=== PATIENT | female | born 1950 | race Caucasian/White ===

== ENCOUNTER 2020-04-14 21:02 | Inpatient (IN) | payer MEDICARE, OTHER ==
[~2020-04-14 21:02] MED LIST: Adenosine 6 MG/2 ML VIAL ONE; Amiodarone 150 MG/3 ML VIAL ONE
[2020-04-14] MEDS ORDERED: Sodium Chloride 0.9% 1,000 ML IV SCH (23:30)
[2020-04-15] MEDS ORDERED: cloNIDine 0.1 MG TAB PO PRN (00:24)
[2020-04-15] MEDS ORDERED: Guaifenesin DM 100-10/5 ML UDCUP PO PRN (00:24)
[2020-04-15] MEDS ORDERED: Acetaminophen 325 MG TAB PO PRN (00:24)
[2020-04-15] MEDS ORDERED: HYDROcodone/Acetaminophen 5/325 mg Tablet PO PRN (00:24)
[2020-04-15] MEDS ORDERED: Promethazine HCl 12.5 MG in Sodium Chloride 0.9% 50 ML IVPB PRN (00:24)
[2020-04-15] MEDS ORDERED: Sodium Chloride 0.9% 1,000 ML IV SCH ×3 (00:30→15:05)
[2020-04-15] MEDS ORDERED: Lorazepam 2 MG/ML VIAL SLOW IVP PRN (02:24)
[2020-04-15] MEDS ORDERED: Haloperidol Lactate 5 MG/ML VIAL SLOW IVP PRN (02:24)
[2020-04-15 02:58] LABS: Lactic Acid 3.4 mmol/L (0.5-2.2)
--- NOTE | 2020-04-15 03:13 | PDOC.HHP ---
Hospitalist HPI - History of Present Illness Altered mental status History of Present Illness: Patient is a 69 year old male with PMH back pain, HLD, HTN, hypothyroidism, GERD who presents as transfer from [place] for altered mental status. She was reported on scene as paranoid and confused, hypotensive and afebrile. workup there revealed UDS positive for PCP, opiates, amphetamines. Report indicates K2 administrationShe recieved ativan, 4 doses narcan, and finally required ketamine. Labs from outside hospital reviewed, elevated LFTs and acidosis and Cr 4, BUN 84. CK not ordered there. She recieved 3L IVF and is on 150cc NS an hour from ED. She reportedly complained of abdominal pain there which is not present any longer. CT abdomen showed focal ileus at hepatic flexure. On my interview, she is groggy but awake and conversive, likely under residual ketamine effects, slightly tachycardic and paranoid but in no acute distress. Hospitalist ROS - Review of Systems ROS unobtainable: due to mental status - Medication Medications: reviewed Hospitalist History - Past Medical History Other Medical History: back pain, HLD, HTN, hypothyroidism, GERD - Past Surgical History Past Surgical History: reports: Hysterectomy - Family History Other Family History: unknown - Social History Other Social History: drug use per HPI, otherwise unknown - Exam General - other findings: altered mental status Eye: PERRL, anicteric sclera ENT: normocephalic atraumatic, no oropharyngeal lesions, moist mucosa Neck: supple, symmetric, no JVD, no thyromegaly, no lymphadenopathy, no carotid bruit Heart: RRR, no murmur, no gallops, no rubs, normal peripheral pulses Respiratory: CTAB, no wheezes, no rales, no ronchi, normal chest expansion, no tachypnea, normal percussion Gastrointestinal: soft, non-tender, non-distended, normal bowel sounds, no palpable masses, no hepatomegaly, no splenomegaly, no bruit Extremities: no cyanosis, no clubbing, no edema Skin: normal turgor, no lesions, no rashes Neurological: cranial nerve grossly intact, normal sensation to touch, no weakness, no focal deficits, no new deficit Musculoskeletal: normal tone, normal strength, no muscle wasting Psychiatric: not oriented, somnolent Hospitalist Results - Labs Result Diagrams: 04/15/20 02:35 06/05/20 02:35 - EKG Interpretation EKG: sinus tachycardia [address] changes Hospitalist H&P A/P - Plan Plan: Patient is a 69 year old male with PMH back pain, HLD, HTN, hypothyroidism, GERD who presents as transfer from [place] for altered mental status. # altered mental status secondary to polysubstance abuse - PCP in UDS also reports of K2 - admit to floor - monitor closely, transfer if closer care needed - treat as below # acute renal failure - suspect secondary to ATN from dehydration and drug toxicitity or rhabdomyolysis - IVF at 150/hr - follow up CK - repeat labs now - monitor for sepsis signs, no obvious infections - trend nephrology, I/Os, avoid nephrotoxins # sinus tachycardia - perhaps due to # transaminitis - trend, check for CK elevation, hold statin, IVF, likely due to toxicity of drug abuse # chronic pain - hold pain meds for now # HLD - hold statin w lft elevation # HTN - PRNs in place # hypothyroidism - resume home meds, check TSH/T4 # GERD - antacid ordered
[2020-04-15 03:15] LABS: Albumin 2.7 g/dL (3.4-4.8)
[2020-04-15 03:16] LABS: Chloride 103 mmol/L (98-107); Sodium 135 mmol/L (136-145)
[2020-04-15 03:17] LABS: Calcium 8.9 mg/dL (7.8-10.44); Glucose 67 mg/dL (80-115)
[2020-04-15 03:19] LABS: Anion Gap 22 mmol/L (10-20); Carbon Dioxide 14 mmol/L (23-31)
[2020-04-15 03:20] LABS: Alkaline Phosphatase 80 U/L (40-110)
[2020-04-15 03:21] LABS: Calc. Creatinine Clearance 18 mL/min (70-130); Estimated GFR-MDRD 12
[2020-04-15 03:22] LABS: BUN (Urea Nitrogen) 92 mg/dL (9.8-20.1)
[2020-04-15 03:23] LABS: ALT (SGPT) 114 U/L (8-55); AST (SGOT) 183 U/L (5-34); CK (CPK) 1452 U/L (29-168)
[2020-04-15 03:41] LABS: Band 27 % (5-11); Hemoglobin 15.7 g/dL (12.0-16.0); Large Platelets SLIGHT; Lymphocytes 13 % (21-51); MDiff Complete? YES; Mean Corpuscular HGB CONC 32.2 g/dL (32.0-36.0); Mean Corpuscular Hemoglobin 31.3 pg (27.0-31.0); Mean Corpuscular Volume 97.2 fL (78.0-98.0); Mean Platelet Volume 9.1 fL (7.4-10.4); Metamyelocyte 7 % (0-0); Monocytes 6 % (0-10); Myelocyte 5 % (0-0); Neutrophil 42 % (42-75); Platelet Clumps SLIGHT; Platelet Count 179 thou/uL (130-400); Platelet Morphology Comment PLT clumps seen-ADEQ; Red Blood Cell (RBC) Count 5.02 mill/uL (4.20-5.40); White Blood Cell (WBC) Count 3.5 thou/uL (4.8-10.8)
[2020-04-15 03:51] LABS: Globulin 3.2 g/dL (2.4-3.5); Protein, Total 5.9 g/dL (6.0-8.3)
[2020-04-15] MEDS ORDERED: Dextrose 5% in Water 1,000 ML IV PRN (04:04)
[2020-04-15] MEDS: Dextrose 50% Abboject 50 ML SYRINGE SLOW IVP PRN ×2 (04:44→06:52)
[2020-04-15] MEDS ORDERED: Dextrose 5 % And 0.9 % NaCl 1,000 ML IV SCH (05:15)
[2020-04-15 05:41] LABS: ALT (SGPT) 120 U/L (8-55); AST (SGOT) 189 U/L (5-34); Albumin 2.7 g/dL (3.4-4.8); Alkaline Phosphatase 86 U/L (40-110); Bilirubin, Direct 0.9 mg/dL (0.1-0.3); Bilirubin, Total 1.1 mg/dL (0.2-1.2); Glucose 56 mg/dL (80-115); Protein, Total 6.1 g/dL (6.0-8.3)
[2020-04-15 05:47] LABS: BUN (Urea Nitrogen) 91 mg/dL (9.8-20.1); Calc. Creatinine Clearance 17 mL/min (70-130); Calcium 7.9 mg/dL (7.8-10.44); Carbon Dioxide 12 mmol/L (23-31); Chloride 106 mmol/L (98-107); Estimated GFR-MDRD 11; Magnesium 2.3 mg/dL (1.6-2.6); Phosphorus 7.2 mg/dL (2.3-4.7); Potassium 4.1 mmol/L (3.5-5.1); Sodium 138 mmol/L (136-145)
[2020-04-15 05:51] LABS: Glucose 56 mg/dL (80-115)
[2020-04-15 06:22] LABS: Anion Gap 24 mmol/L (10-20)
[2020-04-15] MEDS ORDERED: Dextrose 50% Abboject 50 ML SYRINGE ONE ×3 (06:27→07:15)
[2020-04-15 06:43] LABS: Base Excess -15.4 mEq/L (-2.0 to +3.0); Calcium, Ionized (venous) 0.95 mmol/L (1.16-1.32); Chloride (ABG LAB) 104 mmol/L (98-106); Hemoglobin (Hb) 13.8 g/dL (11.7-16.1); Potassium - ABG Lab 4.06 mmol/L (3.70-5.30); Sodium 131.9 mmol/L (133-146)
[2020-04-15 06:44] LABS: Actual Bicarbonate (HCO3v) 10 mEq/L (22-28); pH (venous) 7.23 (7.32-7.43)
[2020-04-15 06:45] LABS: Lactic Acid 5.2 mmol/L (0.5-2.2)
[2020-04-15 06:46] LABS: Anion Gap 25 mmol/L (10-20); BUN (Urea Nitrogen) 87 mg/dL (9.8-20.1); Calc. Creatinine Clearance 17 mL/min (70-130); Calcium 8.8 mg/dL (7.8-10.44); Carbon Dioxide 11 mmol/L (23-31); Chloride 105 mmol/L (98-107); Estimated GFR-MDRD 11; Potassium 4.2 mmol/L (3.5-5.1); Sodium 137 mmol/L (136-145)
[2020-04-15] MEDS ORDERED: Sodium Bicarb 50 MEQ/50 ML Abboject 8.4% SYRINGE ONE (06:55)
[2020-04-15] MEDS ORDERED: Sodium Bicarbonate 150 MEQ in Dextrose 5% in Water 1,000 ML IV SCH ×3 (07:00→18:58)
[2020-04-15] MEDS ORDERED: Dextrose 50% Abboject 50 ML SYRINGE SLOW IVP SCH (07:00)
[2020-04-15 07:01] LABS: Glucose 53 mg/dL (80-115)
[2020-04-15] MEDS ORDERED: Amiodarone 450 MG in Dextrose 5% in Water 250 ML IVPB SCH (07:30)
[2020-04-15 08:13] LABS: Band 11 % (5-11); Dohle Bodies MODERATE; Lymphocytes 15 % (21-51); MDiff Complete? YES; Mean Corpuscular HGB CONC 31.6 g/dL (32.0-36.0); Mean Corpuscular Hemoglobin 31.5 pg (27.0-31.0); Mean Corpuscular Volume 99.8 fL (78.0-98.0); Mean Platelet Volume 8.9 fL (7.4-10.4); Metamyelocyte 6 % (0-0); Monocytes 18 % (0-10); Neutrophil 49 % (42-75); Nucleated RBC 2 % (0); Platelet Clumps SLIGHT; Platelet Count 161 thou/uL (130-400); Platelet Morphology Comment PLT clumps seen-ADEQ; RBC Distribution Width 13.2 % (11.5-14.5); RBC Morphology Normal; Red Blood Cell (RBC) Count 4.75 mill/uL (4.20-5.40); Toxic Granulation SLIGHT; White Blood Cell (WBC) Count 7.5 thou/uL (4.8-10.8)
--- NOTE | 2020-04-15 08:38 | RAD ---
Chest one view HISTORY: Preop. COMPARISON: 06/30/2019. FINDINGS: Cardiac silhouette is magnified by projection. Pulmonary vasculature upper limits of normal and accentuated by shallow inspiration. Mediastinum is midline. Ill-defined patchy areas of parenchymal opacity are most pronounced at each lung base. No evidence of pneumothorax. fire safety director leads overlie the chest. IMPRESSION : Patchy bibasilar infiltrates could be related to pulmonary vascular congestion or multifocal infiltra abbi. Clinical correlation regarding other signs and symptoms of multifocal pneumonitis is required.
[2020-04-15] MEDS ORDERED: Cefepime 1 GM in Sodium Chloride 0.9% 100 ML IVPB SCH (09:00)
[2020-04-15] MEDS: Sodium Chloride 0.9% 1,000 ML IV SCH ×2 (09:21→13:42)
[2020-04-15] MEDS: Heparin 5,000 UNITS/ML VIAL SC SCH ×3 (09:26→21:15)
[2020-04-15 09:54] LABS: Actual Bicarbonate (HCO3a) 13.2 mEq/L (22-28); Base Excess (BEa) -13.6 mEq/L (-2.0 to +3.0); CO2 Tension 33.9 mmHg (35.0-45.0); Calcium, Ionized (arterial) 1.06 mmol/L (1.12-1.30); Hemoglobin (Hb) 13.8 g/dL (12.0-16.0); Potassium - ABG Lab 3.58 mmol/L (3.70-5.30); pH, Arterial 7.21 (7.35-7.45)
[2020-04-15 09:55] LABS: ALV-art Gradient 155.825 (0-20); Puncture Site RB
--- NOTE | 2020-04-15 09:57 | CON ---
DATE OF CONSULTATION: HISTORY OF PRESENT ILLNESS: Ms. Cordon is a 69-year-old female who was transferred here from [facility] to [facility] after she was found to have multiple medical problems, presentation was hypotensive, abdominal pain, confusion. She had medicine filled in, apparently Tylenol No.3 for shoulder pain 8 days ago and she apparently pretty much ran out, had pain, became confused. apparently was in the ER in [place], said she was confused and complained of shoulder pain. She was transferred over here where she was found to be in SVT, was given adenosine and eventually amiodarone in the ICU, on a BiPAP. Seems to be more settled down. Had additional medications including ketamine, Haldol. PAST MEDICAL HISTORY: Pertinent for hypothyroidism, reflux, chronic pain, previous hysterectomy. SOCIAL HISTORY: Alcohol intake 5 drinks a day. ALLERGIES: NONE. CHRONIC MEDICATIONS: 1. Eliquis 5 mg. 2. Tylenol No. 3. 3. Synthroid 25. 4. Acyclovir oral 400 mg two a day. 5. Amlodipine 5. 6. ointment. 7. Lisinopril 10. 8. Zinc. We will try and get additional information as family arrives. REVIEW OF SYSTEMS: Otherwise unobtainable. PHYSICAL EXAMINATION: GENERAL: She has been more responsive. VITAL SIGNS: Pulse 106, blood pressure 110/56, sats 98% on BiPAP, respiratory rate 21. CHEST: There is no wheezing, crackles. CARDIAC: Normal S1, S2. No gallops. ABDOMEN: No mass. LABORATORY DATA: PH was 7.23, PO2 was 61, pCO2 is 25, bicarb was 11. Sodium was 131, glucose 226, BUN was 87, creatinine 4.0. CK is 1648. IMPRESSION: 1. Metabolic encephalopathy. 2. Acute renal failure. 3. Severe metabolic acidosis along with rhabdo. 4. Hypothyroidism. 5. Obesity. 6. Under urine drug screen was positive for apparently PCP, opiates, K2 prior to transfer here. She needs aggressive hydration. Otherwise, supportive care. If condition gets worse, she is going to get intubated. She probably is going to require dialysis. She had no significant urine output in the next several hours. 7. Baseline chest x-ray being ordered, serial lab. 8. Pulmonary Critical Care will follow. This is 45 minutes of critical time. Job ID: [id number]
[2020-04-15 11:07] LABS: Creatinine, Urine 148.09 mg/dL (47-110)
[2020-04-15 11:35] LABS: ALT (SGPT) 100 U/L (8-55); AST (SGOT) 163 U/L (5-34); Albumin 2.2 g/dL (3.4-4.8); Alkaline Phosphatase 75 U/L (40-110); Anion Gap 21 mmol/L (10-20); BUN (Urea Nitrogen) 90 mg/dL (9.8-20.1); Bilirubin, Total 0.8 mg/dL (0.2-1.2); CK (CPK) 1808 U/L (29-168); Calc. Creatinine Clearance 17 mL/min (70-130); Calcium 7.7 mg/dL (7.8-10.44); Carbon Dioxide 16 mmol/L (23-31); Chloride 104 mmol/L (98-107); Estimated GFR-MDRD 11; Globulin 2.7 g/dL (2.4-3.5); Glucose 116 mg/dL (80-115); Potassium 3.8 mmol/L (3.5-5.1); Protein, Total 4.9 g/dL (6.0-8.3); Sodium 137 mmol/L (136-145)
[2020-04-15] MEDS ORDERED: Diltiazem 125 MG in Sodium Chloride 0.9% 100 ML IVPB SCH (12:30)
--- NOTE | 2020-04-15 12:32 | PDOC.EVN ---
Event Note - Event Note Event Note: Took over care for the endoscopy nurse this morning. Patient remains in A. fib with a rapid ventricular rate in the 150s to 170s range. Blood pressure has remained stable. Patient has been confused and agitated. Patient was moved to the ICU. Discussed the case with Dr. Garcia. Given the mixture of street drugs in the patient's system it was felt better that we avoid adding additional medications for the A. fib as long as her heart rate was controlled. Remaining on the amiodarone drip without bolus. Discussed the case with Dr. Ledesma. Patient's pH is 7.22 and her bicarb is 10. Discussed the potential for intubation and dialysis. Will defer that to his call. I have subsequently been notified that we are out of amiodarone and it is on back order. We will discontinue the amiodarone drip as it is finishing this particular bag. We will start Cardizem drip at 10 mg/h. Time spent in critical care was 47 minutes.
--- NOTE | 2020-04-15 12:56 | CON ---
DATE OF CONSULTATION: 04/15/2020 SERVICE: Nephrology. REASON FOR CONSULTATION: Acute renal failure. REQUESTING PHYSICIAN: Dr. Patel Lincoln. CHIEF COMPLAINT/HISTORY OF PRESENT ILLNESS: The following history was obtained from review of medical record and talking with the patient's daughter at the bedside as the patient with BiPAP was unable to provide any significant history. The patient is a 69-year-old female with known history of hypertension, hypothyroidism, and hyperlipidemia, who was admitted on transfer from [facility] for further evaluation and treatment of mental status change and acute renal failure. The patient reportedly developed a left shoulder pain few days ago, for which she went to [facility], where she was given some opioid narcotics. The patient subsequently developed abdominal pain as well as back pain and some confusion. Of note, she takes Adderall intermittently for unclear indication as per daughter. The patient was noted to be altered and groggy on presentation to [facility] and further evaluation there revealed markedly elevated BUN and creatinine. She was treated with four doses of Narcan, IV fluid, and subsequently admitted over here. CT scan of the abdomen and pelvis without contrast performed at [facility] showed mildly distended hepatic flexure of the colon as well as mild gallbladder distention, and interstitial, third spacing of fluid along the right luis-chest, abdomen, and pelvis. There was no nephroureterolithiasis or hydronephrosis seen. On arrival here, the patient was also found to have metabolic acidosis and further evaluation with CPK showed elevated CPK at 1600. The patient was noted to be restless and in respiratory distress and was subsequently started on BiPAP with improvement in general condition. There was no history of nausea, vomiting, diarrhea, dysuria, hematuria, hematemesis, or leg swelling. There is also no history of fever or trauma. PAST MEDICAL HISTORY: 1. Hypothyroidism. 2. Gastroesophageal reflux disease. 3. Hypertension. 4. Hyperlipidemia. 5. Back pain. PAST SURGICAL HISTORY: Hysterectomy. FAMILY HISTORY: Unable to obtain due to the patient's condition. SOCIAL HISTORY: Reportedly drinks alcohol daily. ALLERGIES: NO KNOWN DRUG ALLERGIES REPORTED. MEDICATIONS: Prior to hospital medications. 1. Eliquis 5 mg p.o. b.i.d. 2. Synthroid 25 mcg daily. 3. Acyclovir 400 mg b.i.d. 4. Amlodipine 5 mg p.o. daily. 5. Lisinopril 10 mg daily. 6. Zinc. This however has not been verified. REVIEW OF SYSTEMS: Could not be performed due to the patient's condition. PHYSICAL EXAMINATION: VITAL SIGNS: Temperature 97.7, pulse 84, respiratory rate 19, SpO2 is 99% on 40% FiO2 via BiPAP. Blood pressure is 117/52. GENERAL: Comfortable female, in no obvious distress. Afebrile, anicteric, acyanotic. Oral mucosa is dry. BiPAP mask is in place. NECK: Supple with no JVD. CARDIOVASCULAR: Regular rhythm and rate with normal heart sounds 1 and 2. RESPIRATORY: Fair air entry bilateral. Transmitted breath sounds via the BiPAP is also noted. No respiratory distress appreciated. GI: Full/mildly distended with marked tenderness in lower abdomen bilaterally. Bowel sound is hypoactive. UROGENITAL: Pagan catheter is in place, draining some urine. EXTREMITIES: Grossly normal looking, atraumatic with no edema or erythema. SKIN: Rather dry with poor skin turgor. RESEARCH ASSOCIATE POLICY: Sleeping, but easily arousable. Attempting to verbalize, but voice is muffled due to BiPAP. DIAGNOSTIC DATA: CBC this morning showed WBC count of 7.5, hemoglobin of 15, MCV of 99.8, and platelets of 161. Arterial blood gas this morning showed pH of 7.21, pCO2 of 33.9, PO2 of 87.0, ionized calcium of 1.06. BMP this morning showed sodium 137, potassium 4.2, chloride 105, CO2 of 11, BUN 87, creatinine 4.09, glucose 53, calcium 8.8. Lactic acid is 5.2. CPK is 1648. Of note on presentation yesterday, creatinine was 4.0. CO2 was 15, BUN 84, AST 106, ALT of 79, alkaline phosphatase 74, albumin 2.9, total protein 6.0. Urinalysis performed yesterday showed brown cloudy urine with pH of 5.0; specific gravity of 1.028; urine protein more than or equal to 300 mg/dL; trace ketones; small bilirubin; negative glucose, blood, nitrite, and leukocyte esterase. Microscopy showed no rbc or wbc, with rare bacteria. Urine drug screen performed on presentation on April 14 was positive for opioids, phencyclidine, and amphetamine. ASSESSMENT: 1. Acute renal failure: Multifactorial. Most likely due to hemodynamic factors related to hypotension, rhabdomyolysis, and volume depletion. Acute tubular necrosis is a concern. 2. Metabolic acidosis: Occult gastrointestinal pathology is a concern, given abdominal tenderness. Acute kidney injury and hemodynamic instability are also contributory. 3. Rhabdomyolysis, most likely due to substance abuse and dehydration. 4. Tachyarrhythmia. Query atrial fibrillation with rapid ventricular response. The patient has prior history of atrial fibrillation, on chronic anticoagulation with Eliquis. Currently on amiodarone. 5. Acute respiratory failure, on BiPAP. 6. Circulatory shock: Etiology is unclear, but seems to be multifactorial from hypovolemia and occult infection. 7. Transaminitis: Due to circulatory shock. 8. Biliary pathology is a concern also. PLAN: 1. We will treat with sodium bicarbonate, given severe metabolic acidosis with respiratory compensation. 2. We will also get urine electrolytes. 3. [place] fluid therapy will be provided as the patient is volume contracted. 4. Agree with amiodarone for rate and rhythm control. 5. We will repeat CT scan of the abdomen, however, contrast will not be provided at this time. 6. We will also consult General Surgery for further evaluation of acute abdomen. 7. We will get repeat CMP and CPK. 8. Further treatment to follow on re-evaluation of other diagnostic test. 9. The patient is critically ill with guarded prognosis. Further treatment to follow. Job ID: [id number]
--- NOTE | 2020-04-15 13:04 | CT ---
CT ABDOMEN AND PELVIS WITHOUT CONTRAST: 04/15/20 HISTORY: Metabolic acidosis, abdominal pain and acute kidney injury. COMPARISON: CT exam of 04/14/20. FINDINGS: There is worsening atelectasis in the lung bases. Small nodular foci of consolidation to the right mi ddle lobe and right lower lobe. No significant pericardial effusion. The gallbladder is distended. There is high density material within the cecal apex. Air fluid levels of the ascending colon. Asymme tric right chest, abdomen and pelvis wall third spacing fluid. No free intraperitoneal gas. There is some low grade right pericolic gutter fluid which is new. IMPRESSION: 1. Progressive mild dilatation of the ascending colon with concern for some posterior hepatic fl exure pneumatosis. There is also new right paracolic gutter fluid as well as high density debris with in the cecal apex which may represent hemorrhage. With the history of lactic acidosis, findings can b e seen ischemic bowel. Surgical consultation is advised. 2. Patchy round foci within the right middle lobe and right lower lobe may reflect developing co nsolidation. Follow-up CT of the chest after resolution of acute findings is recommended. CODE: T POS: HOME
--- NOTE | 2020-04-15 13:38 | RAD ---
Radiograph abdomen one view: 04/15/2020 11:14 PM HISTORY: NG tube placement in 69-year-old female with abdominal pain FINDINGS: Esophageal tube descends the left paramedian chest, and vertically descending is the left side of the abdomen, with distal tip close to the left iliac crest. There is little or no gas in the stomach. It is presumed that the tube is in the corpus of the stomach. IMPRESSION: Esophagogastric tube placement along distal aspect of greater curvature of stomach.
[2020-04-15] MEDS ORDERED: Rocuronium Bromide 10 MG/ML (10ML VIAL) ONE (13:48)
[2020-04-15] MEDS ORDERED: Calcium Chloride 1 GM/10 ML Abboject SYRINGE ONE (13:48)
[2020-04-15] MEDS ORDERED: PHENYLEPHRINE-NS 100 MCG/ML 10 ML SYRINGE ONE (13:48)
--- NOTE | 2020-04-15 15:20 | ULT ---
Exam: Vein mapping for dialysis access HISTORY: End-stage renal disease. TECHNIQUE: Multiplanar grayscale and color Doppler images were obtained in a bilateral upper extremit y venous ultrasound. Spectral analysis of the Doppler waveforms of the vessels were performed. FINDINGS: The bilateral internal jugular veins, subclavian, and axillary veins are patent without kiel dence of thrombus. Right brachial artery 4.5 mm Right radial artery 1.9 mm Right ulnar artery 2.3 mm Left brachial artery 3.8 mm Left radial artery 2.2 mm Left ulnar artery 2.0 mm RIGHT CEPHALIC VEIN in millimeters 3.3 -- Shoulder 2.0 -- Upper arm 1.4 -- Mid upper arm 4.0-- Just proximal to the elbow 2.6 -- Just distal to the elbow 2.4 -- Forearm 3.1 -- Wrist RIGHT BASILIC VEIN in millimeters 1.8 -- Shoulder 1.3 -- Upper arm 1.3 -- Mid upper arm 2.2 -- Just proximal to the elbow 1.2 -- Just distal to the elbow 1.5 -- Forearm 1.0 -- Wrist LEFT CEPHALIC VEIN in millimeters 3.5 -- Shoulder 3.0 -- Upper arm 2.3 -- Mid upper arm 2.8 -- Just proximal to the elbow 1.9 -- Just distal to the elbow 2.1 -- Forearm 2.1 -- Wrist LEFT BASILIC VEIN in millimeters 5.7 -- Shoulder 5.1 -- Upper arm 5.0 -- Mid upper arm 3.7 -- Just proximal to the elbow 3.1 -- Just distal to the elbow 2.8 -- Forearm 1.6 -- Wrist IMPRESSION: Vein mapping for dialysis access as above
[2020-04-15] MEDS ORDERED: Digoxin 0.5 MG/2 ML AMP SLOW IVP SCH (16:00)
--- NOTE | 2020-04-15 16:30 | CON ---
DATE OF CONSULTATION: HISTORY OF PRESENT ILLNESS: Kacy Corodn is a 69-year-old white female who is transferred from [place] for acute mental status changes. She is unable to give any coherent history at the present time and currently is on BiPAP. She was apparently confused, hypotensive, and paranoid. She has been found to have multiple drugs in her urine drug screen. She apparently has history of atrial fibrillation and is on Eliquis, but at least from the medicine list that is provided, she is not on any suppressive or rate controlling medications. She denies any shortness of breath at this time or chest pain. PAST MEDICAL HISTORY: 1. Chronic back pain. 2. Hypertension. 3. Hyperlipidemia. 4. Hypothyroidism. 5. GERD. 6. Polypharmacy abuse. OPERATIONS: Hysterectomy. MEDICATIONS: 1. Eliquis 5 mg b.i.d. 2. Levothyroxine 25 mcg daily. 3. Acyclovir 400 mg b.i.d. 4. Amlodipine 5 mg daily. 5. Lisinopril 10 mg b.i.d. 6. Zinc 50 mg daily. ALLERGIES: NONE. SOCIAL HISTORY: Drug use. PHYSICAL EXAMINATION: VITAL SIGNS: Blood pressure 105/74, pulse of up to 130 to 140 and on the monitor at the present time appears to be in atrial fibrillation, although her EKG shows sinus rhythm. HEENT: PERRL. CHEST: Clear. CARDIAC: S1 and S2 are normal without any S3, S4, or murmurs. Carotid upstrokes normal without bruits. ABDOMEN: Normal bowel sounds without tenderness. EXTREMITIES: No clubbing, cyanosis, or edema. NEUROLOGIC: Grossly intact, although the patient is not very conversive. SKIN: Warm and dry. LABORATORY DATA: EKGs reveal sinus tachycardia with nonspecific ST-segment changes. Hemoglobin 15.0, hematocrit 47.4, white count 7500, and platelets 161,000. INR 1.1. A pH 7.21, pCO2 of 33.9, and pO2 of 87.0. Sodium 137, potassium 3.8, chloride 104, carbon dioxide 16, BUN 90, creatinine 4.0, AST 163, ALT 100, and CK 1808. TSH is normal. Urine drug screen is positive for opiates, phencyclidine, and amphetamines. IMPRESSION: 1. Mental status changes, probably due to polypharmacy, rule out sepsis. 2. Apparent history of atrial fibrillation in the past, on chronic anticoagulation with Eliquis. From her medicine list, she is not on any medications to control rate or suppress the atrial fibrillation. 3. Hypertension. 4. Hyperlipidemia. 5. Acute kidney injury versus chronic kidney disease. 6. Elevated liver function tests. PLAN: Currently, she is on Cardizem 5 mg/hour IV for rate control. However, she continues to have heart rates in the 130s to 140s with somewhat low blood pressure. Consideration will be given to intravenous amiodarone, but apparently there was a shortage of that at the present time. Therefore, for better rate control, we will give her digoxin 0.5 mg IV, and with her renal insufficiency, we will check a digoxin level in the morning. I will follow the patient with you. Echocardiogram will be performed. Job ID: [id number] [id number]
[2020-04-15 16:54] LABS: Lactic Acid 4.2 mmol/L (0.5-2.2)
[2020-04-15 17:52] LABS: Actual Bicarbonate (HCO3a) 16.5 mEq/L (22-28); Base Excess (BEa) -9.8 mEq/L (-2.0 to +3.0); CO2 Tension 37.7 mmHg (35.0-45.0); Carboxyhemoglobin (COHb) 3.7 gm% (0.0-3.0); Hemoglobin (Hb) 12.9 g/dL (12.0-16.0); O2 Tension (PaO2), arterial 71.8 mmHg (> 80.0); Potassium - ABG Lab 4.35 mmol/L (3.70-5.30); pH, Arterial 7.26 (7.35-7.45)
[2020-04-15 17:55] LABS: Puncture Site RB
[2020-04-15 17:56] LABS: ALV-art Gradient 166.275 (0-20)
[2020-04-15 18:23] LABS: Anion Gap 22 mmol/L (10-20); BUN (Urea Nitrogen) 95 mg/dL (9.8-20.1); Calc. Creatinine Clearance 18 mL/min (70-130); Calcium 7.4 mg/dL (7.8-10.44); Carbon Dioxide 14 mmol/L (23-31); Chloride 104 mmol/L (98-107); Estimated GFR-MDRD 12; Glucose 101 mg/dL (80-115); Potassium 4.6 mmol/L (3.5-5.1); Sodium 135 mmol/L (136-145)
[2020-04-15] MEDS ORDERED: Fentanyl 100 MCG/2 ML VIAL ONE (21:37)
[2020-04-15] MEDS ORDERED: Phenylephrine 10 MG/ML VIAL ONE (21:54)
--- NOTE | 2020-04-15 22:07 | CON ---
DATE OF CONSULTATION: 04/15/2020 HISTORY OF PRESENT ILLNESS: Kacy Cordon is a 69-year-old female, admitted to the Hospitalist Service on 04/15/2020 after being transferred to the emergency room on 04/14/2020 from [place]. The patient admitted with altered mental status and acute renal failure. She reported on the scene has been paranoid, confused, hypotensive, afebrile. Workup there revealed positive UDS for PCP, opiates and amphetamines. There is some report of K2 administration, but I have talked to the patient's daughter and she emphatically denies as did her mother uses K2 and does not use PCP. The patient has been prescribed recently injections for dietary reasons and also Adderall. She is noted to have elevated liver function tests, severe acidosis, acute renal failure. She received several liters of IV fluid and transferred to our emergency room. She was also complaining of abdominal pain. Report by hospitalist is not present and the patient denying on admission. CAT scan of the abdomen and pelvis revealed findings of an ileus. The patient noted to be slightly tachycardic. Since being in the hospital, the patient's BUN has not improved. It remains at 90 to 95, creatinine 4.0 to 3.78, GFR 11. Her lactate was 4.2. Her CO2 since being in the hospital has dropped from 16 to 14, potassium 4.6. Direct bilirubin is normal. AST and ALT are slightly elevated. Creatine kinase 1808. White count was 3.5 on admission, 27% bands, now 7.5, normal differential, hemoglobin 15, hematocrit 47. As noted above, CAT scan obtained at 0900 hours without IV contrast (IRF) reveals mild dilatation of the ascending colon with concern for posterior hepatic flexure pneumatosis, new right pericolic gutter fluid as well as high-density debris within the cecal apex, which may represent hemorrhage. Ischemic bowel is a concern. This report was not immediately available when I initially saw her at about noon today. Chest x-ray revealed bibasilar infiltrates. No acute findings. In the emergency room, the patient's blood pressure is 140/67, heart rate 91, respiratory rate 22. The patient's daughter and states that her mental status is acutely abnormal. She has never experienced such problems before. PAST MEDICAL HISTORY: Chronic back pain, chronic constipation, spastic colon syndrome, hypertension, hypothyroidism, and GERD. PAST SURGICAL HISTORY: Hysterectomy. PSYCHIATRIC HISTORY: None. SOCIAL HISTORY: The patient drinks wine every day to every other day. Tobacco use, none. Drug use, none. She lives with her . The patient's history is not obtainable from her, but obtainable from the records. Dr. Ledesma is seeing her and Nephrology, Dr. Ruano, has seen her. The patient remains on BiPAP. On x-ray, she does have findings of an ileus with markedly distended stomach and distended loops of small bowel and colon. REVIEW OF SYSTEMS: Not possible. FAMILY HISTORY: Not possible. PHYSICAL EXAMINATION: GENERAL: The patient moans and groans and does verbalize intelligible sounds at times, but is not able to carry on a meaningful conversation. VITAL SIGNS: Height 5 foot 8 inches, 180 pounds, and 27 BMI. HEAD, EARS, EYES, NOSE AND THROAT: Unremarkable. LUNGS: Clear to auscultation. CARDIAC: Regular rate and rhythm without murmur or gallop. ABDOMEN: Diffusely tender with voluntary guarding. The patient grimaces and moans where her abdomen is examined. EXTREMITIES: No ankle edema. LABORATORY DATA: As noted above. ASSESSMENT/PLAN: 1. Acute renal failure, severe progressive acidosis and with the radiological findings, would worry about ischemic bowel. Since seeing the patient earlier today and discussing with the daughter and then re-examining her early this evening and discussing her condition with the daughter again and the patient's per telephone spending over an hour and a half to 2 hours today with the patient and her family discussing matters, my recommendation would be laparotomy to rule out ischemic bowel. Family agrees. They understand the risks of infection, bleeding, reoperation, possible colostomy, central line, possible ileostomy. These things were discussed and explained to the daughter. They consented to blood transfusions if necessary and indicated procedures and we will plan the exploration tonight. Initially, when I saw her today, I talked to the family about central lines and discussed those and they agreed and an NG tube was placed and a right femoral Trialysis catheter was placed. 2. Acute renal failure. 3. Severe acidosis. 4. Mental status changes. 5. Suspect sepsis. Job ID: [id number]
[2020-04-15] MEDS ORDERED: Piperacillin/Tazobactam 3.375 GM VIAL ONE (22:38)
[2020-04-15 22:44] LABS: Lactic Acid 4.6 mmol/L (0.5-2.2)
[2020-04-15] MEDS ORDERED: Albumin 5% 500 ML ONE (22:46)
[2020-04-15 22:51] LABS: ALT (SGPT) 85 U/L (8-55); AST (SGOT) 123 U/L (5-34); Alkaline Phosphatase 75 U/L (40-110); Anion Gap 22 mmol/L (10-20); BUN (Urea Nitrogen) 102 mg/dL (9.8-20.1); Calc. Creatinine Clearance 17 mL/min (70-130); Calcium 7.3 mg/dL (7.8-10.44); Carbon Dioxide 20 mmol/L (23-31); Chloride 100 mmol/L (98-107); Estimated GFR-MDRD 11; Globulin 2.7 g/dL (2.4-3.5); Glucose 108 mg/dL (80-115); Potassium 4.7 mmol/L (3.5-5.1); Protein, Total 4.7 g/dL (6.0-8.3); Sodium 137 mmol/L (136-145)
[2020-04-15] MEDS ORDERED: Sodium Chloride 0.9% 30 ML ONE (23:31)
[2020-04-16] MEDS ORDERED: Propofol BOLUS 1,000 MG/100 ML VIAL IV PRN (00:12)
[2020-04-16] MEDS ORDERED: Fentanyl BOLUS 250 ML IVPB PRN (00:12)
[2020-04-16] MEDS ORDERED: Sodium Chloride 0.9% 1,000 ML IV SCH ×2 (00:15→00:30)
[2020-04-16] MEDS ORDERED: Ventilator Sedation Protocol 1 EACH FS SCH (00:15)
[2020-04-16] MEDS: Sodium Bicarbonate 150 MEQ in Dextrose 5% in Water 1,000 ML IV SCH ×4 (00:36→21:11)
[2020-04-16] MEDS ORDERED: Albumin 25% 100 ML ONE (00:40)
[2020-04-16] MEDS: Albumin 25% 25 GM/100 ML BOT IVPB SCH ×5 (00:44→23:04)
[2020-04-16] MEDS: Sodium Chloride 0.9% 1,000 ML IV SCH ×2 (01:01→14:18)
--- NOTE | 2020-04-16 01:52 | OP ---
DATE OF PROCEDURE: 04/15/2020 PREOPERATIVE DIAGNOSES: Ischemic bowel colon with gangrenous right colon and transverse colon and distal small bowel, acute renal failure, and acidosis. POSTOPERATIVE DIAGNOSES: Ischemic bowel colon with gangrenous right colon and transverse colon and distal small bowel, acute renal failure, and acidosis. PROCEDURES PERFORMED: Exploratory laparotomy, extended right hemicolectomy, resecting extended segment of small bowel about 18 inches of ileum and resection of the transverse colon junction proximal 2/3rd and distal 1/3rd. Note bowel not anastomosed, ABThera placed with planned staged laparotomy in 48 hours for inspection of small bowel, lysis of adhesions, and ultrasound-guided left IJ central line triple lumen. ANESTHESIA: General. ESTIMATED BLOOD LOSS: Negligible. DESCRIPTION OF PROCEDURE: The patient was taken to the operating room, where under general anesthesia, abdomen was prepared with ChloraPrep and draped in routine fashion. Incision was made, carried down to skin and subcutaneous tissue, midline fascia, and abdominal cavity sharply. There were adhesions from prior abdominoplasty and large metal clips preoperatively in the fascia removed. Adhesiolysis carried out. Gangrenous foul-smelling right colon noted, gangrenous distal small bowel noted. There were more proximal areas of segmental gangrenous small bowel in proximity. The gangrenous colon process extended to the junction of the distal 3rd and proximal 2/3rds transverse colon. Once the colon was mobilized and duodenum identified, ileocolic vessels, pedicle divided between clamps ligated with 2-0 silk ties LigaSure. The small bowel and right colon and proximal 2/3rds transverse colon resected and specimen submitted to Pathology. Abdominal cavity thoroughly irrigated. Anastomosis was not performed. Sponge and instrument counts were correct. ABThera applied. Planned staged laparotomy in 48 hours. A left IJ triple-lumen catheter placed under ultrasound guidance. ChloraPrep was used. Seldinger technique used to place a triple-lumen catheter, removing the J-wire, securing it with 3-0 silk suture. Sterile dressings applied. The patient tolerated the procedure well, transferred on the ventilator in critical condition to ICU. Job ID: [id number]
[2020-04-16] MEDS: fentaNYL Citrate/PF 2,000 MCG in Sodium Chloride 0.9% 60 ML IV SCH (01:56)
[2020-04-16 04:53] LABS: INR-International Normal Ratio 1.2; PTT 40.1 sec (22.9-36.1); Prothrombin Time 14.8 sec (12.0-14.7)
[2020-04-16 05:02] LABS: ALT (SGPT) 56 U/L (8-55); AST (SGOT) 89 U/L (5-34); Albumin 2.2 g/dL (3.4-4.8); Alkaline Phosphatase 54 U/L (40-110); Anion Gap 19 mmol/L (10-20); BUN (Urea Nitrogen) 98 mg/dL (9.8-20.1); Bilirubin, Total 1.4 mg/dL (0.2-1.2); Calc. Creatinine Clearance 20 mL/min (70-130); Carbon Dioxide 19 mmol/L (23-31); Chloride 105 mmol/L (98-107); Digoxin 0.72 ng/mL (0.8-2.0); Estimated GFR-MDRD 13; Globulin 2.1 g/dL (2.4-3.5); Glucose 107 mg/dL (80-115); Potassium 4.6 mmol/L (3.5-5.1); Protein, Total 4.3 g/dL (6.0-8.3); Sodium 138 mmol/L (136-145)
[2020-04-16 05:06] LABS: Lactic Acid 4.1 mmol/L (0.5-2.2)
[2020-04-16 05:20] LABS: Free T4 (Free Thyroxine) 0.53 ng/dL (0.70-1.48); Thyroid Stimulating Hormone 0.3831 uIU/mL (0.35-4.94)
[2020-04-16] MEDS: Piperacillin/Tazobactam 2.25 GM in Sodium Chloride 0.9% 100 ML IVPB SCH ×4 (05:27→23:04)
[2020-04-16 06:18] LABS: Band 36 % (5-11); Dohle Bodies SLIGHT; Hemoglobin 10.7 g/dL (12.0-16.0); Large Platelets SLIGHT; Lymphocytes 22 % (21-51); MDiff Complete? YES; Mean Corpuscular HGB CONC 33.6 g/dL (32.0-36.0); Mean Corpuscular Hemoglobin 32.5 pg (27.0-31.0); Mean Corpuscular Volume 96.9 fL (78.0-98.0); Metamyelocyte 12 % (0-0); Monocytes 7 % (0-10); Myelocyte 3 % (0-0); Neutrophil 20 % (42-75); Platelet Count 25 thou/uL (130-400); Platelet Morphology Comment Appears Decreased; RBC Distribution Width 13.2 % (11.5-14.5); Red Blood Cell (RBC) Count 3.29 mill/uL (4.20-5.40); Toxic Granulation SLIGHT; Vacuoles SLIGHT
[2020-04-16 07:32] LABS: Actual Bicarbonate (HCO3a) 17.9 mEq/L (22-28); Base Excess (BEa) -6.6 mEq/L (-2.0 to +3.0); CO2 Tension 32.8 mmHg (35.0-45.0); Calcium, Ionized (arterial) 0.95 mmol/L (1.12-1.30); Carboxyhemoglobin (COHb) 3.5 gm% (0.0-3.0); Hemoglobin (Hb) 11.6 g/dL (12.0-16.0); O2 Tension (PaO2), arterial 115.9 mmHg (> 80.0); Potassium - ABG Lab 4.24 mmol/L (3.70-5.30); pH, Arterial 7.36 (7.35-7.45)
[2020-04-16 07:33] LABS: Puncture Site ALINE
[2020-04-16] MEDS ORDERED: Cefepime 0.5 GM, Admixture Fee 1 EACH in Sodium Chloride 0.9% 100 ML IVPB SCH (09:00)
--- NOTE | 2020-04-16 09:59 | RAD ---
AP CHEST: Date: 04/16/2020 HISTORY: CCU follow-up. On ventilator. COMPARISON: 04/15/2020. FINDINGS: ET tube, NG tube, and central line unchanged. Vascular and interstitial prominence is stable in appea reji. No focal infiltrate or consolidation. The hazy infiltrates in the lung bases are again noted. IMPRESSION: No interval change. POS: AGW
--- NOTE | 2020-04-16 10:33 | PRG ---
DATE OF SERVICE: 04/16/2020 SUBJECTIVE: A 69-year-old female who was taken to surgery last night and has come back intubated. She was found to have ischemic bowel. OBJECTIVE: VITAL SIGNS: Pulse is 95, blood pressure 102/80, and sats 98%. CHEST: Decreased breath sounds. No wheezing. CARDIAC: Normal S1, S2. No gallops. ABDOMEN: No masses. LABORATORY DATA: PO2 of 115, pCO2 BUN and creatinine 90 and 3.52, lactic acid 4.1. Platelet count . ASSESSMENT: Sepsis syndrome. Ischemic bowel. Supraventricular tachycardia. Renal failure. History of thrombocytopenia. Pneumonia. PLAN: Low-dose steroids be initiated. We will start weaning in the next 24 to 48 hours. One-half hour of critical time. Job ID: [id number]
[2020-04-16] MEDS ORDERED: Norepinephrine 8 MG/0.9% NS 250 ML IVPB SCH (10:36)
[2020-04-16] MEDS: Heparin 5,000 UNITS/ML VIAL SC SCH ×2 (10:37→15:10)
[2020-04-16] MEDS: Pantoprazole 40 MG VIAL IVP SCH ×2 (10:38→20:07)
[2020-04-16] MEDS ORDERED: Calcium Gluconate 4.6 MEQ in Sodium Chloride 0.9% 100 ML IVPB SCH (10:47)
[2020-04-16] MEDS: Hydrocortisone Sod Succ/PF 100 mg/2 ml Vial IVP SCH ×3 (11:41→23:04)
[2020-04-16 11:47] LABS: Anion Gap 21 mmol/L (10-20); BUN (Urea Nitrogen) 103 mg/dL (9.8-20.1); Calc. Creatinine Clearance 20 mL/min (70-130); Calcium 7.1 mg/dL (7.8-10.44); Carbon Dioxide 18 mmol/L (23-31); Chloride 104 mmol/L (98-107); Estimated GFR-MDRD 13; Glucose 111 mg/dL (80-115); Potassium 4.9 mmol/L (3.5-5.1); Sodium 138 mmol/L (136-145)
--- NOTE | 2020-04-16 12:59 | PRG ---
DATE OF SERVICE: 04/16/2020 SERVICE: Nephrology. SUBJECTIVE: A 69-year-old female, seen in followup for acute renal failure and metabolic acidosis. The patient later had an exploratory laparotomy last night with resection of significant amount of intestine for ischemic bowel with necrosis. She was intubated post surgery and she is still intubated, sedated, and mechanically ventilated. OBJECTIVE: VITAL SIGNS: Temperature 98.5, pulse 83, respiratory rate 20, SpO2 98, blood pressure is 95/41. I and O in the last 24 hours showed total intake of 5607 with total output of 1780, of which urine was only 80 with drainage being 1700. GENERAL: Sedated female, in no obvious distress. HEENT: Normocephalic, atraumatic. Oral mucosa is moist. ET tube is in place. CARDIOVASCULAR: Regular rhythm and rate with normal heart sounds one and two. RESPIRATORY: Ventilator transmitted breath sounds heard in all lung zones with no obvious crackle or rhonchi. GI: Full. Surgical wound with wound VAC in place noted. Bowel sound is absent. UROGENITAL: Pagan catheter is in place draining little or no urine. EXTREMITIES: Grossly normal-looking atraumatic with no obvious edema or erythema. ACTIVITIES DIRECTOR SCOUTING: The patient is sedated. DIAGNOSTIC DATA: CBC showed WBC count of 7.0, hemoglobin of 10.7, MCV of 96.9, platelet of 25. Of note, yesterday, hemoglobin was 15.0, platelet 161 and WBC 7.5. Arterial blood gas around 12 midnight last night showed pH 7.36, pCO2 32.8, PO2 115.9 with ionized calcium of 0.95. Chemistry showed sodium 138, potassium 4.6, chloride 105, CO2 19, BUN 98, creatinine 3.52, calcium 7.0, total bilirubin 1.4, AST 89, ALT 56, alkaline phosphatase 54, total protein 4.3, albumin 2.8, globulin 2.1. ASSESSMENT: 1. Acute renal failure: Due to hemodynamic factors related to circulatory shock. Acute tubular necrosis is a concern. 2. Severe metabolic acidosis. 3. Shock due to hypovolemia and sepsis from ischemic mesentery. 4. Hypocalcemia. 5. Mental status change/acute encephalopathy. 6. Rhabdomyolysis. 7. Acute abdomen due to bowel ischemia, status post laparotomy and resection of ischemic bowel. PLAN: 1. Urine output has been abysmal; though in the last hour, it is starting to vegetable picker. We will continue on sodium bicarbonate infusion and monitor electrolytes and renal function. If renal function continues to worsen, we will refer to renal replacement therapy. However, blood pressure is soft at this point, hence I recommend pressure support to improve hemodynamics. 2. Other treatment as per General Surgery and pickler helper. We will also provide calcium supplementation with calcium gluconate. Further treatment to follow depending on hospital course and review of other labs. Job ID: [id number]
--- NOTE | 2020-04-16 14:03 | PRG ---
DATE OF SERVICE: HISTORY OF PRESENT ILLNESS: Kacy Cordon is a 69-year-old female, on the ventilator. She is one day status post laparotomy, extended right colectomy and small bowel resection for probably embolic ischemia, right colon. She has a history of A-flutter/fib on anticoagulation medications control her arrhythmia. She has been seen by Cardiology locally during this hospitalization. Her blood pressure has been in 90s and she is started on Levophed. I have talked to her nurse about weaning the Levophed as much as possible considering her ischemic bowel. She is on 225 mL an hour of IV fluid, 150 of bicarb, and 75 of saline. She is getting albumin q.6. This morning, her white count is 7; hemoglobin is 10.7, down from 15 due to hydration, this is dilutional and reflects adequate hydration resuscitation; platelet count is 25,000. She does have 36 bands on today's differential. Today, her carbon dioxide is markedly improved from a CO2 of 12 to 18, sodium 138, potassium 3.9, BUN 103, and creatinine 3.59. Her NG tube output is 1300 over the last 24 hours. Urine output is improved to 200 mL from anuria. PHYSICAL EXAMINATION: LUNGS: Clear to auscultation. CARDIAC: Regular rate and rhythm without murmur or gallop. ABDOMEN: Soft, quiet, postoperative tenderness, open abdomen. ABThera in place. EXTREMITIES: No significant edema. ASSESSMENT/PLAN: 1. Status post sepsis, peritonitis, ischemic right colon, probably embolic related to atrial fibrillation/flutter. Although she is on anticoagulation as an outpatient, compliance in taking this is uncertain. 2. Acute renal failure, converted from anuric to oliguric. Continue IV fluids. Continue resuscitation and hydration. 3. On Levophed, wean as able to minimize vasoconstrictive events. 4. Open abdomen. Plan re-exploration tomorrow pending clinical course to consider resection of any other ischemic segments of bowel and consider ileostomy, less likely anastomosis. 5. I have discussed with the patient's cousin, whose name is Adonay, who lives in [place] and is a general surgeon. I have communicated the patient's hospital course, operative findings, and concurrent condition. He will also speak to the family. I have discussed with the cousin the patient's lifestyle. The patient does smoke marijuana frequently. She is reported to have consumed K2 or bath salts. She does take prescription narcotics frequently and benzodiazepines frequently. Job ID: [id number]
--- NOTE | 2020-04-16 15:03 | PDOC.HOSPP ---
- Subjective Encounter Date: 04/16/20 Encounter Time: 13:00 Subjective: The patient is intubated, responds to painful stimuli. Slightly drowsy. She does report some abdominal pain . She was started on levofed this morning per nursing staff. She has had very poor urine output She is on IV fluid, sodium bicarb and levofed - Objective Vital Signs & Weight: Vital Signs (12 hours) Temp Pulse Resp Pulse Ox 04/16/20 14:24 87 04/16/20 12:00 20 04/16/20 11:00 98.6 F 04/16/20 10:41 85 04/16/20 10:00 20 04/16/20 08:00 20 97 04/16/20 07:33 82 04/16/20 07:00 98.5 F 04/16/20 06:00 20 Weight Admit Weight 182 lb Weight 182 lb 15.739 oz Most Recent Monitor Data Heart Rate from ECG 91 NIBP 167/68 NIBP BP-Mean 101 Respiration from ECG 24 SpO2 96 I&O: 04/15/20 04/16/20 04/17/20 06:59 06:59 06:59 Intake Total 5607 300 Output Total 1780 200 Balance 3827 100 Result Diagrams: 04/16/20 05:05 04/16/20 11:04 Additional Labs: Accuchecks 04/16/20 04/15/20 04/15/20 10:55 17:25 06:31 POC Glucose 112 H 115 H 59 L* Hospitalist ROS - Review of Systems Constitutional: denies: fever, chills - Medication Medications: Active Medications Generic Name Dose Route Start Last Admin Trade Name Freq PRN Reason Stop Dose Admin Albumin Human 25 gm 04/16/20 06:00 04/16/20 11:41 Albumin 25% IVPB 04/17/20 06:01 25 gm Q6HR ELY Administration Dextrose/Water 25 gm 04/15/20 04:04 04/15/20 06:52 Dextrose 50% SLOW IVP 25 gm PRN PRN Administration Hypoglycemia Heparin Sodium (Porcine) 5,000 units 04/15/20 09:00 04/16/20 10:37 Heparin SC Not Given TID ELY Hydrocortisone Sodium Succinate 50 mg 04/16/20 12:00 04/16/20 11:41 Solu-Cortef IVP 06/13/20 12:01 50 mg Q6HR ELY Administration Diltiazem HCl 125 mg/ Sodium 125 mls @ 10 mls/hr 04/15/20 12:30 04/15/20 13: 42 Chloride IVPB 125 mls INF ELY Administration Protocol 10 MG/HR Piperacillin Sod/Tazobactam 100 mls @ 200 mls/hr 04/16/20 06:00 04/16/20 11: 41 Sod 2.25 gm/ Sodium Chloride IVPB 100 mls Q6HR ELY Administration Fentanyl Citrate 2,000 mcg/ 100 mls @ 0 mls/hr 04/16/20 00:12 04/16/20 01:56 Sodium Chloride IV 05/16/20 00:12 100 mls INF ELY Administration Protocol Per Protocol Sodium Bicarbonate 150 meq/ 1,150 mls @ 150 mls/hr 04/16/20 00:30 04/16/20 14 :18 Dextrose/Water IV 1,150 mls INF ELY Administration Norepinephrine Bitartrate 250 mls @ 0 mls/hr 04/16/20 10:36 04/16/20 10:39 Levophed IVPB 250 mls INF ELY Administration Protocol Titrate Pantoprazole Sodium 40 mg 04/16/20 09:00 04/16/20 10:38 Protonix IVP 40 mg Q12HR ELY Administration Sodium Chloride 10 ml 04/15/20 09:00 04/16/20 10:38 Flush - Normal Saline IVF 10 ml Q12HR ELY Administration - Exam General Appearance: NAD, awake alert General - other findings: intubated, responds to pain Eye: PERRL, anicteric sclera ENT: normocephalic atraumatic, no oropharyngeal lesions Neck: supple, no JVD Heart: RRR, no murmur, no gallops, no rubs Respiratory: CTAB, no wheezes, no rales, no ronchi Gastrointestinal: soft, normal bowel sounds, voluntary guarding Gastrointestinal - other findings: abdomen distended, surgical incision in place. Tender to mild palpation Extremities: no cyanosis, no clubbing, no edema Skin: normal turgor, no lesions, no rashes Neurological: cranial nerve grossly intact, normal sensation to touch, no focal deficits, no new deficit Hosp A/P - Plan CT abdomen: progressive mild dilation of ascending colon with hepatic flexure pneumatosis. New right paracolic gutter fluid and high density debris in cecal apex representing hemorrhage. RML and LL pneumonia This is 69 year old female who presented with altered mental status, found to be in acute renal failure Acute encephalopathy possibly from polysubstance abuse vs ischemic bowel s/p ex lap - patient is s/p ex lap, right hemicolectomy, resection of small bowel and 18 inches of ileum and resection of transverse colon POD 1. She was found to have gangrenous right colon/transverse colon and distal small bowel - pt may need re-exploration tomorrow per Dr. Levy - she is currently intubated on sedation but responds to painful stimuli Acute Kidney Injury - likely from volume depletion from ischemic bowel - she is on IV fluid with sodium bicarb as well as levofed at 5 mcg. Attempt to titrate off if urine output improves to avoid further vasoconstriction - nephrology is following, no indication for dialysis currently Acute hypoxic respiratory failure possibly from pneumonia - noted on CT abdomen - will continue with zosyn. IV steroids added by pulmonary Polysubstance abuse - may need to consider rehab on discharge Transaminitis - LFTS downtrending, likely from shock liver Thrombocytopenia - platelet count of 25, possibly sepsis vs uremia. Will continue to trend Anemia - Hb 10, likely dilutional Hypocalcemia - starting calcium supplementation Disposition: possibly another surgery tomorrow
[2020-04-16 17:36] LABS: Anion Gap 20 mmol/L (10-20); BUN (Urea Nitrogen) 103 mg/dL (9.8-20.1); Calc. Creatinine Clearance 20 mL/min (70-130); Calcium 7.1 mg/dL (7.8-10.44); Carbon Dioxide 22 mmol/L (23-31); Chloride 101 mmol/L (98-107); Estimated GFR-MDRD 13; Glucose 131 mg/dL (80-115); Potassium 4.2 mmol/L (3.5-5.1); Sodium 139 mmol/L (136-145)
[2020-04-16] MEDS: HumaLOG 300 UNITS/3 ML VIAL SC PRN (21:22)
[2020-04-17] MEDS: fentaNYL Citrate/PF 2,000 MCG in Sodium Chloride 0.9% 60 ML IV SCH ×2 (00:12→18:19)
[2020-04-17] MEDS: Lorazepam 2 MG/ML VIAL SLOW IVP PRN (02:24)
[2020-04-17] MEDS: HumaLOG 300 UNITS/3 ML VIAL SC PRN (03:09)
[2020-04-17] MEDS: Sodium Bicarbonate 150 MEQ in Dextrose 5% in Water 1,000 ML IV SCH (03:31)
[2020-04-17] MEDS: Albumin 25% 25 GM/100 ML BOT IVPB SCH ×4 (05:06→23:55)
[2020-04-17] MEDS: Hydrocortisone Sod Succ/PF 100 mg/2 ml Vial IVP SCH ×4 (05:06→23:55)
[2020-04-17] MEDS: Piperacillin/Tazobactam 2.25 GM in Sodium Chloride 0.9% 100 ML IVPB SCH ×4 (05:07→23:56)
[2020-04-17 06:18] LABS: Platelet Count 12 thou/uL (130-400)
[2020-04-17 06:27] LABS: ALT (SGPT) 27 U/L (8-55); AST (SGOT) 33 U/L (5-34); Albumin 2.8 g/dL (3.4-4.8); Alkaline Phosphatase 52 U/L (40-110); Anion Gap 21 mmol/L (10-20); BUN (Urea Nitrogen) 107 mg/dL (9.8-20.1); Calc. Creatinine Clearance 21 mL/min (70-130); Calcium 7.2 mg/dL (7.8-10.44); Carbon Dioxide 26 mmol/L (23-31); Chloride 97 mmol/L (98-107); Estimated GFR-MDRD 12; Globulin 1.7 g/dL (2.4-3.5); Glucose 152 mg/dL (80-115); Magnesium 2.1 mg/dL (1.6-2.6); Phosphorus 4.4 mg/dL (2.3-4.7); Potassium 3.8 mmol/L (3.5-5.1); Protein, Total 4.5 g/dL (6.0-8.3); Sodium 140 mmol/L (136-145)
[2020-04-17 06:35] LABS: Hemoglobin 7.2 g/dL (12.0-16.0); Mean Corpuscular HGB CONC 34.2 g/dL (32.0-36.0); Mean Corpuscular Hemoglobin 32.4 pg (27.0-31.0); Mean Corpuscular Volume 94.8 fL (78.0-98.0); Mean Platelet Volume 11.7 fL (7.4-10.4); RBC Distribution Width 13.1 % (11.5-14.5); Red Blood Cell (RBC) Count 2.22 mill/uL (4.20-5.40); White Blood Cell (WBC) Count 15.1 thou/uL (4.8-10.8)
--- NOTE | 2020-04-17 06:55 | OP ---
DATE OF PROCEDURE: 04/15/2020 PREOPERATIVE DIAGNOSES: 1. Severe acidosis. 2. Renal failure. 3. Poor IV access. POSTOPERATIVE DIAGNOSES: 1. Severe acidosis. 2. Renal failure. 3. Poor IV access. PROCEDURE PERFORMED: Right femoral vein Trialysis catheter. ANESTHESIA: 1% Xylocaine. DESCRIPTION OF PROCEDURE: With the patient at bedside, after obtaining informed consent per telephone per discussion with the patient's daughter, Marian, right groin was prepared with ChloraPrep and draped in routine fashion. 1% Xylocaine was infiltrated in the skin and subcutaneous tissue. Seldinger technique used to place a Trialysis catheter, secured with 3-0 nylon suture. Each port aspirated of blood and flushed with heparinized saline solution. The patient tolerated the procedure well. NG tube was placed, evacuating gastric contents of 400 or 500 by the time I left. Job ID: [id number]
[2020-04-17 07:01] LABS: INR-International Normal Ratio 1.2; Prothrombin Time 14.8 sec (12.0-14.7)
[2020-04-17] MEDS ORDERED: Bupivacaine PF 0.5% 30 ML VIAL ONE (07:12)
[2020-04-17 07:25] LABS: Actual Bicarbonate (HCO3a) 24.7 mEq/L (22-28); Base Excess (BEa) 1.8 mEq/L (-2.0 to +3.0); CO2 Tension 30.8 mmHg (35.0-45.0); Carboxyhemoglobin (COHb) 4.2 gm% (0.0-3.0); Hemoglobin (Hb) 6.3 g/dL (12.0-16.0); Potassium - ABG Lab 3.64 mmol/L (3.70-5.30); pH, Arterial 7.52 (7.35-7.45)
[2020-04-17 07:43] LABS: Band 38 % (5-11); Lymphocytes 6 % (21-51); MDiff Complete? YES; Monocytes 6 % (0-10); Neutrophil 50 % (42-75); Platelet Morphology Comment Appears Decreased
[2020-04-17] MEDS ORDERED: Midazolam HCl 2 mg/2 ml Vial ONE (07:55)
[2020-04-17] MEDS ORDERED: Albumin 5% 0 ML ONE (07:55)
[2020-04-17] MEDS ORDERED: Norepinephrine 4 MG/4 ML VIAL ONE (07:55)
[2020-04-17] MEDS ORDERED: Fentanyl 100 MCG/2 ML VIAL ONE (07:55)
[2020-04-17 08:07] LABS: Puncture Site ALINE
--- NOTE | 2020-04-17 09:34 | PRG ---
DATE OF SERVICE: SUBJECTIVE: Ms. Cordon is doing well overnight. We have just completed her laparotomy, second-look evacuation of hematoma. No active bleeding. Bowel was viable, although the terminal 4 inches of small bowel was thickened. It did not need to be resected. There was some old hematoma evacuated. No active bleeding appreciated. All quadrants irrigated. The patient last night had her saline discontinued by Nephrology, Dr. Ruano. She continues with bicarb drip of 150 an hour. Levophed has been off since last night. OBJECTIVE: VITAL SIGNS: Her blood pressures have been stable over 100, 110 to 120, this morning 127/74; heart rate 103; respiratory rate 20. She is on the ventilator. Urine output has been 435 mL in last 24 hours. Gastric drainage 1000 mL. LUNGS: Clear to auscultation. No wheezing. CARDIAC: Regular rate and rhythm. ABDOMEN: ABThera in place. EXTREMITIES: Without obvious edema. IMAGING DATA: Chest x-ray this morning is relatively clear with some obliteration of the lung bases, left more than right but still this is not severe. She does not appear to be fluid overloaded. LABORATORY DATA: Revealed that her white count is 15, hemoglobin 7.2 (down from 10.7 yesterday), platelet count, however, has dropped to 12. Heparin has been held for the last 72 hours. Her sodium was 140, potassium 3.8, chloride 97, carbon dioxide 26, BUN 107, creatinine 3.65, GFR 12. Her liver function tests are normal. Bilirubin is not elevated. ASSESSMENT AND PLAN: 1. Thrombocytopenia. Continue to monitor one platelet count, given platelet pack again this morning. 2. Anemia, probably this is mostly delusional. There was some hematoma during her abdominal washout, this was evacuated. There was no active bleeding. Transfused 2 units of blood. 3. Ischemic bowel, status post extended right colectomy, ileectomy and remaining bowel is viable. She has an open abdomen with an ABThera. Plan is to return to the operating room in 48 to 72 hours to wash her out again and hopefully definitively close. 4. Acute renal failure. She has some urine output, although marginal. I have talked to Nephrology, who is planning dialysis today because of her uremia. We will try to mobilize some of her fluids. 5. Acidosis seems to have improved. Perhaps we can discontinue the bicarb drip. Continue with saline. 6. Malnutrition. Ask dietary for TPN recommendations. 7. Respiratory failure. Continue ventilatory management until definitive closure of abdomen. Job ID: [id number]
--- NOTE | 2020-04-17 09:35 | OP ---
DATE OF PROCEDURE: 04/17/2020 PREOPERATIVE DIAGNOSES: 1. Acute ischemic bowel status post right colectomy, extended with small-bowel resection and transverse colon resection with ABThera open abdomen, planned staged laparotomy today. 2. Thrombocytopenia. 3. Anemia. 4. Sepsis. 5. Respiratory failure. 6. Acute renal failure. POSTOPERATIVE DIAGNOSES: 1. Acute ischemic bowel status post right colectomy, extended with small-bowel resection and transverse colon resection with ABThera open abdomen, planned staged laparotomy today. 2. Thrombocytopenia. 3. Anemia. 4. Sepsis. 5. Respiratory failure. 6. Acute renal failure. PROCEDURES PERFORMED: 1. Second-look laparotomy. 2. Abdominal washout. 3. Evacuation of hematoma. 4. Replacement of ABThera with open abdomen, planned to return to the operating room in 48 to 72 hours. ANESTHESIA: General. DESCRIPTION OF PROCEDURE: The patient was taken to the operating room where under general anesthesia, abdomen was prepared with Betadine and draped in routine fashion. Old ABThera removed. Abdominal cavity was washed out with saline solution. There was hematoma evacuated. All quadrants inspected. No bleeding noted. Whatever bleeding had called the hematoma has ceased. Cautery used for minor oozing. Good hemostasis noted. Abdominal washout with 3 L performed in all quadrants in areas of dissection. Good hemostasis noted. Bowel integrity was good. There was about 4 inches of the terminal ileum that were slightly thickened, but viable and not resected. The remaining colon was viable. The sponge and needle counts were correct. ABThera replaced and the patient returned to the operating room in stable condition. Job ID: [id number]
[2020-04-17 10:22] LABS: HBSAB Concentration 3.03 mIU/mL; HBSAg Index 0.13 S/CO (0-0.99); Hep B Core Total Ab Non-Reactive (NonReactive); Hep B Core Total Index 0.05 S/CO (0-0.79); Hep B Surf AB Non-Reactive (NonReactive); Hep B Surf Ag Non-Reactive S/CO (NonReactive); Hep C IgG Ab Non-Reactive (NonReactive); Hep C Index 0.08 S/CO (0-0.79)
[2020-04-17] MEDS: Sodium Chloride 0.9% 1,000 ML IV SCH ×2 (10:24→18:28)
[2020-04-17] MEDS: Pantoprazole 40 MG VIAL IVP SCH ×2 (10:52→21:15)
[2020-04-17] MEDS ORDERED: Rocuronium Bromide 10 MG/ML (10ML VIAL) ONE (11:26)
[2020-04-17] MEDS ORDERED: Calcium Gluconate 9.2 MEQ in Sodium Chloride 0.9% 100 ML IVPB SCH (11:30)
--- NOTE | 2020-04-17 11:56 | PRG ---
DATE OF SERVICE: 04/17/2020 SERVICE: Nephrology. SUBJECTIVE: A 69-year-old female seen in followup for acute renal failure. The patient was admitted due to acute encephalopathy. Subsequently, had exploratory laparotomy with resection of some intestine. Had re-exploration and washout earlier today. Still sedated and mechanically ventilated. OBJECTIVE: VITAL SIGNS: Temperature 97.7, pulse 95, respiratory rate 13, SpO2 of 97, blood pressure 149/65. INR in the last 24 hours showed total intake of 5680 with total output of 2235 with urine accounting for 435. Weight has gone up from 180 on presentation to 198 currently. GENERAL: Female, in no obvious distress. Sedated. HEENT: Normocephalic, atraumatic. ET tube is in place. CARDIOVASCULAR: Regular rhythm and rate with normal heart sounds 1 and 2. RESPIRATORY: Ventilator transmitted breath sounds are heard in all lung zones. GI: Full. Surgical dressing with wound VAC noted. Bowel sound is hypoactive. UROGENITAL: Pagan catheter is in place, draining some urine. EXTREMITIES: Grossly normal looking atraumatic with no obvious edema. COBBLER APPRENTICE: Sedated. DIAGNOSTIC DATA: CBC today showed WBC count of 15.1, hemoglobin of 7.2, MCV of 94.8, platelets of 12. Coagulation panel showed PT 14.8, INR 1.2. Arterial blood gas showed pH of 7.52, pCO2 of 30.8, pO2 of 106, ionized calcium 0.9. Chemistry today showed sodium 140, potassium 3.8, chloride 97, CO2 of 26, BUN 107, creatinine 3.65, glucose 152, calcium 7.2, phosphorus 4.4, magnesium 2.1, total bilirubin 1.0, AST 33, ALT 27, alkaline phosphatase 52, total protein 4.5, albumin 2.8. ASSESSMENT: 1. Acute renal failure: Multifactorial. ATN from septic shock and rhabdomyolysis seems likely. BUN continued to trend up, but creatinine seems to the plateauing. 2. Hypocalcemia. 3. Acute blood loss anemia with hemoglobin dropping down from above 15 to 7.2 today. 4. Severe thrombocytopenia with platelet of 12. 5. Rhabdomyolysis. 6. Severe dehydration with volume depletion. 7. Metabolic acidosis: Improved. 8. Mild alkalosis. 9. Mesenteric ischemia with gangrene, status post resection of intestinal segment. PLAN: 1. We will discontinue sodium bicarbonate and replace it with normal saline given mild metabolic alkalosis. 2. We will also dialyze the patient today for 2 hours given worsening azotemia. Thrombocytopenia is concerning. This most likely is one we are concerned uremia might be contributing. 3. Blood product transfusion as per General Surgery. The patient is receiving 2 units of packed red blood cells and 1 apheresis unit of platelet. 4. We will replete plasma calcium with calcium gluconate. 5. We will monitor volume status for now. The patient looks clinically dry. We will monitor urine output. 6. Hypertension: Blood pressure has improved and the patient is currently off pressors. We will monitor blood pressure closely with a view to starting some antihypertensives if any indicated. 7. We will also follow CPK levels. 8. Further treatment to follow depending on hospital course. Job ID: [id number]
--- NOTE | 2020-04-17 12:48 | RAD ---
PORTABLE CHEST: HISTORY: CCU followup. On ventilator. COMPARISON: 04/16/20 FINDINGS: ET tube and NG tube unchanged. Central line unchanged and appears in appropriate position. Evidence of left effusion and left basilar infiltrate or atelectasis, which appears stable. The lungs otherwise appear clear. IMPRESSION: No evidence of acute interval change. POS: AGW
--- NOTE | 2020-04-17 13:06 | PRG ---
DATE OF SERVICE: 04/17/2020 SUBJECTIVE: A 69-year-old female, who is intubated on the vent. She went back to surgery for a washout of open wound with IVAC. OBJECTIVE: VITAL SIGNS: Pulse 89, blood pressure improved 151/70, respiratory rate is 18. CHEST: No wheezing. No crackles. ABDOMEN: Soft. NEUROLOGIC: Sedated. LABORATORY DATA: White count 15,000, H and H of 7 and 20, and platelet count is only 12,000, big left shift. PO2 of 106, pCO2 of . Creatinine 3.6, BUN 107. ASSESSMENT: 1. Abdominal sepsis. 2. Respiratory failure, x-ray stable. 3. Supraventricular tachycardia. 4. Renal failure. We will keep her on the vent until surgery has decided definitive treatment. She is on adequate antibiotics, Zosyn, stress dose steroids, DVT prophylaxis. She is being dialyzed today. Additionally, she is going to receive packed cells and plasma. We will follow. One-half hour of critical care time. Job ID: [id number]
[2020-04-17] MEDS ORDERED: Heparin 10,000 UNITS/ 10 ML VIAL ONE (13:49)
--- NOTE | 2020-04-17 16:49 | PDOC.HOSPP ---
- Subjective Encounter Date: 04/17/20 Encounter Time: 09:00 Subjective: The patient went to the OR today for second look laparotomy and abdominal wash out. She had evacuation of hematoma. Platelets were 12, patient had platelet transfusion today. Also received 2 units of blood this am. Patient still intubated Has minimal urine output - Objective Vital Signs & Weight: Vital Signs (12 hours) Temp Pulse Resp Pulse Ox 04/17/20 16:00 14 04/17/20 14:00 14 04/17/20 13:36 81 04/17/20 13:00 97.7 F 04/17/20 12:00 12 04/17/20 11:00 97.6 F 04/17/20 10:59 89 04/17/20 10:20 97.6 F 04/17/20 10:00 97.8 F 12 04/17/20 09:29 97.7 F 04/17/20 09:00 97.7 F 04/17/20 08:00 12 99 04/17/20 07:00 98.0 F 04/17/20 06:00 20 Weight Admit Weight 182 lb Weight 198 lb 6.656 oz Most Recent Monitor Data Heart Rate from ECG 82 NIBP 133/63 NIBP BP-Mean 86 Respiration from ECG 14 SpO2 98 I&O: 04/16/20 04/17/20 04/18/20 06:59 06:59 06:59 Intake Total 5607 5680 1589 Output Total 1780 2235 197 Balance 3827 3445 1392 Result Diagrams: 04/17/20 05:49 04/17/20 05:49 Additional Labs: Accuchecks 04/17/20 04/17/20 04/16/20 09:42 03:11 21:23 POC Glucose 167 H 176 H 150 H Hospitalist ROS - Review of Systems ROS unobtainable: due to endotracheal tube - Medication Medications: Active Medications Generic Name Dose Route Start Last Admin Trade Name Freq PRN Reason Stop Dose Admin Albumin Human 25 gm 04/17/20 12:00 04/17/20 13:06 Albumin 25% IVPB 04/18/20 12:01 25 gm Q6HR ELY Administration Dextrose/Water 25 gm 04/15/20 04:04 04/15/20 06:52 Dextrose 50% SLOW IVP 25 gm PRN PRN Administration Hypoglycemia Hydrocortisone Sodium Succinate 50 mg 04/16/20 12:00 04/17/20 13:06 Solu-Cortef IVP 04/23/20 12:01 50 mg Q6HR ELY Administration Diltiazem HCl 125 mg/ Sodium 125 mls @ 10 mls/hr 04/15/20 12:30 04/15/20 13: 42 Chloride IVPB 125 mls INF ELY Administration Protocol 10 MG/HR Piperacillin Sod/Tazobactam 100 mls @ 200 mls/hr 04/16/20 06:00 04/17/20 13: 06 Sod 2.25 gm/ Sodium Chloride IVPB 100 mls Q6HR ELY Administration Fentanyl Citrate 2,000 mcg/ 100 mls @ 0 mls/hr 04/16/20 00:12 04/17/20 00:12 Sodium Chloride IV 05/16/20 00:12 100 mls INF ELY Administration Protocol Per Protocol Sodium Chloride 1,000 mls @ 75 mls/hr 04/17/20 09:15 04/17/20 10:24 Normal Saline 0.9% IV 1,000 mls .[id number] ELY Administration Insulin Human Lispro 0 units 04/15/20 04:04 04/17/20 03:09 Humalog SC 2 unit .MILD SLIDING SCALE PRN Administration Mild Correctional Scale Lorazepam 2 mg 04/16/20 00:12 04/17/20 02:24 Ativan SLOW IVP 05/16/20 00:12 2 mg Q1H PRN Administration Breakthrough agitation Pantoprazole Sodium 40 mg 04/16/20 09:00 04/17/20 10:52 Protonix IVP 40 mg Q12HR ELY Administration Sodium Chloride 10 ml 04/15/20 09:00 04/17/20 10:17 Flush - Normal Saline IVF 10 ml Q12HR ELY Administration - Exam General - other findings: intubated Eye: PERRL, anicteric sclera ENT: normocephalic atraumatic, no oropharyngeal lesions Neck: no JVD Heart: RRR, no murmur, no gallops, no rubs Respiratory: CTAB, no wheezes, no rales, no ronchi Gastrointestinal: soft Gastrointestinal - other findings: abdomen distended, nontender to palpation Extremities: no cyanosis, no clubbing, no edema Skin: normal turgor, no lesions, no rashes Neurological: cranial nerve grossly intact, normal sensation to touch, no focal deficits, no new deficit Musculoskeletal: normal tone, normal strength, no muscle wasting Hosp A/P - Plan CT abdomen: progressive mild dilation of ascending colon with hepatic flexure pneumatosis. New right paracolic gutter fluid and high density debris in cecal apex representing hemorrhage. RML and LL pneumonia This is 69 year old female who presented with altered mental status, found to be in acute renal failure Acute encephalopathy possibly from polysubstance abuse vs ischemic bowel s/p ex lap - patient is s/p ex lap, right hemicolectomy, resection of small bowel and 18 inches of ileum and resection of transverse colon POD 2. She was found to have gangrenous right colon/transverse colon and distal small bowel. S/p second look laparotomy 04/17 with hematoma evacuation - currently on sedation Acute Kidney Injury - likely from volume depletion from ischemic bowel. - she is off pressors. She is being switched to normal saline by nephrology - patient to get dialysis today Acute blood loss anemia - Hb dropped from 10 to 7. Received 2 units of blood. S/p second look exploratory laparotomy with hematoma evacuation 04/17 Thrombocytopenia - platelet count of 12 today, s/p one unit platelet transfusion. Repeat CBC Acute hypoxic respiratory failure possibly from pneumonia - noted on CT abdomen - will continue with zosyn day 2. Continue IV steroids Transaminitis - resolved Hypocalcemia - calcium 7, s/p calcium supplementation today Disposition: possibly another surgery tomorrow
[2020-04-17] MEDS: Morphine 2 MG/ML SYRINGE SLOW IVP PRN (17:38)
[2020-04-17 17:40] LABS: Mean Corpuscular HGB CONC 34.5 g/dL (32.0-36.0); Mean Corpuscular Hemoglobin 32.6 pg (27.0-31.0); Mean Corpuscular Volume 94.4 fL (78.0-98.0); Mean Platelet Volume 11.2 fL (7.4-10.4); Platelet Count 33 thou/uL (130-400); RBC Distribution Width 13.3 % (11.5-14.5); Red Blood Cell (RBC) Count 2.77 mill/uL (4.20-5.40); White Blood Cell (WBC) Count 13.5 thou/uL (4.8-10.8)
[2020-04-17] MEDS: Labetalol HCl 100 MG/20 ML VIAL SLOW IVP PRN (17:41)
[2020-04-17 17:56] LABS: Anion Gap 15 mmol/L (10-20); BUN (Urea Nitrogen) 77 mg/dL (9.8-20.1); Calc. Creatinine Clearance 28 mL/min (70-130); Calcium 7.9 mg/dL (7.8-10.44); Carbon Dioxide 30 mmol/L (23-31); Chloride 99 mmol/L (98-107); Estimated GFR-MDRD 17; Glucose 128 mg/dL (80-115); Potassium 4.1 mmol/L (3.5-5.1); Sodium 140 mmol/L (136-145)
[2020-04-17 17:57] LABS: Band 55 % (5-11); Lymphocytes 3 % (21-51); MDiff Complete? YES; Monocytes 6 % (0-10); Neutrophil 36 % (42-75); Platelet Morphology Comment Appears Decreased; Polychromasia SLIGHT = 2-3 cells (100X) (0-2/hpf)
[2020-04-17] MEDS ORDERED: Sodium Chloride 0.9% 1,000 ML IV PRN (19:31)
[2020-04-18] MEDS: Morphine 2 MG/ML SYRINGE SLOW IVP PRN (00:17)
[2020-04-18] MEDS: Lorazepam 2 MG/ML VIAL SLOW IVP PRN ×2 (00:34→12:02)
[2020-04-18 00:43] LABS: Hemoglobin 8.4 g/dL (12.0-16.0); Platelet Count 30 thou/uL (130-400)
[2020-04-18] MEDS: Sodium Chloride 0.9% 1,000 ML IV SCH ×2 (03:56→16:58)
[2020-04-18 04:19] LABS: Hemoglobin 8.5 g/dL (12.0-16.0); Mean Corpuscular HGB CONC 34.9 g/dL (32.0-36.0); Mean Corpuscular Hemoglobin 33.1 pg (27.0-31.0); Mean Corpuscular Volume 94.8 fL (78.0-98.0); Mean Platelet Volume 11.6 fL (7.4-10.4); Platelet Count 27 thou/uL (130-400); RBC Distribution Width 13.5 % (11.5-14.5); Red Blood Cell (RBC) Count 2.56 mill/uL (4.20-5.40); White Blood Cell (WBC) Count 12.4 thou/uL (4.8-10.8)
[2020-04-18 04:20] LABS: ALT (SGPT) 23 U/L (8-55); AST (SGOT) 23 U/L (5-34); Albumin 3.5 g/dL (3.4-4.8); Alkaline Phosphatase 68 U/L (40-110); Anion Gap 18 mmol/L (10-20); BUN (Urea Nitrogen) 85 mg/dL (9.8-20.1); Bilirubin, Total 1.3 mg/dL (0.2-1.2); Calc. Creatinine Clearance 24 mL/min (70-130); Calcium 8.1 mg/dL (7.8-10.44); Carbon Dioxide 26 mmol/L (23-31); Chloride 99 mmol/L (98-107); Estimated GFR-MDRD 15; Globulin 1.9 g/dL (2.4-3.5); Glucose 136 mg/dL (80-115); Magnesium 2.1 mg/dL (1.6-2.6); Potassium 4.4 mmol/L (3.5-5.1); Protein, Total 5.4 g/dL (6.0-8.3); Sodium 139 mmol/L (136-145)
[2020-04-18 04:22] LABS: Band 29 % (5-11); Dohle Bodies SLIGHT; Lymphocytes 3 % (21-51); MDiff Complete? YES; Monocytes 5 % (0-10); Neutrophil 63 % (42-75); Platelet Morphology Comment Appears Decreased; Toxic Granulation SLIGHT
[2020-04-18 04:31] LABS: CK (CPK) 155 U/L (29-168); Phosphorus 5.7 mg/dL (2.3-4.7)
[2020-04-18] MEDS: Piperacillin/Tazobactam 2.25 GM in Sodium Chloride 0.9% 100 ML IVPB SCH ×4 (05:45→23:57)
[2020-04-18] MEDS: Albumin 25% 25 GM/100 ML BOT IVPB SCH ×2 (05:46→12:02)
[2020-04-18] MEDS: Hydrocortisone Sod Succ/PF 100 mg/2 ml Vial IVP SCH ×4 (05:46→23:57)
[2020-04-18 07:22] LABS: Actual Bicarbonate (HCO3a) 23.5 mEq/L (22-28); CO2 Tension 43.3 mmHg (35.0-45.0); Calcium, Ionized (arterial) 1.01 mmol/L (1.12-1.30); Carboxyhemoglobin (COHb) 3.2 gm% (0.0-3.0); Hemoglobin (Hb) 8.6 g/dL (12.0-16.0); Potassium - ABG Lab 4.38 mmol/L (3.70-5.30); pH, Arterial 7.35 (7.35-7.45)
[2020-04-18] MEDS: fentaNYL Citrate/PF 2,000 MCG in Sodium Chloride 0.9% 60 ML IV SCH (08:18)
[2020-04-18] MEDS: Pantoprazole 40 MG VIAL IVP SCH ×2 (08:20→23:57)
[2020-04-18 08:42] LABS: Puncture Site LINE
[2020-04-18 08:43] LABS: ALV-art Gradient 156.075 (0-20)
--- NOTE | 2020-04-18 10:10 | PRG ---
DATE OF SERVICE: 04/18/2020 SUBJECTIVE: Kacy Cordon remains intubated in the vent. Surgeries, plan to do another washout tomorrow, possible closure the wound, possible ileostomy, day #4. OBJECTIVE: VITAL SIGNS: Blood pressure is 158/83, saturations are 98%, respirations 18. She is afebrile. CHEST: Decreased breath sounds. Minimal rhonchi. CARDIAC: Normal S1 and S2. No gallops. ABDOMEN: Soft. LABORATORY DATA: Platelet count is 27,000, H and H are 8 and 24, white count 12,000. BUN and creatinine 85 and 3.6, glucose 138, bilirubin is 1.3. ASSESSMENT: sepsis; respiratory failure; hypertension; metabolic acidosis, resolved; ischemic bowel. PLAN: The patient is scheduled for another washout, possible ileostomy. We keep her intubated until she is stable severe thrombocytopenia, probably from sepsis and renal failure. Continue supportive care, stress dose of steroids. One-half hour of critical time. Job ID: [id number]
--- NOTE | 2020-04-18 11:05 | RAD ---
PORTABLE CHEST: HISTORY: Respiratory distress. COMPARISON: Prior day's study. FINDINGS: Endotracheal and NG tubes are in satisfactory position. A left-sided central line is unchanged in po sition. Parenchymal lung changes appear stable. IMPRESSION: Stable exam. POS: [facility]
--- NOTE | 2020-04-18 11:11 | PRG ---
DATE OF SERVICE: 04/18/2020 SERVICE: Nephrology. SUBJECTIVE: A 69-year-old female seen in followup for acute tubular necrosis/acute renal failure. The patient was admitted due to mental status and found to have acute renal failure, rhabdomyolysis, as well as mesenteric ischemia for which she is status post exploratory laparotomy and resection of bowel segment. Still intubated and mechanically ventilated. Had initiation of hemodialysis yesterday. OBJECTIVE: VITAL SIGNS: Temperature 99, pulse 80, respiratory rate 16, SpO2 of 95%, blood pressure 139/72. I and O in the last 24 hours showed total intake of 4563 with total output of 2325 with urine contributing only 105 mL. GENERAL: Comfortable female. Afebrile, acyanotic. HEENT: Normocephalic, atraumatic. ET tube is in place. CARDIOVASCULAR: Regular rhythm and rate with normal heart sounds 1 and 2. RESPIRATORY: Ventilator transmitted breath sounds heard in all lung zones. GASTROINTESTINAL: Full, soft with hypoactive bowel sounds. Midline surgical incision with wound VAC in place noted. UROGENITAL: Pgaan catheter is in place. EXTREMITIES: Owtd-[id number] edema of the extremities, especially proximally noted. No erythema appreciated. CENTRAL NERVOUS SYSTEM: The patient is sedated. DIAGNOSTIC DATA: CBC showed WBC count of 12.4, hemoglobin of 8.5, platelet of 27. Chemistry showed sodium 139, potassium 4.4, chloride 99, CO2 of 26, BUN 85, creatinine 3.16, glucose 136, calcium 8.1, magnesium 2.1, total bilirubin 1.1, total protein 5.4, albumin 3.5. ASSESSMENT: 1. Acute renal failure: Due to acute tubular necrosis related to rhabdomyolysis and circulatory shock. 2. Fluid overload/anasarca. 3. Rhabdomyolysis: Resolved with CPK of 155. 4. Severe metabolic acidosis: Improved. 5. Shock: Due to sepsis and volume depletion. Improved with aggressive fluid therapy on pressor support. The patient is currently off pressors. 6. Mesenteric ischemia with necrosis, status post exploratory laparotomy and resection of bowel segment. PLAN: 1. We will dialyze the patient today for 3 hours with UF as tolerated to manage both the acidosis, azotemia and volume overload. 2. We will avoid nephrotoxic agents. 3. We will recommend commencement of parenteral nutrition. 4. Further treatment to follow depending on hospital course. Job ID: [id number]
[2020-04-18 13:11] LABS: Hemoglobin 8.1 g/dL (12.0-16.0); Mean Corpuscular HGB CONC 33.3 g/dL (32.0-36.0); Mean Platelet Volume 12.2 fL (7.4-10.4); Platelet Count 25 thou/uL (130-400); RBC Distribution Width 13.3 % (11.5-14.5); Red Blood Cell (RBC) Count 2.55 mill/uL (4.20-5.40); White Blood Cell (WBC) Count 11.6 thou/uL (4.8-10.8)
[2020-04-18 13:33] LABS: Band 20 % (5-11); Lymphocytes 7 % (21-51); MDiff Complete? YES; Metamyelocyte 1 % (0-0); Monocytes 8 % (0-10); Neutrophil 64 % (42-75); Platelet Morphology Comment Appears Decreased; Polychromasia SLIGHT = 2-3 cells (100X) (0-2/hpf)
--- NOTE | 2020-04-18 15:28 | PRG ---
DATE OF SERVICE: 04/18/2020 SUBJECTIVE: Kacy Cordon is in the ICU. She is on the ventilator as planned. I had planned to return to the operating room mid week, probably Saturday, pending her clinical status. Oxygen saturations are good, heart rate 86, blood pressure 137/70. This morning, she received 1 unit of blood. In addition, last night and this morning, her hemoglobin was 8.5, white count 12.4, and platelet count 27,000. Potassium 4.4, sodium 139, BUN 85, creatinine 3.16, and GFR 15. Urine output is poor, oliguric, 105 over 24 hours. The patient does not look edematous. OBJECTIVE: LUNGS: Clear to auscultation. CARDIAC: Regular rate and rhythm without murmur or gallop. ABDOMEN: Soft. ABThera in place. EXTREMITIES: Unremarkable. ASSESSMENT AND PLAN: 1. Acute renal failure. Continue dialysis. Dr. Ruano is dialyzing her. 2. Sepsis, peritonitis, resolving. We will start TPN today, minimize her saline. 3. Malnutrition. Plan to initiate TPN today. Awaiting dietary recommendations. We will initiate until we receive them. Job ID: [id number]
--- NOTE | 2020-04-18 16:09 | PDOC.HOSPP ---
- Subjective Encounter Date: 04/18/20 Encounter Time: 10:00 Subjective: The patient remains intubated, moving her extremities but not purposefully. Per patients son he was not aware of any recent drug use of the patient - Objective Vital Signs & Weight: Vital Signs (12 hours) Temp Pulse Pulse Resp BP BP Pulse Ox 04/18/20 15:00 98.8 F 04/18/20 14:30 86 137/70 04/18/20 14:00 27 H 04/18/20 12:00 82 18 141/68 H 04/18/20 11:00 100.2 F H 04/18/20 10:00 12 04/18/20 08:00 21 H 96 04/18/20 07:15 128 H 145/81 H 04/18/20 07:00 99.0 F 04/18/20 06:00 14 04/18/20 05:15 98.5 F 81 12 115/60 98 04/18/20 05:00 98.5 F Weight Admit Weight 182 lb Weight 213 lb 13.574 oz Most Recent Monitor Data Heart Rate from ECG 132 NIBP 141/97 NIBP BP-Mean 111 Respiration from ECG 12 SpO2 99 I&O: 04/17/20 04/18/20 04/19/20 06:59 06:59 06:59 Intake Total 5680 4463 200 Output Total 2235 2325 40 Balance 3445 2138 160 Result Diagrams: 04/18/20 13:00 04/18/20 03:15 Additional Labs: Accuchecks 04/18/20 04/18/20 04/17/20 09:48 05:58 22:14 POC Glucose 131 H 138 H 136 H 04/17/20 04/15/20 17:17 23:04 POC Glucose 131 H 111 H Hospitalist ROS - Review of Systems Constitutional: denies: fever, chills - Medication Medications: Active Medications Generic Name Dose Route Start Last Admin Trade Name Freq PRN Reason Stop Dose Admin Dextrose/Water 25 gm 04/15/20 04:04 04/15/20 06:52 Dextrose 50% SLOW IVP 25 gm PRN PRN Administration Hypoglycemia Hydrocortisone Sodium Succinate 50 mg 04/18/20 12:00 04/18/20 12:03 Solu-Cortef IVP 04/25/20 12:01 50 mg Q6HR ELY Administration Diltiazem HCl 125 mg/ Sodium 125 mls @ 10 mls/hr 04/15/20 12:30 04/15/20 13: 42 Chloride IVPB 125 mls INF ELY Administration Protocol 10 MG/HR Piperacillin Sod/Tazobactam 100 mls @ 200 mls/hr 04/16/20 06:00 04/18/20 12: 01 Sod 2.25 gm/ Sodium Chloride IVPB 100 mls Q6HR ELY Administration Fentanyl Citrate 2,000 mcg/ 100 mls @ 0 mls/hr 04/16/20 00:12 04/18/20 08:18 Sodium Chloride IV 05/16/20 00:12 100 mls INF ELY Administration Protocol Per Protocol Sodium Chloride 1,000 mls @ 75 mls/hr 04/17/20 09:15 04/18/20 03:56 Normal Saline 0.9% IV 1,000 mls .[id number] ELY Administration Insulin Human Lispro 0 units 04/15/20 04:04 04/17/20 03:09 Humalog SC 2 unit .MILD SLIDING SCALE PRN Administration Mild Correctional Scale Labetalol HCl 20 mg 04/15/20 00:24 04/17/20 17:41 Normodyne SLOW IVP 20 mg Q4H PRN Administration SBP > 160, use third Lorazepam 2 mg 04/16/20 00:12 04/18/20 12:02 Ativan SLOW IVP 05/16/20 00:12 2 mg Q1H PRN Administration Breakthrough agitation Morphine Sulfate 2 mg 04/16/20 00:12 04/18/20 00:17 Morphine SLOW IVP 05/16/20 00:12 2 mg Q1H PRN Administration BREAKTHROUGH PAIN/Agitation Pantoprazole Sodium 40 mg 04/16/20 09:00 04/18/20 08:20 Protonix IVP 40 mg Q12HR ELY Administration Sodium Chloride 10 ml 04/15/20 09:00 04/18/20 08:20 Flush - Normal Saline IVF 10 ml Q12HR ELY Administration - Exam General Appearance: NAD General - other findings: intubated, responds to pain but doesn't follow commands Eye: PERRL, anicteric sclera ENT: normocephalic atraumatic, no oropharyngeal lesions Neck: no JVD Heart: RRR, no murmur, no gallops, no rubs Respiratory: CTAB, no wheezes, no rales, no ronchi Gastrointestinal: soft Gastrointestinal - other findings: abdomen distended, not as tender Extremities: no cyanosis, 1+ LE edema Skin: normal turgor, no lesions, no rashes Neurological: cranial nerve grossly intact, normal sensation to touch, no focal deficits, no new deficit Hosp A/P - Plan CT abdomen: progressive mild dilation of ascending colon with hepatic flexure pneumatosis. New right paracolic gutter fluid and high density debris in cecal apex representing hemorrhage. RML and LL pneumonia This is 69 year old female who presented with altered mental status, found to be in acute renal failure Acute encephalopathy possibly from polysubstance abuse vs ischemic bowel s/p ex lap vs metabolic - patient is s/p ex lap, right hemicolectomy, resection of small bowel and 18 inches of ileum and resection of transverse colon POD 3. She was found to have gangrenous right colon/transverse colon and distal small bowel. S/p second look laparotomy 04/17 with hematoma evacuation - currently still sedated - starting TPN today Acute Kidney Injury - likely from volume depletion from ischemic bowel. -she is getting dialysis. Creatinine 3.3 Acute blood loss anemia - Hb stable 8.1. S/p 2 units blood 6/7 Thrombocytopenia - platelets improved to 25. S/p platelet transfusion 6/7 Acute hypoxic respiratory failure possibly from pneumonia - noted on CT abdomen - will continue with zosyn day 3. Continue IV steroids Transaminitis - resolved Hypocalcemia- resolved
[2020-04-18] MEDS ORDERED: Amiodarone HCl 150 MG in Dextrose 5% in Water 100 ML IVPB SCH (16:30)
[2020-04-18] MEDS: Amiodarone 450 MG in Dextrose 5% in Water 250 ML IVPB SCH ×2 (16:53→21:39)
[2020-04-18 19:18] LABS: Hemoglobin 8.7 g/dL (12.0-16.0); Mean Corpuscular HGB CONC 34.4 g/dL (32.0-36.0); Mean Corpuscular Hemoglobin 32.6 pg (27.0-31.0); Mean Corpuscular Volume 94.7 fL (78.0-98.0); Mean Platelet Volume 12.1 fL (7.4-10.4); Platelet Count 21 thou/uL (130-400); RBC Distribution Width 13.4 % (11.5-14.5); Red Blood Cell (RBC) Count 2.67 mill/uL (4.20-5.40)
[2020-04-18 19:45] LABS: Band 34 % (5-11); Hypochromia SLIGHT = 6-15 cells (100X) (0-5/hpf); Large Platelets SLIGHT; Lymphocytes 5 % (21-51); MDiff Complete? YES; Monocytes 4 % (0-10); Neutrophil 55 % (42-75); Platelet Morphology Comment Appears Decreased; Polychromasia SLIGHT = 2-3 cells (100X) (0-2/hpf); Reactive Lymphocytes 2 % (0-10); Target Cells SLIGHT = 2-5 cells (100X) (0-1/hpf)
[2020-04-18] MEDS ORDERED: SODIUM ACETATE IV SCH (22:00)
[2020-04-18] MEDS ORDERED: [UNRECOGNIZED DRUG - OTHER] IV SCH (22:00)
[2020-04-18] MEDS ORDERED: CALCIUM CHLORIDE IV SCH (22:00)
[2020-04-18] MEDS ORDERED: SODIUM CHLORIDE IV SCH (22:00)
[2020-04-18] MEDS: Diltiazem HCl 125 MG, Admixture Fee 1 EACH in Sodium Chloride 0.9% 100 ML IVPB SCH (22:54)
[2020-04-19] MEDS: Labetalol HCl 100 MG/20 ML VIAL SLOW IVP PRN (00:04)
[2020-04-19] MEDS: fentaNYL Citrate/PF 2,000 MCG in Sodium Chloride 0.9% 60 ML IV SCH ×2 (01:00→18:27)
[2020-04-19] MEDS: Lorazepam 2 MG/ML VIAL SLOW IVP PRN ×4 (03:59→20:41)
[2020-04-19 04:24] LABS: ALT (SGPT) 17 U/L (8-55); AST (SGOT) 17 U/L (5-34); Albumin 3.3 g/dL (3.4-4.8); Alkaline Phosphatase 62 U/L (40-110); Anion Gap 18 mmol/L (10-20); BUN (Urea Nitrogen) 58 mg/dL (9.8-20.1); Calc. Creatinine Clearance 35 mL/min (70-130); Calcium 7.9 mg/dL (7.8-10.44); Carbon Dioxide 24 mmol/L (23-31); Chloride 102 mmol/L (98-107); Estimated GFR-MDRD 21; Globulin 2.1 g/dL (2.4-3.5); Glucose 208 mg/dL (80-115); Potassium 4.1 mmol/L (3.5-5.1); Protein, Total 5.4 g/dL (6.0-8.3); Sodium 140 mmol/L (136-145)
[2020-04-19] MEDS: HumaLOG 300 UNITS/3 ML VIAL SC PRN ×4 (04:28→21:34)
[2020-04-19 04:37] LABS: Platelet Count 25 thou/uL (130-400)
[2020-04-19] MEDS: Hydrocortisone Sod Succ/PF 100 mg/2 ml Vial IVP SCH ×2 (05:07→20:41)
[2020-04-19] MEDS: Piperacillin/Tazobactam 2.25 GM in Sodium Chloride 0.9% 100 ML IVPB SCH ×2 (05:07→11:42)
[2020-04-19 05:34] LABS: Anisocytosis SLIGHT = 6-15 cells (100X) (0-5/hpf); Band 37 % (5-11); Hemoglobin 8.9 g/dL (12.0-16.0); Lymphocytes 5 % (21-51); MDiff Complete? YES; Mean Corpuscular HGB CONC 33.4 g/dL (32.0-36.0); Mean Corpuscular Hemoglobin 31.8 pg (27.0-31.0); Mean Corpuscular Volume 95.3 fL (78.0-98.0); Mean Platelet Volume 12.4 fL (7.4-10.4); Monocytes 2 % (0-10); Neutrophil 56 % (42-75); Platelet Morphology Comment Appears Decreased; Polychromasia SLIGHT = 2-3 cells (100X) (0-2/hpf); RBC Distribution Width 13.3 % (11.5-14.5); Red Blood Cell (RBC) Count 2.79 mill/uL (4.20-5.40); White Blood Cell (WBC) Count 10.2 thou/uL (4.8-10.8)
[2020-04-19 06:51] LABS: Base Excess (BEa) -1.4 mEq/L (-2.0 to +3.0); CO2 Tension 43.8 mmHg (35.0-45.0); Calcium, Ionized (arterial) 1.07 mmol/L (1.12-1.30); Carboxyhemoglobin (COHb) 2.9 gm% (0.0-3.0); Hemoglobin (Hb) 8.4 g/dL (12.0-16.0); O2 Tension (PaO2), arterial 79.1 mmHg (> 80.0); Potassium - ABG Lab 4.03 mmol/L (3.70-5.30); pH, Arterial 7.36 (7.35-7.45)
[2020-04-19 06:54] LABS: Puncture Site LINE
--- NOTE | 2020-04-19 07:47 | RAD ---
CHEST 1 VIEW: INDICATION: History of intubation. COMPARISON: Prior study dated 04/18/2020. IMPRESSION: Left internal jugular central venous catheter, gastric catheter, and ET tube tip are unchanged. Card iomegaly with pulmonary vascular congestion persists. Mild bibasilar interstitial and airspace opaci ties persist. No pneumothorax is evident. POS: [facility]
[2020-04-19] MEDS: Sodium Chloride 0.9% 1,000 ML IV SCH (08:14)
--- NOTE | 2020-04-19 08:26 | PRG ---
DATE OF SERVICE: 04/19/2020 SERVICE: Nephrology. SUBJECTIVE: A 69-year-old female seen in followup for acute tubular necrosis due to septic shock and dehydration. The patient received hemodialysis late last night. Also flipped into AFib requiring addition of Cardizem to get rate controlled. Still sedated and mechanically ventilated. OBJECTIVE: VITAL SIGNS: Temperature 98.7, pulse 74, respiratory rate 16, SpO2 96% on 40% FiO2, blood pressure is 121/74. I's and O's in the last 24 hours showed total intake of 3797. Total output is 4607 with UF of 3100. GENERAL: Female, in no obvious distress. Sedated. HEENT: Normocephalic, atraumatic. Oral mucosa is mildly dry. ET tube is in place. CARDIOVASCULAR: Irregular rhythm and rate with normal heart sounds 1 and 2. RESPIRATORY: Ventilator transmitted breath sounds are heard in all lung zones. GI: Full, firm with surgical wound with wound VAC in place. UROGENITAL: Pagan catheter is in place with minimal or no urine noted. EXTREMITIES: Lglv-vl-encoknjb edema of the extremities especially proximally and lower noted. 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 DIAGNOSTIC DATA: CBC showed WBC count of 10.2, hemoglobin of 8.9, platelet of 25. Arterial blood gas showed pH of 7.36, pCO2 of 43.8, pO2 of 79.1, ionized calcium 1.07. CMP showed sodium 140, potassium 4.1, chloride 102, CO2 of 24, BUN 58, creatinine 2.35, glucose 208, calcium 7.9, total bilirubin 1.0, AST 17, ALT 17, alkaline phosphatase 62, total protein 5.4, albumin 3.3. ASSESSMENT: 1. Acute renal failure due to acute tubular necrosis related to septic shock, volume depletion, and rhabdomyolysis. The patient is now dialysis dependent. Had hemodialysis late last night. Electrolytes and acid-base are acceptable, but the patient is still fluid overloaded. 2. Fluid overload: Due to aggressive IV resuscitation as well as anuric state. 3. Metabolic acidosis, improved. 4. Septic shock due to mesenteric ischemia with necrosis and peritonitis, status post resection of bowel segment. 5. Rhabdomyolysis: Resolved. PLAN: 1. Given that the patient had hemodialysis late last night only finishing around 12 midnight and deferred that electrolytes and acid-base are acceptable, we will avoid hemodialysis today. We will plan on dialyzing the patient tomorrow April 20. 2. We will however discontinue normal saline therapy since the patient now is on TPN to avoid further escalation of fluid overload. 3. We will monitor intake and output as well as renal function. 4. Further treatment to follow depending on hospital course. Job ID: [id number]
[2020-04-19] MEDS: Pantoprazole 40 MG VIAL IVP SCH ×2 (09:39→20:41)
--- NOTE | 2020-04-19 09:42 | PRG ---
DATE OF SERVICE: 04/19/2020 SUBJECTIVE: This morning, the patient remains encephalopathic. She is scheduled to go to surgery today for washout and possibly closure. She is on amiodarone drip. Apparently, a Cardizem drip for SVT. She is getting Ativan for agitation. OBJECTIVE: VITAL SIGNS: Blood pressure 135/76, saturations are 90%, respirations 20, and pulse 100. CHEST: Decreased breath sounds. No wheezing. CARDIAC: Normal S1, S2. No gallops. ABDOMEN: No masses. LABORATORY DATA: H and H are 8 and 26, platelet count is still low at 25, big left shift. PO2 of 79, pCO2 creatinine 2.35, BUN 58. ASSESSMENT AND PLAN: Abdominal sepsis, ischemic bowel, renal failure, respiratory failure, severe deconditioning, SVT. She is not weanable until no further surgical intervention is planned. Otherwise, continue stress dose of steroids. Antibiotics as outlined. All cultures are negative. One-half hour of critical care time. Job ID: [id number]
[2020-04-19] MEDS: Amiodarone 450 MG in Dextrose 5% in Water 250 ML IVPB SCH (12:45)
[2020-04-19] MEDS: Diltiazem HCl 125 MG, Admixture Fee 1 EACH in Sodium Chloride 0.9% 100 ML IVPB SCH (12:46)
--- NOTE | 2020-04-19 14:54 | PRG ---
DATE OF SERVICE: 04/19/2020 SUBJECTIVE: Kacy Cordon is stable on the ventilator. She is still sedated 131/67, heart rate 61. She is on TPN. Change has been made in her TPN considering Dietary recommendations. Urine output last 24 hours 40 mL. LABORATORY DATA: White count 10, hemoglobin 8.9, and platelets 25,000. Sodium 140, potassium 4.1, BUN 58, creatinine 2.35, CO2 of 24, and GFR 21. Accu-Cheks 268. OBJECTIVE: LUNGS: Clear to auscultation. No wheezing. CARDIAC: Regular rate and rhythm. She was in atrial fibrillation, but converted and has been in sinus since last night. ABDOMEN: Soft. ABThera in place. EXTREMITIES: Unremarkable. Minimal edema. ASSESSMENT AND PLAN: 1. Acute renal failure. She is undergoing dialysis. She is hemodynamically stable. She has oliguric renal failure secondary to acute tubular necrosis related to septic shock, colon gangrene, dehydration, rhabdomyolysis. She has a hemodialysis catheter in right groin. At this point, we would plan placement tomorrow of a cuffed-tunneled dialysis catheter, laparotomy, abdominal washout, probably formation of ileostomy. I have discussed this with the patient's daughter, Su, and she has given verbal consent per telephone. She understands the risks and benefits. We will also ask them to obtain anesthesia consent. 2. Thrombocytopenia. She may need a platelet transfusion platelet count does not improve, platelet transfusion preoperatively for perioperative coverage. 3. Malnutrition. Continue TPN. Changes per Dietary recommendations and caloric demands. 4. Septic shock, resolved, now on antibiotics, Zosyn, dose adjusted per renal function. 5. Mild fluid overload. This is due to fluid resuscitation during her shock and severe dehydration. Lungs are minimally congested radiologically and her sats are good. There is no significant peripheral edema. Continue dialysis. She is on TKO IV fluids and 24-hour TPN. Job ID: [id number]
[2020-04-19] MEDS: Meropenem 2 GM, Admixture Fee 1 EACH in Sodium Chloride 0.9% 100 ML IVPB SCH ×2 (15:04→22:22)
--- NOTE | 2020-04-19 15:56 | PDOC.HOSPP ---
- Subjective Encounter Date: 04/19/20 Encounter Time: 10:30 Subjective: The patient is still intubated on the vent. Responds somewhat to pain but does not follow commands. The patient had some atrial fibrillation and was started on amiodarone and diltiazem. She is on IV fluids 10/hour - Objective Vital Signs & Weight: Vital Signs (12 hours) Temp Pulse Resp Pulse Ox 04/19/20 15:18 66 04/19/20 15:00 98.4 F 04/19/20 14:00 14 04/19/20 13:38 63 04/19/20 12:00 16 04/19/20 11:00 98.0 F 04/19/20 10:26 71 04/19/20 10:00 21 H 04/19/20 08:00 16 95 04/19/20 07:00 98.6 F 04/19/20 06:43 74 04/19/20 06:00 16 04/19/20 04:00 16 Weight Admit Weight 182 lb Weight 208 lb 1.862 oz Most Recent Monitor Data Heart Rate from ECG 61 NIBP 166/78 NIBP BP-Mean 107 Respiration from ECG 11 SpO2 97 I&O: 04/18/20 04/19/20 04/20/20 06:59 06:59 06:59 Intake Total 4463 2797.5 Output Total 2325 1290 Balance 2138 1507.5 Result Diagrams: 04/19/20 03:08 04/19/20 03:08 Additional Labs: Accuchecks 04/19/20 04/19/20 04/18/20 15:13 09:55 21:29 POC Glucose 253 H 268 H 140 H 04/18/20 16:12 POC Glucose 137 H Hospitalist ROS - Review of Systems ROS unobtainable: due to mental status - Medication Medications: Active Medications Generic Name Dose Route Start Last Admin Trade Name Freq PRN Reason Stop Dose Admin Dextrose/Water 25 gm 04/15/20 04:04 04/15/20 06:52 Dextrose 50% SLOW IVP 25 gm PRN PRN Administration Hypoglycemia Fentanyl Citrate 2,000 mcg/ 100 mls @ 0 mls/hr 04/16/20 00:12 04/19/20 01:00 Sodium Chloride IV 05/16/20 00:12 100 mls INF ELY Administration Protocol Per Protocol Sodium Acetate 70 meq/ Sodium 2,331.0459 mls @ 97.127 mls/hr 04/18/20 22:00 04/18/20 22:43 Chloride 100 meq/ Calcium IV 04/19/20 21:59 2,331.0459 mls Chloride 10 meq/ Magnesium 2200 ELY Administration Sulfate 10 meq/ Multivitamins 10 ml/ Chromium/Copper/ Manganese/Seleni/Zn 1 ml/ Insulin Human Regular 23 units / Amino Acids/Dextrose/ Fat Emulsion Intravenous Amiodarone HCl 450 mg/ 259 mls @ 0 mls/hr 04/18/20 16:30 04/19/20 12:45 Dextrose/Water IVPB 259 mls INF ELY Administration Protocol Per Protocol Diltiazem HCl 125 mg/ 125 mls @ 5 mls/hr 04/18/20 22:30 04/19/20 12:46 Miscellaneous Medication 1 IVPB 125 mls each/ Sodium Chloride INF ELY Administration Protocol Meropenem 2 gm/ Miscellaneous 100 mls @ 200 mls/hr 04/19/20 15:00 04/19/20 15 :04 Medication 1 each/ Sodium IVPB 100 mls Chloride 0700,1500,2300 ELY Administration Insulin Human Lispro 0 units 04/15/20 04:04 04/19/20 15:09 Humalog SC 4 unit .MILD SLIDING SCALE PRN Administration Mild Correctional Scale Labetalol HCl 20 mg 04/15/20 00:24 04/19/20 00:04 Normodyne SLOW IVP 20 mg Q4H PRN Administration SBP > 160, use third Lorazepam 2 mg 04/16/20 00:12 04/19/20 09:39 Ativan SLOW IVP 05/16/20 00:12 2 mg Q1H PRN Administration Breakthrough agitation Morphine Sulfate 2 mg 04/16/20 00:12 04/18/20 00:17 Morphine SLOW IVP 05/16/20 00:12 2 mg Q1H PRN Administration BREAKTHROUGH PAIN/Agitation Pantoprazole Sodium 40 mg 04/16/20 09:00 04/19/20 09:39 Protonix IVP 40 mg Q12HR ELY Administration Sodium Chloride 10 ml 04/15/20 09:00 04/19/20 09:40 Flush - Normal Saline IVF 10 ml Q12HR ELY Administration - Exam General - other findings: intubated Eye: PERRL, anicteric sclera ENT: normocephalic atraumatic, no oropharyngeal lesions Neck: no JVD Heart: RRR, no murmur, no gallops, no rubs Respiratory: CTAB, no wheezes, no rales, no ronchi Gastrointestinal: soft Gastrointestinal - other findings: abdomen distended, mildly tender Extremities: no cyanosis, no clubbing, 1+ LE edema Skin: normal turgor, no lesions, no rashes Musculoskeletal: normal tone, normal strength, no muscle wasting Hosp A/P - Plan CT abdomen: progressive mild dilation of ascending colon with hepatic flexure pneumatosis. New right paracolic gutter fluid and high density debris in cecal apex representing hemorrhage. RML and LL pneumonia This is 69 year old female who presented with altered mental status, found to be in acute renal failure Acute encephalopathy possibly from polysubstance abuse vs ischemic bowel s/p ex lap vs metabolic - patient is s/p ex lap, right hemicolectomy, resection of small bowel and 18 inches of ileum and resection of transverse colon POD 4. She was found to have gangrenous right colon/transverse colon and distal small bowel. S/p second look laparotomy 6/7 with hematoma evacuation - currently still sedated. She has been started on TPN Acute Kidney Injury -creatinine improved to 2.35 - not getting dialysis today Atrial fibrillation - on cardizem drip and amiodarone. HR stable Acute blood loss anemia - Hb stable 8.9. S/p 2 units blood 6/7 Thrombocytopenia - platelets improved to 25. S/p platelet transfusion 6/7 Acute hypoxic respiratory failure possibly from pneumonia - noted on CT abdomen - will continue with zosyn day 4. Continue IV steroids Transaminitis - resolved Hypocalcemia- resolved
[2020-04-19] MEDS: hydrALAZINE 20 MG/ML VIAL SLOW IVP PRN (18:09)
[2020-04-19 18:32] LABS: Anion Gap 19 mmol/L (10-20); BUN (Urea Nitrogen) 87 mg/dL (9.8-20.1); Calc. Creatinine Clearance 26 mL/min (70-130); Calcium 8.1 mg/dL (7.8-10.44); Carbon Dioxide 22 mmol/L (23-31); Chloride 101 mmol/L (98-107); Estimated GFR-MDRD 15; Glucose 248 mg/dL (80-115); Potassium 4.1 mmol/L (3.5-5.1); Sodium 138 mmol/L (136-145)
[2020-04-19 18:34] LABS: Anisocytosis SLIGHT = 6-15 cells (100X) (0-5/hpf); Band 31 % (5-11); Hemoglobin 9.3 g/dL (12.0-16.0); Large Platelets SLIGHT; Lymphocytes 4 % (21-51); MDiff Complete? YES; Mean Corpuscular HGB CONC 33.3 g/dL (32.0-36.0); Mean Corpuscular Hemoglobin 31.6 pg (27.0-31.0); Mean Corpuscular Volume 94.8 fL (78.0-98.0); Mean Platelet Volume 12.8 fL (7.4-10.4); Metamyelocyte 1 % (0-0); Monocytes 5 % (0-10); Neutrophil 57 % (42-75); Platelet Count 40 thou/uL (130-400); Platelet Morphology Comment Appears Decreased; Polychromasia SLIGHT = 2-3 cells (100X) (0-2/hpf); RBC Distribution Width 13.2 % (11.5-14.5); Reactive Lymphocytes 2 % (0-10); Red Blood Cell (RBC) Count 2.96 mill/uL (4.20-5.40); Vacuoles SLIGHT; White Blood Cell (WBC) Count 12.9 thou/uL (4.8-10.8)
[2020-04-19] MEDS: SODIUM CHLORIDE IV SCH (21:29)
[2020-04-19] MEDS: CALCIUM CHLORIDE IV SCH (21:29)
[2020-04-19] MEDS: [UNRECOGNIZED DRUG - OTHER] IV SCH (21:29)
[2020-04-19] MEDS: SODIUM ACETATE IV SCH (21:29)
[2020-04-19] MEDS: Propofol 1,000 MG/100 ML VIAL IV PRN (21:34)
[2020-04-19] MEDS ORDERED: [UNRECOGNIZED DRUG - OTHER] IV SCH (22:00)
[2020-04-19] MEDS ORDERED: SODIUM ACETATE IV SCH (22:00)
[2020-04-19] MEDS ORDERED: CALCIUM CHLORIDE IV SCH (22:00)
[2020-04-19] MEDS ORDERED: SODIUM CHLORIDE IV SCH (22:00)
[2020-04-20 04:46] LABS: Phosphorus 2.6 mg/dL (2.3-4.7)
[2020-04-20 04:48] LABS: ALT (SGPT) 15 U/L (8-55); AST (SGOT) 17 U/L (5-34); Albumin 2.7 g/dL (3.4-4.8); Alkaline Phosphatase 58 U/L (40-110); Anion Gap 16 mmol/L (10-20); BUN (Urea Nitrogen) 120 mg/dL (9.8-20.1); Bilirubin, Total 0.7 mg/dL (0.2-1.2); Calc. Creatinine Clearance 24 mL/min (70-130); Calcium 7.7 mg/dL (7.8-10.44); Carbon Dioxide 25 mmol/L (23-31); Chloride 101 mmol/L (98-107); Estimated GFR-MDRD 13; Globulin 2.2 g/dL (2.4-3.5); Glucose 321 mg/dL (80-115); Magnesium 2.5 mg/dL (1.6-2.6); Potassium 3.9 mmol/L (3.5-5.1); Protein, Total 4.9 g/dL (6.0-8.3); Sodium 138 mmol/L (136-145)
[2020-04-20 05:12] LABS: Band 14 % (5-11); Dohle Bodies SLIGHT; Hemoglobin 8.5 g/dL (12.0-16.0); Large Platelets SLIGHT; Lymphocytes 5 % (21-51); MDiff Complete? YES; Mean Corpuscular HGB CONC 34.4 g/dL (32.0-36.0); Mean Corpuscular Hemoglobin 32.7 pg (27.0-31.0); Mean Platelet Volume 12.7 fL (7.4-10.4); Monocytes 3 % (0-10); Neutrophil 78 % (42-75); Platelet Count 39 thou/uL (130-400); Platelet Morphology Comment Appears Decreased; RBC Distribution Width 13.4 % (11.5-14.5); Toxic Granulation SLIGHT
[2020-04-20] MEDS: HumaLOG 300 UNITS/3 ML VIAL SC PRN ×3 (05:18→17:21)
[2020-04-20] MEDS: Amiodarone 450 MG in Dextrose 5% in Water 250 ML IVPB SCH (05:18)
[2020-04-20] MEDS: Propofol 1,000 MG/100 ML VIAL IV PRN ×3 (05:23→20:45)
--- NOTE | 2020-04-20 07:40 | PRG ---
DATE OF SERVICE: SERVICE: Nephrology. SUBJECTIVE: A 69-year-old female, seen in followup for acute renal failure, on hemodialysis as well as volume overload. The patient is still sedated and mechanically ventilated. OBJECTIVE: VITAL SIGNS: Temperature 98.4, pulse 64, respiratory rate 18, SpO2 100 on 40% FiO2, and blood pressure is 129/53. GENERAL: Female, in no obvious distress. Sedated. HEENT: Normocephalic, atraumatic. ET tube is in place. CARDIOVASCULAR: Regular rhythm and rate. Normal heart sounds 1 and 2. RESPIRATORY: Ventilator transmitted breath sound is heard in all lung zones. GI: Full with surgical wound with wound VAC in place noted. Bowel sound is hypoactive. EXTREMITIES: Moderate edema of the extremities noted. No erythema appreciated. COMPENSATION COORDINATOR: The patient is sedated. DIAGNOSTIC DATA: CBC showed WBC count of 9.0, hemoglobin of 8.5, and platelet of 39. Chemistry showed sodium 138, potassium 3.9, chloride 101, CO2 25, BUN 120, creatinine 3.39, glucose 321, calcium 7.7, magnesium 2.5, total bilirubin 0.7, AST 17, ALT 15, alkaline phosphatase 58, total protein 4.9, albumin 2.7, phosphorus 2.6. ASSESSMENT: 1. Acute renal failure: Due to acute tubular necrosis related to septic shock, volume depletion and rhabdomyolysis. The patient is currently anuric at worse than to oliguric at best. Pagan catheter was removed, hence accurate urine output could not be measured. Last hemodialysis was on April 18. 2. Volume overload. 3. Metabolic acidosis, improved. 4. Rhabdomyolysis: Resolved. 5. Septic shock due to mesenteric ischemia with necrosis and peritonitis. 6. Mesenteric ischemia with necrosis. 7. Paroxysmal atrial fibrillation. 8. Severe thrombocytopenia related to sepsis. 9. Acute anemia. PLAN: 1. We will dialyze the patient today with UF as tolerated. We will ultrafiltrate the patient as tolerated . 2. We will insert a Pagan catheter to measure urine output. 3. We will continue to monitor urine output and renal function for renal recovery. 4. Further treatment to follow depending on hospital course. Job ID: [id number]
[2020-04-20 07:58] LABS: Actual Bicarbonate (HCO3a) 22.7 mEq/L (22-28); Base Excess (BEa) -3.3 mEq/L (-2.0 to +3.0); CO2 Tension 45.3 mmHg (35.0-45.0); Calcium, Ionized (arterial) 1.11 mmol/L (1.12-1.30); Carboxyhemoglobin (COHb) 2.5 gm% (0.0-3.0); Hemoglobin (Hb) 9.4 g/dL (12.0-16.0); O2 Tension (PaO2), arterial 100.4 mmHg (> 80.0); Potassium - ABG Lab 3.81 mmol/L (3.70-5.30); pH, Arterial 7.32 (7.35-7.45)
[2020-04-20 07:59] LABS: ALV-art Gradient 128.175 (0-20); Puncture Site ALINE
--- NOTE | 2020-04-20 10:31 | PRG ---
DATE OF SERVICE: 04/20/2020 SUBJECTIVE: Kacy Cordon is a 69-year-old female, who is intubated in the vent. She is due for another washout and appropriate intervention. OBJECTIVE: VITAL SIGNS: Respiratory rate 18, pulse 63, blood pressure height of 68, afebrile. CHEST: Decreased breath sounds, no wheezing. CARDIAC: Normal S1, S2. No gallops. ABDOMEN: No masses. LABORATORY DATA: White count 9000, H and H are 8 and 24, platelet count is 39 and left shift. PO2 of 100, pCO2 of 45, pH of 7.32, BUN and creatinine of 120 and 3.39. ASSESSMENT: Multiorgan failure, abdominal sepsis, renal failure, encephalopathy, respiratory failure. PLAN: I had a lengthy discussion with the patient's son. We are now going to wean her until she is stable and no further surgical intervention. In the meantime, she is on amiodarone for SVT. She is on meropenem for abdominal sepsis. TPN. We will follow. One-half hour of critical time. Job ID: [id number]
[2020-04-20] MEDS: Pantoprazole 40 MG VIAL IVP SCH ×2 (11:10→22:11)
[2020-04-20] MEDS: Meropenem 2 GM, Admixture Fee 1 EACH in Sodium Chloride 0.9% 100 ML IVPB SCH ×2 (11:10→22:20)
[2020-04-20] MEDS ORDERED: EPHEDRINE 25 MG/5 ML SYRINGE ONE (11:15)
[2020-04-20] MEDS ORDERED: Rocuronium Bromide 10 MG/ML (10ML VIAL) ONE (11:15)
[2020-04-20] MEDS: Hydrocortisone Sod Succ/PF 100 mg/2 ml Vial IVP SCH ×2 (11:15→22:08)
[2020-04-20] MEDS ORDERED: PHENYLEPHRINE-NS 100 MCG/ML 10 ML SYRINGE ONE (11:15)
[2020-04-20] MEDS ORDERED: Midazolam HCl 2 mg/2 ml Vial ONE (12:26)
[2020-04-20] MEDS ORDERED: Fentanyl 250 MCG/5 ML VIAL ONE (12:26)
[2020-04-20] MEDS ORDERED: Heparin 10,000 UNITS/1 ML VIAL ONE (12:34)
[2020-04-20] MEDS ORDERED: Bupivacaine PF 0.5% 30 ML VIAL ONE (12:34)
[2020-04-20] MEDS ORDERED: Lidocaine 1% w/Epinephrine 1:100K 20 ML VIAL ONE (12:34)
[2020-04-20] MEDS ORDERED: Sodium Chloride 0.9% 20 ML ONE (12:34)
--- NOTE | 2020-04-20 15:08 | PDOC.HOSPP ---
- Subjective Encounter Date: 04/20/20 Encounter Time: 10:00 Subjective: Patient still intubated, not weanable currently. She went back to the OR today for ileostomy. She received platelet transfusion today per nursing staff and blood transfusion SHe is getting dialysis currently - Objective Vital Signs & Weight: Vital Signs (12 hours) Temp Pulse Resp BP Pulse Ox 04/20/20 14:51 76 04/20/20 12:00 18 04/20/20 11:48 98.0 F 04/20/20 11:03 97.7 F 04/20/20 10:50 98.5 F 04/20/20 10:30 98 04/20/20 10:00 20 04/20/20 08:00 98.4 F 18 100 04/20/20 07:36 64 144/53 H 04/20/20 06:00 18 04/20/20 04:00 18 04/20/20 03:56 66 141/66 H Weight Admit Weight 182 lb Weight 210 lb 8.663 oz Most Recent Monitor Data Heart Rate from ECG 94 NIBP 175/101 NIBP BP-Mean 125 Respiration from ECG 12 SpO2 100 I&O: 04/19/20 04/20/20 04/21/20 06:59 06:59 06:59 Intake Total 2797.5 3665 450 Output Total 1290 1000 445 Balance 1507.5 2665 5 Result Diagrams: 04/20/20 04:15 04/20/20 04:15 Additional Labs: Accuchecks 04/20/20 04/19/20 04/19/20 10:12 21:35 15:13 POC Glucose 170 H 246 H 253 H Hospitalist ROS - Review of Systems Constitutional: denies: fever, chills - Medication Medications: Active Medications Generic Name Dose Route Start Last Admin Trade Name Freq PRN Reason Stop Dose Admin Dextrose/Water 25 gm 04/15/20 04:04 04/15/20 06:52 Dextrose 50% SLOW IVP 25 gm PRN PRN Administration Hypoglycemia Hydralazine HCl 10 mg 04/15/20 00:24 04/19/20 18:09 Apresoline SLOW IVP 10 mg Q6H PRN Administration SBP GREATER THAN 160 Hydrocortisone Sodium Succinate 50 mg 04/19/20 21:00 04/20/20 11:15 Solu-Cortef IVP 04/25/20 12:01 Not Given BID ELY Fentanyl Citrate 2,000 mcg/ 100 mls @ 0 mls/hr 04/16/20 00:12 04/19/20 18:27 Sodium Chloride IV 05/16/20 00:12 100 mls INF ELY Administration Protocol Per Protocol Amiodarone HCl 450 mg/ 259 mls @ 0 mls/hr 04/18/20 16:30 04/20/20 05:18 Dextrose/Water IVPB 259 mls INF ELY Administration Protocol Per Protocol Sodium Acetate 70 meq/ Sodium 1,569.8759 mls @ 65.411 mls/hr 04/19/20 22:00 04/19/20 21:29 Chloride 55 meq/ Calcium IV 1,569.8759 mls Chloride 10 meq/ Magnesium 2200 ELY Administration Sulfate 10 meq/ Multivitamins 10 ml/ Chromium/Copper/ Manganese/Seleni/Zn 1 ml/ Insulin Human Regular 31 units / Dextrose/Water/ Amino Acids/ Sterile Water Insulin Human Lispro 0 units 04/15/20 04:04 04/20/20 10:25 Humalog SC 2 unit .MILD SLIDING SCALE PRN Administration Mild Correctional Scale Labetalol HCl 20 mg 04/15/20 00:24 04/19/20 00:04 Normodyne SLOW IVP 20 mg Q4H PRN Administration SBP > 160, use third Lorazepam 2 mg 04/16/20 00:12 04/19/20 20:41 Ativan SLOW IVP 05/16/20 00:12 2 mg Q1H PRN Administration Breakthrough agitation Morphine Sulfate 2 mg 04/16/20 00:12 04/18/20 00:17 Morphine SLOW IVP 05/16/20 00:12 2 mg Q1H PRN Administration BREAKTHROUGH PAIN/Agitation Pantoprazole Sodium 40 mg 04/16/20 09:00 04/20/20 11:10 Protonix IVP Not Given Q12HR ELY Propofol 1,000 mg 04/16/20 00:12 04/20/20 12:26 Diprivan IV 05/16/20 00:12 1,000 mg INF PRN Administration TO ACHIEVE GOAL RASS Protocol Sodium Chloride 10 ml 04/15/20 09:00 04/20/20 09:39 Flush - Normal Saline IVF 10 ml Q12HR ELY Administration - Exam General Appearance: NAD, awake alert Eye: PERRL, anicteric sclera ENT: normocephalic atraumatic, no oropharyngeal lesions Neck: no JVD Heart: RRR, no murmur, no gallops, no rubs Respiratory: CTAB, no wheezes, no rales, no ronchi Gastrointestinal: soft, non-tender, non-distended, normal bowel sounds Extremities: no cyanosis, no clubbing, no edema Skin: normal turgor, no lesions, no rashes Hosp A/P - Plan CT abdomen: progressive mild dilation of ascending colon with hepatic flexure pneumatosis. New right paracolic gutter fluid and high density debris in cecal apex representing hemorrhage. RML and LL pneumonia This is 69 year old female who presented with altered mental status, found to be in acute renal failure Acute encephalopathy possibly from polysubstance abuse vs ischemic bowel s/p ex lap vs metabolic - patient is s/p ex lap, right hemicolectomy, resection of small bowel and 18 inches of ileum and resection of transverse colon POD 5. She was found to have gangrenous right colon/transverse colon and distal small bowel. S/p second look laparotomy 04/17 with hematoma evacuation - she is s/p ileostomy today 04/20 - continue TPN Acute hypoxic respiratory failure possibly from pneumonia - noted on CT abdomen - she was on zosyn. WBC increased 04/19. Switched to meropenem by surgery. Will monitor Acute Kidney Injury -getting dialysis today Atrial fibrillation - on cardizem drip and amiodarone. HR stable Acute blood loss anemia - Hb stable 8.9. S/p 2 units blood 04/17 Thrombocytopenia - platelets down to 14. Platelet transfusion done today, will recheck CBC Transaminitis - resolved Hypocalcemia- resolved
--- NOTE | 2020-04-20 17:02 | RAD ---
SINGLE VIEW OF THE CHEST: 04/20/20 COMPARISON: 04/19/20 HISTORY: Central line placement. FINDINGS: Single view of the chest shows an enlarged but stable cardiomediastinal silhouette. There is new plac ement of a right IJ dialysis catheter with its tip in the superior vena cava. The other lines and tub es are unchanged in position. There is no evidence of pneumothorax. There is no evidence of consolid ation, mass or pleural effusion. IMPRESSION: Status post dialysis catheter placement without evidence of complication. POS: [facility]
--- NOTE | 2020-04-20 17:17 | OP ---
DATE OF PROCEDURE: 04/20/2020 PREOPERATIVE DIAGNOSES: 1. Gangrene colon. 2. Open abdomen. 3. Ischemic small bowel and colon. 4. Acute vascular insufficiency. 5. Stage 3rd look planned operation. 6. Acute renal failure. 7. Oliguric/anuric. POSTOPERATIVE DIAGNOSES: 1. Gangrene colon. 2. Open abdomen. 3. Ischemic small bowel and colon. 4. Acute vascular insufficiency. 5. Stage 3rd look planned operation. 6. Acute renal failure. 7. Oliguric/anuric. PROCEDURES PERFORMED: 1. Right IJ cuffed tunneled hemodialysis catheter, AngioDynamics pre-curved, ultrasound and fluoroscopy used. 2. Planned repeat laparotomy with abdominal washout and resection of approximately 4 inches of colon and small bowel with a long Annette's procedure (distal transverse colon) and ileostomy. Seprafilm used. ANESTHESIA: General. ESTIMATED BLOOD LOSS: Negligible. FINDINGS: The patient had a small amount of old hematoma in her abdominal cavity, were very minimal. The terminal ileum 4 inches had some gangrenous patches, thus were resected. The stump of the stapled transverse colon had mild ischemia, and thus a small amount resected. DESCRIPTION OF PROCEDURE: The patient was taken to the operating room where under general anesthesia, neck, chest, and abdomen were prepared with Betadine and draped in routine fashion. Using ultrasound guidance, right internal jugular vein was cannulated with a trocar catheter, J-wire threaded, trocar catheter removed. Skin site enlarged sharply. A stab incision was made over the right chest. Using the tunneling device. precurved AngioDynamics cuffed tunneled hemodialysis catheter tunneled between 2 incisions, passed the fabric cuff beneath the skin exit site and catheter secured with 2 interrupted suture of 3-0 nylon. Sterile dressings applied. Small and medium sized dilator was placed into the internal jugular vein and removed. Dilator and Peel-Away sheath placed with J-wire in the superior vena cava under fluoroscopic visualization. Dilator and J-wire removed. Catheter placed with Peel-Away sheath in the superior vena cava and Peel-Away sheath removed. Platysma was approximated with 4-0 Monocryl, skin with subdermal Monocryl, and [place] glue and sterile dressings applied. Each port aspirated blood, flushed with saline solution and heparinized saline solution with 1000 units of heparin per mL, indicating volume of the port. Fluoroscopy revealed good line placement. The abdomen had been prepared with Betadine and draped in routine fashion as noted above. ABThera was removed. Abdominal cavity was washed out. There was no evidence of purulence or problems in the abdominal cavity. The proximal transverse colon had some ischemic mild areas and distal small bowel similar and mesentery of each were divided with the LigaSure and each resecting with the stapler and submitted to Pathology. The remaining colon and small bowel was healthy. A defect was made in the right lower quadrant over the anterior rectus sheath and a cruciate incision was made in the anterior rectus sheath after resecting a small circular defect of skin and subcutaneous tissue and the ileostomy dilated and ileum brought out through this. Seprafilm was applied. Sponge and needle counts were correct. Fascia closed with continuous suture of #1 PDS. Skin and subcutaneous tissues irrigated. Skin loosely approximated with lex and a wound VAC applied and then the ileostomy matured with 3-0 Vicryl simple sutures. Ileostomy appliance secured. The patient tolerated the procedure well. Job ID: [id number]
[2020-04-20 20:34] LABS: Anisocytosis SLIGHT = 6-15 cells (100X) (0-5/hpf); Band 46 % (5-11); Eosinophils 1 % (0-10); Hemoglobin 10.6 g/dL (12.0-16.0); Lymphocytes 11 % (21-51); MDiff Complete? YES; Mean Corpuscular HGB CONC 33.9 g/dL (32.0-36.0); Mean Corpuscular Hemoglobin 32.3 pg (27.0-31.0); Mean Corpuscular Volume 95.3 fL (78.0-98.0); Mean Platelet Volume 9.7 fL (7.4-10.4); Monocytes 6 % (0-10); Neutrophil 34 % (42-75); Nucleated RBC 1 % (0); Platelet Count 105 thou/uL (130-400); Platelet Morphology Comment Appears Decreased; Polychromasia MODERATE = 3-4 cells (100X) (0-2/hpf); RBC Distribution Width 13.5 % (11.5-14.5); Reactive Lymphocytes 2 % (0-10); Red Blood Cell (RBC) Count 3.28 mill/uL (4.20-5.40); Target Cells SLIGHT = 2-5 cells (100X) (0-1/hpf); Vacuoles SLIGHT; White Blood Cell (WBC) Count 12.5 thou/uL (4.8-10.8)
[2020-04-20 20:37] LABS: Anion Gap 14 mmol/L (10-20); BUN (Urea Nitrogen) 69 mg/dL (9.8-20.1); Calc. Creatinine Clearance 35 mL/min (70-130); Calcium 7.7 mg/dL (7.8-10.44); Carbon Dioxide 27 mmol/L (23-31); Chloride 100 mmol/L (98-107); Estimated GFR-MDRD 21; Glucose 147 mg/dL (80-115); Potassium 3.9 mmol/L (3.5-5.1); Sodium 137 mmol/L (136-145)
[2020-04-20] MEDS: SODIUM CHLORIDE IV SCH (22:12)
[2020-04-20] MEDS: SODIUM ACETATE IV SCH (22:12)
[2020-04-20] MEDS: CALCIUM CHLORIDE IV SCH (22:12)
[2020-04-20] MEDS: [UNRECOGNIZED DRUG - OTHER] IV SCH (22:12)
[2020-04-21] MEDS: Propofol 1,000 MG/100 ML VIAL IV PRN ×4 (04:01→19:58)
[2020-04-21] MEDS: fentaNYL Citrate/PF 2,000 MCG in Sodium Chloride 0.9% 60 ML IV SCH ×2 (05:07→20:03)
[2020-04-21 05:21] LABS: Anion Gap 16 mmol/L (10-20); BUN (Urea Nitrogen) 88 mg/dL (9.8-20.1); Calc. Creatinine Clearance 29 mL/min (70-130); Calcium 7.7 mg/dL (7.8-10.44); Carbon Dioxide 24 mmol/L (23-31); Chloride 99 mmol/L (98-107); Estimated GFR-MDRD 17; Glucose 188 mg/dL (80-115); Magnesium 2.3 mg/dL (1.6-2.6); Phosphorus 2.8 mg/dL (2.3-4.7); Potassium 4.2 mmol/L (3.5-5.1); Sodium 135 mmol/L (136-145)
[2020-04-21 05:55] LABS: Band 34 % (5-11); Hemoglobin 10.5 g/dL (12.0-16.0); Lymphocytes 8 % (21-51); MDiff Complete? YES; Mean Corpuscular HGB CONC 32.8 g/dL (32.0-36.0); Mean Corpuscular Hemoglobin 30.7 pg (27.0-31.0); Mean Corpuscular Volume 93.7 fL (78.0-98.0); Mean Platelet Volume 10.8 fL (7.4-10.4); Monocytes 7 % (0-10); Myelocyte 2 % (0-0); Neutrophil 49 % (42-75); Nucleated RBC 2 % (0); Platelet Count 117 thou/uL (130-400); Platelet Morphology Comment Appears Decreased; RBC Distribution Width 13.6 % (11.5-14.5); Red Blood Cell (RBC) Count 3.42 mill/uL (4.20-5.40); White Blood Cell (WBC) Count 14.1 thou/uL (4.8-10.8)
[2020-04-21 07:10] LABS: Actual Bicarbonate (HCO3a) 23.8 mEq/L (22-28); Base Excess (BEa) -0.6 mEq/L (-2.0 to +3.0); CO2 Tension 38.4 mmHg (35.0-45.0); Calcium, Ionized (arterial) 1.05 mmol/L (1.12-1.30); Carboxyhemoglobin (COHb) 2.1 gm% (0.0-3.0); Hemoglobin (Hb) 10.4 g/dL (12.0-16.0); O2 Tension (PaO2), arterial 75.8 mmHg (> 80.0); Potassium - ABG Lab 3.98 mmol/L (3.70-5.30); pH, Arterial 7.41 (7.35-7.45)
[2020-04-21 07:11] LABS: Puncture Site RRA
[2020-04-21] MEDS: hydrALAZINE 20 MG/ML VIAL SLOW IVP PRN (08:53)
[2020-04-21] MEDS: Hydrocortisone Sod Succ/PF 100 mg/2 ml Vial IVP SCH ×2 (08:54→20:04)
[2020-04-21] MEDS: Pantoprazole 40 MG VIAL IVP SCH ×2 (08:56→20:03)
[2020-04-21] MEDS: Heparin 5,000 UNITS/ML VIAL SC SCH ×3 (08:59→20:03)
[2020-04-21] MEDS: Meropenem 2 GM, Admixture Fee 1 EACH in Sodium Chloride 0.9% 100 ML IVPB SCH ×2 (09:28→20:14)
--- NOTE | 2020-04-21 10:13 | PRG ---
DATE OF SERVICE: 04/21/2020 SUBJECTIVE: Kacy Cordon, this morning, remains intubated in the vent, on fentanyl and Diprivan. OBJECTIVE: VITAL SIGNS: Heart rate is 130, SVT, saturations 98%, and respirations 17. NEUROLOGIC: Sedated. CHEST: Decreased breath sounds, rhonchi. CARDIAC: Normal S1 and S2. No gallops. ABDOMEN: No masses. LABORATORY DATA: Creatinine is 2.8, BUN is 88. PO2 is 75, pCO2 PEEP of 5, pressure support of 10. White count 14,000, H and H 10 and 32, and platelet count 117. IMPRESSION: 1. Abdominal sepsis, status post laparotomy. 2. Supraventricular tachycardia. 3. Severe deconditioning. 4. Renal failure. PLAN: She is not weanable. Continue TPN, supportive care, meropenem, and amiodarone. We will follow. One-half hour of critical care time. Job ID: [id number]
[2020-04-21] MEDS: Labetalol HCl 100 MG/20 ML VIAL SLOW IVP PRN (11:49)
[2020-04-21] MEDS: HumaLOG 300 UNITS/3 ML VIAL SC PRN ×2 (12:36→18:29)
--- NOTE | 2020-04-21 15:36 | PRG ---
DATE OF SERVICE: 04/21/2020 SUBJECTIVE: Kacy Cordon is doing well, status post abdominal washout, definitive closure, ileostomy and placement of a hemodialysis catheter. Right groin Trialysis catheter has been removed. She has a central line, left IJ. She is on the ventilator. They are holding her sedation, hoping to wean her. OBJECTIVE: VITAL SIGNS: Blood pressure 183/83, heart rate 82. LUNGS: Clear to auscultation. CARDIAC: Regular rate and rhythm. No murmur or gallop. ABDOMEN: Soft. Ileostomy output present. EXTREMITIES: Unremarkable. LABORATORY DATA: Urine output minimal 80 in the last 24 hours. White count 12, hemoglobin 10.6, platelet count 117,000. Sodium 135, potassium 4.2, creatinine 2.80, BUN 88. ASSESSMENT AND PLAN: 1. Gangrenous right colon and small bowel status post resection, staged abdominal washouts, now definitive closure with ileostomy. Ileostomy output is significant. Continue NG tube for now. Continue to observe. 2. Malnutrition. Continue TPN. Asked Dietary to recommend tube feedings, and once the recommendations obtained, we will probably start those at a trophic rate of 10 per meal. NG tube output in the last 24 hours is 600 mL. 3. Renal failure, acute, oliguric. Continue dialysis. 4. Malnutrition. 5. Gangrenous colon. Continue antibiotics. 6. Thrombocytopenia. Her Zosyn was discontinued. Zosyn can cause thrombocytopenia. I do not believe her thrombocytopenia is due to heparin. We will restart heparin subcu. Continue meropenem. Observe platelet count. 7. Deconditioning. 8. Respiratory failure. Job ID: [id number]
--- NOTE | 2020-04-21 17:35 | PDOC.HOSPP ---
- Subjective Encounter Date: 04/21/20 Encounter Time: 12:00 Subjective: The patient is intubated. She still has poor urine output. She underwent ileostomy procedure yesterday . She is still in afib - Objective Vital Signs & Weight: Vital Signs (12 hours) Temp Pulse Resp BP Pulse Ox 04/21/20 16:00 98.4 F 23 H 04/21/20 14:00 22 H 04/21/20 13:30 71 04/21/20 12:00 98.9 F 20 04/21/20 11:49 92 176/86 H 04/21/20 10:37 100 04/21/20 10:00 21 H 04/21/20 08:53 90 180/100 H 04/21/20 08:00 20 100 04/21/20 07:07 75 Weight Admit Weight 182 lb Weight 204 lb 5.896 oz Most Recent Monitor Data Heart Rate from ECG 69 NIBP 125/61 NIBP BP-Mean 82 Respiration from ECG 15 SpO2 100 I&O: 04/20/20 04/21/20 04/22/20 06:59 06:59 06:59 Intake Total 3665 2530 200 Output Total 1000 1380 313 Balance 2665 1150 -113 Result Diagrams: 04/21/20 04:35 04/21/20 04:35 Additional Labs: Accuchecks 04/20/20 22:11 POC Glucose 132 H Hospitalist ROS - Review of Systems Constitutional: denies: fever, chills - Medication Medications: Active Medications Generic Name Dose Route Start Last Admin Trade Name Freq PRN Reason Stop Dose Admin Dextrose/Water 25 gm 04/15/20 04:04 04/15/20 06:52 Dextrose 50% SLOW IVP 25 gm PRN PRN Administration Hypoglycemia Heparin Sodium (Porcine) 5,000 units 04/21/20 09:00 04/21/20 15:37 Heparin SC 5,000 units TID ELY Administration Hydralazine HCl 10 mg 04/15/20 00:24 04/21/20 08:53 Apresoline SLOW IVP 10 mg Q6H PRN Administration SBP GREATER THAN 160 Hydrocortisone Sodium Succinate 50 mg 04/19/20 21:00 04/21/20 08:54 Solu-Cortef IVP 04/25/20 12:01 50 mg BID ELY Administration Fentanyl Citrate 2,000 mcg/ 100 mls @ 0 mls/hr 04/16/20 00:12 04/21/20 05:07 Sodium Chloride IV 05/16/20 00:12 100 mls INF ELY Administration Protocol Per Protocol Amiodarone HCl 450 mg/ 259 mls @ 0 mls/hr 04/18/20 16:30 04/20/20 05:18 Dextrose/Water IVPB 259 mls INF ELY Administration Protocol Per Protocol Sodium Acetate 70 meq/ Sodium 1,569.8759 mls @ 65.411 mls/hr 04/19/20 22:00 04/20/20 22:12 Chloride 55 meq/ Calcium IV 1,569.8759 mls Chloride 10 meq/ Magnesium 2200 ELY Administration Sulfate 10 meq/ Multivitamins 10 ml/ Chromium/Copper/ Manganese/Seleni/Zn 1 ml/ Insulin Human Regular 31 units / Dextrose/Water/ Amino Acids/ Sterile Water Meropenem 2 gm/ Miscellaneous 100 mls @ 200 mls/hr 04/20/20 21:00 04/21/20 09 :28 Medication 1 each/ Sodium IVPB 100 mls Chloride 0900,2100 ELY Administration Insulin Human Lispro 0 units 04/15/20 04:04 04/21/20 12:36 Humalog SC 4 unit .MILD SLIDING SCALE PRN Administration Mild Correctional Scale Labetalol HCl 20 mg 04/15/20 00:24 04/21/20 11:49 Normodyne SLOW IVP 20 mg Q4H PRN Administration SBP > 160, use third Lorazepam 2 mg 04/16/20 00:12 04/19/20 20:41 Ativan SLOW IVP 05/16/20 00:12 2 mg Q1H PRN Administration Breakthrough agitation Morphine Sulfate 2 mg 04/16/20 00:12 04/18/20 00:17 Morphine SLOW IVP 05/16/20 00:12 2 mg Q1H PRN Administration BREAKTHROUGH PAIN/Agitation Pantoprazole Sodium 40 mg 04/16/20 09:00 04/21/20 08:56 Protonix IVP 40 mg Q12HR ELY Administration Propofol 1,000 mg 04/16/20 00:12 04/21/20 14:50 Diprivan IV 05/16/20 00:12 1,000 mg INF PRN Administration TO ACHIEVE GOAL RASS Protocol Sodium Chloride 10 ml 04/15/20 09:00 04/21/20 09:32 Flush - Normal Saline IVF 10 ml Q12HR ELY Administration - Exam General - other findings: intubated Eye: PERRL, anicteric sclera ENT: normocephalic atraumatic, no oropharyngeal lesions Neck: supple, no JVD Heart: RRR, no murmur, no gallops, no rubs Respiratory - other findings: diminished breath sounds Gastrointestinal: soft, non-tender, non-distended, normal bowel sounds Extremities: no cyanosis, no clubbing, 1+ LE edema Skin: normal turgor, no lesions, no rashes Neurological - other findings: not responsive Hosp A/P - Plan CT abdomen: progressive mild dilation of ascending colon with hepatic flexure pneumatosis. New right paracolic gutter fluid and high density debris in cecal apex representing hemorrhage. RML and LL pneumonia This is 69 year old female who presented with altered mental status, found to be in acute renal failure Acute encephalopathy possibly from polysubstance abuse vs ischemic bowel s/p ex lap vs metabolic - patient is s/p ex lap, right hemicolectomy, resection of small bowel and 18 inches of ileum and resection of transverse colon POD 6. She was found to have gangrenous right colon/transverse colon and distal small bowel. S/p second look laparotomy 04/17 with hematoma evacuation. Colon biopsy consistent with ischemic colitis - she is s/p ileostomy 04/20 - continue TPN Acute hypoxic respiratory failure possibly from pneumonia - noted on CT abdomen - she was on zosyn. WBC increased /. Switched to meropenem by surgery 04/20. WBC up to 14.1. Continue meropenem - continue hydrocortisone - not weanable from vent yet Acute Kidney Injury -getting dialysis today Atrial fibrillation - on cardizem drip and amiodarone. HR stable Acute blood loss anemia - Hb stable 8.9. S/p 2 units blood 04/17, 1 unit 04/18 and 04/20 Thrombocytopenia - platelets 117 continue to onitor Transaminitis - resolved Hypocalcemia- resolved
[2020-04-21] MEDS ORDERED: Furosemide 100 MG/10 ML VIAL SLOW IVP SCH (18:30)
--- NOTE | 2020-04-21 20:01 | PRG ---
DATE OF SERVICE: 04/21/2020 SERVICE: Nephrology. SUBJECTIVE: A 69-year-old female, seen in followup for acute renal failure. The patient is still anuric. Still intubated and mechanically ventilated. Last dialysis was yesterday, April 20, 2020. OBJECTIVE: VITAL SIGNS: Temperature 98.4, pulse 69, respiratory rate 15, SpO2 of 100%, blood pressure is 125/61. I and O in the last 24 hours showed total intake of 2530 with output of 2050 with urine of 50 mL. GENERAL: Sedated female, in no obvious distress. HEENT: Normocephalic and atraumatic. ET tube is in place. CARDIOVASCULAR: Regular rhythm and rate with normal heart sounds 1 and 2. RESPIRATORY: Ventilator transmitted breath sounds are noted. GI: Abdomen is full. Surgical incision with wound VAC in place noted. Bowel sound is hypoactive. UROGENITAL: Pagan catheter is in place draining little concentrated urine. EXTREMITIES: Moderate edema of the extremities noted. 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 DIAGNOSTIC DATA: CBC showed WBC count of 14.1, hemoglobin of 10.5, platelet of 117. Arterial blood gas showed pH of 7.41, pO2 of 75.8, pCO2 of 38.4, and ionized calcium of 1.05. Chemistry showed sodium 135, potassium 4.2, chloride 99, CO2 of 24, BUN 88, creatinine 2.80, glucose 188, calcium 7.7, phosphorus 2.8, magnesium 2.3. ASSESSMENT: 1. Acute renal failure: Due to acute tubular necrosis. 2. Fluid overload: Due to aggressive IV fluid therapy as well as anuria and hypoalbuminemia. 3. Metabolic acidosis: Improved with hemodialysis. 4. Septic shock: Due to mesenteric ischemia with necrosis and peritonitis. Blood pressure has stabilized, and the patient is currently off pressors. 5. Paroxysmal atrial fibrillation, on amiodarone. 6. Rhabdomyolysis: Resolved. PLAN: 1. We will start her Lasix to improve urine output and help control/manage volume overload. We will also plan on dialyzing the patient tomorrow with UF as tolerated. 2. We will continue to monitor intake and output as well as renal function. 3. Further treatment to follow depending on hospital course. TPN to continue. Job ID: [id number]
[2020-04-21] MEDS: CALCIUM CHLORIDE IV SCH (21:42)
[2020-04-21] MEDS: SODIUM ACETATE IV SCH (21:42)
[2020-04-21] MEDS: SODIUM CHLORIDE IV SCH (21:42)
[2020-04-21] MEDS: [UNRECOGNIZED DRUG - OTHER] IV SCH (21:42)
[2020-04-22] MEDS: Amiodarone 450 MG in Dextrose 5% in Water 250 ML IVPB SCH ×2 (00:33→17:48)
[2020-04-22] MEDS: Propofol 1,000 MG/100 ML VIAL IV PRN ×5 (00:33→20:14)
[2020-04-22] MEDS: HumaLOG 300 UNITS/3 ML VIAL SC PRN ×4 (00:47→18:09)
[2020-04-22] MEDS: Lorazepam 2 MG/ML VIAL SLOW IVP PRN ×2 (00:58→23:12)
[2020-04-22 04:20] LABS: Anion Gap 17 mmol/L (10-20); Calc. Creatinine Clearance 21 mL/min (70-130); Calcium 7.7 mg/dL (7.8-10.44); Carbon Dioxide 25 mmol/L (23-31); Chloride 95 mmol/L (98-107); Estimated GFR-MDRD 12; Glucose 238 mg/dL (80-115); Sodium 133 mmol/L (136-145)
[2020-04-22 04:29] LABS: Band 5 % (5-11); Hemoglobin 9.2 g/dL (12.0-16.0); Hypochromia SLIGHT = 6-15 cells (100X) (0-5/hpf); Lymphocytes 6 % (21-51); MDiff Complete? YES; Mean Corpuscular HGB CONC 34.6 g/dL (32.0-36.0); Mean Corpuscular Hemoglobin 32.8 pg (27.0-31.0); Mean Corpuscular Volume 94.8 fL (78.0-98.0); Monocytes 6 % (0-10); Neutrophil 83 % (42-75); Platelet Count 125 thou/uL (130-400); Platelet Morphology Comment Appears Adequate; RBC Distribution Width 13.5 % (11.5-14.5); Red Blood Cell (RBC) Count 2.79 mill/uL (4.20-5.40); White Blood Cell (WBC) Count 12.2 thou/uL (4.8-10.8)
[2020-04-22 04:31] LABS: BUN (Urea Nitrogen) 115 mg/dL (9.8-20.1)
[2020-04-22 07:06] LABS: Actual Bicarbonate (HCO3a) 21.6 mEq/L (22-28); Base Excess (BEa) -4.1 mEq/L (-2.0 to +3.0); CO2 Tension 42.2 mmHg (35.0-45.0); Calcium, Ionized (arterial) 1.05 mmol/L (1.12-1.30); Carboxyhemoglobin (COHb) 1.7 gm% (0.0-3.0); Hemoglobin (Hb) 9.2 g/dL (12.0-16.0); O2 Tension (PaO2), arterial 119.4 mmHg (> 80.0); Potassium - ABG Lab 3.96 mmol/L (3.70-5.30); pH, Arterial 7.33 (7.35-7.45)
[2020-04-22 07:16] LABS: Puncture Site RRAD
--- NOTE | 2020-04-22 08:13 | RAD ---
SINGLE VIEW OF THE CHEST: COMPARISON: 04/20/2020. HISTORY: Patient with respiratory failure. FINDINGS: A single view of the chest shows a normal-sized cardiomediastinal silhouette. The lines and tubes ar e unchanged in position. T here is no evidence of consolidation, mass, or pleural effusion. IMPRESSION: 1. Appropriate position of lines and tubes. 2. Decreased size of the heart with no acute cardiopulmonary process on this exam. POS: JOSEA
--- NOTE | 2020-04-22 09:05 | PRG ---
DATE OF SERVICE: 04/22/2020 SUBJECTIVE: A 69-year-old female, remains intubated in the vent, slightly sedated. OBJECTIVE: VITAL SIGNS: Pulse 73, saturations , blood pressure 130/64, respirations 18. CHEST: Decreased breath sounds without any wheezing. CARDIAC: Normal sinus rhythm right now, on amiodarone. ABDOMEN: Distended, soft. NEUROLOGIC: Sedated. LABORATORY DATA: White count 12,000, H and H 9 and 26, platelet count is good. PO2 is 119, pCO2 40%. X-ray shows stable findings. Creatinine 3.8. Urine output is minimal. ASSESSMENT: 1. Respiratory failure. 2. Encephalopathy. 3. Severe metabolic acidosis, renal failure, status post lap, bowel, ileostomy. PLAN: TPN, slow wean. Continue antibiotics, supportive care. One-half hour of critical time. Job ID: [id number]
[2020-04-22] MEDS ORDERED: Heparin 10,000 UNITS/ 10 ML VIAL ONE (09:07)
[2020-04-22] MEDS: Hydrocortisone Sod Succ/PF 100 mg/2 ml Vial IVP SCH ×2 (09:11→20:13)
[2020-04-22] MEDS: Meropenem 2 GM, Admixture Fee 1 EACH in Sodium Chloride 0.9% 100 ML IVPB SCH ×2 (09:11→20:13)
[2020-04-22] MEDS: Pantoprazole 40 MG VIAL IVP SCH ×2 (09:12→20:14)
[2020-04-22] MEDS: Heparin 5,000 UNITS/ML VIAL SC SCH ×3 (09:12→20:12)
[2020-04-22] MEDS: fentaNYL Citrate/PF 2,000 MCG in Sodium Chloride 0.9% 60 ML IV SCH ×2 (09:40→23:31)
--- NOTE | 2020-04-22 10:26 | PRG ---
DATE OF SERVICE: 04/22/2020 SUBJECTIVE: Ms. Cordon is doing well. She is ventilated. She is sedated. Heart rate 73, blood pressure 132/61. She is on TPN and TKO'd IV fluids. Gastric drainage 250 mL yesterday. She has good ileostomy output more than 750 mL. Pagan output mL for 24 hours. White count 12, hemoglobin 9.2, and platelet count 125,000. She has resumed subcu heparin, DVT prophylaxis. Sodium 133, potassium 4.0, BUN and creatinine 115 and 3.68, GFR 12. Accu-Cheks 250 to 259. OBJECTIVE: HEAD, EARS, EYES, NOSE, AND THROAT: Unremarkable. LUNGS: Clear to auscultation. No wheezing. No change in chest x-ray. No pulmonary problems identifiable on x-ray. CARDIAC: Regular rate and rhythm. ABDOMEN: Soft. Wound VAC in place. Ileostomy output present. Condition of ileostomy, difficult to visualize, poor lighting of the room and stool in the bag. EXTREMITIES: Unremarkable. ASSESSMENT AND PLAN: 1. Acute oliguric renal failure, on dialysis, cuffed tunneled dialysis catheter right internal jugular. 2. Deconditioning. 3. Status post extended right colectomy, ileectomy with ileostomy for ischemic gangrene, right colon and terminal ileum, resected bowel segment, initial operation 39 cm, second portion of ileum, 35 cm attached to the right colon; second operation, resected 10 more centimeters of small bowel; and the last operation, pathology pending approximately 6 to 8 cm of small bowel resected. Sodium 133, potassium of 4, chloride 95, BUN 115, creatinine 3.68. 4. Respiratory failure. Continue ventilator per Pulmonary. Wean per Pulmonary. 5. Malnutrition. Continue TPN and start tube feedings. 6. Acute renal failure. Continue dialysis. 7. Thrombocytopenia resolved after Zosyn discontinued. Heparin resumed subcu. Deep venous thrombosis prophylaxis. Dr. Ronquillo is covering the weekend. Please call if necessary. He will be seeing her daily along with the other medical team. Job ID: [id number]
--- NOTE | 2020-04-22 14:34 | PQF ---
CLINICAL DOCUMENTATION IMPROVEMENT CLARIFICATION FORM: ICD-10 Updated PLEASE DO AN ADDENDUM TO THE PROGRESS NOTE WITH ANY DOCUMENTATION UPDATES OR ADDITIONS AND CARRY THROUGH TO DC SUMMARY. THANK YOU. DATE: 04/22/2020 ATTN: Dr. Uribe Please exercise your independent, professional judgment in responding to the clarification form. Clinical indicators are provided on the bottom of this form for your review Diagnosis: ___Septic Shock Present on Admission (POA): [X ] Yes [ ] No [ ] Unable to determine For continuity of documentation, please document condition throughout progress notes and discharge summary. Thank You. CLINICAL INDICATORS - SIGNS / SYMPTOMS / LABS/ RSULTS AND LOCATION IN MR ER Record 04/14: Pt transferred from [facility] for AMS and RACHANA. 04/15 ([place]) She received several liters of IV fluid and transferred to our ER. She was also complaining of abdominal pain. Lactate was 4.2. White count 3.5 on admission. On x-ray she does have findings of an ileus with markedly distended stomach and distended loops of small bowel and colon. 04/16 ([place]) Shock due to hypovolemia and sepsis from ischemic mesentery. 04/19 ([place]) Septic shock due to mesenteric ischemia with necrosis and peritonitis , s/p resection of bowel segment. 04/19 ([place]) Septic shock resolved. RISKS: H&P 04/14: Acute renal failure. OP Note 04/15 ([place]) Ischemic bowel colon with gangrenous r colon and transverse colon and distal small bowel, ARF, and acidosis. TREATMENT: ER Doctor Notes 04/14: Received 3L of IVF at [facility] as well as IV Cefepime prior to transfer. OP Note 04/15 ([place]) Exploratory laparotomy , extended r hemicolectomy, resecting small bowel. Order 04/16-04/19: Zosyn 2.25 gm IV q6 hr MAR: 04/20 Meropenem 2 gm IV Thank you, Jasmyne (This form is maintained as a part of the permanent medical record) 2014 [employer]. All Rights Reserved Jasmyne Louie, RN, JAE [email or web address]
--- NOTE | 2020-04-22 15:14 | PRG ---
DATE OF SERVICE: 04/22/2020 SERVICE: Nephrology. SUBJECTIVE: Female, in no obvious distress. The patient is still sedated and mechanically ventilated. No new problem. OBJECTIVE: VITAL SIGNS: Temperature 98.7, pulse 77, respiratory rate 16, SpO2 of 99% on FiO2 of 35%, and blood pressure is 149/77. I and O in the last 24 hours showed total intake of 3139 with total output of 1049 with urine only contributing 39 mL. GENERAL: Comfortable female, in no obvious distress. The patient is sedated. HEENT: Normocephalic, atraumatic. Oral mucosa is moist. ET tube is in place. CARDIOVASCULAR: Regular rhythm and rate with normal heart sounds 1 and 2. RESPIRATORY: Ventilator transmitted breath sounds heard in all lung zones. GASTROINTESTINAL: Surgical wound with wound VAC in place noted. Bowel sound is hypoactive. UROGENITAL: Pagan catheter is in place draining little urine. CENTRAL NERVOUS SYSTEM: The patient is sedated. DIAGNOSTIC DATA: CBC showed WBC count of 12.2, hemoglobin of 9.2, and platelet of 125. Chemistry showed sodium 133, potassium 4.0, chloride 97, CO2 of 25, BUN 115, creatinine 3.68, glucose 238, and calcium 7.7. ASSESSMENT: 1. Acute renal failure: Due to acute tubular necrosis. There is no renal recovery as yet. The patient is still anuric and with marked increase in azotemia between dialysis. 2. Volume overload/generalized edema: Due to fluid overload and hypoalbuminemia. 3. Hyponatremia. 4. Metabolic acidosis, improved with hemodialysis and improvement of hemodynamics. 5. Septic shock, improved. Currently off pressors. PLAN: 1. We will dialyze the patient today for 4 hours with UF as tolerated. 2. We will continue intermittent diuretics to help with fluid management. 3. We will monitor intake and output as well as electrolytes and renal function. 4. Further treatment to follow depending on hospital course. Job ID: [id number]
--- NOTE | 2020-04-22 15:44 | PDOC.HOSPP ---
- Subjective Encounter Date: 04/22/20 Encounter Time: 06:00 Subjective: F/u: ischemic bowel THe patient is intubated and ventilated. No new changes today. She is still anuric She does not follow commands - Objective Vital Signs & Weight: Vital Signs (12 hours) Temp Pulse Resp 04/22/20 14:45 76 04/22/20 14:00 19 04/22/20 12:00 98.7 F 16 04/22/20 10:20 76 04/22/20 10:00 17 04/22/20 08:14 73 04/22/20 08:00 98.9 F 8 L 04/22/20 06:00 16 04/22/20 04:00 98.7 F 19 Weight Admit Weight 182 lb Weight 214 lb 15.211 oz Most Recent Monitor Data Heart Rate from ECG 81 NIBP 143/83 NIBP BP-Mean 103 Respiration from ECG 23 SpO2 100 I&O: 04/21/20 04/22/20 04/23/20 06:59 06:59 06:59 Intake Total 2530 3139 100 Output Total 1380 1049 0 Balance 1150 2090 100 Result Diagrams: 04/22/20 03:15 04/22/20 03:15 Additional Labs: Accuchecks 04/22/20 04/22/20 04/22/20 12:18 06:32 00:50 POC Glucose 214 H 259 H 250 H 04/21/20 04/21/20 17:52 12:38 POC Glucose 251 H 254 H Hospitalist ROS - Review of Systems Constitutional: denies: fever, chills - Medication Medications: Active Medications Generic Name Dose Route Start Last Admin Trade Name Freq PRN Reason Stop Dose Admin Dextrose/Water 25 gm 04/15/20 04:04 04/15/20 06:52 Dextrose 50% SLOW IVP 25 gm PRN PRN Administration Hypoglycemia Heparin Sodium (Porcine) 5,000 units 04/21/20 09:00 04/22/20 14:12 Heparin SC 5,000 units TID ELY Administration Hydralazine HCl 10 mg 04/15/20 00:24 04/21/20 08:53 Apresoline SLOW IVP 10 mg Q6H PRN Administration SBP GREATER THAN 160 Hydrocortisone Sodium Succinate 50 mg 04/19/20 21:00 04/22/20 09:11 Solu-Cortef IVP 04/25/20 12:01 50 mg BID ELY Administration Fentanyl Citrate 2,000 mcg/ 100 mls @ 0 mls/hr 04/16/20 00:12 04/22/20 09:40 Sodium Chloride IV 05/16/20 00:12 100 mls INF ELY Administration Protocol Per Protocol Amiodarone HCl 450 mg/ 259 mls @ 0 mls/hr 04/18/20 16:30 04/22/20 00:33 Dextrose/Water IVPB 259 mls INF ELY Administration Protocol Per Protocol Sodium Acetate 70 meq/ Sodium 1,569.8759 mls @ 65.411 mls/hr 04/19/20 22:00 04/21/20 21:42 Chloride 55 meq/ Calcium IV 1,569.8759 mls Chloride 10 meq/ Magnesium 2200 ELY Administration Sulfate 10 meq/ Multivitamins 10 ml/ Chromium/Copper/ Manganese/Seleni/Zn 1 ml/ Insulin Human Regular 31 units / Dextrose/Water/ Amino Acids/ Sterile Water Meropenem 2 gm/ Miscellaneous 100 mls @ 200 mls/hr 04/20/20 21:00 04/22/20 09 :11 Medication 1 each/ Sodium IVPB 100 mls Chloride 0900,2100 ELY Administration Insulin Human Lispro 0 units 04/15/20 04:04 04/22/20 12:32 Humalog SC 3 unit .MILD SLIDING SCALE PRN Administration Mild Correctional Scale Labetalol HCl 20 mg 04/15/20 00:24 04/21/20 11:49 Normodyne SLOW IVP 20 mg Q4H PRN Administration SBP > 160, use third Lorazepam 2 mg 04/16/20 00:12 04/22/20 00:58 Ativan SLOW IVP 05/16/20 00:12 2 mg Q1H PRN Administration Breakthrough agitation Morphine Sulfate 2 mg 04/16/20 00:12 04/18/20 00:17 Morphine SLOW IVP 05/16/20 00:12 2 mg Q1H PRN Administration BREAKTHROUGH PAIN/Agitation Pantoprazole Sodium 40 mg 04/16/20 09:00 04/22/20 09:12 Protonix IVP 40 mg Q12HR ELY Administration Propofol 1,000 mg 04/16/20 00:12 04/22/20 14:12 Diprivan IV 05/16/20 00:12 1,000 mg INF PRN Administration TO ACHIEVE GOAL RASS Protocol Sodium Chloride 10 ml 04/15/20 09:00 04/22/20 09:11 Flush - Normal Saline IVF 10 ml Q12HR ELY Administration - Exam General Appearance: NAD, awake alert Eye: PERRL, anicteric sclera ENT: normocephalic atraumatic, no oropharyngeal lesions Neck: no JVD Heart: RRR, no murmur, no gallops, no rubs Respiratory: CTAB, no wheezes, no rales, no ronchi Gastrointestinal: soft, non-tender, non-distended, normal bowel sounds Extremities: no cyanosis, no clubbing, no edema Hosp A/P - Plan CT abdomen: progressive mild dilation of ascending colon with hepatic flexure pneumatosis. New right paracolic gutter fluid and high density debris in cecal apex representing hemorrhage. RML and LL pneumonia This is 69 year old female who presented with altered mental status, found to be in acute renal failure Acute encephalopathy possibly from polysubstance abuse vs ischemic bowel s/p ex lap vs metabolic - patient is s/p ex lap, right hemicolectomy, resection of small bowel and 18 inches of ileum and resection of transverse colon POD 7. She was found to have gangrenous right colon/transverse colon and distal small bowel. S/p second look laparotomy 04/17 with hematoma evacuation. Colon biopsy consistent with ischemic colitis - she is s/p ileostomy 04/20 - TPN is being weaned Acute hypoxic respiratory failure possibly from pneumonia - noted on CT abdomen - she was on zosyn. WBC increased /. Switched to meropenem by surgery 04/20. WBC improving to 12 - continue hydrocortisone Acute Kidney Injury -getting dialysis today Atrial fibrillation - on amiodarone drip Acute blood loss anemia - Hb stable 8.9. S/p 2 units blood 04/17, 1 unit 04/18 and 04/20 Thrombocytopenia - platelets 120's Transaminitis - resolved Hypocalcemia- resolved
[2020-04-22] MEDS: Albumin 25% 25 GM/100 ML BOT IVPB PRN ×2 (18:08→18:29)
[2020-04-22] MEDS: SODIUM CHLORIDE IV SCH (22:11)
[2020-04-22] MEDS: SODIUM ACETATE IV SCH (22:11)
[2020-04-22] MEDS: [UNRECOGNIZED DRUG - OTHER] IV SCH (22:11)
[2020-04-22] MEDS: CALCIUM CHLORIDE IV SCH (22:11)
[2020-04-22] MEDS: hydrALAZINE 20 MG/ML VIAL SLOW IVP PRN (22:33)
[2020-04-23] MEDS: HumaLOG 300 UNITS/3 ML VIAL SC PRN ×5 (00:12→21:09)
[2020-04-23] MEDS: Propofol 1,000 MG/100 ML VIAL IV PRN ×5 (01:24→19:42)
[2020-04-23] MEDS: hydrALAZINE 20 MG/ML VIAL SLOW IVP PRN (03:40)
[2020-04-23 04:09] LABS: Band 15 % (5-11); Eosinophils 2 % (0-10); Hemoglobin 9.4 g/dL (12.0-16.0); Lymphocytes 3 % (21-51); MDiff Complete? YES; Mean Corpuscular HGB CONC 34.5 g/dL (32.0-36.0); Mean Corpuscular Hemoglobin 32.5 pg (27.0-31.0); Mean Corpuscular Volume 94.1 fL (78.0-98.0); Mean Platelet Volume 10.2 fL (7.4-10.4); Monocytes 8 % (0-10); Neutrophil 72 % (42-75); Platelet Count 210 thou/uL (130-400); Platelet Morphology Comment Appears Adequate; RBC Distribution Width 13.7 % (11.5-14.5); Red Blood Cell (RBC) Count 2.88 mill/uL (4.20-5.40); White Blood Cell (WBC) Count 14.2 thou/uL (4.8-10.8)
[2020-04-23 04:15] LABS: Anion Gap 16 mmol/L (10-20); BUN (Urea Nitrogen) 68 mg/dL (9.8-20.1); Calc. Creatinine Clearance 36 mL/min (70-130); Carbon Dioxide 26 mmol/L (23-31); Chloride 96 mmol/L (98-107); Estimated GFR-MDRD 21; Glucose 225 mg/dL (80-115); Potassium 3.8 mmol/L (3.5-5.1); Sodium 134 mmol/L (136-145)
[2020-04-23] MEDS: Amiodarone 450 MG in Dextrose 5% in Water 250 ML IVPB SCH ×2 (08:19→20:52)
[2020-04-23] MEDS: Pantoprazole 40 MG VIAL IVP SCH ×2 (08:20→20:51)
[2020-04-23] MEDS: Hydrocortisone Sod Succ/PF 100 mg/2 ml Vial IVP SCH ×2 (08:20→20:51)
[2020-04-23] MEDS: Heparin 5,000 UNITS/ML VIAL SC SCH ×3 (08:21→20:50)
--- NOTE | 2020-04-23 08:24 | RAD ---
Exam: Chest one view HISTORY:Respiratory distress. Ventilated patient Comparison: 04/22/2020 FINDINGS: Lines and tubes: Stable right-sided HemoSplit dialysis catheter, left-sided internal jugular vascular catheter, endotracheal and nasogastric tubes. Cardiac silhouette:Upper normal cardiac silhouette Aorta: Unremarkable Pulmonary vessels: Normal Costophrenic angles: Small left-sided effusion LUNGS: Scattered chronic lung parenchymal changes Pneumothorax: None Osseous abnormalities: None IMPRESSION: No significant interval change
--- NOTE | 2020-04-23 08:54 | PDOC.CPN ---
- Subjective Date: 04/23/20 Time: 12:00 Interval history: Pt intubated sedated. No changes overnight - Objective Allergies/Adverse Reactions: Allergies Allergy/AdvReac Type Severity Reaction Status Date / Time No Allergy Information Allergy Verified 04/15/20 02:34 Available Visit Medications: Current Medications Albuterol/Ipratropium (Duoneb) 3 ml NEB Q2H PRN PRN Reason: SOB &/or Wheezing Dextrose/Water (Dextrose 50%) 25 gm SLOW IVP PRN PRN PRN Reason: Hypoglycemia Last Admin: 04/15/20 06:52 Dose: 25 gm Glucagon (Glucagon) 1 mg IM PRN PRN PRN Reason: Hypoglycemia Heparin Sodium (Porcine) (Heparin) 5,000 units SC TID ELY Last Admin: 04/23/20 08:21 Dose: 5,000 units Hydralazine HCl (Apresoline) 10 mg SLOW IVP Q6H PRN PRN Reason: SBP GREATER THAN 160 Last Admin: 04/23/20 03:40 Dose: 10 mg Hydrocortisone Sodium Succinate (Solu-Cortef) 50 mg IVP BID ELY Stop: 04/25/20 12:01 Last Admin: 04/23/20 08:20 Dose: 50 mg Dextrose/Water (D5w) 1,000 mls @ 0 mls/hr IV .Q0M PRN PRN Reason: Hypoglycemia Fentanyl Citrate 2,000 mcg/ (Sodium Chloride) 100 mls @ 0 mls/hr IV INF ELY; Protocol Stop: 05/16/20 00:12 Last Admin: 04/22/20 23:31 Dose: 100 mls Fentanyl Citrate (Fentanyl Bolus) 250 mls @ 0 mls/hr IVPB PRN PRN PRN Reason: Breakthrough pain/agitation Stop: 05/16/20 00:12 Amiodarone HCl 450 mg/ (Dextrose/Water) 259 mls @ 0 mls/hr IVPB INF ELY; Protocol Last Admin: 04/23/20 08:19 Dose: 259 mls Sodium Acetate 70 meq/ Sodium Chloride 55 meq/ Calcium Chloride 10 meq/ Magnesium Sulfate 10 meq/ Multivitamins 10 ml/ Chromium/Copper/Manganese/Seleni/ Zn 1 ml/Insulin Human Regular 31 units / Dextrose/Water/ Amino Acids/Sterile Water 1,569.8759 mls @ 65.411 mls/hr IV 2200 ELY Last Admin: 04/22/20 22:11 Dose: 1,569.8759 mls Meropenem 2 gm/ Miscellaneous Medication 1 each/ Sodium Chloride 100 mls @ 200 mls/hr IVPB 0900,2100 [facility] Last Admin: 04/22/20 20:13 Dose: 100 mls Insulin Human Lispro (Humalog) 0 units SC .MILD SLIDING SCALE PRN PRN Reason: Mild Correctional Scale Last Admin: 04/23/20 05:56 Dose: 3 unit Labetalol HCl (Normodyne) 20 mg SLOW IVP Q4H PRN PRN Reason: SBP > 160, use third Last Admin: 04/21/20 11:49 Dose: 20 mg Lorazepam (Ativan) 2 mg SLOW IVP Q1H PRN PRN Reason: Breakthrough agitation Stop: 05/16/20 00:12 Last Admin: 04/22/20 23:12 Dose: 2 mg Morphine Sulfate (Morphine) 2 mg SLOW IVP Q1H PRN PRN Reason: BREAKTHROUGH PAIN/Agitation Stop: 05/16/20 00:12 Last Admin: 04/18/20 00:17 Dose: 2 mg Ondansetron HCl (Zofran) 4 mg IVP Q6H PRN PRN Reason: Nausea/Vomiting, use 1st Pantoprazole Sodium (Protonix) 40 mg IVP Q12HR [facility] Last Admin: 04/23/20 08:20 Dose: 40 mg Propofol (Diprivan) 1,000 mg IV INF PRN; Protocol PRN Reason: TO ACHIEVE GOAL RASS Stop: 05/16/20 00:12 Last Admin: 04/23/20 06:22 Dose: 1,000 mg Propofol (Diprivan Bolus) 20 mg IV Q5MIN PRN PRN Reason: BREAKTHROUGH AGITATION Stop: 05/16/20 00:12 Sodium Chloride (Flush - Normal Saline) 10 ml IVF Q12HR [facility] Last Admin: 04/23/20 08:20 Dose: 10 ml Sodium Chloride (Flush - Normal Saline) 10 ml IVF PRN PRN PRN Reason: Saline Flush Vital Signs & Weight: Vital Signs Temp Pulse Resp BP 04/23/20 07:43 113 H 04/23/20 06:00 16 04/23/20 04:00 99.1 F 18 04/23/20 03:40 80 163/76 H 04/23/20 03:24 79 04/23/20 02:00 17 04/23/20 00:00 98.4 F 18 04/22/20 23:43 77 147/78 H 04/22/20 22:33 77 173/90 H 04/22/20 22:00 19 Admit Weight 182 lb Weight 210 lb 5.136 oz - Physical Exam Neck: supple neck Cardiac: no murmur, regular rhythm Lungs: normal exam - Labs Result Diagrams: 04/24/20 03:45 04/24/20 03:45 - Assessment/Plan Assessment/Plan: afib infarcted bowel ATN Thrombocytopenia anemia On IV amiodarone I/S Vent managment per pulmonary CV status stable
[2020-04-23] MEDS: Meropenem 2 GM, Admixture Fee 1 EACH in Sodium Chloride 0.9% 100 ML IVPB SCH ×2 (09:34→21:09)
[2020-04-23] MEDS ORDERED: Albumin 25% 25 GM/100 ML BOT IVPB SCH ×2 (09:39→15:14)
--- NOTE | 2020-04-23 10:03 | PRG ---
DATE OF SERVICE: 04/23/2020 SUBJECTIVE: The patient is status post colectomy for gangrenous colon. She is doing okay. She is still pretty sedated on the ventilator. She is on TPN. OBJECTIVE: VITAL SIGNS: She is afebrile. Pulse 98, blood pressure 98/60, and 100% sat. GENERAL: Again, she is sedated. LUNGS: Clear. HEART: Regular rate and rhythm. ABDOMEN: Her ostomy is working. She has a wound VAC midline. Minimal out her OG tube, urine output is only 50. ASSESSMENT: Status post colonic necrosis. PLAN: Continue critical care. Job ID: [id number]
[2020-04-23] MEDS: Lorazepam 2 MG/ML VIAL SLOW IVP PRN (12:44)
--- NOTE | 2020-04-23 13:00 | PRG ---
DATE OF SERVICE: 04/23/2020 SUBJECTIVE: Kacy Cordon remains ventilated. OBJECTIVE: VITAL SIGNS: Respiratory rate is in the teens, FiO2 is 35%, heart rate is in the 90s, and blood pressure 109/60. LUNGS: Clear anteriorly. HEART: Regular rate and rhythm. ABDOMEN: Soft. EXTREMITIES: Without asymmetry or edema. NEUROLOGIC: Grossly nonfocal. LABORATORY DATA: Chest x-ray is unchanged. White count 14.2, hemoglobin 9.4, and platelets 210. Sodium 134, potassium 3.8, chloride 96, bicarbonate 26, BUN 68, and creatinine 2.31, and no blood cultures pending. IMPRESSION: Respiratory failure with encephalopathy, severe metabolic acidosis, renal failure, status post laparotomy, bowel, ileostomy. PLAN: Continue supportive care with very slow weaning. Prognosis is quite guarded. Critical care time 30 min. Job ID: [id number] MTDD
[2020-04-23] MEDS ORDERED: Furosemide 100 MG/10 ML VIAL SLOW IVP SCH (15:15)
--- NOTE | 2020-04-23 15:56 | PRG ---
DATE OF SERVICE: 04/23/2020 SERVICE: Nephrology. SUBJECTIVE: A 69-year-old female, seen in followup for acute renal failure requiring hemodialysis. Last hemodialysis was yesterday, and the patient flipped into atrial fibrillation/atrial flutter yesterday during hemodialysis. Still sedated and mechanically ventilated. The patient is back on tube feeding as well as TPN. OBJECTIVE: VITAL SIGNS: Temperature 98.9, pulse 113, respiratory rate 19, SpO2 of 100% on 35% FiO2, blood pressure is 98/60. I and O in the last 24 hours show total intake of 3489 with total output of 3872. GENERAL: Female, in no obvious distress. The patient is sedated. HEENT: Normocephalic and atraumatic. ET and nasogastric tubes are in place. CARDIOVASCULAR: Irregular rhythm and rate with normal heart sounds 1 and 2. RESPIRATORY: Ventilator transmitted breath sounds heard in all lung zones. GI: Full. Midline surgical incision with wound VAC in place noted as well as right lower colostomy. UROGENITAL: Pagan catheter is in place draining little urine. EXTREMITIES: [id number] edema of all extremities noted. SKIRT TRIMMER: Sedated. DIAGNOSTIC DATA: CBC showed WBC count of 14.2, hemoglobin of 9.4, platelets of 210. Chemistry showed sodium 134, potassium 3.8, chloride 96, CO2 of 26, BUN 68, creatinine 2.31, glucose 225, calcium 8.0, albumin 3.0. ASSESSMENT: 1. Acute renal failure: Due to acute tubular necrosis related to circulatory shock and rhabdomyolysis. There is no renal recovery as yet. The patient is still anuric making less than 100 mL per 24 hours. 2. Hypotension: Etiology is unclear, but seems to be related to paroxysmal atrial flutter/fibrillation with rapid ventricular response as well as volume contraction. Blood pressure is improving with albumin infusion. 3. Generalized edema: Due to third-spacing from acute illness as well as hypoalbuminemia. 4. Rhabdomyolysis: Resolved. 5. Paroxysmal atrial flutter/fibrillation with rapid ventricular response. 6. Mesenteric ischemia/necrosis, status post resection of bowel segment. Now, status post colostomy. PLAN: 1. We will give albumin 25 g x2. 2. We will also start diuretic therapy with Lasix to help with fluid management as the patient will not be getting dialysis today or tomorrow. Next dialysis is planned on Saturday, April 25, unless there is acute change in general condition. 3. Monitor intake and output as well as renal function and electrolytes. Further treatment to follow depending on hospital course. Job ID: [id number]
--- NOTE | 2020-04-23 16:17 | PDOC.HOSPP ---
- Subjective Encounter Date: 04/23/20 Encounter Time: 12:45 Subjective: pt still on amio drip, anuria. on TPN, afib w.. RVR o/n, staill pulse in 100s. BG high. qian to RN. - Objective Vital Signs & Weight: Vital Signs (12 hours) Temp Pulse Pulse Pulse Resp BP BP 04/23/20 16:05 92 04/23/20 14:00 20 04/23/20 13:35 113 H 108 H 112/70 124/57 L 04/23/20 12:09 111 H 04/23/20 12:00 98.2 F 17 04/23/20 10:00 18 04/23/20 08:00 98.9 F 19 04/23/20 07:43 113 H 04/23/20 06:00 16 Pulse Ox Pulse Ox Pulse Ox 04/23/20 16:05 04/23/20 14:00 04/23/20 13:35 100 100 04/23/20 12:09 04/23/20 12:00 04/23/20 10:00 04/23/20 08:00 99 04/23/20 07:43 04/23/20 06:00 Weight Admit Weight 182 lb Weight 210 lb 5.136 oz Most Recent Monitor Data Heart Rate from ECG 108 NIBP 127/62 NIBP BP-Mean 83 Respiration from ECG 20 SpO2 100 I&O: 04/22/20 04/23/20 04/24/20 06:59 06:59 06:59 Intake Total 3139 3489 160 Output Total 1049 250 0 Balance 2090 3239 160 Result Diagrams: 04/23/20 03:20 04/23/20 03:20 Additional Labs: Accuchecks 04/23/20 04/23/20 04/22/20 05:58 00:16 18:10 POC Glucose 238 H 210 H 155 H Hospitalist ROS - Medication Medications: Active Medications Generic Name Dose Route Start Last Admin Trade Name Freq PRN Reason Stop Dose Admin Albumin Human 25 gm 04/23/20 15:14 04/23/20 15:49 Albumin 25% IVPB 04/23/20 17:15 25 gm NOW ELY Administration Dextrose/Water 25 gm 04/15/20 04:04 04/15/20 06:52 Dextrose 50% SLOW IVP 25 gm PRN PRN Administration Hypoglycemia Furosemide 80 mg 04/23/20 15:15 04/23/20 15:58 Lasix SLOW IVP 04/23/20 17:15 80 mg NOW ELY Administration Heparin Sodium (Porcine) 5,000 units 04/21/20 09:00 04/23/20 14:27 Heparin SC 5,000 units TID ELY Administration Hydralazine HCl 10 mg 04/15/20 00:24 04/23/20 03:40 Apresoline SLOW IVP 10 mg Q6H PRN Administration SBP GREATER THAN 160 Hydrocortisone Sodium Succinate 50 mg 04/19/20 21:00 04/23/20 08:20 Solu-Cortef IVP 04/25/20 12:01 50 mg BID ELY Administration Fentanyl Citrate 2,000 mcg/ 100 mls @ 0 mls/hr 04/16/20 00:12 04/22/20 23:31 Sodium Chloride IV 05/16/20 00:12 100 mls INF ELY Administration Protocol Per Protocol Amiodarone HCl 450 mg/ 259 mls @ 0 mls/hr 04/18/20 16:30 04/23/20 08:19 Dextrose/Water IVPB 259 mls INF ELY Administration Protocol Per Protocol Sodium Acetate 70 meq/ Sodium 1,569.8759 mls @ 65.411 mls/hr 04/19/20 22:00 04/22/20 22:11 Chloride 55 meq/ Calcium IV 1,569.8759 mls Chloride 10 meq/ Magnesium 2200 ELY Administration Sulfate 10 meq/ Multivitamins 10 ml/ Chromium/Copper/ Manganese/Seleni/Zn 1 ml/ Insulin Human Regular 31 units / Dextrose/Water/ Amino Acids/ Sterile Water Meropenem 2 gm/ Miscellaneous 100 mls @ 200 mls/hr 04/20/20 21:00 04/23/20 09 :34 Medication 1 each/ Sodium IVPB 100 mls Chloride 0900,2100 ELY Administration Insulin Human Lispro 0 units 04/15/20 04:04 04/23/20 12:08 Humalog SC 4 unit .MILD SLIDING SCALE PRN Administration Mild Correctional Scale Labetalol HCl 20 mg 04/15/20 00:24 04/21/20 11:49 Normodyne SLOW IVP 20 mg Q4H PRN Administration SBP > 160, use third Lorazepam 2 mg 04/16/20 00:12 04/23/20 12:44 Ativan SLOW IVP 05/16/20 00:12 2 mg Q1H PRN Administration Breakthrough agitation Morphine Sulfate 2 mg 04/16/20 00:12 04/18/20 00:17 Morphine SLOW IVP 05/16/20 00:12 2 mg Q1H PRN Administration BREAKTHROUGH PAIN/Agitation Pantoprazole Sodium 40 mg 04/16/20 09:00 04/23/20 08:20 Protonix IVP 40 mg Q12HR ELY Administration Propofol 1,000 mg 04/16/20 00:12 04/23/20 14:26 Diprivan IV 05/16/20 00:12 1,000 mg INF PRN Administration TO ACHIEVE GOAL RASS Protocol Sodium Chloride 10 ml 04/15/20 09:00 04/23/20 08:20 Flush - Normal Saline IVF 10 ml Q12HR ELY Administration - Exam General Appearance: ill appearing Eye: PERRL Neck: supple Respiratory: normal chest expansion Gastrointestinal - other findings: wound vac midline Psychiatric: not oriented Hosp A/P - Plan Note edited to reflect today's care of plan. 69 year old female who presented with altered mental status, found to be in acute renal failure Acute encephalopathy ischemic bowel Acute res failure w.. encephalopathy SEvere meta acido w. ischmeic bowel s/p ex lap - patient is s/p ex lap, right hemicolectomy, resection of small bowel and 18 inches of ileum and resection of transverse colon POD 7. She was found to have gangrenous right colon/transverse colon and distal small bowel. S/p second look laparotomy 04/17 with hematoma evacuation. Colon biopsy consistent with ischemic colitis - she is s/p ileostomy 04/20 - TPN is being weaned -mild line wound vac Acute hypoxic respiratory failure possibly from pneumonia - noted on CT abdomen - she was on zosyn. WBC increased 04/19. Switched to meropenem by surgery 04/20. WBC improving to 12 - continue hydrocortisone Acute Kidney Injury/ATN anuria ww. urine ouput < 50 Rhabdo- resolved Hypoalbumnemia -getting dialysis today Atrial fibrillation - on amiodarone drip Acute blood loss anemia - Hb stable 8.9. S/p 2 units blood 04/17, 1 unit 04/18 and 04/20 Thrombocytopenia - platelets 120's Transaminitis - resolved Hypocalcemia- resolved Hyperglycemia --SSI, + low dose Scheduled insulin Prognosis guarded palliative consult.
[2020-04-23] MEDS: fentaNYL Citrate/PF 2,000 MCG in Sodium Chloride 0.9% 60 ML IV SCH (17:22)
[2020-04-23] MEDS: Furosemide 100 MG/10 ML VIAL SLOW IVP SCH (20:49)
[2020-04-23] MEDS: HumuLIN 70/30 (300 UNITS/3 ML VIAL) SC SCH (20:50)
[2020-04-23] MEDS: CALCIUM CHLORIDE IV SCH (22:23)
[2020-04-23] MEDS: [UNRECOGNIZED DRUG - OTHER] IV SCH (22:23)
[2020-04-23] MEDS: SODIUM CHLORIDE IV SCH (22:23)
[2020-04-23] MEDS: SODIUM ACETATE IV SCH (22:23)
[2020-04-24] MEDS: HumaLOG 300 UNITS/3 ML VIAL SC PRN ×3 (01:06→10:24)
[2020-04-24] MEDS: Propofol 1,000 MG/100 ML VIAL IV PRN ×3 (01:10→12:17)
[2020-04-24 04:30] LABS: Anion Gap 19 mmol/L (10-20); BUN (Urea Nitrogen) 117 mg/dL (9.8-20.1); Calc. Creatinine Clearance 26 mL/min (70-130); Calcium 8.3 mg/dL (7.8-10.44); Carbon Dioxide 22 mmol/L (23-31); Chloride 94 mmol/L (98-107); Estimated GFR-MDRD 15; Glucose 207 mg/dL (80-115); Potassium 3.8 mmol/L (3.5-5.1); Sodium 131 mmol/L (136-145)
[2020-04-24 04:54] LABS: Band 5 % (5-11); Hemoglobin 9.5 g/dL (12.0-16.0); Hypochromia SLIGHT = 6-15 cells (100X) (0-5/hpf); Lymphocytes 3 % (21-51); MDiff Complete? YES; Mean Corpuscular HGB CONC 32.9 g/dL (32.0-36.0); Mean Corpuscular Hemoglobin 31.2 pg (27.0-31.0); Mean Corpuscular Volume 94.6 fL (78.0-98.0); Mean Platelet Volume 10.1 fL (7.4-10.4); Metamyelocyte 1 % (0-0); Monocytes 4 % (0-10); Neutrophil 87 % (42-75); Platelet Count 284 thou/uL (130-400); Platelet Morphology Comment Appears Adequate; RBC Distribution Width 13.5 % (11.5-14.5); Red Blood Cell (RBC) Count 3.03 mill/uL (4.20-5.40); White Blood Cell (WBC) Count 16.6 thou/uL (4.8-10.8)
--- NOTE | 2020-04-24 08:31 | RAD ---
Exam: Chest one view HISTORY:Respiratory distress. Ventilated patient. Comparison: 04/23/2020 FINDINGS: Lines and tubes: Redemonstration of endotracheal tube, nasogastric tube and a left-sided internal jug ular central venous catheter. Stable right-sided HemoSplit dialysis catheter. Cardiac silhouette:Upper normal cardiac silhouette. Aorta: Unremarkable Pulmonary vessels: Normal Costophrenic angles: Clear LUNGS: Stable scattered lung parenchymal changes. Pneumothorax: None Osseous abnormalities: None IMPRESSION: No significant interval change.
[2020-04-24] MEDS: Furosemide 100 MG/10 ML VIAL SLOW IVP SCH ×2 (10:12→20:54)
[2020-04-24] MEDS: Hydrocortisone Sod Succ/PF 100 mg/2 ml Vial IVP SCH ×2 (10:12→20:54)
[2020-04-24] MEDS: Heparin 5,000 UNITS/ML VIAL SC SCH ×3 (10:15→20:54)
[2020-04-24] MEDS: Meropenem 2 GM, Admixture Fee 1 EACH in Sodium Chloride 0.9% 100 ML IVPB SCH ×2 (10:18→21:07)
[2020-04-24] MEDS: HumuLIN 70/30 (300 UNITS/3 ML VIAL) SC SCH ×2 (10:18→20:55)
[2020-04-24] MEDS: Pantoprazole 40 MG VIAL IVP SCH ×2 (10:19→20:54)
--- NOTE | 2020-04-24 11:26 | PRG ---
DATE OF SERVICE: 04/24/2020 SERVICE: Nephrology. SUBJECTIVE: A 69-year-old female seen in followup for acute renal failure and volume overload. The patient was admitted due to mental status change and subsequently found to have mesenteric ischemia, status post exploratory laparotomy, and resection of large bowel segments. Nephrology is seeing the patient for acute renal failure, volume overload, and electrolyte derangement. The patient is still intubated and mechanically ventilated. The patient is on hemodialysis with last dialysis being on April 22, 2020. OBJECTIVE: VITAL SIGNS: Temperature 98.6, pulse 95, respiratory rate 21, SpO2 of 100 on 35% FiO2, blood pressure is 124/65. I and O in the last 24 hours showed total intake of 3303 with total output of 880 with urine accounting only 480 mL. GENERAL: Sedated female, in no obvious distress. Afebrile. Anicteric. Acyanotic. HEENT: Normocephalic, atraumatic. ET tube and NG tubes are in place. CARDIOVASCULAR: Irregular rhythm and rate. Heart sounds 1 and 2 are normal. RESPIRATORY: Ventilator transmitted breath sounds heard in all lung zones. GI: Full. Midline surgical incision with dressing and wound VAC noted. Left lower quadrant ostomy noted. Bowel sound is hypoactive. UROGENITAL: Pagan catheter is in place, draining some urine. EXTREMITIES: Cndi-zk-[id number] edema of all the extremities noted. 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 Tends to move with stimulation. DIAGNOSTIC DATA: CBC showed WBC count of 16.6, hemoglobin of 9.5, platelet of 284. Chemistry showed sodium 131, potassium 3.8, chloride 94, CO2 is 22, BUN 117, creatinine 3.06, glucose 207, calcium 8.3. ASSESSMENT: 1. Acute renal failure: This is due to acute tubular necrosis from septic shock, severe dehydration, or rhabdomyolysis. There is no evidence of any renal recovery as yet. Creatinine and BUN jumps up between dialysis. 2. Volume overload: Managed with hemodialysis. We will continue diuretics for now to help with fluid management between hemodialysis. 3. Metabolic acidosis: Due to acute renal failure. Treated with hemodialysis. 4. Hyponatremia: Due to poor free water excretion related to renal insufficiency. 5. Rhabdomyolysis, resolved. 6. Nutrition: The patient is on TPN as well as enteral nutrition. We deferred to General Surgery. 7. Electrolytes: Fairly acceptable. 8. Further treatment to follow depending on hospital course. We will plan on dialyzing the patient tomorrow morning. We will also monitor intake and output as it seems urine output is improving. Job ID: [id number]
--- NOTE | 2020-04-24 13:02 | PRG ---
DATE OF SERVICE: 04/24/2020 SUBJECTIVE: The patient remains intubated on the ventilator, sedated per nurse, no new problems. She is stable. OBJECTIVE: VITAL SIGNS: Temperature 99, pulse 94, blood pressure 105/74. She is sedated on the vent. She has an OG-tube through which she is getting tube feedings. LUNGS: Clear. ABDOMEN: Morbidly obese, soft. Wound VAC on the midline. She has a right lower quadrant colostomy that is healthy and putting out. LABORATORY DATA: Her white count is 16, H and H 9 and 28, platelet count 284. Electrolytes; low sodium at 131, glucose 207. ASSESSMENT: Stable. PLAN: Continue critical care. Job ID: [id number]
--- NOTE | 2020-04-24 13:44 | PDOC.HOSPP ---
- Subjective Encounter Date: 04/24/20 Encounter Time: 11:40 Subjective: on TPN, urine is quite dark, total fluid running around 125ml/hr incl.. urine output aroudn 40ml/hr? TPN+meds. family at bedside. - Objective Vital Signs & Weight: Vital Signs (12 hours) Temp Pulse Resp Pulse Ox 04/24/20 12:00 99.0 F 26 H 04/24/20 10:20 104 H 04/24/20 10:00 22 H 04/24/20 08:08 110 H 04/24/20 08:00 98.6 F 17 100 04/24/20 06:00 18 04/24/20 04:00 98.1 F 18 04/24/20 03:36 110 H 04/24/20 02:00 15 Weight Admit Weight 182 lb Weight 214 lb 15.211 oz Most Recent Monitor Data Heart Rate from ECG 94 NIBP 105/74 NIBP BP-Mean 84 Respiration from ECG 24 SpO2 100 I&O: 04/23/20 04/24/20 04/25/20 06:59 06:59 06:59 Intake Total 3489 3303 Output Total 250 880 335 Balance 3239 2423 -335 Result Diagrams: 04/24/20 03:45 04/24/20 03:45 Additional Labs: Accuchecks 04/24/20 04/24/20 04/24/20 10:28 06:21 01:06 POC Glucose 206 H 208 H 214 H 04/23/20 04/23/20 04/23/20 21:03 18:24 12:07 POC Glucose 197 H 238 H 259 H Hospitalist ROS - Medication Medications: Active Medications Generic Name Dose Route Start Last Admin Trade Name Freq PRN Reason Stop Dose Admin Dextrose/Water 25 gm 04/15/20 04:04 04/15/20 06:52 Dextrose 50% SLOW IVP 25 gm PRN PRN Administration Hypoglycemia Furosemide 80 mg 04/23/20 21:00 04/24/20 10:12 Lasix SLOW IVP 80 mg BID ELY Administration Heparin Sodium (Porcine) 5,000 units 04/21/20 09:00 04/24/20 10:15 Heparin SC 5,000 units TID ELY Administration Hydralazine HCl 10 mg 04/15/20 00:24 04/23/20 03:40 Apresoline SLOW IVP 10 mg Q6H PRN Administration SBP GREATER THAN 160 Hydrocortisone Sodium Succinate 50 mg 04/19/20 21:00 04/24/20 10:12 Solu-Cortef IVP 04/25/20 12:01 50 mg BID ELY Administration Fentanyl Citrate 2,000 mcg/ 100 mls @ 0 mls/hr 04/16/20 00:12 04/23/20 17:22 Sodium Chloride IV 05/16/20 00:12 100 mls INF ELY Administration Protocol Per Protocol Amiodarone HCl 450 mg/ 259 mls @ 0 mls/hr 04/18/20 16:30 04/23/20 20:52 Dextrose/Water IVPB 259 mls INF ELY Administration Protocol Per Protocol Sodium Acetate 70 meq/ Sodium 1,569.8759 mls @ 65.411 mls/hr 04/19/20 22:00 04/23/20 22:23 Chloride 55 meq/ Calcium IV 1,569.8759 mls Chloride 10 meq/ Magnesium 2200 ELY Administration Sulfate 10 meq/ Multivitamins 10 ml/ Chromium/Copper/ Manganese/Seleni/Zn 1 ml/ Insulin Human Regular 31 units / Dextrose/Water/ Amino Acids/ Sterile Water Meropenem 2 gm/ Miscellaneous 100 mls @ 200 mls/hr 04/20/20 21:00 04/24/20 10 :18 Medication 1 each/ Sodium IVPB 100 mls Chloride 0900,2100 ELY Administration Insulin Human Isoph/Insulin Regular 5 units 04/23/20 21:00 04/24/20 10:18 Humulin 70/30 SC 5 unit BID ELY Administration Insulin Human Lispro 0 units 04/15/20 04:04 04/24/20 10:24 Humalog SC 3 unit .MILD SLIDING SCALE PRN Administration Mild Correctional Scale Labetalol HCl 20 mg 04/15/20 00:24 04/21/20 11:49 Normodyne SLOW IVP 20 mg Q4H PRN Administration SBP > 160, use third Lorazepam 2 mg 04/16/20 00:12 04/23/20 12:44 Ativan SLOW IVP 05/16/20 00:12 2 mg Q1H PRN Administration Breakthrough agitation Morphine Sulfate 2 mg 04/16/20 00:12 04/18/20 00:17 Morphine SLOW IVP 05/16/20 00:12 2 mg Q1H PRN Administration BREAKTHROUGH PAIN/Agitation Pantoprazole Sodium 40 mg 04/16/20 09:00 04/24/20 10:19 Protonix IVP 40 mg Q12HR ELY Administration Propofol 1,000 mg 04/16/20 00:12 04/24/20 12:17 Diprivan IV 05/16/20 00:12 1,000 mg INF PRN Administration TO ACHIEVE GOAL RASS Protocol Sodium Chloride 10 ml 04/15/20 09:00 04/24/20 10:19 Flush - Normal Saline IVF 10 ml Q12HR ELY Administration - Exam General Appearance: ill appearing ENT: normocephalic atraumatic Neck: supple Heart: RRR Respiratory: CTAB, normal chest expansion Gastrointestinal: distended, diminished bowl sounds Neurological: no focal deficits Psychiatric: somnolent Hosp A/P - Plan Note edited to reflect today's care of plan. 69 year old female who presented with altered mental status, found to be in acute renal failure Acute encephalopathy ischemic bowel Acute res failure w.. encephalopathy SEvere meta acido w. ischmeic bowel s/p ex lap - patient is s/p ex lap, right hemicolectomy, resection of small bowel and 18 inches of ileum and resection of transverse colon POD 7. She was found to have gangrenous right colon/transverse colon and distal small bowel. S/p second look laparotomy 04/17 with hematoma evacuation. Colon biopsy consistent with ischemic colitis - she is s/p ileostomy 04/20 - TPN is being weaned -mild line wound vac Acute hypoxic respiratory failure possibly from pneumonia - noted on CT abdomen - she was on zosyn. WBC increased 04/19. Switched to meropenem by surgery 04/20. WBC improving to 12 - continue hydrocortisone Acute Kidney Injury/ATN anuria ww. urine ouput < 50 Rhabdo- resolved Hypoalbumnemia -getting dialysis today Atrial fibrillation - on amiodarone drip Acute blood loss anemia - Hb stable 8.9. S/p 2 units blood 04/17, 1 unit 04/18 and 04/20 Thrombocytopenia - platelets 120's Transaminitis - resolved Hypocalcemia- resolved Hyperglycemia --70/30 +aggressive dose Scheduled insulin On merum Prognosis guarded palliative consult.
[2020-04-24] MEDS: fentaNYL Citrate/PF 2,000 MCG in Sodium Chloride 0.9% 60 ML IV SCH (14:39)
[2020-04-24] MEDS: Amiodarone 450 MG in Dextrose 5% in Water 250 ML IVPB SCH (14:40)
--- NOTE | 2020-04-24 14:48 | PRG ---
DATE OF SERVICE: 04/24/2020 SUBJECTIVE: Ms. Cordon is a 69-year-old female, who remains mechanically ventilated. OBJECTIVE: VITAL SIGNS: She is stable. Respiratory rates in the 20s, heart rate is 106, blood pressure 116/50, oximetry is 100%. LUNGS: Distant clear. HEART: Regular rhythm. ABDOMEN: Soft. EXTREMITIES: Without asymmetry or edema. NEUROLOGIC: Grossly nonfocal. LABORATORY DATA: White count 16.6, hemoglobin 9.5, platelets 284, 5% bands on peripheral smear. Sodium 131, potassium 3.8, chloride 94, bicarb 22, BUN 117, creatinine 3.06. IMPRESSION: 1. Respiratory failure. 2. Mixed anemia. 3. Atrial fibrillation. 4. Ischemic bowel, status post laparotomy multiple times this admission. 5. Ischemic colitis. 6. Status post ileostomy. 7. Renal failure, receiving dialysis. PLAN: Continue supportive care. Multiple medical problems make this a slow process. Critical care time, 30 minutes. Job ID: [id number]
[2020-04-24] MEDS: SODIUM CHLORIDE IV SCH (21:50)
[2020-04-24] MEDS: CALCIUM CHLORIDE IV SCH (21:50)
[2020-04-24] MEDS: SODIUM ACETATE IV SCH (21:50)
[2020-04-24] MEDS: [UNRECOGNIZED DRUG - OTHER] IV SCH (21:50)
[2020-04-25] MEDS: Propofol 1,000 MG/100 ML VIAL IV PRN (00:56)
[2020-04-25 04:24] LABS: Anion Gap 19 mmol/L (10-20); Band 14 % (5-11); Calc. Creatinine Clearance 21 mL/min (70-130); Calcium 8.3 mg/dL (7.8-10.44); Carbon Dioxide 22 mmol/L (23-31); Chloride 92 mmol/L (98-107); Estimated GFR-MDRD 11; Glucose 155 mg/dL (80-115); Hemoglobin 9.2 g/dL (12.0-16.0); Lymphocytes 3 % (21-51); MDiff Complete? YES; Mean Corpuscular HGB CONC 33.8 g/dL (32.0-36.0); Mean Corpuscular Hemoglobin 31.8 pg (27.0-31.0); Mean Corpuscular Volume 94.2 fL (78.0-98.0); Mean Platelet Volume 9.6 fL (7.4-10.4); Metamyelocyte 1 % (0-0); Monocytes 5 % (0-10); Neutrophil 77 % (42-75); Platelet Count 378 thou/uL (130-400); Platelet Morphology Comment Appears Adequate; Potassium 4.1 mmol/L (3.5-5.1); RBC Distribution Width 13.4 % (11.5-14.5); Red Blood Cell (RBC) Count 2.88 mill/uL (4.20-5.40); Sodium 129 mmol/L (136-145); White Blood Cell (WBC) Count 17.1 thou/uL (4.8-10.8)
[2020-04-25 04:37] LABS: BUN (Urea Nitrogen) 144 mg/dL (9.8-20.1)
[2020-04-25] MEDS ORDERED: Digoxin 0.5 MG/2 ML AMP SLOW IVP SCH (07:30)
[2020-04-25 07:50] LABS: Actual Bicarbonate (HCO3a) 19.8 mEq/L (22-28); Base Excess (BEa) -4.5 mEq/L (-2.0 to +3.0); CO2 Tension 33.5 mmHg (35.0-45.0); Calcium, Ionized (arterial) 1.12 mmol/L (1.12-1.30); Carboxyhemoglobin (COHb) 2.1 gm% (0.0-3.0); Hemoglobin (Hb) 9.1 g/dL (12.0-16.0); O2 Tension (PaO2), arterial 83.9 mmHg (> 80.0); Potassium - ABG Lab 4.01 mmol/L (3.70-5.30); pH, Arterial 7.39 (7.35-7.45)
[2020-04-25] MEDS: Amiodarone 450 MG in Dextrose 5% in Water 250 ML IVPB SCH (07:50)
[2020-04-25 07:53] LABS: ALV-art Gradient 123.775 (0-20); Puncture Site RRA
[2020-04-25] MEDS: Meropenem 2 GM, Admixture Fee 1 EACH in Sodium Chloride 0.9% 100 ML IVPB SCH ×2 (07:54→21:32)
[2020-04-25] MEDS: Furosemide 100 MG/10 ML VIAL SLOW IVP SCH ×2 (08:33→21:33)
[2020-04-25] MEDS: Heparin 5,000 UNITS/ML VIAL SC SCH ×3 (08:33→21:33)
[2020-04-25] MEDS: Hydrocortisone Sod Succ/PF 100 mg/2 ml Vial IVP SCH (08:33)
[2020-04-25] MEDS: Pantoprazole 40 MG VIAL IVP SCH ×2 (08:34→21:33)
[2020-04-25] MEDS: HumuLIN 70/30 (300 UNITS/3 ML VIAL) SC SCH ×2 (08:43→21:37)
[2020-04-25] MEDS ORDERED: DC Sedation Protocol FS ONE (08:54)
--- NOTE | 2020-04-25 09:43 | PRG ---
DATE OF SERVICE: 04/25/2020 SUBJECTIVE: This morning, she is slightly more responsive. Getting diuretics. She has been dialyzed since Saturday. She has significant general anasarca. OBJECTIVE: VITAL SIGNS: Blood pressure is 145/61, temperature is 99, pulse 140, and respiratory rate is 20. CHEST: Decreased breath sounds. No wheezing. CARDIAC: Normal S1, S2. No gallops. ABDOMEN: No masses. LABORATORY DATA: X-ray shows left-sided infiltrate. PO2 is 83, pCO2 of 30, pH of 7.39 on a rate of 8, 35%. White count 17,000, platelet count is normal. IMPRESSION: 1. Multiorgan failure, abdominal sepsis, status post laparotomy. 2. Respiratory failure with left lung atelectasis with supraventricular tachycardia, diabetes. She was on stress dose of steroids. She is much improved. I am going to discontinue it. She is still on meropenem, which she will continue, minimize sedation. Wean and extubate. PT, eventually placement. One-half hour of critical time. Job ID: [id number]
[2020-04-25 10:42] LABS: Bacteria/HPF None Seen HPF (None Seen); Bilirubin Negative (Negative); Blood, Urine 1+ (Negative); Clarity Turbid (Clear); Glucose, Urine (Dipstick) Normal (Negative); Leukocyte Negative Leu/uL (Negative); Nitrite Negative (Negative); Protein, Urine (Dipstick) 50 mg/dL (Neg-Trace); Renal Epithelial 0-3 HPF (None Seen); Squamous Epithelial 0-3 HPF (0-3); Transitional Epithelial 0-3 HPF (None Seen); Urobilinogen Normal mg/dL (Less than 2)
[2020-04-25 10:45] LABS: Urine Culture Reflex Yes Yes
[2020-04-25] MEDS ORDERED: Morphine 4 MG/ML VIAL ONE (12:08)
[2020-04-25] MEDS ORDERED: Morphine 2 MG/ML SYRINGE SLOW IVP PRN (12:16)
--- NOTE | 2020-04-25 12:50 | PRG ---
DATE OF SERVICE: 04/25/2020 SERVICE: Nephrology. SUBJECTIVE: A 69-year-old female seen in followup for acute renal failure. The patient was admitted due to confusion and found to have septic shock associated with multiorgan failure. The patient was taken to OR and subsequently had an exploratory laparotomy with resection of large bowel segment. The patient was intubated and extubated earlier today. The patient is currently encephalopathic, confused and was not able to answer simple question. She does not even know her name. Still getting enteral and parenteral nutrition. OBJECTIVE: VITAL SIGNS: Temperature 99.9, heart rate 99, respiratory rate 23, SpO2 of 99 on 2 L nasal cannula, and blood pressure is 112/85. I and O in the last 24 hours showed total intake of 3402 with total output of 975 with urine only being 325 mL. GENERAL: Middle-aged female, in no obvious distress. Afebrile. Anicteric. Acyanotic. HEENT: Normocephalic and atraumatic. Nasogastric tube is in place. Oral mucosa is moist. NECK: Supple with no JVD. CARDIOVASCULAR: Irregular rhythm and rate. Tachycardic with normal heart sounds. RESPIRATORY: Fair air entry bilaterally with some transmitted breath sounds. No obvious rhonchi were appreciated. The patient is mildly tachypneic. GI: Full, mildly and diffusely tender. Midline surgical wound with dressing and wound VAC noted. Right lower extremity colostomy noted as well. UROGENITAL: Pagan catheter is in place, draining some urine. EXTREMITIES: Mild edema of the extremities noted. No erythema appreciated. 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 She responds to stimulation, but is absolutely confused. The patient is not oriented to self even. Cranial nerves 2 through 12 are grossly intact. DIAGNOSTIC DATA: CBC showed WBC count of 17.1, hemoglobin of 9.2, and platelets of 378. Chemistry showed sodium 129, potassium 4.1, chloride 92, CO2 of 22, BUN 144, creatinine 3.91, glucose 155, calcium 8.3, and albumin 2.6. ASSESSMENT: 1. Acute renal failure: Due to acute tubular necrosis with possible contribution from rhabdomyolysis. Urine output has improved with diuretics. The patient now is oliguric, made about 350 mL of urine in the last 24 hours. However, there is no renal recovery as yet. BUN and creatinine continued to trend up between hemodialysis. BUN today is 144. 2. Volume overload: Due to hypoalbuminemia and poor urine output. 3. Hyponatremia: Due to acute kidney injury and poor water excretion. 4. Rhabdomyolysis, resolved. PLAN: 1. We will dialyze the patient today with UF as tolerated. We will use albumin should blood pressure drop down. 2. We will also continue diuretic therapy after hemodialysis to help maintained better fluid status. 3. We will monitor electrolytes, urine output, and renal function. Further treatment to follow depending on hospital course. Job ID: [id number]
--- NOTE | 2020-04-25 13:15 | PDOC.HOSPP ---
- Subjective Encounter Date: 04/25/20 Encounter Time: 10:10 Subjective: Pt extubated. Aox1, moaning, amio still running, wbcs high, not tolerating the TF, sig.. residual of > 370 ml and on 20ml/her. Urine output around 650ml. wound vac. Low grade temp. - Objective Vital Signs & Weight: Vital Signs (12 hours) Temp Pulse Resp BP Pulse Ox 04/25/20 12:00 98.8 F 04/25/20 11:12 99 04/25/20 08:59 103 H 19 99 04/25/20 08:00 99.9 F H 25 H 100 04/25/20 07:46 155 H 04/25/20 07:02 113 H 129/78 04/25/20 06:00 14 04/25/20 04:00 99.3 F 18 04/25/20 02:17 151 H 116/65 04/25/20 02:00 17 Weight Admit Weight 182 lb Weight 219 lb 5.759 oz Most Recent Monitor Data Heart Rate from ECG 121 NIBP 165/88 NIBP BP-Mean 113 Respiration from ECG 23 SpO2 99 I&O: 04/24/20 04/25/20 04/26/20 06:59 06:59 06:59 Intake Total 3303 3402.3 15 Output Total 880 975 200 Balance 2423 2427.3 -185 Result Diagrams: 04/25/20 03:50 04/25/20 03:50 Additional Labs: Accuchecks 04/25/20 04/25/20 04/24/20 08:46 04:10 22:43 POC Glucose 179 H 143 H 116 H 04/24/20 16:21 POC Glucose 85 Hospitalist ROS - Medication Medications: Active Medications Generic Name Dose Route Start Last Admin Trade Name Freq PRN Reason Stop Dose Admin Dextrose/Water 25 gm 04/15/20 04:04 04/15/20 06:52 Dextrose 50% SLOW IVP 25 gm PRN PRN Administration Hypoglycemia Furosemide 80 mg 04/23/20 21:00 04/25/20 08:33 Lasix SLOW IVP 80 mg BID ELY Administration Heparin Sodium (Porcine) 5,000 units 04/21/20 09:00 04/25/20 08:33 Heparin SC 5,000 units TID ELY Administration Hydralazine HCl 10 mg 04/15/20 00:24 04/23/20 03:40 Apresoline SLOW IVP 10 mg Q6H PRN Administration SBP GREATER THAN 160 Amiodarone HCl 450 mg/ 259 mls @ 0 mls/hr 04/18/20 16:30 04/25/20 07:50 Dextrose/Water IVPB 259 mls INF ELY Administration Protocol Per Protocol Sodium Acetate 70 meq/ Sodium 1,569.8759 mls @ 65.411 mls/hr 04/19/20 22:00 04/24/20 21:50 Chloride 55 meq/ Calcium IV 1,569.8759 mls Chloride 10 meq/ Magnesium 2200 ELY Administration Sulfate 10 meq/ Multivitamins 10 ml/ Chromium/Copper/ Manganese/Seleni/Zn 1 ml/ Insulin Human Regular 31 units / Dextrose/Water/ Amino Acids/ Sterile Water Meropenem 2 gm/ Miscellaneous 100 mls @ 200 mls/hr 04/20/20 21:00 04/25/20 07 :54 Medication 1 each/ Sodium IVPB 100 mls Chloride 0900,2100 ELY Administration Insulin Human Isoph/Insulin Regular 10 units 04/24/20 21:00 04/25/20 08:43 Humulin 70/30 SC 10 unit BID ELY Administration Insulin Human Lispro 0 units 04/15/20 04:04 04/24/20 10:24 Humalog SC 3 unit .MILD SLIDING SCALE PRN Administration Mild Correctional Scale Labetalol HCl 20 mg 04/15/20 00:24 04/21/20 11:49 Normodyne SLOW IVP 20 mg Q4H PRN Administration SBP > 160, use third Pantoprazole Sodium 40 mg 04/16/20 09:00 04/25/20 08:34 Protonix IVP 40 mg Q12HR ELY Administration Sodium Chloride 10 ml 04/15/20 09:00 04/25/20 08:34 Flush - Normal Saline IVF 10 ml Q12HR ELY Administration - Exam General Appearance: ill appearing Eye: PERRL ENT: normocephalic atraumatic Neck: supple Heart: RRR Respiratory: normal chest expansion, rales, rhonchi Gastrointestinal: distended, diminished bowl sounds Gastrointestinal - other findings: wound vac Neurological: no focal deficits Psychiatric: oriented to person, somnolent, lethargic Hosp A/P - Plan Note edited to reflect today's care of plan. 69 year old female who presented with altered mental status, found to be in acute renal failure Acute encephalopathy ischemic bowel Acute res failure w.. encephalopathy SEvere meta acido w. ischmeic bowel s/p ex lap - patient is s/p ex lap, right hemicolectomy, resection of small bowel and 18 inches of ileum and resection of transverse colon POD 7. She was found to have gangrenous right colon/transverse colon and distal small bowel. S/p second look laparotomy 04/17 with hematoma evacuation. Colon biopsy consistent with ischemic colitis - she is s/p ileostomy 04/20 - TPN i--not tolerating [] -mild line wound vac Acute hypoxic respiratory failure possibly from pneumonia - noted on CT abdomen - she was on zosyn. WBC increased 04/19. Switched to meropenem by surgery 04/20. WBC improving to 12 - s/phydrocortisone Acute Kidney Injury/ATN anuria ww. urine ouput < 50 Rhabdo- resolved Hypoalbumnemia -Intermittent dialysis Atrial fibrillation - on amiodarone drip Acute blood loss anemia - Hb stable 8.9. S/p 2 units blood 04/17, 1 unit 04/18 and 04/20 Thrombocytopenia - platelets 120's Transaminitis - resolved Hypocalcemia- resolved Hyperglycemia --70/30 +aggressive dose Scheduled insulin -BG better on Leukocytosis - wbcs high on - low grade temp - no prior alanna - if pt spikes temp, 2 sets of blood culx -cxr - neg for any changes - pending UA on On merum Prognosis guarded palliative consult.
--- NOTE | 2020-04-25 13:44 | PRG ---
DATE OF SERVICE: 04/25/2020 SUBJECTIVE: Ms. Cordon is doing well. She is extubated this morning. OBJECTIVE: VITAL SIGNS: Blood pressure 166/88, heart rate 115, atrial fibrillation. Ileostomy healthy with ileostomy output. Output 650 over the last 24 hours. Urine output 325 over the last 24 hours. LUNGS: Clear to auscultation. CARDIAC: murmur, rub, or gallop. ABDOMEN: Soft. EXTREMITIES: Unremarkable. NEUROLOGIC: The patient is awake, but confused, encephalopathic. LABORATORY DATA: White count 16, hemoglobin 9.5, and platelet count 284,000. Sodium 129, potassium 4.1, carbon dioxide 22, GFR 11, and creatinine 3.91. ASSESSMENT AND PLAN: 1. Acute renal failure, on maintenance dialysis, oliguric. Continue dialysis efforts. 2. Thrombocytopenia, resolved after Zosyn discontinued. Thrombocytopenia secondary to Zosyn. 3. Deep venous thrombosis prophylaxis. Continue heparin subcu. PLAN: 1. Long-term anticoagulation. 2. Wound care, open wound, wound VAC changed today. Wound looks good. Continue wound VAC. 3. Encephalopathy, ICU and medication related, sleep deprivation related, critical illness related. 4. Deconditioning. Discharge planning, the patient will probably need LTAC long- term. 5. Malnutrition. The patient is on TPN, tube feedings are running, but she has 300 residual. We will begin Reglan IV or elixir per NG tube more appropriate. Continue tube feeding efforts. Job ID: [id number]
[2020-04-25] MEDS ORDERED: Albumin 25% 100 ML ONE (13:45)
[2020-04-25] MEDS ORDERED: Albumin 25% 25 GM/100 ML BOT IVPB PRN (13:55)
[2020-04-25] MEDS: Metoclopramide HCl 10 MG/2 ML VIAL IVP SCH ×2 (14:31→21:34)
[2020-04-25] MEDS: HumaLOG 300 UNITS/3 ML VIAL SC PRN ×2 (16:12→21:36)
[2020-04-25] MEDS: Morphine 2 MG/ML SYRINGE SLOW IVP PRN ×2 (16:29→21:31)
--- NOTE | 2020-04-25 17:03 | EKG ---
Test Reason : RHYTHM CHANGE Blood Pressure : / mmHG Vent. Rate : 135 BPM Atrial Rate : 138 BPM P-R Int : 000 ms QRS Dur : 094 ms QT Int : 354 ms P-R-T Axes : 000 065 067 degrees QTc Int : 531 ms Atrial fibrillation with rapid ventricular response Nonspecific ST abnormality Abnormal ECG Confirmed by MORRIS RIVAS ([id number]) on 04/25/2020 5:03:16 PM Referred By: TIFFANY Confirmed By:MORRIS RIVAS
[2020-04-25] MEDS: CALCIUM CHLORIDE IV SCH (22:09)
[2020-04-25] MEDS: SODIUM ACETATE IV SCH (22:09)
[2020-04-25] MEDS: [UNRECOGNIZED DRUG - OTHER] IV SCH (22:09)
[2020-04-25] MEDS: SODIUM CHLORIDE IV SCH (22:09)
[2020-04-26] MEDS: Amiodarone 450 MG in Dextrose 5% in Water 250 ML IVPB SCH (01:11)
[2020-04-26] MEDS: Morphine 2 MG/ML SYRINGE SLOW IVP PRN ×2 (02:19→20:05)
[2020-04-26 04:09] LABS: Anion Gap 18 mmol/L (10-20); BUN (Urea Nitrogen) 95 mg/dL (9.8-20.1); Calc. Creatinine Clearance 30 mL/min (70-130); Calcium 8.4 mg/dL (7.8-10.44); Carbon Dioxide 23 mmol/L (23-31); Chloride 97 mmol/L (98-107); Estimated GFR-MDRD 17; Glucose 169 mg/dL (80-115); Potassium 3.5 mmol/L (3.5-5.1); Sodium 134 mmol/L (136-145)
[2020-04-26 04:23] LABS: Band 3 % (5-11); Hemoglobin 9.3 g/dL (12.0-16.0); Hypochromia SLIGHT = 6-15 cells (100X) (0-5/hpf); Lymphocytes 6 % (21-51); MDiff Complete? YES; Mean Corpuscular HGB CONC 34.7 g/dL (32.0-36.0); Mean Corpuscular Hemoglobin 32.4 pg (27.0-31.0); Mean Corpuscular Volume 93.5 fL (78.0-98.0); Monocytes 2 % (0-10); Neutrophil 89 % (42-75); Platelet Count 449 thou/uL (130-400); Platelet Morphology Comment Appears Increased; Red Blood Cell (RBC) Count 2.86 mill/uL (4.20-5.40); White Blood Cell (WBC) Count 16.4 thou/uL (4.8-10.8)
[2020-04-26 04:27] LABS: Digoxin 0.84 ng/mL (0.8-2.0)
[2020-04-26] MEDS: HumaLOG 300 UNITS/3 ML VIAL SC PRN ×3 (05:34→18:16)
[2020-04-26] MEDS: Metoclopramide HCl 10 MG/2 ML VIAL IVP SCH ×3 (05:38→21:43)
[2020-04-26] MEDS ORDERED: Albumin 25% 25 GM/100 ML BOT IVPB PRN (08:22)
--- NOTE | 2020-04-26 09:20 | PRG ---
DATE OF SERVICE: 04/26/2020 SERVICE: Nephrology. SUBJECTIVE: A 69-year-old female with septic shock associated with multiorgan failure, seen in followup for acute renal failure and volume overload. The patient was extubated yesterday, and she is doing a lot better. She is conversational today, though still with some degree of encephalopathy. Still getting tube feeding as well as TPN. Last hemodialysis was yesterday, April 25. OBJECTIVE: VITAL SIGNS: Temperature 99.7, pulse 112, respiratory rate 30, SpO2 of 100% on 1 L nasal cannula, and blood pressure is 154/67. I and O in the last 24 hours showed total intake of 2847 with total output of 5500 with urine accounting for 568, ileostomy 650, and ultrafiltration during hemodialysis 3800. GENERAL: Female, in no obvious distress. Afebrile. Anicteric. Acyanotic. HEENT: Normocephalic, atraumatic. NG tube is in place. Oral mucosa is dry. CARDIOVASCULAR: Irregular rhythm and rate with normal heart sounds 1 and 2. RESPIRATORY: Fair air entry bilaterally with some transmitted breath sounds. Work of breathing is mildly increased. GI: Full. Surgical wound dressing noted with wound VAC as well as ileostomy on the right lower quadrant. UROGENITAL: Pagan catheter is in place draining some urine. MUSCULOSKELETAL: Generalized edema of the limbs as well as trunk noted. 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 Oriented to person, however, is not oriented to place. She thinks she is in brother's house. Memory lapse is noted. Cranial nerves 2 through 12 are grossly intact. DIAGNOSTIC DATA: CBC showed WBC count of 16.4, hemoglobin of 9.3, platelets of 449. Chemistry showed sodium 134, potassium 3.5, chloride 97, CO2 of 23, BUN 95, creatinine 2.79, glucose 169, and calcium 8.4. ASSESSMENT: 1. Acute renal failure: Due to acute tubular necrosis related to septic shock, consider dehydration with possible contribution from rhabdomyolysis. 2. Acute tubular necrosis: Urine output is improving with Lasix, but the patient is still oliguric. 3. Volume overload: Due to anuric state initially with aggressive fluid resuscitation and third-spacing. Hypoalbuminemia is also contributory. 4. Hyponatremia. 5. Metabolic acidosis. 6. Azotemia: BUN today is 95. It is down from 140 yesterday. Most likely due to high protein diet in TPN and enteral nutrition with possible contribution from diuretic therapy. 7. Metabolic encephalopathy: Due to shock, uremia. Improving. PLAN: 1. We will dialyze the patient today to help with clearance of both solute and fluid and to improve volume status. We will also continue diuretics to help fluid management. We will give albumin should blood pressure drop. 2. Further treatment to follow depending on hospital course. Job ID: [id number]
[2020-04-26] MEDS: Meropenem 2 GM, Admixture Fee 1 EACH in Sodium Chloride 0.9% 100 ML IVPB SCH (09:41)
[2020-04-26] MEDS: Acetaminophen 500 MG TAB PER TUBE PRN ×2 (09:42→22:19)
[2020-04-26] MEDS: Furosemide 100 MG/10 ML VIAL SLOW IVP SCH ×2 (09:42→21:46)
[2020-04-26] MEDS: Heparin 5,000 UNITS/ML VIAL SC SCH ×3 (09:42→21:49)
[2020-04-26] MEDS: Pantoprazole 40 MG VIAL IVP SCH ×2 (09:43→21:42)
--- NOTE | 2020-04-26 09:58 | PRG ---
DATE OF SERVICE: 04/26/2020 SUBJECTIVE: Kacy Cordon is a 69-year-old female, remains in the ICU. This morning, she is moaning and groaning, having severe abdominal pain. OBJECTIVE: VITAL SIGNS: Heart rate is 100, on amiodarone; respiratory rate is 20; sats are 96% on room air; blood pressure 150/67. CHEST: Decreased breath sounds. No wheezing. CARDIAC: Normal S1, S2. No gallops. ABDOMEN: No masses. LABORATORY DATA: White count 16,000, left shift. BUN and creatinine 95 and 2.9. ASSESSMENT AND PLAN: Multiorgan failure, abdominal sepsis, status post lap, SVT. Continue observation in the ICU. At this stage, she remains weak. PT, supportive care. Job ID: [id number]
[2020-04-26] MEDS: HumuLIN 70/30 (300 UNITS/3 ML VIAL) SC SCH ×2 (10:07→21:42)
[2020-04-26] MEDS ORDERED: Digoxin 0.5 MG/2 ML AMP SLOW IVP SCH (10:30)
--- NOTE | 2020-04-26 13:55 | PDOC.HOSPP ---
- Subjective Encounter Date: 04/26/20 Encounter Time: 11:40 Subjective: quite somnolent, dept edema in L> R leg., TPN running. bolton - urine looks clear. - Objective Vital Signs & Weight: Vital Signs (12 hours) Temp Pulse Pulse Pulse Resp BP BP 04/26/20 13:02 84 20 04/26/20 11:21 94 04/26/20 10:35 93 97 148/68 H 148/82 H 04/26/20 07:02 94 20 04/26/20 04:00 99.7 F H Pulse Ox Pulse Ox 04/26/20 13:02 04/26/20 11:21 04/26/20 10:35 97 97 04/26/20 07:02 04/26/20 04:00 Weight Admit Weight 182 lb Weight 219 lb 5.759 oz Most Recent Monitor Data Heart Rate from ECG 85 NIBP 141/61 NIBP BP-Mean 87 Respiration from ECG 22 SpO2 99 I&O: 04/25/20 04/26/20 04/27/20 06:59 06:59 06:59 Intake Total 3402.3 2847.7 Output Total 975 1218 Balance 2427.3 1629.7 Result Diagrams: 04/26/20 03:25 04/26/20 03:25 Additional Labs: Accuchecks 04/26/20 04/25/20 04/25/20 10:09 21:40 16:13 POC Glucose 181 H 251 H 158 H Hospitalist ROS - Medication Medications: Active Medications Generic Name Dose Route Start Last Admin Trade Name Freq PRN Reason Stop Dose Admin Acetaminophen 1,000 mg 04/25/20 13:01 04/26/20 09:42 Tylenol PER TUBE 1,000 mg Q6H PRN Administration Moderate to Severe Pain (6-10) Albumin Human 25 gm 04/25/20 13:55 04/25/20 13:50 Albumin 25% IVPB 04/26/20 13:56 25 gm Q30MIN PRN Administration HYPOTENSION Albuterol/Ipratropium 3 ml 04/25/20 13:00 04/26/20 13:02 Duoneb NEB 3 ml [id number] ELY Administration Dextrose/Water 25 gm 04/15/20 04:04 04/15/20 06:52 Dextrose 50% SLOW IVP 25 gm PRN PRN Administration Hypoglycemia Furosemide 80 mg 04/23/20 21:00 04/26/20 09:42 Lasix SLOW IVP 80 mg BID ELY Administration Heparin Sodium (Porcine) 5,000 units 04/21/20 09:00 04/26/20 09:42 Heparin SC 5,000 units TID ELY Administration Hydralazine HCl 10 mg 04/15/20 00:24 04/23/20 03:40 Apresoline SLOW IVP 10 mg Q6H PRN Administration SBP GREATER THAN 160 Amiodarone HCl 450 mg/ 259 mls @ 0 mls/hr 04/18/20 16:30 04/26/20 01:11 Dextrose/Water IVPB 259 mls INF ELY Administration Protocol Per Protocol Sodium Acetate 70 meq/ Sodium 1,569.8759 mls @ 65.411 mls/hr 04/19/20 22:00 04/25/20 22:09 Chloride 55 meq/ Calcium IV 1,569.8759 mls Chloride 10 meq/ Magnesium 2200 ELY Administration Sulfate 10 meq/ Multivitamins 10 ml/ Chromium/Copper/ Manganese/Seleni/Zn 1 ml/ Insulin Human Regular 31 units / Dextrose/Water/ Amino Acids/ Sterile Water Meropenem 2 gm/ Miscellaneous 100 mls @ 200 mls/hr 04/20/20 21:00 04/26/20 09 :41 Medication 1 each/ Sodium IVPB 100 mls Chloride 0900,2100 ELY Administration Insulin Human Isoph/Insulin Regular 10 units 04/24/20 21:00 04/26/20 10:07 Humulin 70/30 SC 10 unit BID ELY Administration Insulin Human Lispro 0 units 04/15/20 04:04 04/26/20 10:06 Humalog SC 2 unit .MILD SLIDING SCALE PRN Administration Mild Correctional Scale Labetalol HCl 20 mg 04/15/20 00:24 04/21/20 11:49 Normodyne SLOW IVP 20 mg Q4H PRN Administration SBP > 160, use third Metoclopramide HCl 10 mg 04/25/20 14:00 04/26/20 05:38 Reglan IVP 10 mg Q8HR ELY Administration Morphine Sulfate 2 mg 04/25/20 13:00 04/26/20 02:19 Morphine SLOW IVP 2 mg Q4H PRN Administration Severe Pain (7-10) Pantoprazole Sodium 40 mg 04/16/20 09:00 04/26/20 09:43 Protonix IVP 40 mg Q12HR ELY Administration Sodium Chloride 10 ml 04/15/20 09:00 04/26/20 09:42 Flush - Normal Saline IVF 10 ml Q12HR ELY Administration - Exam General Appearance: ill appearing ENT: normocephalic atraumatic Neck: supple Heart: RRR Respiratory: CTAB, normal chest expansion Gastrointestinal: soft, normal bowel sounds, distended Extremities: 1+ LE edema Extremities - other findings: dept edema in L> R leg. Hosp A/P - Plan Note edited to reflect today's care of plan. 69 year old female who presented with altered mental status, found to be in acute renal failure Acute encephalopathy ischemic bowel Acute res failure w.. encephalopathy SEvere meta acido w. ischmeic bowel s/p ex lap - patient is s/p ex lap, right hemicolectomy, resection of small bowel and 18 inches of ileum and resection of transverse colon POD 7. She was found to have gangrenous right colon/transverse colon and distal small bowel. S/p second look laparotomy 04/17 with hematoma evacuation. Colon biopsy consistent with ischemic colitis - she is s/p ileostomy 04/20 - TPN i--not tolerating [] -mild line wound vac Acute hypoxic respiratory failure possibly from pneumonia - noted on CT abdomen - she was on zosyn. WBC increased 04/19. Switched to meropenem by surgery 04/20. WBC improving to 12 - s/phydrocortisone Acute Kidney Injury/ATN anuria ww. urine ouput < 50 Rhabdo- resolved Hypoalbumnemia -Intermittent dialysis Atrial fibrillation - on amiodarone drip Acute blood loss anemia - Hb stable 8.9. S/p 2 units blood 04/17, 1 unit 04/18 and 04/20 Thrombocytopenia - platelets 120's Transaminitis - resolved Hypocalcemia- resolved Hyperglycemia --70/30 +aggressive dose Scheduled insulin -BG better on Leukocytosis - wbcs high on ----------> trending up---> despite on merum ---> prob inflammatory process. will check w.. ID. - low grade temp - no prior alanna - if pt spikes temp, 2 sets of blood culx -cxr - neg for any changes - pending UA on --------turbid, no sig.. bacturia, pyuria. -On merum Critical illness myopathy --cw supportive care --PT when transferred to the floor. Prognosis guarded palliative consult.
--- NOTE | 2020-04-26 14:24 | PDOC.PALCO ---
Palliative Care Consult - Consult Details Requesting Physician: Dr Valdez Reason for Consult: goals of care, assistance with communication prognosis/ disease, family support - Pertinent HPI Patient is a 69 year old female who initially was seen in [place] for altered mental status, paranoia, hypotension, and febrile. She was transferred to [facility] emergency room for higher level of care. She was admitted for further evaluation and medical management. Currently with renal failure, post extubation, ischemic bowel with resection of ileum and transverse colon. - Pertinent PMH Chronic Back pain, HDL, HTN, GERD, Spastic Colon - Social History Smoking Status: Unknown if ever smoked Alcohol Use: daily Living Situation: - Medications MAR Reviewed: Yes - Allergies Allergies/Adverse Reactions: Allergies Allergy/AdvReac Type Severity Reaction Status Date / Time No Allergy Information Allergy Verified 04/15/20 02:34 Available - Subjective Encephalopathic, moaning. - ROS Non Response: due to mental status - Objective Vital Signs: Vital Signs - Most Recent Temp Pulse Resp BP Pulse Ox 99.7 F H 88 20 130/61 100 04/26/20 04:00 04/26/20 13:02 04/26/20 13:02 04/26/20 13:02 04/26/20 13:02 Palliative Performance Scale: 30 - Physical Exam Constitutional: encephalitic, ill appearing HEENT: EOMI, moist MMs, sclera anicteric Respiratory: unlabored breathing, diminished lung sound Cardiovascular: RRR Gastrointestinal: soft Genitourinary: bolton catheter Musculoskeletal: pulses present, edema present, diffuse muscle atrophy Skin: cap refill <2 seconds, bruising, fragile Deviation from normal: encephalopathic - Problem List (1) Metabolic encephalopathy Code(s): G93.41 - METABOLIC ENCEPHALOPATHY Current Visit: Yes Status: Acute (2) Acute renal failure Current Visit: Yes Status: Acute (3) Ischemic bowel disease Code(s): K55.9 - VASCULAR DISORDER OF INTESTINE, UNSPECIFIED Current Visit: Yes Status: Acute (4) Palliative care encounter Code(s): Z51.5 - ENCOUNTER FOR PALLIATIVE CARE Current Visit: Yes Status: Acute (5) Blood loss anemia Code(s): D50.0 - IRON DEFICIENCY ANEMIA SECONDARY TO BLOOD LOSS (CHRONIC) Current Visit: Yes Status: Acute - Plan/Recommendations Plan: Introduced palliative care to patient family. Revisited health status. Successful extubation, will assist patient and family with Goal of Care parallel to current multiple morbidities. Emotional support and Therapeutic listening. Palliative Care will follow to assist patient and family. Please also refer to Rajendra Mtz RNinstitutional asset manager notes in note section. [50] minutes spent on this encounter with >50% of the time in counseling and coordination of care. Thank you for this very appropriate consult.
--- NOTE | 2020-04-26 16:25 | PRG ---
DATE OF SERVICE: 04/26/2020 SUBJECTIVE: Kacy Cordon is doing well today. She is more talkative, although confused. She is tolerating her tube feedings. Prior, her gastric residuals 300. Now, they have been 120 to 125. Tube feeding recommendations per dietitian noted and these changes made. We will continue TPN until she reached target rate on her tube feedings. She is on Reglan that facilitates GI motility, stomach emptying. OBJECTIVE: VITAL SIGNS: Heart rate 90, blood pressure 152/71. LUNGS: Clear to auscultation. CARDIAC: Regular rate and rhythm without murmur or gallop. ABDOMEN: Soft. Positive bowel sounds. She does have bowel movements. EXTREMITIES: Unremarkable. : She has a Pagan catheter. She has been given 80 mg of Lasix. Her urine output has been 20 to 35 per hour today. Slightly increased. LABORATORY DATA: White count 17, hemoglobin 9.3, platelet count 449,000. Hers sodium was 134, chloride 97, BUN 95, creatinine 2.79, GFR 17. She is to continue dialysis. ASSESSMENT AND PLAN: 1. Deconditioning. Physical therapy, Rehab consult. 2. Malnutrition. Continue tube feedings and TPN. We will discontinue TPN tomorrow if she is tolerating her tube feedings. 3. Status post ischemic bowel, doing well with good ileostomy output and ileostomy function. Job ID: [id number]
[2020-04-26] MEDS ORDERED: Meropenem 1 GM, Admixture Fee 1 EACH in Sodium Chloride 0.9% 100 ML IVPB SCH (18:00)
[2020-04-26] MEDS: Meropenem 500 MG in Sodium Chloride 0.9% 100 ML IVPB SCH (21:51)
[2020-04-26] MEDS: CALCIUM CHLORIDE IV SCH (22:13)
[2020-04-26] MEDS: [UNRECOGNIZED DRUG - OTHER] IV SCH (22:13)
[2020-04-26] MEDS: SODIUM ACETATE IV SCH (22:13)
[2020-04-26] MEDS: SODIUM CHLORIDE IV SCH (22:13)
[2020-04-26] MEDS: Ondansetron PF 4 MG/2 ML Vial IVP PRN (23:01)
--- NOTE | 2020-04-27 01:06 | CON ---
DATE OF CONSULTATION: 04/26/2020 REASON FOR CONSULTATION: Persistent leukocytosis. HISTORY OF PRESENT ILLNESS: Ms. Cordon is a 69-year-old lady, who has a history of hypothyroidism, hypertension, and chronic back pain, was initially admitted on 04/14 because of altered mental status. She apparently was having paranoid ideation, was hypotensive and they did a urine drug screen, which was positive for PCP, opiates, and amphetamines and apparently there was some history of K2 administration. Initially had to be sedated with Ativan, Narcan, and ketamine and she was found to be in acute renal failure with rhabdomyolysis. The patient had a right femoral Trialysis catheter placed for dialysis and on 04/15, she underwent exploratory laparotomy. There was evidence of an extended necrosis of the segment of right colon and small bowel with about 18 inches of ileum resected, a modified Annette procedure was performed associated with an ileostomy. The patient has had staged laparotomies with washout since. The pathology of the colon specimen showed ischemic colitis, but no malignancy. The patient has had two imaging studies, pretty much one day apart of the abdomen. The last one showed progressive dilatation of the ascending colon pneumatosis and this led to the laparotomy. Currently, Ms. Cordon is in the ICU. She is not intubated. She is kind of delirious and hard to evaluate her review of systems. PAST MEDICAL HISTORY: Includes hypothyroidism, hypertension, GERD, chronic back pain, and hysterectomy. SOCIAL HISTORY: Multiple substance abuse in the past including PCP, methamphetamines, and K2. ALLERGIES: NONE. NO INFORMATION AVAILABLE. CURRENT MEDICATIONS: Include, 1. Albumin. 2. DuoNeb. 3. Amiodarone. 4. Lasix. 5. Insulin. 6. Normodyne. 7. Meropenem 2 g q.12 hours. 8. Zofran. 9. Pantoprazole. 10. TPN. PHYSICAL EXAMINATION: VITAL SIGNS: T-max 99.7, blood pressure 150/70, heart rate 90, and O2 saturation 100%. GENERAL: The lines include a left-sided IJ central venous catheter, a right sided HemoSplit dialysis catheter in the right IJ and she has a Pagan catheter, the output has been picking up over the past few days, yesterday was 568, today thus far we have 213 mL. She is awake. She is confused. HEENT: Her ocular movements are conjugate. She establishes eye contact and does try to follow some commands. The oral cavity is dry. Cracked dorsal aspect of tongue. LUNGS: With somewhat coarse breath sounds. HEART: S1 and S2. Regular rate. ABDOMEN: Moderately distended. There is a midline negative pressure dressing. She has an ileostomy on the right side with a dark liquid. EXTREMITIES: She is able to move extremities on command. Extremities are warm. Plantar responses are flexor. Pulses are diminished in dorsalis pedis, but present. Cap refill is normal. NEURO: She knows her name and could not tell me where she was and had some delusional thinking process. LABORATORY DATA: White cell count started at 3.5, it peaked at 17, now it is 16.4. The bands started at 36, now they are down to 3. Hemoglobin started at 15, now it is at 9.3 and the platelets were at 179, they went down to 25, now they are up to 449. Creatinine started at 3.85, it peaked at 4, now it is at 2.79. Sodium is 134, potassium 3.5, and bilirubin 0.9. We do not have any measurements since the first admission. The AST was at 183 on admission, now it is down to 17. The ALT was 114, now it is down to 15. Alkaline phosphatase is normal at 58. CK was 1452 on admission, now it is down to 155. Albumin is 2.6. Microbiology do not have any positive cultures, really not many significant samples submitted. IMAGING DATA: The last chest x-ray is from 2 days ago and it showed no significant interval change. ASSESSMENT: Polysubstance drug use, delirium, ischemic bowel with necrosis of ascending and segment of small bowel, which were resected, a modified Annette's was performed with ileostomy. The patient has had three to four washouts thus far and steadily improving. She is on broad-spectrum coverage. The dose of meropenem needs to be adjusted for renal function. We will go ahead and proceed with that. She is on TPN and she is at risk for fungal complications, but thus far those are not evident. The main concern here would be eventual colonization of the catheters that are present in her body by Laura species. If she develops fever or worsening in the white cell count, then I would add antifungal treatment empirically and submit cultures from the blood sample from those catheters. I do not think we need to repeat an imaging study at this point in time and in fact her bandemia has been steadily decreasing, which is a good sign, we may be seeing a further decrease in her white cells' total count going forward. Job ID: [id number]
[2020-04-27] MEDS: Morphine 2 MG/ML SYRINGE SLOW IVP PRN ×2 (03:51→14:00)
[2020-04-27] MEDS: Amiodarone 450 MG in Dextrose 5% in Water 250 ML IVPB SCH ×2 (04:42→20:49)
[2020-04-27 05:19] LABS: Anion Gap 17 mmol/L (10-20); BUN (Urea Nitrogen) 101 mg/dL (9.8-20.1); Calc. Creatinine Clearance 29 mL/min (70-130); Calcium 8.3 mg/dL (7.8-10.44); Carbon Dioxide 25 mmol/L (23-31); Chloride 97 mmol/L (98-107); Estimated GFR-MDRD 16; Glucose 149 mg/dL (80-115); Potassium 3.7 mmol/L (3.5-5.1); Sodium 135 mmol/L (136-145)
[2020-04-27 05:31] LABS: #Eosinphils 0.1 thou/uL (0.0-0.7); #Lymphocytes 0.8 thou/uL (1.20-3.40); #Monocytes 0.8 thou/uL (0.11-0.59); #Neutrophils 11.9 thou/uL (1.40-6.50); %Basophils 0.3 % (0.0-1.0); %Eosinophils 0.9 % (0.0-10.0); %Lymphocytes 5.8 % (21.0-51.0); %Monocytes 5.9 % (0.0-10.0); %Neutrophils 87.2 % (42.0-75.0); Hemoglobin 8.5 g/dL (12.0-16.0); Mean Corpuscular Hemoglobin 31.7 pg (27.0-31.0); Mean Corpuscular Volume 96.2 fL (78.0-98.0); Mean Platelet Volume 8.6 fL (7.4-10.4); Platelet Count 504 thou/uL (130-400); RBC Distribution Width 13.1 % (11.5-14.5); Red Blood Cell (RBC) Count 2.69 mill/uL (4.20-5.40); White Blood Cell (WBC) Count 13.7 thou/uL (4.8-10.8)
[2020-04-27] MEDS: Metoclopramide HCl 10 MG/2 ML VIAL IVP SCH ×3 (05:45→21:37)
[2020-04-27] MEDS: Acetaminophen 500 MG TAB PER TUBE PRN ×2 (08:00→21:52)
[2020-04-27] MEDS: Meropenem 500 MG in Sodium Chloride 0.9% 100 ML IVPB SCH ×2 (09:00→20:45)
[2020-04-27] MEDS: Furosemide 100 MG/10 ML VIAL SLOW IVP SCH (09:01)
[2020-04-27] MEDS: Heparin 5,000 UNITS/ML VIAL SC SCH ×3 (09:02→20:44)
[2020-04-27] MEDS: Pantoprazole 40 MG VIAL IVP SCH ×2 (09:02→20:45)
[2020-04-27] MEDS: HumuLIN 70/30 (300 UNITS/3 ML VIAL) SC SCH ×2 (09:37→20:49)
[2020-04-27] MEDS ORDERED: Albumin 25% 25 GM/100 ML BOT IVPB PRN ×2 (10:07→11:30)
[2020-04-27] MEDS: Ondansetron PF 4 MG/2 ML Vial IVP PRN (10:23)
--- NOTE | 2020-04-27 10:43 | PRG ---
DATE OF SERVICE: 04/27/2020 SERVICE: Nephrology. SUBJECTIVE: A 69-year-old female seen in followup for acute renal failure. The patient was admitted due to acute mental status change and was found to have septic shock associated with multiorgan failure and subsequently have had resection of large bowel segment with ileostomy and colostomy. Mental status has improved. The patient had an episode of emesis last night, hence tube feeding was discontinued. Still swollen generally. OBJECTIVE: VITAL SIGNS: Temperature 99.5, pulse 85, respiratory rate 17, SpO2 98% on room air, blood pressure is 158/62. I and O in the last 24 hours showed total intake of 2563 with total output of 4661 with urine contributing for 51 and UF 3000. GENERAL: Comfortable female, in no obvious distress. Afebrile, anicteric, and acyanotic. HEENT: Normocephalic, atraumatic. Oral mucosa is moist. NG tube is in place. CARDIOVASCULAR: Irregular rhythm and rate, but tachycardic. RESPIRATORY: Fair air entry bilaterally with some transmitted breath sounds. No use of accessory muscles was appreciated. GI: Full with midline surgical incision and dressing as well as wound VAC and right lower quadrant ostomy. UROGENITAL: Pagan catheter is in place draining some urine. BRAND DIRECTOR: Conscious and alert. Oriented to person and place. She has some memory lapses. EXTREMITIES: Moderate edema of all the extremities noted. DIAGNOSTIC DATA: CBC showed WBC count of 13.7, hemoglobin of 8.5, platelet of 504. Chemistry showed sodium 135, potassium 3.7, chloride 97, CO2 of 25, BUN 101, glucose 149, calcium 8.3. ASSESSMENT: 1. Acute renal failure due to acute tubular necrosis. No renal recovery as yet. 2. Marked azotemia: This is due to acute renal failure as well as TPN and enteral nutrition. 3. Volume overload: Improving with hemodialysis with UF as tolerated. 4. Hypoalbuminemia. PLAN: We will dialyze the patient again today with UF as tolerated. We will recommend weaning off TPN once this could be possible. We will continue diuretics as needed. We will continue to monitor electrolytes and renal function as well as intake and output. Further treatment to follow depending on hospital course. Dialysis Note. Seen during Hemodialysis HD For 4 hours with 3 k bath and UF as tolerated. Tolerating treatment well. Albumin as needed for Hypotension. Job ID: [id number] [facility]
[2020-04-27] MEDS ORDERED: Heparin 10,000 UNITS/ 10 ML VIAL ONE (12:46)
--- NOTE | 2020-04-27 13:24 | PDOC.HOSPP ---
- Subjective Encounter Date: 04/27/20 Encounter Time: 11:40 Subjective: pt getting dialysed, AOx2, carotid --neg for stenosis in b/l ICA. placing consult for pain management. fentanyl patch, naprosyn, robaxin and morphine IV until pain evaluate for othe rinputs vs.. steroid injection? cw PTherapy. - Objective Vital Signs & Weight: Vital Signs (12 hours) Temp Pulse Resp Pulse Ox 04/27/20 12:50 92 15 04/27/20 08:02 85 17 98 04/27/20 08:00 99.5 F 04/27/20 04:00 98.3 F Weight Admit Weight 182 lb Weight 205 lb 14.588 oz Most Recent Monitor Data Heart Rate from ECG 93 NIBP 91/53 NIBP BP-Mean 65 Respiration from ECG 11 SpO2 99 I&O: 04/26/20 04/27/20 04/28/20 06:59 06:59 06:59 Intake Total 2847.7 2531 90 Output Total 1218 1661 52 Balance 1629.7 870 38 Result Diagrams: 04/27/20 04:45 04/27/20 04:45 Additional Labs: Accuchecks 04/27/20 04/27/20 04/26/20 09:22 04:46 17:13 POC Glucose 131 H 139 H 227 H Hospitalist ROS - Medication Medications: Active Medications Generic Name Dose Route Start Last Admin Trade Name Freq PRN Reason Stop Dose Admin Acetaminophen 1,000 mg 04/25/20 13:01 04/27/20 08:00 Tylenol PER TUBE 1,000 mg Q6H PRN Administration Moderate to Severe Pain (6-10) Albumin Human 25 gm 04/27/20 11:30 04/27/20 11:39 Albumin 25% IVPB 04/28/20 10:08 25 gm Q30MIN PRN Administration FOR HYPOTENSION DURING HD Albuterol/Ipratropium 3 ml 04/25/20 13:00 04/27/20 12:50 Duoneb NEB 3 ml [id number] ELY Administration Dextrose/Water 25 gm 04/15/20 04:04 04/15/20 06:52 Dextrose 50% SLOW IVP 25 gm PRN PRN Administration Hypoglycemia Furosemide 80 mg 04/23/20 21:00 04/27/20 09:01 Lasix SLOW IVP 80 mg BID ELY Administration Heparin Sodium (Porcine) 5,000 units 04/21/20 09:00 04/27/20 09:02 Heparin SC 5,000 units TID ELY Administration Hydralazine HCl 10 mg 04/15/20 00:24 04/23/20 03:40 Apresoline SLOW IVP 10 mg Q6H PRN Administration SBP GREATER THAN 160 Amiodarone HCl 450 mg/ 259 mls @ 0 mls/hr 04/18/20 16:30 04/27/20 04:42 Dextrose/Water IVPB 259 mls INF ELY Administration Protocol Per Protocol Sodium Acetate 70 meq/ Sodium 1,569.8759 mls @ 65.411 mls/hr 04/19/20 22:00 04/26/20 22:13 Chloride 55 meq/ Calcium IV 1,569.8759 mls Chloride 10 meq/ Magnesium 2200 ELY Administration Sulfate 10 meq/ Multivitamins 10 ml/ Chromium/Copper/ Manganese/Seleni/Zn 1 ml/ Insulin Human Regular 31 units / Dextrose/Water/ Amino Acids/ Sterile Water Meropenem 500 mg/ Sodium 100 mls @ 200 mls/hr 04/26/20 21:00 04/27/20 09:00 Chloride IVPB 100 mls 0900,2100 ELY Administration Insulin Human Isoph/Insulin Regular 10 units 04/24/20 21:00 04/27/20 09:37 Humulin 70/30 SC 10 unit BID ELY Administration Insulin Human Lispro 0 units 04/15/20 04:04 04/26/20 18:16 Humalog SC 3 unit .MILD SLIDING SCALE PRN Administration Mild Correctional Scale Labetalol HCl 20 mg 04/15/20 00:24 04/21/20 11:49 Normodyne SLOW IVP 20 mg Q4H PRN Administration SBP > 160, use third Metoclopramide HCl 10 mg 04/25/20 14:00 04/27/20 05:45 Reglan IVP 10 mg Q8HR ELY Administration Morphine Sulfate 2 mg 04/25/20 13:00 04/27/20 03:51 Morphine SLOW IVP 2 mg Q4H PRN Administration Severe Pain (7-10) Ondansetron HCl 4 mg 04/15/20 00:24 04/27/20 10:23 Zofran IVP 4 mg Q6H PRN Administration Nausea/Vomiting, use 1st Pantoprazole Sodium 40 mg 04/16/20 09:00 04/27/20 09:02 Protonix IVP 40 mg Q12HR ELY Administration Sodium Chloride 10 ml 04/15/20 09:00 04/27/20 09:01 Flush - Normal Saline IVF 10 ml Q12HR ELY Administration - Exam General Appearance: awake alert, ill appearing ENT: normocephalic atraumatic Neck: supple Heart: RRR Respiratory: CTAB, normal chest expansion Gastrointestinal: soft, distended, diminished bowl sounds Neurological: no focal deficits Hosp A/P - Plan Note edited to reflect today's care of plan. 69 year old female who presented with altered mental status, found to be in acute renal failure Acute encephalopathy ischemic bowel Acute res failure w.. encephalopathy SEvere meta acido w. ischmeic bowel s/p ex lap - patient is s/p ex lap, right hemicolectomy, resection of small bowel and 18 inches of ileum and resection of transverse colon POD 7. She was found to have gangrenous right colon/transverse colon and distal small bowel. S/p second look laparotomy 04/17 with hematoma evacuation. Colon biopsy consistent with ischemic colitis - she is s/p ileostomy 04/20 - TPN i--not tolerating [] -mild line wound vac Acute hypoxic respiratory failure possibly from pneumonia - noted on CT abdomen - she was on zosyn. WBC increased 04/19. Switched to meropenem by surgery 04/20. WBC improving to 12 - s/phydrocortisone Acute Kidney Injury/ATN anuria ww. urine ouput < 50 Rhabdo- resolved Hypoalbumnemia -Intermittent dialysis Atrial fibrillation - on amiodarone drip Acute blood loss anemia - Hb stable 8.9. S/p 2 units blood 04/17, 1 unit 04/18 and 04/20 Thrombocytopenia - platelets 120's Transaminitis - resolved Hypocalcemia- resolved Hyperglycemia --70/30 +aggressive dose Scheduled insulin -BG better on Leukocytosis - wbcs high on ----------> trending up---> despite on merum ---> prob inflammatory process. will check w.. ID. - low grade temp - no prior alanna - if pt spikes temp, 2 sets of blood culx -cxr - neg for any changes - pending UA on --------turbid, no sig.. bacturia, pyuria. -On merum Critical illness myopathy --cw supportive care --PT when transferred to the floor. Prognosis guarded palliative consult. Good Ileostomy Output M/W/F HD
[2020-04-27] MEDS: HumaLOG 300 UNITS/3 ML VIAL SC PRN (17:21)
--- NOTE | 2020-04-27 18:01 | PRG ---
DATE OF SERVICE: 04/27/2020 SUBJECTIVE: This morning the patient is awake, alert, responsive. Still weak, but less encephalopathic. OBJECTIVE: VITAL SIGNS: Temperature 99, pulse 85, respiratory rate 16, saturation 97% on room air, blood pressure 158/62. CHEST: No wheezing or crackles. CARDIAC: Normal S1 and S2. No gallops. ABDOMEN: No masses. LABORATORY DATA: Lytes unremarkable. BUN and creatinine of 101 and 2.9, glucose 135. White count 13,000. ASSESSMENT AND PLAN: 1. Abdominal sepsis. 2. Hypertension, resolved. 3. Encephalopathy, improved. 4. Severe deconditioning. 5. Renal failure. I will keep her another day in the ICU. She can probably be transferred out later to a monitored bed since she is still on amiodarone drip. Job ID: [id number]
--- NOTE | 2020-04-27 19:12 | PRG ---
DATE OF SERVICE: 04/27/2020 SUBJECTIVE: Kacy Cordon is doing well. She is in the ICU. She is tolerating her tube feeding. She is at her target rate. She is still on TPN. OBJECTIVE: VITAL SIGNS: Blood pressure 124/55, pulse 84. Ileostomy output, good. Ileostomy condition, good. Urine output 451 mL past 24 hours, today. LUNGS: Clear to auscultation. CARDIAC: Regular rate and rhythm, no murmur or gallop. ABDOMEN: Soft, positive bowel sounds. Wound VAC midline wound, changed today. Reported wound in good condition. EXTREMITIES: Unremarkable. NEUROLOGIC: The patient is slightly confused. ASSESSMENT AND PLAN: 1. Acute renal failure. Continue dialysis. She is making some urine. We will need to continue dialysis. The patient does not complain of any pain. I would recommend discontinuing TPN. Continue tube feedings. 2. Acute renal failure. Continue dialysis. 3. Ileostomy status. 4. Open wound. Continue wound VAC. 5. Deconditioning. Continue mobility and therapy. 6. Thrombocytopenia, resolved after discontinuing Zosyn. I think that we can stop her antibiotics at this time. Job ID: [id number]
[2020-04-28 04:56] LABS: #Basophils 0.1 thou/uL (0.0-0.2); #Eosinphils 0.2 thou/uL (0.0-0.7); #Lymphocytes 0.9 thou/uL (1.20-3.40); #Monocytes 0.5 thou/uL (0.11-0.59); #Neutrophils 12.1 thou/uL (1.40-6.50); %Basophils 0.7 % (0.0-1.0); %Eosinophils 1.2 % (0.0-10.0); %Lymphocytes 6.7 % (21.0-51.0); %Monocytes 3.8 % (0.0-10.0); %Neutrophils 87.6 % (42.0-75.0); Hemoglobin 8.5 g/dL (12.0-16.0); Mean Corpuscular HGB CONC 33.2 g/dL (32.0-36.0); Mean Corpuscular Hemoglobin 31.5 pg (27.0-31.0); Mean Corpuscular Volume 95.1 fL (78.0-98.0); Mean Platelet Volume 7.9 fL (7.4-10.4); Platelet Count 539 thou/uL (130-400); RBC Distribution Width 12.9 % (11.5-14.5); Red Blood Cell (RBC) Count 2.69 mill/uL (4.20-5.40); White Blood Cell (WBC) Count 13.8 thou/uL (4.8-10.8)
[2020-04-28 05:15] LABS: Anion Gap 16 mmol/L (10-20); BUN (Urea Nitrogen) 74 mg/dL (9.8-20.1); Calc. Creatinine Clearance 34 mL/min (70-130); Calcium 8.7 mg/dL (7.8-10.44); Carbon Dioxide 27 mmol/L (23-31); Chloride 96 mmol/L (98-107); Estimated GFR-MDRD 20; Glucose 99 mg/dL (80-115); Potassium 3.7 mmol/L (3.5-5.1); Sodium 135 mmol/L (136-145)
[2020-04-28] MEDS: Metoclopramide HCl 10 MG/2 ML VIAL IVP SCH ×3 (05:39→21:05)
--- NOTE | 2020-04-28 08:58 | PRG ---
DATE OF SERVICE: 04/28/2020 SUBJECTIVE: This morning, the patient is much more awake, responsive, less encephalopathic. OBJECTIVE: VITAL SIGNS: Saturation 97% on room air, pulse is 80 and irregular, blood pressure . Minimal urine output. CHEST: Decreased breath sounds. No wheezing. CARDIAC: Normal S1 and S2. ABDOMEN: No masses. LABORATORY DATA: White count 13,000, H and H unremarkable. BUN and creatinine are 74 and 2.36. ASSESSMENT: 1. Multiorgan failure. 2. Encephalopathy, improved. 3. Abdominal sepsis. 4. Supraventricular tachycardia. PLAN: She can be transferred out of the ICU to a monitored bed. PT, supportive care. Job ID: [id number]
[2020-04-28] MEDS: Meropenem 500 MG in Sodium Chloride 0.9% 100 ML IVPB SCH ×2 (09:01→20:57)
[2020-04-28] MEDS: Furosemide 100 MG/10 ML VIAL SLOW IVP SCH ×2 (09:01→20:56)
[2020-04-28] MEDS: Pantoprazole 40 MG VIAL IVP SCH ×2 (09:01→20:58)
[2020-04-28] MEDS: Heparin 5,000 UNITS/ML VIAL SC SCH ×2 (09:01→14:00)
[2020-04-28] MEDS: HumuLIN 70/30 (300 UNITS/3 ML VIAL) SC SCH ×2 (09:02→22:14)
[2020-04-28] MEDS: Amiodarone 450 MG in Dextrose 5% in Water 250 ML IVPB SCH (12:33)
--- NOTE | 2020-04-28 13:20 | CT ---
CT BRAIN WITHOUT CONTRAST: 04/28/20 HISTORY: Right arm not moving. FINDINGS: No evidence of acute infarct, hemorrhage, midline shift or abnormal extra-axial fluid collections are seen. The ventricular size is appropriate and the basilar cisterns patent. The bony calvarium is int act. The visualized paranasal sinuses and mastoid air cells are well aerated. IMPRESSION: No CT evidence of acute intracranial process. If there is high clinical suspicion for an acute infarct, further evaluation with MRI (including diff usion weighted sequences) would be helpful. POS: AH
--- NOTE | 2020-04-28 13:38 | PRG ---
DATE OF SERVICE: 04/28/2020 SUBJECTIVE: Ms. Cordon is doing well today. She is more alert today. Her is present visiting her. The patient is not able to move her right arm. She can move her other extremity. She is very weak. Her states that she had some injury to her right arm and has had some problems with it, but has not been paralyzed as far as they know. Up to this point she has been difficult to exam because of her encephalopathy, but that is much improved today. OBJECTIVE: VITAL SIGNS: Blood pressure 126/65, heart rate 110. HEAD, EARS, EYES, NOSE, AND THROAT: Unremarkable. LUNGS: Clear to auscultation. CARDIAC: Regular rate and rhythm. No murmur or gallop. ABDOMEN: Soft. Ileostomy healthy. Ileostomy output. EXTREMITIES: Unremarkable. LABORATORY DATA: Urine output 108/24 hours. Ileostomy output 1300. White count 13, hemoglobin 8.5, platelet count 539,000. BUN 74, creatinine 2.36, GFR 20. ASSESSMENT AND PLAN: 1. Acute renal failure. Continue dialysis per Nephrology. 2. Thrombocytopenia, resolved after discontinuing Zosyn. 3. Severe deconditioning. We will need intense physical therapy. She should be up in Neurological Chair 2 to 3 times a day. I have put in orders for special education case manager to evaluate her and rehab to evaluate her to see which is more appropriate. Her states he went [facility] and had good results after prolonged hospitalization recently. They live in [place], so they would be looking at going to [facility] or [facility]. 4. Status post resection of gangrenous bowel. Ileostomy can be reversed in the future, but after reconditioning and after 3 to 6 months at a minimum. 5. Right arm weakness. CT scan of the brain. 6. She pulled out her NG tube. We will advance her to a renal diet and asked Dietary to see her for dietary supplements. Ask speech to see her to assure that she is swallowing properly. Note, the patient is transferring to [facility]. Job ID: [id number]
--- NOTE | 2020-04-28 15:41 | PRG ---
DATE OF SERVICE: 04/28/2020 SERVICE: Nephrology. SUBJECTIVE: Female with septic shock associated with end-organ failure seen in followup for acute renal failure requiring hemodialysis. The patient reportedly pulled off her NG tube and TPN has been discontinued. She reports feeling a lot better. However, complaining of right arm weakness. No nausea or vomiting. The patient wants something to eat by mouth. She is especially requesting for ice cream and Diet Coke. Last hemodialysis was yesterday April 27, 2020. OBJECTIVE: VITAL SIGNS: Temperature 98.4, pulse 110, respiratory rate 26, SpO2 96% on room air, blood pressure is 126/78. I and O in the last 24 hours; total intake of 2738 with total output of 5408, with urine contributing only 108 mL and drainage from the ileostomy being 1300 and 4000 from hemodialysis. GENERAL: Comfortable female, in no obvious distress. Afebrile. Anicteric. Acyanotic. HEENT: Normocephalic, atraumatic. Oral mucosa is moist. CARDIOVASCULAR: Irregular rhythm and rate with normal heart sounds 1 and 2. The patient is tachycardic. RESPIRATORY: Fair air entry bilaterally with some transmitted breath sounds. There are no obvious crackle or rhonchi or use of accessory muscles. GI: Full, soft with midline surgical wound with dressing and wound VAC as well as right lower quadrant ostomy. UROGENITAL: Pagan catheter is in place draining some urine. EXTREMITIES: Mild edema of the extremities noted. No erythema appreciated. WEBSPHERE PORTAL ARCHITECT: Conscious and alert, oriented x3 with appropriate mental status. Cranial nerves are grossly intact. The patient moves all extremities, but weakly on the right upper limb. Power in the right upper limb is reduced relative to others. DIAGNOSTIC DATA: CBC showed WBC count of 13.8, hemoglobin of 8.5, platelets of 539. Chemistry showed sodium 135, potassium 3.7, chloride 96, CO2 of 27, BUN 74, creatinine 2.36, glucose 96, calcium 8.7. ASSESSMENT: 1. Acute renal failure: Due to acute tubular necrosis related to severe dehydration, septic shock, and rhabdomyolysis. No evidence of renal recovery as yet. The patient is still hemodialysis dependent. 2. Volume overload: Improved with hemodialysis. 3. Anemia: Due to acute illness as well as acute renal failure. 4. Rhabdomyolysis, resolved. 5. Hypertension: Control is acceptable currently. 6. Paroxysmal atrial fibrillation/atrial flutter. Management as per Cardiology. PLAN: 1. We will continue diuretics, Lasix IV for today. We will monitor intake and output. 2. We will recheck renal function test in the morning. 3. We will plan on dialyzing the patient tomorrow. 4. Further treatment to follow depending on hospital course. 5. Diet as per General Surgery. 6. Evaluation of right upper extremity weakness as per primary attending. Job ID: [id number]
--- NOTE | 2020-04-28 16:35 | PDOC.HOSPP ---
- Subjective Encounter Date: 04/28/20 Encounter Time: 11:45 Subjective: refusing NGT, TPN stopped, feels dry and wants to drink, family at bedside, P- therapy seen her, able to side on the side of the bed, Will c/s sppech, 100ml urine output per shift, on m/w/f HD for now. she is oriented, not confused. - Objective Vital Signs & Weight: Vital Signs (12 hours) Temp Pulse Pulse Pulse Resp BP BP 04/28/20 15:42 99.5 F 04/28/20 12:00 99.4 F 04/28/20 09:10 110 H 110 H 126/65 126/78 04/28/20 09:00 98.4 F 04/28/20 08:41 04/28/20 08:39 99 24 H 04/28/20 08:00 Pulse Ox Pulse Ox Pulse Ox 04/28/20 15:42 04/28/20 12:00 98 04/28/20 09:10 97 96 04/28/20 09:00 04/28/20 08:41 99 04/28/20 08:39 99 04/28/20 08:00 100 Weight Admit Weight 182 lb Weight 193 lb 9.054 oz Most Recent Monitor Data Heart Rate from ECG 99 NIBP 135/76 NIBP BP-Mean 95 Respiration from ECG 24 SpO2 96 I&O: 04/27/20 04/28/20 04/29/20 06:59 06:59 06:59 Intake Total 2531 2738 Output Total 1661 1408 20 Balance 870 1330 -20 Result Diagrams: 04/28/20 04:45 04/28/20 03:30 Additional Labs: Accuchecks 04/28/20 04/27/20 04/26/20 10:20 21:06 21:43 POC Glucose 111 H 158 H 162 H Hospitalist ROS - Medication Medications: Active Medications Generic Name Dose Route Start Last Admin Trade Name Freq PRN Reason Stop Dose Admin Acetaminophen 1,000 mg 04/25/20 13:01 04/27/20 21:52 Tylenol PER TUBE 1,000 mg Q6H PRN Administration Moderate to Severe Pain (6-10) Albuterol/Ipratropium 3 ml 04/25/20 13:00 04/28/20 08:39 Duoneb NEB 3 ml [id number] ELY Administration Dextrose/Water 25 gm 04/15/20 04:04 04/15/20 06:52 Dextrose 50% SLOW IVP 25 gm PRN PRN Administration Hypoglycemia Furosemide 80 mg 04/23/20 21:00 04/28/20 09:01 Lasix SLOW IVP 80 mg BID ELY Administration Heparin Sodium (Porcine) 5,000 units 04/21/20 09:00 04/28/20 14:00 Heparin SC 5,000 units TID ELY Administration Hydralazine HCl 10 mg 04/15/20 00:24 04/23/20 03:40 Apresoline SLOW IVP 10 mg Q6H PRN Administration SBP GREATER THAN 160 Amiodarone HCl 450 mg/ 259 mls @ 0 mls/hr 04/18/20 16:30 04/28/20 12:33 Dextrose/Water IVPB 04/28/20 23:59 259 mls INF ELY Administration Protocol Per Protocol Meropenem 500 mg/ Sodium 100 mls @ 200 mls/hr 04/26/20 21:00 04/28/20 09:01 Chloride IVPB 100 mls 0900,2100 ELY Administration Insulin Human Isoph/Insulin Regular 10 units 04/24/20 21:00 04/28/20 09:02 Humulin 70/30 SC Not Given BID [facility] Insulin Human Lispro 0 units 04/15/20 04:04 04/27/20 17:21 Humalog SC 2 unit .MILD SLIDING SCALE PRN Administration Mild Correctional Scale Labetalol HCl 20 mg 04/15/20 00:24 04/21/20 11:49 Normodyne SLOW IVP 20 mg Q4H PRN Administration SBP > 160, use third Metoclopramide HCl 10 mg 04/25/20 14:00 04/28/20 14:00 Reglan IVP 10 mg Q8HR ELY Administration Morphine Sulfate 2 mg 04/25/20 13:00 04/27/20 14:00 Morphine SLOW IVP 2 mg Q4H PRN Administration Severe Pain (7-10) Ondansetron HCl 4 mg 04/15/20 00:24 04/27/20 10:23 Zofran IVP 4 mg Q6H PRN Administration Nausea/Vomiting, use 1st Pantoprazole Sodium 40 mg 04/16/20 09:00 04/28/20 09:01 Protonix IVP 40 mg Q12HR ELY Administration Sodium Chloride 10 ml 04/15/20 09:00 04/28/20 09:02 Flush - Normal Saline IVF 10 ml Q12HR ELY Administration - Exam General Appearance: ill appearing Eye: PERRL ENT: normocephalic atraumatic Neck: supple Heart: RRR, normal peripheral pulses Respiratory: CTAB, normal chest expansion Gastrointestinal: soft, normal bowel sounds, no guarding Neurological: no focal deficits Psychiatric: A&O x 3, oriented to place, oriented to time Hosp A/P - Plan Note edited to reflect today's care of plan. 69 year old female who presented with altered mental status, found to be in acute renal failure Acute encephalopathy ischemic bowel Acute res failure w.. encephalopathy SEvere meta acido w. ischmeic bowel s/p ex lap - patient is s/p ex lap, right hemicolectomy, resection of small bowel and 18 inches of ileum and resection of transverse colon POD 7. She was found to have gangrenous right colon/transverse colon and distal small bowel. S/p second look laparotomy 04/17 with hematoma evacuation. Colon biopsy consistent with ischemic colitis - she is s/p ileostomy 04/20 - TPN i--not tolerating [] -mild line wound vac Acute hypoxic respiratory failure possibly from pneumonia - noted on CT abdomen - she was on zosyn. WBC increased 04/19. Switched to meropenem by surgery 04/20. WBC improving to 12 - s/phydrocortisone Acute Kidney Injury/ATN anuria ww. urine ouput < 50 Rhabdo- resolved Hypoalbumnemia -Intermittent dialysis Atrial fibrillation - on amiodarone drip Acute blood loss anemia - Hb stable 8.9. S/p 2 units blood 04/17, 1 unit 04/18 and 04/20 Thrombocytopenia - platelets 120's Transaminitis - resolved Hypocalcemia- resolved Hyperglycemia --70/30 +aggressive dose Scheduled insulin -BG better on Leukocytosis - wbcs high on ----------> trending up---> despite on merum ---> prob inflammatory process. will check w.. ID. - low grade temp - no prior alanna - if pt spikes temp, 2 sets of blood culx -cxr - neg for any changes - pending UA on --------turbid, no sig.. bacturia, pyuria. -On merum Critical illness myopathy --cw supportive care --PT when transferred to the floor. Prognosis guarded palliative consult. Good Ileostomy Output M/W/F HD refusing NGT, TPN stopped, feels dry and wants to drink, P-therapy seen her, able to side on the side of the bed, Will c/s speech, 100ml urine output per shift, on m/w/f HD for now. she is oriented, not confused.
[2020-04-28] MEDS: Amiodarone 200 MG TAB PO SCH (20:55)
[2020-04-28] MEDS: Apixaban 5 MG TAB PO SCH (20:56)
[2020-04-29] MEDS: Acetaminophen 500 MG TAB PER TUBE PRN ×2 (03:15→11:22)
[2020-04-29 05:20] LABS: Band 22 % (5-11); Eosinophils 2 % (0-10); Hemoglobin 8.5 g/dL (12.0-16.0); Lymphocytes 8 % (21-51); MDiff Complete? YES; Mean Corpuscular HGB CONC 32.9 g/dL (32.0-36.0); Mean Corpuscular Volume 94.2 fL (78.0-98.0); Monocytes 6 % (0-10); Neutrophil 62 % (42-75); Platelet Count 581 thou/uL (130-400); Platelet Morphology Comment Appears Increased; RBC Distribution Width 12.7 % (11.5-14.5); Red Blood Cell (RBC) Count 2.73 mill/uL (4.20-5.40); White Blood Cell (WBC) Count 13.6 thou/uL (4.8-10.8)
[2020-04-29] MEDS: Metoclopramide HCl 10 MG/2 ML VIAL IVP SCH (05:28)
[2020-04-29 07:13] LABS: Anion Gap 20 mmol/L (10-20); BUN (Urea Nitrogen) 109 mg/dL (9.8-20.1); Calc. Creatinine Clearance 19 mL/min (70-130); Calcium 8.9 mg/dL (7.8-10.44); Carbon Dioxide 23 mmol/L (23-31); Chloride 95 mmol/L (98-107); Estimated GFR-MDRD 12; Glucose 97 mg/dL (80-115); Potassium 4.2 mmol/L (3.5-5.1); Sodium 134 mmol/L (136-145)
[2020-04-29] MEDS: HumuLIN 70/30 (300 UNITS/3 ML VIAL) SC SCH (07:24)
[2020-04-29] MEDS ORDERED: PROPOFOL 20 ML ONE ×2 (09:13→09:27)
--- NOTE | 2020-04-29 09:16 | PRG ---
DATE OF SERVICE: 04/29/2020 SUBJECTIVE: This morning, she is awake, alert, and responsive. OBJECTIVE: VITAL SIGNS: Maximum temperature is 99, sats 90% on room air, respiratory rate 20, pulse 85, blood pressure 115/68. CHEST: No wheezing or crackles. CARDIAC: Normal S1, S2. No gallops. ABDOMEN: No masses. LABORATORY DATA: Creatinine is 3.8, BUN is 109. H and H are stable. Platelet count is normal. CT brain was ordered yesterday, which appears to be normal. ASSESSMENT: Metabolic encephalopathy secondary to severe metabolic acidosis, slowly improving; severe deconditioning; status post lap; SVT. PLAN: The patient is scheduled for cardioversion and SEKOU today. PT, supportive care. We will follow. Job ID: [id number]
[2020-04-29] MEDS ORDERED: Heparin 10,000 UNITS/ 10 ML VIAL ONE (10:04)
[2020-04-29] MEDS: Furosemide 100 MG/10 ML VIAL SLOW IVP SCH (10:51)
[2020-04-29] MEDS: Pantoprazole 40 MG VIAL IVP SCH (11:19)
[2020-04-29] MEDS: Meropenem 500 MG in Sodium Chloride 0.9% 100 ML IVPB SCH (11:20)
[2020-04-29] MEDS: Apixaban 5 MG TAB PO SCH ×2 (11:20→21:25)
[2020-04-29] MEDS: Amiodarone 200 MG TAB PO SCH ×2 (11:20→21:25)
--- NOTE | 2020-04-29 13:01 | OP ---
DATE OF PROCEDURE: 04/29/2020 PROCEDURE PERFORMED: Transesophageal echocardiogram. INDICATION: A 69-year-old woman with paroxysmal atrial fibrillation. DESCRIPTION OF PROCEDURE: The patient was taken to the PACU. The patient was sedated by Anesthesiology. A transesophageal probe was placed into the distal esophagus into stomach. Echocardiographic images were obtained. The transesophageal probe was removed. FINDINGS: 1. Normal left ventricular systolic function. 2. Normal mitral and aortic valves. 3. No significant valvular regurgitation. 4. No formed thrombus in the left atrium or left atrial appendage. 5. Atherosclerotic debris in the descending aorta. IMPRESSION: No formed thrombus in the left atrium or left atrial appendage. Job ID: [id number]
[2020-04-29] MEDS ORDERED: traMADol HCl 50 MG TAB PO PRN (13:44)
[2020-04-29] MEDS ORDERED: Acetaminophen 500 MG TAB PO PRN (13:45)
--- NOTE | 2020-04-29 14:02 | PDOC.HOSPP ---
- Subjective Encounter Date: 04/29/20 Encounter Time: 10:50 Subjective: wound vac being replaced, not much drain, granulation tissue noted. will be dialyzed today. - Objective Vital Signs & Weight: Vital Signs (12 hours) Temp Pulse Resp Pulse Ox 04/29/20 12:00 99.2 F 04/29/20 08:24 85 20 98 04/29/20 08:00 98 04/29/20 07:00 99.4 F 04/29/20 06:00 99 F 04/29/20 05:00 99.0 F 04/29/20 03:38 100.2 F H Weight Admit Weight 180 lb 6 oz Weight 189 lb 8 oz Most Recent Monitor Data Heart Rate from ECG 84 NIBP 94/59 NIBP BP-Mean 70 Respiration from ECG 19 SpO2 100 I&O: 04/28/20 04/29/20 04/30/20 06:59 06:59 06:59 Intake Total 2738 541 50 Output Total 1408 1370 Balance 1330 -829 50 Result Diagrams: 04/29/20 04:24 04/29/20 04:24 Additional Labs: Accuchecks 04/29/20 04/29/20 04/28/20 11:26 06:06 20:38 POC Glucose 104 106 111 H 04/28/20 17:18 POC Glucose 101 Hospitalist ROS - Medication Medications: Active Medications Generic Name Dose Route Start Last Admin Trade Name Freq PRN Reason Stop Dose Admin Amiodarone HCl 400 mg 04/28/20 21:00 04/29/20 11:20 Cordarone PO 400 mg BID ELY Administration Apixaban 5 mg 04/28/20 21:00 04/29/20 11:20 Eliquis PO 5 mg BID ELY Administration Dextrose/Water 25 gm 04/15/20 04:04 04/15/20 06:52 Dextrose 50% SLOW IVP 25 gm PRN PRN Administration Hypoglycemia Hydralazine HCl 10 mg 04/15/20 00:24 04/23/20 03:40 Apresoline SLOW IVP 10 mg Q6H PRN Administration SBP GREATER THAN 160 Insulin Human Isoph/Insulin Regular 10 units 04/24/20 21:00 04/29/20 07:24 Humulin 70/30 SC Not Given BID [facility] Insulin Human Lispro 0 units 04/15/20 04:04 04/27/20 17:21 Humalog SC 2 unit .MILD SLIDING SCALE PRN Administration Mild Correctional Scale Labetalol HCl 20 mg 04/15/20 00:24 04/21/20 11:49 Normodyne SLOW IVP 20 mg Q4H PRN Administration SBP > 160, use third Ondansetron HCl 4 mg 04/15/20 00:24 04/27/20 10:23 Zofran IVP 4 mg Q6H PRN Administration Nausea/Vomiting, use 1st Sodium Chloride 10 ml 04/15/20 09:00 04/29/20 11:19 Flush - Normal Saline IVF 10 ml Q12HR ELY Administration - Exam General Appearance: NAD, awake alert, ill appearing Eye: PERRL ENT: normocephalic atraumatic Neck: supple Heart: RRR Respiratory: CTAB Gastrointestinal - other findings: wound vac being replaced Neurological: no focal deficits Psychiatric: not oriented Hosp A/P - Plan acute encephalopathy ischemic bowel Acute res failure w.. encephalopathy SEvere meta acido w. ischmeic bowel s/p ex lap - patient is s/p ex lap, right hemicolectomy, resection of small bowel and 18 inches of ileum and resection of transverse colon POD 7. She was found to have gangrenous right colon/transverse colon and distal small bowel. S/p second look laparotomy 04/17 with hematoma evacuation. Colon biopsy consistent with ischemic colitis - she is s/p ileostomy 04/20 - TPN i--not tolerating [] -mild line wound vac---being checked routinly be wound c/s and replaced on -- has granulation tissue. healing well. Acute hypoxic respiratory failure possibly from pneumonia - noted on CT abdomen - she was on zosyn. WBC increased 04/19. Switched to meropenem by surgery 04/20. WBC improving to 12 - s/p hydrocortisone Acute Kidney Injury/ATN anuria ww. urine ouput < 50 Rhabdo- resolved Hypoalbumnemia -Intermittent dialysis--m/w/f Atrial fibrillation - on amiodarone drip Acute blood loss anemia - Hb stable 8.9. S/p 2 units blood 04/17, 1 unit 04/18 and 04/20 Thrombocytopenia - platelets 120's Transaminitis - resolved Hypocalcemia- resolved Hyperglycemia --70/30 +aggressive dose Scheduled insulin -BG better Leukocytosis - wbcs high on ----------> trending up---> despite on merum ---> prob inflammatory process. will check w.. ID. - low grade temp - no prior alanna - if pt spikes temp, 2 sets of blood culx -cxr - neg for any changes - pending UA on --------turbid, no sig.. bacturia, pyuria. -On merum Critical illness myopathy --cw supportive care --PT when transferred to the floor. Prognosis guarded palliative consult. Good Ileostomy Output M/W/F HD refused NGT, TPN stopped P-therapy seen her, able to sit on the side of the bed. prob LTAC?
--- NOTE | 2020-04-29 14:09 | PRG ---
DATE OF SERVICE: 04/29/2020 SUBJECTIVE: Kacy Cordon is doing well today. She is feeling better. She, however, cannot still lift her right arm. A CT scan of the head was negative yesterday. OBJECTIVE: LUNGS: Clear to auscultation. CARDIAC: Regular rate and rhythm without murmur or gallop. ABDOMEN: Soft. She is tolerating her diet. She has resumed her anticoagulation. Of note is that I have talked to the patient's cousin, who is a surgeon in [place], who reported that the patient was not taking her anticoagulation on a regular basis. I asked the patient about this this morning since she is now oriented enough to have that conversation and she admits that she was not taking her anticoagulation, Eliquis that she should. I have emphasized that she should take this on a routine basis as she probably suffered embolization from her cardiac arrhythmia causing her ischemic gut. Her ileostomy is working well. Urine output in the last 24 hours is only 95 mL. Her white count is 13, hemoglobin 8.5. Basic metabolic profile normal. The patient is tolerating her renal diet. She needs dietary supplements. She needs aggressive reconditioning, physical therapy. She had a cardioversion this morning for atrial fibrillation. The patient should be transferred to an LTAC next week to continue reconditioning, wound care. She lives in [place]. Her has requested they go to [facility]. I would like to see her in my office in [address] Em is covering for the next week. From a surgical standpoint, the patient is ready to be transferred to a rehab center or [facility]. Job ID: [id number]
--- NOTE | 2020-04-29 14:39 | PRG ---
DATE OF SERVICE: SERVICE: Nephrology. SUBJECTIVE: A 69-year-old female seen in followup for acute renal failure due to acute tubular necrosis. The patient is hemodialysis dependent. Reports feeling better. Had a cardioversion earlier on today. Tolerating oral intake. No nausea, vomiting, or fever. OBJECTIVE: VITAL SIGNS: Temperature 99.2, pulse 93, respiratory rate 25, SpO2 of 99% on room air, blood pressure is 107/68. I and O in the last 24 hours showed total intake of 541 with total output of 1370 with urine contributing only 95 mL and ileostomy. GENERAL: Female, in no obvious distress. Afebrile. Anicteric. Acyanotic. HEENT: Normocephalic, atraumatic. Oral mucosa is moist. Crusted blisters noted on the lip. NECK: Supple with no JVD. CARDIOVASCULAR: Regular rhythm and rate with normal heart sounds 1 and 2. RESPIRATORY: Fair air entry bilaterally with some transmitted breath sounds. GI: Full. Midline surgical wound with dressing and wound VAC as well as right lower quadrant ileostomy noted. UROGENITAL: Pagan catheter is in place draining some urine. EXTREMITIES: [id number] edema of the extremities especially right upper limb noted. No erythema appreciated. [employer]: Conscious and alert, oriented x3. Some memory lapses noted. Power is 3 to 4/5 all the limbs except right upper limb with power of 1 to 2. DIAGNOSTIC DATA: CBC showed WBC count of 13.6, hemoglobin of 8.5, platelets of 581. Chemistry showed sodium 134, potassium 4.2, chloride 95, CO2 of 23, BUN 109, creatinine 3.83, glucose 97, calcium 8.9. ASSESSMENT: 1. Acute renal failure. 2. Acute tubular necrosis with oliguria. 3. Volume overload. 4. Hyponatremia. 5. Septic shock: Resolved. 6. Paroxysmal atrial flutter/fibrillation, status post cardioversion. 7. Acute metabolic encephalopathy, multifactorial from septic shock and uremia as well as liver dysfunction, improving. PLAN: We will dialyze the patient today for 4 hours with UF as tolerated. We will continue other supportive care. We will continue to monitor intake and output as well as renal function for recovery of renal function. Further treatment to follow depending on hospital course. Dialysis note The patient was seen during hemodialysis and Treatment monitored and adjusted. HD for 4 hours with UF as tolerated using 3k bath. . Job ID: [id number] GREY
[2020-04-29] MEDS: Acyclovir 400 mg Tablet PO SCH ×2 (17:35→21:25)
[2020-04-29] MEDS: Ondansetron PF 4 MG/2 ML Vial IVP PRN (21:57)
[2020-04-30] MEDS: HumuLIN 70/30 (300 UNITS/3 ML VIAL) SC SCH ×3 (00:52→21:42)
[2020-04-30 04:29] LABS: Anion Gap 19 mmol/L (10-20); BUN (Urea Nitrogen) 75 mg/dL (9.8-20.1); Calc. Creatinine Clearance 23 mL/min (70-130); Calcium 8.9 mg/dL (7.8-10.44); Carbon Dioxide 24 mmol/L (23-31); Chloride 98 mmol/L (98-107); Estimated GFR-MDRD 15; Glucose 97 mg/dL (80-115); Potassium 3.9 mmol/L (3.5-5.1); Sodium 137 mmol/L (136-145)
[2020-04-30 05:35] LABS: Band 6 % (5-11); Eosinophils 2 % (0-10); Hemoglobin 8.5 g/dL (12.0-16.0); Lymphocytes 7 % (21-51); MDiff Complete? YES; Mean Corpuscular HGB CONC 34.8 g/dL (32.0-36.0); Mean Corpuscular Hemoglobin 32.8 pg (27.0-31.0); Mean Corpuscular Volume 94.3 fL (78.0-98.0); Mean Platelet Volume 7.5 fL (7.4-10.4); Metamyelocyte 1 % (0-0); Monocytes 4 % (0-10); Neutrophil 80 % (42-75); Platelet Count 511 thou/uL (130-400); Platelet Morphology Comment Appears Increased; RBC Distribution Width 12.4 % (11.5-14.5); Red Blood Cell (RBC) Count 2.57 mill/uL (4.20-5.40); White Blood Cell (WBC) Count 11.3 thou/uL (4.8-10.8)
[2020-04-30] MEDS: Amiodarone 200 MG TAB PO SCH ×2 (08:35→20:56)
[2020-04-30] MEDS: Acyclovir 400 mg Tablet PO SCH ×3 (08:35→21:43)
[2020-04-30] MEDS: Apixaban 5 MG TAB PO SCH ×2 (08:35→20:56)
--- NOTE | 2020-04-30 08:57 | PRG ---
DATE OF SERVICE: SUBJECTIVE: Ms. Cordon is doing well. She is sitting up in the bed. No chest pain or pressure. She wants to get up and around some more. OBJECTIVE: VITAL SIGNS: Her blood pressure 114/54, pulse is in the 80s and sinus. LUNGS: Clear. CARDIAC: Normal S1, normal S2. ASSESSMENT: 1. Status post cardioversion from atrial fluttered into sinus rhythm. 2. Acute kidney injury, on dialysis. PLAN: 1. Okay to be moved to telemetry to increase ambulation. 2. She is on apixaban and amiodarone. Job ID: [id number]
--- NOTE | 2020-04-30 09:30 | PDOC.HOSPP ---
- Subjective Encounter Date: 04/30/20 Encounter Time: 09:26 Subjective: Ms. Cordon was seen today in follow-up of Ischemic bowel, and atrial flutter. She says she feels ok, and wants to get up out of bed. She denies chest pain or shortness of breath. - Objective Vital Signs & Weight: Vital Signs (12 hours) Temp Pulse Ox 04/30/20 07:44 97.2 F L 04/30/20 07:42 94 L 04/30/20 03:56 97.3 F L 04/29/20 23:56 97.0 F L Weight Admit Weight 180 lb 6 oz Weight 180 lb 1.883 oz Most Recent Monitor Data Heart Rate from ECG 81 NIBP 114/54 NIBP BP-Mean 74 Respiration from ECG 18 SpO2 94 I&O: 04/29/20 04/30/20 05/01/20 06:59 06:59 06:59 Intake Total 541 500 Output Total 1370 4200 Balance -829 -7160 Result Diagrams: 04/30/20 04:05 04/30/20 04:05 Additional Labs: Accuchecks 04/30/20 04/29/20 04/29/20 05:31 20:23 17:42 POC Glucose 95 95 88 04/29/20 11:26 POC Glucose 104 Hospitalist ROS - Medication Medications: Active Medications Generic Name Dose Route Start Last Admin Trade Name Freq PRN Reason Stop Dose Admin Acyclovir 400 mg 04/29/20 15:00 04/30/20 08:35 Zovirax PO 400 mg TID ELY Administration Amiodarone HCl 400 mg 04/28/20 21:00 04/30/20 08:35 Cordarone PO 400 mg BID ELY Administration Apixaban 5 mg 04/28/20 21:00 04/30/20 08:35 Eliquis PO 5 mg BID ELY Administration Dextrose/Water 25 gm 04/15/20 04:04 04/15/20 06:52 Dextrose 50% SLOW IVP 25 gm PRN PRN Administration Hypoglycemia Hydralazine HCl 10 mg 04/15/20 00:24 04/23/20 03:40 Apresoline SLOW IVP 10 mg Q6H PRN Administration SBP GREATER THAN 160 Insulin Human Isoph/Insulin Regular 10 units 04/24/20 21:00 04/30/20 08:36 Humulin 70/30 SC Not Given BID [facility] Insulin Human Lispro 0 units 04/15/20 04:04 04/27/20 17:21 Humalog SC 2 unit .MILD SLIDING SCALE PRN Administration Mild Correctional Scale Labetalol HCl 20 mg 04/15/20 00:24 04/21/20 11:49 Normodyne SLOW IVP 20 mg Q4H PRN Administration SBP > 160, use third Ondansetron HCl 4 mg 04/15/20 00:24 04/29/20 21:57 Zofran IVP 4 mg Q6H PRN Administration Nausea/Vomiting, use 1st Pantoprazole Sodium 40 mg 04/30/20 09:00 04/30/20 08:35 Protonix PO 40 mg DAILY ELY Administration Sodium Chloride 10 ml 04/15/20 09:00 04/30/20 08:38 Flush - Normal Saline IVF 10 ml Q12HR ELY Administration - Exam Eye: PERRL, anicteric sclera Heart: RRR, no murmur, no gallops, no rubs, normal peripheral pulses Respiratory: CTAB (+ coarse breath sounds) Gastrointestinal: soft, non-tender, non-distended, normal bowel sounds, no palpable masses, no hepatomegaly Extremities: no cyanosis, no edema Hosp A/P (1) Ischemic bowel disease Code(s): K55.9 - VASCULAR DISORDER OF INTESTINE, UNSPECIFIED Status: Acute (2) Atrial flutter Code(s): I48.92 - UNSPECIFIED ATRIAL FLUTTER Status: Acute (3) Hypertension Code(s): I10 - ESSENTIAL (PRIMARY) HYPERTENSION Status: Chronic (4) Hyperlipidemia Code(s): E78.5 - HYPERLIPIDEMIA, UNSPECIFIED Status: Chronic (5) Acute renal failure Status: Acute - Plan * Ischemic Bowel- with bowel gangrene- s/p resection. - stable- she is tolerating an solid diet. She is now off antibiotics * HTN- blood pressure is stable * Atrial Flutter- she is s/p cardioversion and is now in sinus * Continue Amiodarone * Continue Eilquis * Acute kidney injury- due to ATN- she is requiring periodic dialysis. continue to monitor. Hopefully she will have return of improved renal function
--- NOTE | 2020-04-30 10:50 | EKG ---
Test Reason : POST CARDIOVERSION Blood Pressure : / mmHG Vent. Rate : 084 BPM Atrial Rate : 084 BPM P-R Int : 172 ms QRS Dur : 086 ms QT Int : 364 ms P-R-T Axes : 045 069 060 degrees QTc Int : 430 ms Normal sinus rhythm Nonspecific T wave abnormality Abnormal ECG When compared with ECG of 23-APR-2020 06:40, Sinus rhythm has replaced Atrial fibrillation Vent. rate has decreased BY [address] no longer elevated in Inferior leads Confirmed by DR. Yordan PANIAGUA ([id number]) on 04/30/2020 10:49:30 AM Referred By: [facility] Confirmed By:DR. Yordan PANIAGUA
--- NOTE | 2020-04-30 12:41 | PRG ---
DATE OF SERVICE: 04/30/2020 SUBJECTIVE: Ms. Cordon is resting comfortably in her bed in the intermediate care unit. She is postoperative day 15 from her initial laparotomy for ischemic bowel. She is postoperative day #10 from her most recent surgery at which time, she was given her ileostomy. She is tolerating diet and the ileostomy is working well. She still has a Pagan catheter (for uncertain reasons). She is still being dialyzed. She is apparently in sinus rhythm after undergoing cardioversion and has planned to transfer to telemetry soon. OBJECTIVE: VITAL SIGNS: She is afebrile. Her temperature was 100.2 early yesterday morning, but has not been elevated since. Pulse is 81, blood pressure 122/84. LUNGS: Clear to auscultation. ABDOMEN: Benign. She has a wound VAC dressing over her midline abdominal wound. As mentioned, she has a well-functioning ileostomy in the right lower quadrant. LABORATORY DATA: Her basic metabolic panel reveals persistent elevation in BUN and creatinine associated with her renal failure. Her CBC shows a white blood cell count has trended down to 11.3, her hemoglobin is stable at 8.5. ASSESSMENT AND PLAN: She is stable from a surgical standpoint. She is okay for transfer to the telemetry unit. She should continue with oral nutrition and occupational and physical therapy to help with her deconditioning. She is no longer on any antibiotics. Job ID: [id number]
--- NOTE | 2020-04-30 13:10 | PRG ---
DATE OF SERVICE: 04/30/2020 SUBJECTIVE: The patient is doing well until she is being moved to the telemetry unit. OBJECTIVE: VITAL SIGNS: Temperature 97.6, pulse 78, and blood pressure 128/64. HEENT: Unremarkable. NECK: No adenopathy or JVD. CHEST: Clear. CARDIAC: S1 and S2. Regular. ABDOMEN: Soft. EXTREMITIES: Edematous. LABORATORY DATA: White blood cell count 11, hematocrit 24.3, and platelet count 511. Sodium 137, potassium 3.9, chloride 98, CO2 of 24, BUN 75, creatinine 3.1, and glucose 97. ASSESSMENT: 1. Stable pulmonary status. 2. Rule out metabolic encephalopathy. 3. Status post cardioversion for supraventricular tachycardia. PLAN: The patient is currently stable from a Pulmonary standpoint. Her IV antibiotics have been discontinued. The main issue now is rehab. Dr. Ledesma will check on her Saturday. Job ID: [id number]
--- NOTE | 2020-04-30 14:40 | PRG ---
DATE OF SERVICE: 04/30/2020 SERVICE: Nephrology. SUBJECTIVE: A 69-year-old female, seen in followup for acute tubular necrosis management. The patient was admitted due to acute mental status change and subsequently found to have septic shock with multiorgan failure from mesenteric ischemia. The patient is status post resection of long segment with ileostomy. Clinically improved. More awake and conversational. Now tolerating oral intake. Still has difficulty moving right upper extremity. No fever, chills, cough, or shortness of breath. Last hemodialysis was yesterday, April 29, 2020. OBJECTIVE: VITAL SIGNS: Temperature 97.6, pulse 80, respiratory rate 23, SpO2 of 96% on room air, and blood pressure is 122/64. I and O in the last 24 hours showed total intake of 5000 with total output of 4200 with UF contributing 2400 and ileostomy output contributing 1700 with urine output of 100 mL. GENERAL: Comfortable female, in no obvious distress. Afebrile, anicteric, and acyanotic. HEENT: Normocephalic and atraumatic. Oral mucosa is moist. NECK: Supple with no JVD. Right tunneled dialysis catheter noted. CARDIOVASCULAR: Regular rhythm and rate with normal heart sounds 1 and 2. RESPIRATORY: Fair air entry bilaterally with some transmitted breath sounds, but no obvious crackle or rhonchi or use of accessory muscles. GI: Full, soft. Midline surgical dressing with wound VAC as well as right lower quadrant ostomy noted. UROGENITAL: Pagan catheter is in place draining little urine. EXTREMITIES: [id number]-cs-[id number] edema of the right upper extremity. Mild edema of both lower extremities noted. No erythema appreciated. 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 Memory lapse is noted. Power is 3+ on all the limbs except right upper limb with power of 2+. DIAGNOSTIC DATA: CBC showed WBC count of 11.3, hemoglobin of 8.5, and platelets of 511. Chemistry showed sodium 137, potassium 3.9, chloride 98, CO2 of 24, BUN 75, creatinine 3.16, glucose 97, and calcium 8.9. ASSESSMENT: 1. Acute renal failure due to acute tubular necrosis. 2. Acute tubular necrosis from septic shock as well as rhabdomyolysis and severe volume depletion. No evidence of renal recovery as yet. The patient is still oliguric. Still dialysis dependent with last dialysis being yesterday, April 29. 3. Metabolic acidosis. 4. Paroxysmal atrial flutter and fibrillation, status post cardioversion. 5. Volume overload: Markedly improved with hemodialysis with UF. PLAN: 1. We will monitor intake and output to assess for renal recovery. We will also check renal function test in the morning. 2. We will avoid nephrotoxic agent including diuretics as the patient is close to euvolemia. 3. Supportive care to continue. 4. Further treatment to follow depending on hospital course. Job ID: [id number]
[2020-05-01 05:38] LABS: Anion Gap 23 mmol/L (10-20); BUN (Urea Nitrogen) 109 mg/dL (9.8-20.1); BUN/Creatinine Ratio 24.61; Calc. Creatinine Clearance 16 mL/min (70-130); Calcium 8.8 mg/dL (7.8-10.44); Carbon Dioxide 22 mmol/L (23-31); Chloride 95 mmol/L (98-107); Estimated GFR-MDRD 10; Glucose 95 mg/dL (80-115); Potassium 4.8 mmol/L (3.5-5.1); Sodium 135 mmol/L (136-145)
[2020-05-01 06:07] LABS: Phosphorus 9.8 mg/dL (2.3-4.7)
[2020-05-01] MEDS ORDERED: Acyclovir 400 mg Tablet PO SCH (07:45)
[2020-05-01] MEDS: Sevelamer Carbonate 800 MG TAB PO SCH ×3 (08:15→16:53)
[2020-05-01] MEDS: HumuLIN 70/30 (300 UNITS/3 ML VIAL) SC SCH ×2 (08:49→22:02)
[2020-05-01] MEDS: Amiodarone 200 MG TAB PO SCH ×2 (10:04→21:55)
[2020-05-01] MEDS: Apixaban 5 MG TAB PO SCH ×2 (10:04→21:55)
--- NOTE | 2020-05-01 11:01 | PDOC.HOSPP ---
- Subjective Encounter Date: 05/01/20 Encounter Time: 10:59 Subjective: Ms. Cordon was seen today in follow-up of ischemic bowel, and generalized weakness. She says she is becoming frustrated with laying in the bed most of the day. She feels she is wasting away. - Objective Vital Signs & Weight: Vital Signs (12 hours) Temp Pulse Resp BP Pulse Ox 05/01/20 07:44 97.9 F 73 20 172/73 H 96 05/01/20 03:35 97.8 F 71 18 137/65 94 L 05/01/20 00:48 95 Weight Admit Weight 180 lb 6 oz Weight 184 lb 8.43 oz Most Recent Monitor Data Heart Rate from ECG 78 NIBP 128/64 NIBP BP-Mean 85 Respiration from ECG 20 SpO2 97 I&O: 04/30/20 05/01/20 05/02/20 06:59 06:59 06:59 Intake Total 500 1030 Output Total 4200 1650 Balance -3700 -620 Result Diagrams: 04/30/20 04:05 05/01/20 05:04 Additional Labs: Accuchecks 05/01/20 04/30/20 04/30/20 05:40 20:42 17:29 POC Glucose 103 116 H 109 04/30/20 10:57 POC Glucose 102 Hospitalist ROS - Medication Medications: Active Medications Generic Name Dose Route Start Last Admin Trade Name Freq PRN Reason Stop Dose Admin Amiodarone HCl 400 mg 04/28/20 21:00 05/01/20 10:04 Cordarone PO 400 mg BID ELY Administration Apixaban 5 mg 04/28/20 21:00 05/01/20 10:04 Eliquis PO 5 mg BID ELY Administration Dextrose/Water 25 gm 04/15/20 04:04 04/15/20 06:52 Dextrose 50% SLOW IVP 25 gm PRN PRN Administration Hypoglycemia Hydralazine HCl 10 mg 04/15/20 00:24 04/23/20 03:40 Apresoline SLOW IVP 10 mg Q6H PRN Administration SBP GREATER THAN 160 Insulin Human Isoph/Insulin Regular 10 units 04/24/20 21:00 05/01/20 08:49 Humulin 70/30 SC Not Given BID ELY Insulin Human Lispro 0 units 04/15/20 04:04 04/27/20 17:21 Humalog SC 2 unit .MILD SLIDING SCALE PRN Administration Mild Correctional Scale Labetalol HCl 20 mg 04/15/20 00:24 04/21/20 11:49 Normodyne SLOW IVP 20 mg Q4H PRN Administration SBP > 160, use third Ondansetron HCl 4 mg 04/15/20 00:24 04/29/20 21:57 Zofran IVP 4 mg Q6H PRN Administration Nausea/Vomiting, use 1st Pantoprazole Sodium 40 mg 04/30/20 09:00 05/01/20 08:12 Protonix PO 40 mg DAILY ELY Administration Sevelamer Carbonate 800 mg 05/01/20 08:00 05/01/20 08:15 Renvela PO 800 mg TID-WM ELY Administration Sodium Chloride 10 ml 04/15/20 09:00 05/01/20 08:50 Flush - Normal Saline IVF 10 ml Q12HR ELY Administration Tramadol HCl 50 mg 04/29/20 13:44 04/30/20 20:56 Ultram PO 50 mg Q4H PRN Administration Pain - Exam Eye: PERRL, anicteric sclera Heart: RRR, no murmur, no gallops, no rubs, normal peripheral pulses Respiratory: CTAB (+ decreased breath sounds bilaterally and coarse breath sounds) Gastrointestinal: soft, non-tender, non-distended, normal bowel sounds ( Ileostomy site) Extremities: no cyanosis Hosp A/P (1) Ischemic bowel disease Code(s): K55.9 - VASCULAR DISORDER OF INTESTINE, UNSPECIFIED Status: Acute (2) Atrial flutter Code(s): I48.92 - UNSPECIFIED ATRIAL FLUTTER Status: Acute (3) Hypertension Code(s): I10 - ESSENTIAL (PRIMARY) HYPERTENSION Status: Chronic (4) Hyperlipidemia Code(s): E78.5 - HYPERLIPIDEMIA, UNSPECIFIED Status: Chronic (5) Acute renal failure Status: Acute - Plan * Ischemic Bowel- with bowel gangrene- s/p resection. - stable- she is tolerating an solid diet. * She is no longer on antibiotics * HTN- blood pressure is stable * Atrial Flutter- she is s/p cardioversion and is now in sinus * Continue Amiodarone * Continue Eilquis * Acute kidney injury- due to ATN- she is requiring periodic dialysis. continue to monitor. She continues to require dialysis. continue as per Nephrology * Will remove the Pagan * Continue PT/OT * Plan is for transfer to assisted
[2020-05-01] MEDS ORDERED: Loperamide HCl 2 MG CAP PO SCH (11:15)
--- NOTE | 2020-05-01 11:49 | PRG ---
DATE OF SERVICE: 05/01/2020 SUBJECTIVE: Ms. Cordon is postoperative day #16 from her initial laparotomy for ischemic bowel and postoperative day #11 from her most recent surgery; at which time, she was given her ileostomy. She has been transferred to the telemetry floor. She tells me she is tolerating her diet. Her ileostomy is working well. She still has a Pagan catheter (which I will have removed today). She is still undergoing dialysis regularly. OBJECTIVE: VITAL SIGNS: On examination, she is afebrile, pulse 73, and blood pressure 172/73. LUNGS: Clear to auscultation. ABDOMEN: Soft, nontender, and nondistended. Bowel sounds are present and normoactive. Wound VAC is present in her midline abdominal wound. LABORATORY DATA: There are new electrolytes today that show that her sodium and chloride are both low, and her BUN and creatinine are both high and her phosphorus is also quite high at 9.8. I find it hard to believe that her phosphorus is really 9.8. ASSESSMENT: She seems stable from a Surgical standpoint. 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 She is already on a solid diet. I will have her Pagan catheter removed today. She is ready for transfer to a long-term acute care facility at any time. Job ID: [id number]
--- NOTE | 2020-05-01 12:18 | PDOC.CPN ---
- Subjective Date: 05/01/20 Time: 11:30 Interval history: Ms. Cordon is awake, she "has had a rough day". She is very concerned that "I am wasting away lying here in this bed". She denies any acute cardiac complaints or concerns. No overnight events on telemetry. - Review of Systems General: reports: fatigue. denies: fever/chills, weight/appetite/sleep changes , night sweats Respiratory: reports: exercise intolerance. denies: cough, congestion, shortness of breath Cardiovascular: denies: chest pain, palpitation, edema, paroxysmal nocturnal dyspnea, orthopnea Gastrointestinal: denies: nausea, vomiting, diarrhea, constipation, abd pain, GI bleeding Musculoskeletal: denies: pain, tenderness, stiffness, swelling, arthritis/ arthralgias - Objective Allergies/Adverse Reactions: Allergies Allergy/AdvReac Type Severity Reaction Status Date / Time No Allergy Information Allergy Verified 04/15/20 02:34 Available Visit Medications: Current Medications Acetaminophen (Tylenol) 1,000 mg PO Q6H PRN PRN Reason: Moderate to Severe Pain (6-10) Acyclovir (Zovirax) 400 mg PO Q8HR [facility] Albuterol/Ipratropium (Duoneb) 3 ml NEB [id number] PRN PRN Reason: Dyspnea Amiodarone HCl (Cordarone) 400 mg PO BID [facility] Last Admin: 05/01/20 10:04 Dose: 400 mg Apixaban (Eliquis) 5 mg PO BID [facility] Last Admin: 05/01/20 10:04 Dose: 5 mg Dextrose/Water (Dextrose 50%) 25 gm SLOW IVP PRN PRN PRN Reason: Hypoglycemia Last Admin: 04/15/20 06:52 Dose: 25 gm Glucagon (Glucagon) 1 mg IM PRN PRN PRN Reason: Hypoglycemia Hydralazine HCl (Apresoline) 10 mg SLOW IVP Q6H PRN PRN Reason: SBP GREATER THAN 160 Last Admin: 04/23/20 03:40 Dose: 10 mg Dextrose/Water (D5w) 1,000 mls @ 0 mls/hr IV .Q0M PRN PRN Reason: Hypoglycemia Insulin Human Isoph/Insulin Regular (Humulin 70/30) 10 units SC BID [facility] Last Admin: 05/01/20 08:49 Dose: Not Given Insulin Human Lispro (Humalog) 0 units SC .MILD SLIDING SCALE PRN PRN Reason: Mild Correctional Scale Last Admin: 04/27/20 17:21 Dose: 2 unit Labetalol HCl (Normodyne) 20 mg SLOW IVP Q4H PRN PRN Reason: SBP > 160, use third Last Admin: 04/21/20 11:49 Dose: 20 mg Loperamide HCl (Imodium) 2 mg PO BID ELY Loperamide HCl (Imodium) 2 mg PO NOW [facility] Stop: 05/01/20 13:00 Miscellaneous Medication (Pharmacy To Dose) 1 each PO PRN PRN PRN Reason: Pharmacy to dose Ondansetron HCl (Zofran) 4 mg IVP Q6H PRN PRN Reason: Nausea/Vomiting, use 1st Last Admin: 04/29/20 21:57 Dose: 4 mg Pantoprazole Sodium (Protonix) 40 mg PO DAILY [facility] Last Admin: 05/01/20 08:12 Dose: 40 mg Sevelamer Carbonate (Renvela) 800 mg PO TID-WM [facility] Last Admin: 05/01/20 08:15 Dose: 800 mg Sodium Chloride (Flush - Normal Saline) 10 ml IVF Q12HR [facility] Last Admin: 05/01/20 08:50 Dose: 10 ml Sodium Chloride (Flush - Normal Saline) 10 ml IVF PRN PRN PRN Reason: Saline Flush Tramadol HCl (Ultram) 50 mg PO Q4H PRN PRN Reason: Pain Last Admin: 04/30/20 20:56 Dose: 50 mg Vital Signs & Weight: Vital Signs Temp Pulse Resp BP Pulse Ox 05/01/20 07:44 97.9 F 73 20 172/73 H 96 05/01/20 03:35 97.8 F 71 18 137/65 94 L 05/01/20 00:48 95 Admit Weight 180 lb 6 oz Weight 184 lb 8.43 oz - CHADS-VASc Congestive heart failure: 1 Hypertension: 1 Age 65-74: 1 Female: 1 Risk Score: 4 - Quality Measures CV meds: Beta Colette: No, RADHIKA/ARB: No, Statin: No, ASA: No, Anticoagulant: Yes - Physical Exam General: alert & oriented x3, appears well, no apparent distress HEENT: mucus membranes moist Neck: supple neck, no JVD/HJR Cardiac: regular rate and rhythm, no murmur, S1/S2 Lungs: clear to auscultation, normal breath sounds, no wheeze, rales, rhonchi Neuro: grossly intact Abdomen: active bowel sounds, soft, non-tender Extremities: no cyanosis, no clubbing, no edema Skin: clear - Labs Result Diagrams: 04/30/20 04:05 05/01/20 05:04 - Telemetry Sinus rhythms and dysrhythmias: sinus rhythm - Assessment/Plan Assessment/Plan: Assessment: 1. Paroxysmal AFib-s/p DCCV 2. Infarcted bowel-ischemic bowel, s/p laparotomy, ileostomy placement 3. RACHANA-requires periodic dialysis 4. Thrombocytopenia 5. Anemia-stable Plan: Maintaining SR, continue oral amiodarone, OAC. No bleeding. CV stable. Awaiting placement for deconditioning, rehab.
--- NOTE | 2020-05-01 14:11 | PRG ---
DATE OF SERVICE: 05/01/2020 SERVICE: Nephrology. SUBJECTIVE: A 69-year-old female seen in followup for acute renal failure with acute tubular necrosis. The patient was admitted due to septic shock associated with multiorgan failure. She is status post resection of large bowel segment with ileostomy and colostomy. Oral intake is improving. The patient however remained generally weak. Marked weakness of right upper extremity persist. Denied fever, nausea, or vomiting. The patient has been hemodialysis dependent with last hemodialysis being on April 29, 2020. OBJECTIVE: VITAL SIGNS: Temperature 97.9, pulse 73, respiratory rate 20, SpO2 of 96% on room air, blood pressure is 172/73. I and O in the last 24 hours showed total intake of 1030 with total output of 1650 with urine contributing only 100 mL for the output. GENERAL: Comfortable female, in no obvious distress. Afebrile. Anicteric. Acyanotic. The patient is fatigued. HEENT: Normocephalic, atraumatic. Oral mucosa is moist. NECK: Supple with no JVD. CARDIOVASCULAR: Regular rhythm and rate with normal heart sounds 1 and 2. RESPIRATORY: Fair air entry bilaterally, few transmitted breath sounds. No obvious crackle or rhonchi or use of accessory muscles. GI: Full, soft nondistended. Midline surgical dressing with wound VAC noted. Right lower quadrant ostomy also is noted. UROGENITAL: Pagan catheter is in place draining minimal urine. MUSCULOSKELETAL: [id number]-[id number] edema of right upper extremity noted as well as trace edema of both lower extremities. No erythema appreciated. 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 Some memory lapses noted. Cranial nerves 2 through 12 are grossly intact. Power is 3-4 in all the limbs except right upper extremity with power of 2/5. DIAGNOSTIC DATA: Chemistry showed sodium 135, potassium 4.8, chloride 95, CO2 23, BUN 109, creatinine 4.43, glucose 95, calcium 8.8, phosphorus 9.8, albumin 3.0. Note that creatinine continue to trend up from 3.16 yesterday after dialysis on April 29 to 4.43 today. BUN also went up from 75 yesterday after dialysis to 109. ASSESSMENT AND PLAN: 1. Acute renal failure due to acute tubular necrosis related to septic shock, severe dehydration, medications. No renal recovery as yet. The patient is still oliguric/anuric. Urine output in the last 24 hours was about 100 mL. The patient remained hemodialysis dependent with last hemodialysis being on April 29. We will plan on dialyzing the patient tomorrow morning. 2. Volume status: The patient has volume overload, which has improved markedly with hemodialysis. Urine output remains minimal with about 100 mL for 24 hours. We will plan on doing ultrafiltration with hemodialysis tomorrow. 3. Transient hypertension: We will monitor closely and we will plan on starting antihypertensives if blood pressure is consistently elevated. 4. Hyperphosphatemia: Due to acute renal failure. We will start phosphate binder. 5. Metabolic acidosis: Improved. We will continue hemodialysis. 6. Further treatment to follow depending on hospital course. Job ID: [id number]
[2020-05-01] MEDS: Acyclovir 400 mg Tablet PO SCH ×2 (15:15→21:55)
[2020-05-01] MEDS: hydrALAZINE 20 MG/ML VIAL SLOW IVP PRN (15:26)
[2020-05-01] MEDS ORDERED: Acetaminophen/Codeine 30-300mg Tablet PO PRN (16:07)
[2020-05-01] MEDS ORDERED: Lorazepam 0.5 MG TAB PO PRN (16:07)
[2020-05-01] MEDS: Loperamide HCl 2 MG CAP PO SCH (21:55)
[2020-05-02] MEDS: hydrALAZINE 20 MG/ML VIAL SLOW IVP PRN (00:18)
[2020-05-02 03:41] LABS: Anion Gap 31 mmol/L (10-20); Calc. Creatinine Clearance 13 mL/min (70-130); Calcium 8.8 mg/dL (7.8-10.44); Carbon Dioxide 15 mmol/L (23-31); Chloride 97 mmol/L (98-107); Estimated GFR-MDRD 7; Glucose 91 mg/dL (80-115); Potassium 6.5 mmol/L (3.5-5.1); Sodium 136 mmol/L (136-145)
[2020-05-02 03:45] LABS: Phosphorus 11.6 mg/dL (2.3-4.7)
[2020-05-02 03:52] LABS: BUN (Urea Nitrogen) 124 mg/dL (9.8-20.1); BUN/Creatinine Ratio 21.95
[2020-05-02 05:14] LABS: Anion Gap 30 mmol/L (10-20); Calc. Creatinine Clearance 12 mL/min (70-130); Carbon Dioxide 17 mmol/L (23-31); Chloride 95 mmol/L (98-107); Estimated GFR-MDRD 7; Glucose 89 mg/dL (80-115); Sodium 136 mmol/L (136-145)
[2020-05-02 05:26] LABS: BUN (Urea Nitrogen) 122 mg/dL (9.8-20.1)
[2020-05-02] MEDS: Acyclovir 400 mg Tablet PO SCH (05:58)
[2020-05-02] MEDS ORDERED: Calcium Gluc 4.6 MEQ/10 ML (100 MG/ML) SLOW IVP SCH (06:00)
[2020-05-02] MEDS ORDERED: Insulin Regular 300 UNITS/3 ML VIAL IVP SCH (06:00)
[2020-05-02] MEDS ORDERED: Dextrose 50% Abboject 50 ML SYRINGE SLOW IVP SCH (06:00)
[2020-05-02 08:31] LABS: #Basophils 0.1 thou/uL (0.0-0.2); #Eosinphils 0.4 thou/uL (0.0-0.7); #Lymphocytes 1.1 thou/uL (1.20-3.40); #Monocytes 0.9 thou/uL (0.11-0.59); #Neutrophils 12.2 thou/uL (1.40-6.50); %Basophils 0.4 % (0.0-1.0); %Eosinophils 2.8 % (0.0-10.0); %Lymphocytes 7.4 % (21.0-51.0); %Monocytes 5.9 % (0.0-10.0); %Neutrophils 83.5 % (42.0-75.0); Mean Corpuscular HGB CONC 33.7 g/dL (32.0-36.0); Mean Corpuscular Hemoglobin 30.9 pg (27.0-31.0); Mean Corpuscular Volume 91.8 fL (78.0-98.0); Mean Platelet Volume 7.8 fL (7.4-10.4); Platelet Count 446 thou/uL (130-400); RBC Distribution Width 12.6 % (11.5-14.5); Red Blood Cell (RBC) Count 2.58 mill/uL (4.20-5.40); White Blood Cell (WBC) Count 14.6 thou/uL (4.8-10.8)
[2020-05-02] MEDS ORDERED: Amiodarone 200 MG TAB PO SCH (09:00)
[2020-05-02] MEDS ORDERED: Heparin 10,000 UNITS/ 10 ML VIAL ONE (09:02)
--- NOTE | 2020-05-02 09:10 | CCLSPC ---
PROCEDURE: Direct current cardioversion. PROCEDURE IN DETAIL: The patient was sedated by Anesthesia after undergoing transesophageal echo, which revealed no intracardiac thrombus. She was in atrial flutter and with 100 joules returned to sinus rhythm. Job ID: [id number]
[2020-05-02] MEDS: Sevelamer Carbonate 800 MG TAB PO SCH ×3 (11:39→17:38)
[2020-05-02] MEDS ORDERED: traMADol HCl 50 MG TAB PO PRN (12:52)
[2020-05-02] MEDS: HumuLIN 70/30 (300 UNITS/3 ML VIAL) SC SCH (13:34)
[2020-05-02] MEDS: Apixaban 5 MG TAB PO SCH (13:38)
[2020-05-02] MEDS: Loperamide HCl 2 MG CAP PO SCH (13:38)
[2020-05-02 13:55] VITALS: BMI 27.1
--- NOTE | 2020-05-02 14:00 | PRG ---
DATE OF SERVICE: 05/02/2020 SERVICE: Nephrology. SUBJECTIVE: A 69-year-old female, seen in followup for acute renal failure with acute tubular necrosis, on hemodialysis. The patient was admitted due to septic shock associated with multiorgan failure including acute tubular necrosis. Hemodynamics have improved, but the patient remained oliguric and in acute renal failure, requiring hemodialysis. Last hemodialysis was on Wednesday, April 29, 2020. Reported some nausea. Denied worsening abdominal pain. Still has weakness of right upper extremity. OBJECTIVE: VITAL SIGNS: Temperature 98.0, pulse 84, respiratory rate 20, SpO2 of 93% on room air, and blood pressure is 147/66. I and O in the last 24 hours showed total intake of 180 with total output of 350. This is grossly inadequate and inconclusive. GENERAL: Female, in no obvious distress. Chronically ill looking and fatigued. Afebrile, anicteric. HEENT: Normocephalic, atraumatic. Oral mucosa is moist. NECK: Supple with no JVD. CARDIOVASCULAR: Regular rhythm and rate with normal heart sounds 1 and 2. RESPIRATORY: Fair air entry bilaterally with no obvious crackle or rhonchi. GI: Full, soft. Midline surgical wound dressing and wound VAC noted as well as right lower quadrant ostomy. EXTREMITIES: Trace to mild edema of the lower extremities as well as left upper extremity noted. Mild to moderate edema of right upper extremity noted as well. 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 Cranial nerves 2 through 12 are grossly intact. Memory lapse is noted. Monoparesis involving the right upper extremity noted with power of 1 to 2, whereas power in other limbs about 3 to 4. DIAGNOSTIC DATA: CBC showed WBC count of 14.6, hemoglobin of 8.0, MCV of 91, and platelets of 446. Chemistry showed sodium 136, potassium 6.5, chloride 97, CO2 of 15, BUN 124, creatinine 5.65, glucose 91, calcium 8.8, phosphorus 11.6, and albumin 3.0. Repeat BMP 1 hour later showed sodium 136, potassium 6.0, chloride 95, CO2 of 17, BUN 22, creatinine 5.73, and calcium 9.0. Telemetry note did not show any arrhythmia. EKG showed no EKG changes of hyperkalemia. Showed normal sinus rhythm. ASSESSMENT: 1. Severe hyperkalemia with potassium of 6.0. EKG showed no acute changes or arrhythmias. Most likely due to severe metabolic acidosis and increased dietary intake. 2. Metabolic acidosis with anion gap of 30. This is due to acute tubular necrosis/acute renal failure. 3. Acute renal failure with acute tubular necrosis. The patient is still oliguric, making about 100 mL of urine per 24 hours. There is no renal recovery as yet. The patient is hemodialysis dependent. 4. Hyperphosphatemia: Due to acute renal failure and diet. 5. Hypertension, volume overload: Markedly improved with hemodialysis with UF as tolerated. PLAN: 1. We will give dextrose infusion with insulin intravenously to shift potassium into the cells. 2. We will also give calcium gluconate 1 g stat given the patient has prior history of paroxysmal atrial fibrillation and flutter, status post cardioversion, though electrocardiogram was unremarkable. 3. We will arrange for hemodialysis as soon as possible. 4. We will monitor blood pressure after hemodialysis with a view to starting antihypertensives if indicated. 5. We will change the patient's diet to renal diet. 6. We will also start phosphate binder. We will actually increase the dose to 800 with snacks and 1600 with diet. 7. Further treatment to follow depending on hospital course. DIALYSIS PROCEDURE NOTE: The patient was seen in dialysis unit during hemodialysis.. Pattient is for 4 hours with 2K bath. Blood flow 400, dialysate flow 800. UF as tolerated. Bicarb of 35. The patient was tolerating treatment as planned. We will recheck hemodynamics after treatment. Job ID: [id number] MTDD
--- NOTE | 2020-05-02 14:34 | PRG ---
DATE OF SERVICE: 05/02/2020 SUBJECTIVE: This morning, she is awake, responsive. She is being dialyzed. OBJECTIVE: VITAL SIGNS: Temperature 98, pulse 84, respirations 20, saturation 93% on room air, blood pressure 147/66. CHEST: No wheezing or crackles. CARDIAC: Normal S1, S2. No gallops. ABDOMEN: No masses. LABORATORY DATA: H and H of 8 and 23, platelet count normal. Lytes are normal. IMPRESSION: Status post ischemic bowel, status post ileostomy, renal failure, respiratory failure, severe deconditioning, encephalopathy, SVT. PLAN: Pulmonary funk, continue present treatment, PT, supportive care. Eventually, placement. Job ID: [id number]
--- NOTE | 2020-05-02 15:48 | PDOC.HOSPP ---
- Subjective Encounter Date: 05/02/20 Encounter Time: 15:46 Subjective: Ms. Cordon was seen today in follow-up of Ischemic bowel and acute renal failure. She says she feels weak, but otherwise no complaints. - Objective Vital Signs & Weight: Vital Signs (12 hours) Temp Pulse Resp BP Pulse Ox 05/02/20 13:01 87 17 147/67 H 96 05/02/20 07:26 98.0 F 84 20 147/66 H 93 L Weight Admit Weight 180 lb 6 oz Weight 178 lb 2.136 oz Most Recent Monitor Data Heart Rate from ECG 78 NIBP 128/64 NIBP BP-Mean 85 Respiration from ECG 20 SpO2 97 I&O: 05/01/20 05/02/20 05/03/20 06:59 06:59 06:59 Intake Total 1030 180 Output Total 1650 350 Balance -620 -170 Result Diagrams: 05/02/20 07:56 05/02/20 04:48 Additional Labs: Accuchecks 05/02/20 05/02/20 05/01/20 11:25 05:36 20:25 POC Glucose 86 93 96 05/01/20 16:43 POC Glucose 94 Hospitalist ROS - Medication Medications: Active Medications Generic Name Dose Route Start Last Admin Trade Name Freq PRN Reason Stop Dose Admin Acetaminophen/Codeine Phosphate 1 tab 05/01/20 16:07 05/01/20 16:52 Tylenol #3 PO 1 tab Q4H PRN Administration Severe Pain (7-10) Amiodarone HCl 200 mg 05/02/20 09:00 05/02/20 13:38 Cordarone PO 05/15/20 23:59 200 mg BID ELY Administration Apixaban 5 mg 04/28/20 21:00 05/02/20 13:38 Eliquis PO 5 mg BID ELY Administration Dextrose/Water 25 gm 04/15/20 04:04 04/15/20 06:52 Dextrose 50% SLOW IVP 25 gm PRN PRN Administration Hypoglycemia Hydralazine HCl 10 mg 04/15/20 00:24 05/02/20 00:18 Apresoline SLOW IVP 10 mg Q6H PRN Administration SBP GREATER THAN 160 Insulin Human Isoph/Insulin Regular 10 units 04/24/20 21:00 05/02/20 13:34 Humulin 70/30 SC Not Given BID ELY Insulin Human Lispro 0 units 04/15/20 04:04 04/27/20 17:21 Humalog SC 2 unit .MILD SLIDING SCALE PRN Administration Mild Correctional Scale Labetalol HCl 20 mg 04/15/20 00:24 04/21/20 11:49 Normodyne SLOW IVP 20 mg Q4H PRN Administration SBP > 160, use third Loperamide HCl 2 mg 05/01/20 21:00 05/02/20 13:38 Imodium PO 2 mg BID ELY Administration Lorazepam 0.5 mg 05/01/20 16:07 05/01/20 16:20 Ativan PO 0.5 mg Q6H PRN Administration Anxiety Ondansetron HCl 4 mg 04/15/20 00:24 04/29/20 21:57 Zofran IVP 4 mg Q6H PRN Administration Nausea/Vomiting, use 1st Pantoprazole Sodium 40 mg 04/30/20 09:00 05/02/20 13:38 Protonix PO 40 mg DAILY ELY Administration Sevelamer Carbonate 800 mg 05/01/20 08:00 05/02/20 13:39 Renvela PO 800 mg TID-WM ELY Administration Sodium Chloride 10 ml 04/15/20 09:00 05/02/20 13:39 Flush - Normal Saline IVF 10 ml Q12HR ELY Administration - Exam Eye: PERRL, anicteric sclera Heart: RRR, no murmur, no gallops, no rubs, normal peripheral pulses Respiratory: CTAB, no wheezes, no rales, no ronchi, normal chest expansion Gastrointestinal: soft, non-tender, non-distended, normal bowel sounds Extremities: 1+ LE edema Hosp A/P (1) Ischemic bowel disease Code(s): K55.9 - VASCULAR DISORDER OF INTESTINE, UNSPECIFIED Status: Acute (2) Atrial flutter Code(s): I48.92 - UNSPECIFIED ATRIAL FLUTTER Status: Acute (3) Hypertension Code(s): I10 - ESSENTIAL (PRIMARY) HYPERTENSION Status: Chronic (4) Hyperlipidemia Code(s): E78.5 - HYPERLIPIDEMIA, UNSPECIFIED Status: Chronic (5) Acute renal failure Status: Acute - Plan * Ischemic Bowel- with bowel gangrene- s/p resection. - stable- she is tolerating an solid diet. * She is no longer on antibiotics * HTN- blood pressure is stable * Atrial Flutter- she is s/p cardioversion and is now in sinus * Continue Amiodarone * Continue Eilquis * Acute kidney injury- due to ATN- she is requiring periodic dialysis. continue to monitor. She continues to require dialysis. continue as per Nephrology * Will remove the Pagan * Continue PT/OT * She has been accepted to LTAC- will begin the paperwork for transfer
[2020-05-02 17:15] VITALS: BP 120/58; TEMP 98.2
[2020-05-02] MEDS ORDERED: Acyclovir 400 mg Tablet PO SCH (18:00)
--- NOTE | 2020-05-02 18:05 | PRG ---
DATE OF SERVICE: 05/02/2020 SUBJECTIVE: Ms. Cordon remains in her bed on the telemetry floor. She is postoperative day #17 from her initial laparotomy for ischemic bowel and postoperative day #12 from her most recent surgery, at which time she was given her ileostomy. She is on the telemetry floor. She is drinking well, but apparently does not have a great appetite. Her ileostomy is functioning well. She had a Pagan catheter until yesterday, but I had to remove them. She still is undergoing dialysis through her catheter. She is currently a little foggy as I woke her up from a nap, but her tells me that in general, she is doing okay. PHYSICAL EXAMINATION: VITAL SIGNS: She is afebrile. Pulse 82, blood pressure 120/58. LUNGS: Clear to auscultation. ABDOMEN: Soft and nontender with normal bowel sounds. Wound VAC is present at midline incision. Ileostomy is present in the right lower quadrant. LABORATORY DATA: CBC shows elevated white blood cell count of 14.6 with hemoglobin of 8.0. Her chemistries show elevated potassium, low CO2 levels, elevated BUN and creatinine. Her phosphorus is very elevated at 11.6. From an abdominal standpoint, she is doing well. From a Nephrology standpoint, she clearly requires ongoing hemodialysis. I believe transfer to a long-term acute care facility is being arranged. Job ID: [id number]
--- NOTE | 2020-05-03 13:11 | DIS ---
DATE OF ADMISSION: 04/14/2020 DATE OF DISCHARGE: 05/02/2020 DISCHARGE DISPOSITION: [facility] in [place], [place]. DISCHARGE DIAGNOSES: 1. Ischemic bowel. 2. Atrial fibrillation and noncompliance with anticoagulation. 3. Polysubstance abuse. 4. Hypertension. 5. Hypothyroidism. 6. Hyperlipidemia. 7. Gastroesophageal reflux disease. 8. Acute kidney injury. DISCHARGE MEDICATIONS: Include: 1. Amlodipine 5 mg daily. 2. Eliquis 5 mg twice a day. 3. Levothyroxine 25 mcg daily. 4. Tylenol 3 q.4 hours as needed. 5. Zovirax 200 mg daily. 6. Amiodarone 200 mg twice a day. 7. Humulin 70/30, 10 units twice daily. 8. Protonix 40 mg daily. 9. Renvela 800 mg p.o. t.i.d. IMAGING DONE DURING HOSPITAL COURSE: The patient had a CT scan of the abdomen and pelvis showing progressive dilatation of the ascending colon with some concern for posterior hepatic flexure pneumatosis. There was a patchy round foci in the right middle lobe, which could reflect developing consolidation. The patient also had ultrasound markings for vein mapping for AV fistula placement. The patient had exploratory lap with right hemicolectomy with removal of about 18 inches of ileum and resection of the transverse colon. The bowel was not anastomosed. The patient also had an echocardiogram in which the ejection fraction was estimated at 55% to 60%. There was some E to A flow reversal noted suggestive of diastolic dysfunction. The patient also had a right cuffed dialysis catheter placed. The patient had a CT scan of the brain showing no evidence of any intracranial abnormalities and the patient also had a transesophageal echo showing no thrombus in the left atrium or left atrial appendage. HOSPITAL COURSE: Ms. Cordon is a 69-year-old female, who was admitted to the hospital from an outside facility after she was found to be paranoid, confused and hypotensive. Urine drug screen there revealed PCP, opiates and amphetamines. Also during the course of the evaluation, it was found that she had a focal ileus at the hepatic flexure. She was groggy on admission. She was also found to have evidence of sepsis. She was seen, she became clammy and diaphoretic, and there was concern for ischemic bowel. 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 She had to have bowel resection and part of the ileum removed and she had an ileostomy placed. It was felt that she was at risk for gangrenous bowel due to atrial fibrillation in which she had stopped taking her anticoagulation. There is also possibility that the substance abuse could have precipitated some of this as well. Due to the severe sepsis, she developed acute kidney injury. She was seen by Nephrology and her renal function necessitated dialysis. The renal function is thought to be due to acute tubular necrosis. At the time of her discharge, she was still requiring periodic dialysis. Postoperatively, she was doing well, able to tolerate solid food. She was also seen by Cardiology and placed on amiodarone in which she did convert back to sinus rhythm and the amiodarone will be continued. She was placed back on anticoagulation. During all this time, she became severely deconditioned and was barely able to sit at the side of the bed. For this reason, she is being transferred to a long-term care facility. She also had a wound VAC in place from the bowel surgery and on 05/02, she was transferred to the LTAC Facility in [place]. Job ID: [id number]
--- NOTE | 2020-05-05 07:44 | EKG ---
Test Reason : HIGH K+ Blood Pressure : / mmHG Vent. Rate : 082 BPM Atrial Rate : 082 BPM P-R Int : 176 ms QRS Dur : 092 ms QT Int : 374 ms P-R-T Axes : 064 070 051 degrees QTc Int : 436 ms Normal sinus rhythm Normal ECG When compared with ECG of 29-APR-2020 10:11, Nonspecific T wave abnormality no longer evident in Inferior leads T wave inversion less evident in Anterior leads Confirmed by DR. Bjorn SALMERON ([id number]) on 05/05/2020 7:44:16 AM Referred By: ANDREAS Confirmed By:DR. Bjorn SALMERON
[2020-05-16] MEDS ORDERED: Amiodarone 200 MG TAB PO SCH (09:00)
== END 2020-05-02 18:47 | disposition short-term general hospital (02) | DRG 853 ==
LOC: ERS 21:02 → T4-B 21:50 → IMCU/EMU 04-15 06:27 → CCU 04-15 07:40 → IMCU/EMU 04-28 12:12 → 2NO 04-30 14:17
PROVIDERS: ADMIT Internal Medicine; ATTEND Internal Medicine
PROC: 5A09357 Assistance with Respiratory Ventilation, Less than 24 Consecutive Hours, Continuous Positive Airway Pressure (ICD-10-PCS; 2020-04-14)
PROC: 0DBF0ZZ Excision of Right Large Intestine, Open Approach (ICD-10-PCS; principal; 2020-04-15)
PROC: 0DB80ZZ Excision of Small Intestine, Open Approach (ICD-10-PCS; 2020-04-15)
PROC: 06HY33Z Insertion of Infusion Device into Lower Vein, Percutaneous Approach (ICD-10-PCS; 2020-04-15)
PROC: 05HN33Z Insertion of Infusion Device into Left Internal Jugular Vein, Percutaneous Approach (ICD-10-PCS; 2020-04-15)
PROC: B544ZZA Ultrasonography of Left Jugular Veins, Guidance (ICD-10-PCS; 2020-04-15)
PROC: 3E043XZ Introduction of Vasopressor into Central Vein, Percutaneous Approach (ICD-10-PCS; 2020-04-16)
PROC: 5A1955Z Respiratory Ventilation, Greater than 96 Consecutive Hours (ICD-10-PCS; 2020-04-16)
PROC: 0BH17EZ Insertion of Endotracheal Airway into Trachea, Via Natural or Artificial Opening (ICD-10-PCS; 2020-04-16)
PROC: 0WCG0ZZ Extirpation of Matter from Peritoneal Cavity, Open Approach (ICD-10-PCS; 2020-04-17)
PROC: 5A1D70Z Performance of Urinary Filtration, Intermittent, Less than 6 Hours Per Day (ICD-10-PCS; 2020-04-17)
PROC: 30243R1 Transfusion of Nonautologous Platelets into Central Vein, Percutaneous Approach (ICD-10-PCS; 2020-04-17)
PROC: 30243N1 Transfusion of Nonautologous Red Blood Cells into Central Vein, Percutaneous Approach (ICD-10-PCS; 2020-04-17)
PROC: 0DBL0ZZ Excision of Transverse Colon, Open Approach (ICD-10-PCS; 2020-04-20)
PROC: 0DBB0ZZ Excision of Ileum, Open Approach (ICD-10-PCS; 2020-04-20)
PROC: 0D1B0Z4 Bypass Ileum to Cutaneous, Open Approach (ICD-10-PCS; 2020-04-20)
PROC: 0JH63XZ Insertion of Tunneled Vascular Access Device into Chest Subcutaneous Tissue and Fascia, Percutaneous Approach (ICD-10-PCS; 2020-04-20)
PROC: 02HV33Z Insertion of Infusion Device into Superior Vena Cava, Percutaneous Approach (ICD-10-PCS; 2020-04-20)
PROC: B518ZZA Fluoroscopy of Superior Vena Cava, Guidance (ICD-10-PCS; 2020-04-20)
PROC: B548ZZA Ultrasonography of Superior Vena Cava, Guidance (ICD-10-PCS; 2020-04-20)
PROC: 3E0M05Z Introduction of Adhesion Barrier into Peritoneal Cavity, Open Approach (ICD-10-PCS; 2020-04-20)
PROC: B24BZZ4 Ultrasonography of Heart with Aorta, Transesophageal (ICD-10-PCS; 2020-04-29)
PROC: 5A2204Z Restoration of Cardiac Rhythm, Single (ICD-10-PCS; 2020-04-29)
DX: A41.9 Sepsis, unspecified organism (principal); R65.21 Severe sepsis with septic shock; K55.049 Acute infarction of large intestine, extent unspecified; K55.029 Acute infarction of small intestine, extent unspecified; R57.1 Hypovolemic shock; K65.9 Peritonitis, unspecified; J96.01 Acute respiratory failure with hypoxia; N17.0 Acute kidney failure with tubular necrosis; K55.039 Acute (reversible) ischemia of large intestine, extent unspecified; K55.019 Acute (reversible) ischemia of small intestine, extent unspecified; G93.41 Metabolic encephalopathy; M62.82 Rhabdomyolysis; I47.2 Ventricular tachycardia; I48.92 Unspecified atrial flutter; E46 Unspecified protein-calorie malnutrition; D62 Acute posthemorrhagic anemia; E87.4 Mixed disorder of acid-base balance; E87.1 Hypo-osmolality and hyponatremia; J98.11 Atelectasis; G72.81 Critical illness myopathy; F05 Delirium due to known physiological condition; G89.29 Other chronic pain; M54.9 Dorsalgia, unspecified; E78.5 Hyperlipidemia, unspecified; I10 Essential (primary) hypertension; E03.9 Hypothyroidism, unspecified; K21.9 Gastro-esophageal reflux disease without esophagitis; R74.0 Nonspecific elevation of levels of transaminase and lactic acid dehydrogenase [LDH]; E66.9 Obesity, unspecified; E86.9 Volume depletion, unspecified; E86.0 Dehydration; D69.6 Thrombocytopenia, unspecified; I48.0 Paroxysmal atrial fibrillation; F15.10 Other stimulant abuse, uncomplicated; F14.10 Cocaine abuse, uncomplicated; F19.10 Other psychoactive substance abuse, uncomplicated; I70.0 Atherosclerosis of aorta; E83.51 Hypocalcemia; E11.65 Type 2 diabetes mellitus with hyperglycemia; E88.09 Other disorders of plasma-protein metabolism, not elsewhere classified; G83.21 Monoplegia of upper limb affecting right dominant side; E83.39 Other disorders of phosphorus metabolism; Z90.710 Acquired absence of both cervix and uterus; Z79.899 Other long term (current) drug therapy; Z79.01 Long term (current) use of anticoagulants; Z79.890 Hormone replacement therapy; Z68.27 Body mass index [BMI] 27.0-27.9, adult
CPT/HCPCS: 36415; 36416; 36430; 70450; 71045; 74018; 74176; 80048; 80053; 80069; 80162; 81001; 82040; 82550; 82570; 82805; 83605; 83735; 84100; 84156; 84300; 84439; 84443; 85025; 85610; 85730; 86704; 86706; 86803; 86850; 86900; 86901; 87040; 87086; 87149; 87340; 88307; 90935; 92960; 93005; 93010; 93306; 93312; 93970; 94002; 94003; 94640; 94660; 99285; A4217; C1752; C9113; G0257; G0365; J0153; J0282; J0360; J0692; J1160; J1642; J1644; J1720; J1815; J1940; J2060; J2185; J2250; J2270; J2370; J2405; J2543; J2704; J2765; J3010; J3475; J3490; J7070; J7620; P9016; P9035; P9045; P9047; S0020

== ENCOUNTER 2020-05-20 14:37 | Inpatient (IN) | payer MEDICARE, MEDICAID ==
[2020-05-20 16:26] LABS: #Lymphocytes 1.1 thou/uL (1.20-3.40); #Monocytes 0.5 thou/uL (0.11-0.59); %Eosinophils 0.7 % (0.0-10.0); %Lymphocytes 19.2 % (21.0-51.0); %Monocytes 8.2 % (0.0-10.0); %Neutrophils 71.9 % (42.0-75.0); Hemoglobin 12.8 g/dL (12.0-16.0); Mean Corpuscular HGB CONC 33.6 g/dL (32.0-36.0); Mean Corpuscular Hemoglobin 31.7 pg (27.0-31.0); Mean Corpuscular Volume 94.4 fL (78.0-98.0); Mean Platelet Volume 7.3 fL (7.4-10.4); Platelet Count 286 thou/uL (130-400); RBC Distribution Width 13.4 % (11.5-14.5); Red Blood Cell (RBC) Count 4.05 mill/uL (4.20-5.40); White Blood Cell (WBC) Count 5.6 thou/uL (4.8-10.8)
[2020-05-20 16:48] LABS: ALT (SGPT) 10 U/L (8-55); AST (SGOT) 10 U/L (5-34); Albumin 3.5 g/dL (3.4-4.8); Alkaline Phosphatase 137 U/L (40-110); Anion Gap 21 mmol/L (10-20); BUN (Urea Nitrogen) 61 mg/dL (9.8-20.1); Bilirubin, Total 0.3 mg/dL (0.2-1.2); Calc. Creatinine Clearance 0 mL/min (70-130); Calcium 8.8 mg/dL (7.8-10.44); Carbon Dioxide 18 mmol/L (23-31); Chloride 109 mmol/L (98-107); Estimated GFR-MDRD 10; Globulin 3.3 g/dL (2.4-3.5); Glucose 98 mg/dL (80-115); Potassium 4.4 mmol/L (3.5-5.1); Protein, Total 6.8 g/dL (6.0-8.3); Sodium 144 mmol/L (136-145)
[2020-05-20 17:02] LABS: Bilirubin 1+ (Negative); Blood, Urine 2+ (Negative); Clarity Turbid (Clear); Glucose, Urine (Dipstick) Normal (Negative); Ketone, Urine Negative (Negative); Leukocyte 500 Leu/uL (Negative); Nitrite Negative (Negative); Protein, Urine (Dipstick) 100 mg/dL (Neg-Trace); Renal Epithelial 0-3 HPF (None Seen); Specific Gravity, Urine 1.024 (1.002-1.036); Squamous Epithelial 0-3 HPF (0-3); Transitional Epithelial 0-3 HPF (None Seen); Urobilinogen Normal mg/dL (Less than 2); WBC/HPF Greater than 50 HPF (0-3); Yeast-Budding 1+ HPF (None Seen); pH, Urine 5.5 (5.0-9.0)
[2020-05-20 17:09] LABS: CKMB 1.2 ng/mL (0-6.6)
[2020-05-20 17:13] LABS: Bacteria/HPF Rare-Few HPF (None Seen)
[2020-05-20 17:14] LABS: Yeast-Hyphae 1+ HPF (None Seen)
--- NOTE | 2020-05-20 17:35 | RAD ---
AP CHEST: Date; 05/20/2020 INDICATION: Hypertension and weakness. COMPARISON: 04/24/2020. FINDINGS: Left lung base is poorly evaluated. I cannot exclude left basilar atelectasis or infiltrate. Strandin g in the mid left lung suggests atelectasis. The right lung appears clear. A dual lumen central line has tip overlying the SVC. IMPRESSION: Evidence of left basilar atelectasis or infiltrate. Linear stranding in the left mid lung. The chest is otherwise unremarkable. POS: AH
[2020-05-20] MEDS ORDERED: HumaLOG 300 UNITS/3 ML VIAL SC PRN (20:47)
[2020-05-20] MEDS ORDERED: Dextrose 50% Abboject 50 ML SYRINGE SLOW IVP PRN (20:47)
[2020-05-20] MEDS ORDERED: Dextrose 5% in Water 1,000 ML IV PRN (20:47)
[2020-05-20] MEDS ORDERED: Sodium Chloride 0.9% 1,000 ML IV SCH ×2 (21:00)
[2020-05-20] MEDS: cefTRIAXone\\ROCEPHIN 1 GM in Sodium Chloride 0.9% 100 ML IVPB SCH (21:24)
[2020-05-20 22:42] VITALS: BMI 21.1
--- NOTE | 2020-05-21 00:21 | HP ---
REASON FOR ADMISSION: Abdominal pain, dehydration. HISTORY OF PRESENT ILLNESS: This is a 70-year-old female patient, who was recently in our hospital, diagnosed with ischemic bowel and underwent an ileostomy, then discharged to a LTAC in [place] and then there she was found to be obtunded, did go to [facility] and then discharged to come back today complaining of pain around the ostomy point of entry, also not satisfied with the way the ostomy is. In the ER, she was found to have low blood pressure. The patient did tell me that she has been having low blood pressure readings recently. She was on blood pressure medication that was stopped. She does report to me that whenever she goes to Dialysis, she feels weak after and one time, she passed out during hemodialysis. She describes her abdominal pain as around the colostomy, cramping in nature, and she does have very liquid stool recently. She has not been eating much and not hydrating herself enough. She is not making any urine. I did review her records and I see that she in April remained hospitalized for 18 days. During that time, she was diagnosed with ischemic bowels, underwent exploratory laparotomy with right hemicolectomy, removal of 18 inch of her ileum and resection of a transverse colon. She also had right cuffed dialysis catheter placed. There was some mention of paranoia and confusion, also hypertension. Her urine drug screen revealed PCP, opiates and amphetamine. She has history of atrial fibrillation and at that time, she has not been taking her anticoagulation, which was thought to be the cause of her ischemic bowels combined with her substance abuse. PAST MEDICAL HISTORY: 1. Back pain. 2. High blood pressure. 3. Hypothyroidism. 4. GERD. 5. Atrial fibrillation. SOCIAL HISTORY: Positive for drug use. ALLERGIES: NO KNOWN DRUG ALLERGIES. FAMILY HISTORY: Reviewed and found to be noncontributory. REVIEW OF SYSTEMS: All systems reviewed except for the above mentioned, found to be negative. PHYSICAL EXAMINATION: GENERAL: She is awake, alert, oriented, does not appear in distress. VITAL SIGNS: Her blood pressure is 95/50, heart rate 85, temperature is 98.2, saturating 99% on room air. HEENT: Head is nontraumatic, normocephalic. Pupils equal, reactive. Extraocular movements are intact. Nonicteric sclerae. Well injected conjunctivae. Oral mucosa normal. Nasal mucosa normal. NECK: Supple. No adenopathy. No murmur. Thyroid is not palpable. Trachea is midline. No supraclavicular lymphadenopathy. HEART: S1 and S2 regular. No murmur. No gallops. No friction rubs. No displacement of PMI. LUNGS: Clear to auscultation bilaterally. No wheezes. No rhonchi. No crackles. Bowel sounds are positive. ABDOMEN: Nontender. Examination around her colostomy back reveals exposed mucosa but no erythema, not warm to touch. No lower extremity edema. No cyanosis. NEURO: Cranial nerves 2 through 12 within normal limits. Normal motor function. Normal sensory function. Normal reflexes. LABORATORY DATA: Blood work shows WBC of 5.6, hemoglobin of 12.8, platelets of 286, INR 1.2. Sodium 144, potassium 4.4, bicarb of 18, previous bicarb was 17. Her BUN 61, her creatinine 4.2, previous creatinine 5.73. Initial troponin 0.056. Urinalysis shows leukocyte esterase and more than 50 wbc's. Chest x-ray shows evidence of left basilar atelectasis or infiltrate. Linear stranding in the left midlung. ASSESSMENT AND PLAN: This is a 70-year-old female patient, who is complaining of pain around her ostomy site, also has been having low blood pressure. Renal system, electrolytes. The patient might need a nephrology consultation for possible dialysis at some point. Her labs are currently acceptable. I will continue to monitor, her urine does reflect urinary tract infection. We will cover her with IV Rocephin and her blood pressure is on the low side. We will gently hydrate and monitor. In regards of her ostomy site, we will ask Wound Care team to see her. In regards of her liquid stools, Clostridium difficile sample was obtained. Cardiac: The patient has history of atrial fibrillation. Continue with amiodarone and Eliquis. Her blood pressure is on the low side. We will hold her blood pressure medications. The patient is on insulin at home. She will be on insulin sliding scale here until we reconcile her current medications. For deep venous thrombosis prophylaxis, she is already on Eliquis and she will be on SCDs. I did discuss with her the code status and she wishes to be a full code. Job ID: [id number]
[2020-05-21] MEDS: Acyclovir 200 mg Capsule PO SCH ×2 (05:20→17:40)
[2020-05-21] MEDS: Levothyroxine Sodium 25 MCG TAB PO SCH ×2 (05:20→05:29)
[2020-05-21 05:57] LABS: Anion Gap 21 mmol/L (10-20); BUN (Urea Nitrogen) 68 mg/dL (9.8-20.1); Calc. Creatinine Clearance 12 mL/min (70-130); Calcium 8.7 mg/dL (7.8-10.44); Carbon Dioxide 17 mmol/L (23-31); Chloride 111 mmol/L (98-107); Estimated GFR-MDRD 10; Glucose 92 mg/dL (80-115); Potassium 4.1 mmol/L (3.5-5.1); Sodium 145 mmol/L (136-145)
[2020-05-21 06:01] LABS: Troponin I 0.035 ng/mL (< 0.028)
[2020-05-21] MEDS ORDERED: Albumin 25% 25 GM/100 ML BOT IVPB SCH (09:34)
[2020-05-21] MEDS ORDERED: Sodium Bicarbonate 50 MEQ in Sodium Chloride 0.45% 1,000 ML IV SCH (09:45)
--- NOTE | 2020-05-21 10:25 | CON ---
DATE OF CONSULTATION: 05/21/2020 SERVICE: Nephrology. REASON FOR CONSULTATION: Renal failure management. REQUESTING PHYSICIAN: Augustine Weaver MD HISTORY OF PRESENT ILLNESS: A 70-year-old female, well known to me from previous hospitalization, admitted from home due to hypotension. The patient was seen in this hospital about 3 weeks ago during which she had sepsis from ischemic colitis requiring resection of large segment of the colon with ileostomy. The patient developed ATN, requiring hemodialysis during that hospitalization and was subsequently discharged to an LTAC in [place]. The patient reportedly developed hypotension during dialysis session and was subsequently transferred to [facility]. The patient reported that the care she got there was not good enough for her and she subsequently left against medical advice on May 19. She spent only a day at home and yesterday was brought to the hospital to have dialysis. Reportedly, last dialysis was on Saturday, May 18. Since the patient left against medical advice, no arrangement for outpatient hemodialysis was concluded. She presented to the ER and was found to have hypotension, hence was started on IV fluids while antihypertensives were held. The patient tells me that she has leakage on raw area around the ostomy. She also complained of generalized weakness. The patient currently moves around with wheelchair since home. There was no history of vomiting or fever. She still is not making any more significant urine. The patient kept on insisting on wanting to go home today. OBJECTIVE: VITAL SIGNS: Temperature 98.7, pulse 81, respiratory rate 14, SpO2 of 98% on room air, blood pressure is 106/70. GENERAL: Chronically ill-looking female, cachectic, in no obvious distress. HEENT: Normocephalic, atraumatic. Oral mucosa is dry. NECK: Supple with no JVD. CARDIOVASCULAR: Regular rhythm and rate with normal heart sounds. RESPIRATORY: Fair air entry bilaterally with some transmitted breath sounds, but no obvious rhonchi or use of accessory muscles. GI: Flat. Surgical wound noted. Right upper quadrant ostomy noted with liquid in the ostomy. EXTREMITIES: Marked muscular atrophy with no edema noted. SKIN: Poor skin turgor noted. Some exfoliation of the skin also is noted and marked wrinkling. 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 Cranial nerves 2 through 12 are grossly intact. DIAGNOSTIC DATA: CBC, yesterday May 20, showed WBC of 5.6, hemoglobin of 12.8, MCV of 94.4, platelet of 286. Chemistry today showed sodium 145, potassium 4.1, chloride 111, CO2 of 17, BUN 68, creatinine 4.52, glucose 92, calcium 8.7. ASSESSMENT: 1. Acute renal failure with tubular necrosis. No recovery as yet. The patient is hemodialysis dependent. Last dialysis was on May 18. 2. Severe dehydration: Due to high-output ostomy. 3. Metabolic acidosis due to acute kidney injury and GI losses from ostomy. 4. Hypotension due to dehydration with possible contribution from antihypertensives. 5. Severe protein-calorie malnutrition. DISCUSSION: 1. I had extensive discussion with this patient for more than 45 minutes discussing about the need to stay in hospital to allow for the stabilization and arrangement for outpatient dialysis which she definitely needs. Moreover, the patient appeared clinically dry and needs more IV fluid in view of high-output colostomy. The patient also need to be in the hospital to be re-evaluated by surgical service. 2. In the interim, I will go ahead and give patient 25 g of albumin. We will also discontinue normal saline and start the patient on bicarb containing fluid in view of marked dehydration and high-output ostomy. 3. We will continue to hold antihypertensives. 4. There is no immediate need for hemodialysis at this point, and potassium is only 4.1, and the patient is clinically dry. BUN and creatinine importantly not very very high. The patient has no overt sign of uremia. 5. We will also start the patient on Ensure t.i.d. The patient also needs dietary consult to help nutritional rehabilitation. Further treatment to follow depending on hospital course. Job ID: [id number]
[2020-05-21] MEDS: Apixaban 5 MG TAB PO SCH ×2 (10:29→21:15)
[2020-05-21] MEDS: Amiodarone 200 MG TAB PO SCH ×2 (10:29→21:15)
[2020-05-21] MEDS: Sevelamer Carbonate 800 MG TAB PO SCH ×3 (10:29→17:40)
[2020-05-21] MEDS: HumuLIN 70/30 (300 UNITS/3 ML VIAL) SC SCH ×2 (10:34→21:17)
[2020-05-21] MEDS ORDERED: Morphine 2 MG/ML VIAL SLOW IVP PRN (10:39)
[2020-05-21] MEDS: Acetaminophen 325 MG TAB PO PRN (10:55)
[2020-05-21] MEDS: ALPRAZolam 0.25 MG TAB PO PRN (10:55)
--- NOTE | 2020-05-21 11:31 | PDOC.GSPN ---
Surgery Progress Note: Subj - Subjective Narrative: Pt admitted with ostomy concerns. Chronic problems maintaining seal and noncompliance issues. Does not empty her own bag. Unaware how much it's putting out. Not on lomotil. Currently insisting she needs to go home and refusing to let nurses touch ostomy which has saturated a towel around her stoma. She did allow me and the wound care nurse to remove the appliance. She has chemical irritation of peristomal skin but no infection and the stoma is healthy and her midline incision is healing. We are going to apply Cavalon spray and Adapt stoma powder in several alternating layers, then a Renasys adhesive patch under her stoma bag to obtain a good seal. The patient was instructed to empty her stoma pouch as soon as it's detention full to avoid overfilling and leaking. She will need to continue this regimen after discharge with home health. I am starting Lomotil which she should also continue as an outpatient. She should follow up with Dr Levy as scheduled. Signing off. Assessment: Peristomal skin irritation due to poor compliance with stomal management. NO infection or surgical issues. Plan: Lomotil. Cavalon spray and Adapt stoma powder in several alternating layers, then a Renasys adhesive patch under her stoma bag to obtain a good seal to be continued by Home Health after discharge. Empty bag when half full. Surgery Progress Note: Obj - Vital signs Vital signs: Vital Signs - Most Recent Temp Pulse Resp BP Pulse Ox 98.7 F 81 14 106/70 98 05/21/20 07:57 05/21/20 07:57 05/21/20 07:57 05/21/20 07:57 05/21/20 07:57 Surgery Progress Note: Results - Labs Result Diagrams: 05/20/20 16:10 05/21/20 05:20 Lab results: Laboratory Results - last 24 hr 05/21/20 05/21/20 05/21/20 05:20 05:20 05:42 Sodium 145 Potassium 4.1 Chloride 111 H Carbon Dioxide 17 L Anion Gap 21 H BUN 68 H Creatinine 4.52 H Estimated GFR (MDRD) 10 Glucose 92 POC Glucose 97 Calcium 8.7 Troponin I 0.035 H Albumin 05/21/20 05/21/20 08:39 10:40 Sodium Potassium Chloride Carbon Dioxide Anion Gap BUN Creatinine Estimated GFR (MDRD) Glucose POC Glucose 123 H Calcium Troponin I Albumin 3.1 L
[2020-05-21] MEDS: Diphenoxylate HCl/Atropine Tablet PO SCH ×3 (12:09→23:02)
--- NOTE | 2020-05-21 13:04 | PDOC.HOSPP ---
- Subjective Encounter Date: 05/21/20 Encounter Time: 11:30 Subjective: pt is in quite a bit of distress about her ileostomy bag. talk to RN, pain med and antisedatives ordered. Ileostomy site looks erythematic. bag is almost full. - Objective Vital Signs & Weight: Vital Signs (12 hours) Temp Pulse Resp BP Pulse Ox 05/21/20 11:27 98.1 F 83 14 108/65 97 05/21/20 07:57 98.7 F 81 14 106/70 98 05/21/20 04:37 98.0 F 84 16 100/59 L 94 L Weight Weight 138 lb 14.259 oz I&O: 05/20/20 05/21/20 05/22/20 06:59 06:59 06:59 Intake Total 1000 Output Total 300 Balance 700 Result Diagrams: 05/20/20 16:10 05/21/20 05:20 Additional Labs: Accuchecks 05/21/20 05/21/20 05/20/20 10:40 05:42 22:28 POC Glucose 123 H 97 114 H Hospitalist ROS - Medication Medications: Active Medications Generic Name Dose Route Start Last Admin Trade Name Freq PRN Reason Stop Dose Admin Acetaminophen 650 mg 05/21/20 10:39 05/21/20 10:55 Tylenol PO 650 mg Q6H PRN Administration Headache/Fever or Pain Acyclovir 200 mg 05/21/20 06:00 05/21/20 05:20 Zovirax PO 200 mg 0600,1800 ELY Administration Albumin Human 25 gm 05/21/20 09:34 05/21/20 10:29 Albumin 25% IVPB 05/21/20 16:00 25 gm NOW ELY Administration Alprazolam 0.25 mg 05/21/20 10:39 05/21/20 10:55 Xanax PO 0.25 mg BIDPRN PRN Administration Anxiety Amiodarone HCl 200 mg 05/21/20 09:00 05/21/20 10:29 Cordarone PO 200 mg BID ELY Administration Apixaban 5 mg 05/21/20 09:00 05/21/20 10:29 Eliquis PO 5 mg BID ELY Administration Diphenoxylate HCl/Atropine 1 tab 05/21/20 12:00 05/21/20 12:09 Lomotil PO 1 tab Q6HR ELY Administration Ceftriaxone Sodium 1 gm/ 100 mls @ 200 mls/hr 05/20/20 21:00 05/20/20 21:24 Sodium Chloride IVPB 100 mls Q24HR ELY Administration Sodium Bicarbonate 50 meq/ 1,050 mls @ 100 mls/hr 05/21/20 09:45 05/21/20 10: 28 Sodium Chloride IV 05/21/20 20:14 1,050 mls ONE ELY Administration Insulin Human Isoph/Insulin Regular 10 units 05/21/20 09:00 05/21/20 10:34 Humulin 70/30 SC Not Given BID ELY Levothyroxine Sodium 25 mcg 05/21/20 06:00 05/21/20 05:29 Synthroid PO Not Given 0600 ELY Pantoprazole Sodium 40 mg 05/21/20 09:00 05/21/20 05:28 Protonix PO 40 mg DAILY ELY Administration Sevelamer Carbonate 800 mg 05/21/20 08:00 05/21/20 12:09 Renvela PO 800 mg TID-WM ELY Administration - Exam General Appearance: ill appearing General - other findings: anixous Eye: PERRL ENT: normocephalic atraumatic Heart: RRR Respiratory: CTAB, normal chest expansion Gastrointestinal: normal bowel sounds Gastrointestinal - other findings: Ileostomy site looks erythematic. bag is almost full. Neurological: no focal deficits Hosp A/P - Plan recent hx of Ischemic bowel s/p hemicolectomy, resection of transverse colon and part of ileum -ileostomy bag - sux followed. -per their instruction " Lomotil. Cavalon spray and Adapt stoma powder in several alternating layers, then a Renasys adhesive patch under her stoma bag to obtain a good seal to be continued by Home Health after discharge. Empty bag when half full." Cellultis around the site -- on ctx for now. Afib - on amio and eliquis -rate controlled Hypothyroidism - on supplement -fw on tsh Pain control, stool softener. if stable plan to send home in 1 to 2 days. full code.
[2020-05-21] MEDS ORDERED: Artificial Tears 18 DROP/0.9 ML EA EYE PRN (14:02)
[2020-05-21 21:08] LABS: #Eosinphils 0.1 thou/uL (0.0-0.7); #Lymphocytes 1.9 thou/uL (1.20-3.40); #Monocytes 0.7 thou/uL (0.11-0.59); #Neutrophils 5.5 thou/uL (1.40-6.50); %Basophils 0.2 % (0.0-1.0); %Eosinophils 0.8 % (0.0-10.0); %Lymphocytes 23.2 % (21.0-51.0); %Monocytes 8.2 % (0.0-10.0); %Neutrophils 67.7 % (42.0-75.0); Hemoglobin 7.6 g/dL (12.0-16.0); Mean Corpuscular HGB CONC 32.8 g/dL (32.0-36.0); Mean Corpuscular Hemoglobin 31.2 pg (27.0-31.0); Mean Corpuscular Volume 95.1 fL (78.0-98.0); Platelet Count 369 thou/uL (130-400); RBC Distribution Width 13.6 % (11.5-14.5); Red Blood Cell (RBC) Count 2.45 mill/uL (4.20-5.40); White Blood Cell (WBC) Count 8.1 thou/uL (4.8-10.8)
[2020-05-21] MEDS: cefTRIAXone\\ROCEPHIN 1 GM in Sodium Chloride 0.9% 100 ML IVPB SCH (21:15)
[2020-05-22] MEDS: Levothyroxine Sodium 25 MCG TAB PO SCH (05:30)
[2020-05-22] MEDS: Diphenoxylate HCl/Atropine Tablet PO SCH ×3 (05:30→18:27)
[2020-05-22] MEDS: Acyclovir 200 mg Capsule PO SCH ×2 (05:31→18:28)
[2020-05-22 07:50] LABS: Anion Gap 22 mmol/L (10-20); Carbon Dioxide 14 mmol/L (23-31); Chloride 111 mmol/L (98-107); Phosphorus 5.4 mg/dL (2.3-4.7); Sodium 143 mmol/L (136-145)
[2020-05-22 08:07] LABS: Albumin 3.3 g/dL (3.4-4.8); BUN (Urea Nitrogen) 75 mg/dL (9.8-20.1); BUN/Creatinine Ratio 15.43; Calc. Creatinine Clearance 11 mL/min (70-130); Estimated GFR-MDRD 9; Glucose 93 mg/dL (80-115)
[2020-05-22] MEDS: Sevelamer Carbonate 800 MG TAB PO SCH ×4 (08:30→18:27)
[2020-05-22] MEDS: Amiodarone 200 MG TAB PO SCH ×2 (08:31→21:25)
[2020-05-22] MEDS: Apixaban 5 MG TAB PO SCH ×2 (08:31→21:25)
[2020-05-22] MEDS: HumuLIN 70/30 (300 UNITS/3 ML VIAL) SC SCH (08:31)
[2020-05-22] MEDS: Sodium Bicarbonate 150 MEQ in Dextrose 5% in Water 1,000 ML IV SCH (11:42)
[2020-05-22] MEDS ORDERED: Ondansetron PF 4 MG/2 ML Vial IVP SCH (13:00)
--- NOTE | 2020-05-22 14:33 | PDOC.HOSPP ---
- Subjective Encounter Date: 05/22/20 Encounter Time: 10:30 Subjective: pt still somewhat distressed about her ileostomy bag. and wants to talk to DR. Levy. talk to RN as well. Ileostomy bag puts out 950ml so far. - Objective Vital Signs & Weight: Vital Signs (12 hours) Temp Pulse Resp BP Pulse Ox 05/22/20 11:51 98.1 F 78 14 102/66 98 05/22/20 08:04 98.0 F 77 14 115/69 99 05/22/20 03:09 98.1 F 73 14 113/60 97 Weight Admit Weight 138 lb Weight 138 lb 14.259 oz I&O: 05/21/20 05/22/20 05/23/20 06:59 06:59 06:59 Intake Total 1000 1416 Output Total 300 950 Balance 700 466 Result Diagrams: 05/21/20 20:57 05/22/20 07:01 Hospitalist ROS - Medication Medications: Active Medications Generic Name Dose Route Start Last Admin Trade Name Freq PRN Reason Stop Dose Admin Acetaminophen 650 mg 05/21/20 10:39 05/21/20 10:55 Tylenol PO 650 mg Q6H PRN Administration Headache/Fever or Pain Acyclovir 200 mg 05/21/20 06:00 05/22/20 05:31 Zovirax PO 200 mg 0600,1800 ELY Administration Alprazolam 0.25 mg 05/21/20 10:39 05/21/20 10:55 Xanax PO 0.25 mg BIDPRN PRN Administration Anxiety Amiodarone HCl 200 mg 05/21/20 09:00 05/22/20 08:31 Cordarone PO 200 mg BID ELY Administration Apixaban 5 mg 05/21/20 09:00 05/22/20 08:31 Eliquis PO 5 mg BID ELY Administration Diphenoxylate HCl/Atropine 1 tab 05/21/20 12:00 05/22/20 11:42 Lomotil PO 1 tab Q6HR ELY Administration Ceftriaxone Sodium 1 gm/ 100 mls @ 200 mls/hr 05/20/20 21:00 05/21/20 21:15 Sodium Chloride IVPB 100 mls Q24HR ELY Administration Sodium Bicarbonate 150 meq/ 1,150 mls @ 100 mls/hr 05/22/20 11:00 05/22/20 11 :42 Dextrose/Water IV 1,150 mls INF ELY Administration Insulin Human Isoph/Insulin Regular 10 units 05/21/20 09:00 05/22/20 08:31 Humulin 70/30 SC Not Given BID ELY Levothyroxine Sodium 25 mcg 05/21/20 06:00 05/22/20 05:30 Synthroid PO 25 mcg 0600 ELY Administration Pantoprazole Sodium 40 mg 05/21/20 09:00 05/22/20 08:31 Protonix PO 40 mg DAILY ELY Administration Sevelamer Carbonate 800 mg 05/21/20 08:00 05/22/20 13:18 Renvela PO Not Given TID-WM ELY - Exam General Appearance: NAD, awake alert Eye: PERRL ENT: normocephalic atraumatic Neck: supple Heart: RRR, normal peripheral pulses Respiratory: CTAB, normal chest expansion Gastrointestinal: soft, normal bowel sounds Gastrointestinal - other findings: ilesosotmy - brown liquid stool Neurological: no focal deficits Hosp A/P - Plan recent hx of Ischemic bowel s/p hemicolectomy, resection of transverse colon and part of ileum -ileostomy bag - sux followed. -per their instruction " Lomotil. Cavalon spray and Adapt stoma powder in several alternating layers, then a Renasys adhesive patch under her stoma bag to obtain a good seal to be continued by Home Health after discharge. Empty bag when half full." Cellultis around the site -- on ctx for now. Afib - on amio and eliquis -rate controlled Hypothyroidism - on supplement -fw on tsh Pain control, stool softener. full code. 12th pt wants to talk to DR. Levy reg.. [facility] ileostomy bag prior to discharge. rehab vs.. C w.. nursing options.
[2020-05-22] MEDS: Ondansetron ODT 4 MG TAB PO PRN (15:19)
--- NOTE | 2020-05-22 15:29 | PRG ---
DATE OF SERVICE: 05/22/2020 SERVICE: Nephrology. SUBJECTIVE: A 70-year-old female, seen in followup for acute tubular necrosis/acute renal failure, requiring hemodialysis. The patient today complains of dry mouth. Denied nausea or vomiting. Reportedly made more urine yesterday. Overall, feeling better. Denied fever or shortness of breath. The patient now is staying in the hospital for further evaluation and treatment. Last dialysis was on May 18, 2020. OBJECTIVE: VITAL SIGNS: Temperature 98.0, pulse 77, respiratory rate 14, SpO2 of 99% on room air, blood pressure is 115/69. I and O in the last 24 hours showed total intake of 1416 with total output of 950. This is grossly incomplete as output of 950 from the ostomy was recorded, but no urine amount was recorded. The patient had passed some urine. GENERAL: Chronically ill-looking cachectic female, in no obvious distress. Afebrile. HEENT: Normocephalic, atraumatic. Oral mucosa is mildly dry. CARDIOVASCULAR: Regular rhythm and rate with normal heart sounds 1 and 2. RESPIRATORY: Fair air entry bilaterally with no obvious crackle or use of accessory muscles. GI: Full, soft nondistended with normal bowel sounds. Right upper quadrant colostomy noted. MUSCULOSKELETAL/EXTREMITIES: Marked wasting of the extremities noted. No edema appreciated. SKIN: Dry with poor skin turgor. COPPER MINER BLASTING: Conscious, alert, oriented x3 with appropriate mental status. Cranial nerves 2 through 12 are grossly intact. DIAGNOSTIC DATA: Chemistry today showed sodium 143, potassium 4.0, chloride 111, CO2 of 14, BUN 75, creatinine 4.86, glucose 93, calcium 9.0, phosphorus 5.4, albumin 3.3. CBC yesterday May 21 showed WBC 8.1, hemoglobin 7.6, MCV 95.1, and platelet 369. Hemoglobin dropped acutely from admission level of 12.8 on May 20 to 7.6. ASSESSMENT: 1. Acute renal failure with acute tubular necrosis requiring hemodialysis treatment. The patient has been on dialysis up until May 18, 2020. She reportedly had an episode of syncope during hemodialysis. The patient is clinically dry. With IV fluid therapy, she is making more urine. There is no overt evidence of renal recovery though the patient currently look volume depleted and was hypotensive on presentation. There is no immediate need for hemodialysis at this point as electrolytes are acceptable and the patient is actually volume depleted. 2. Severe dehydration with hemoconcentration. On presentation, hemoglobin was 12.8, which dropped to 7.6. There is no overt bleeding. 3. Metabolic acidosis due to acute renal failure and GI losses from ostomy. 4. High output colostomy. 5. Severe protein-calorie malnutrition. 6. Hyperphosphatemia. PLAN: 1. We will start sodium bicarbonate infusion. 2. [place] oral intake advised. 3. We will also start oral supplement. 4. We will get strict intake and output. 5. We will recheck renal function test tomorrow to look for renal recovery. 6. There is no need for hemodialysis at this time. We will re-examine the patient tomorrow with repeat labs. Continue to avoid nephrotoxic agents. 7. Blood pressure has improved with volume expansion. Job ID: [id number]
[2020-05-22] MEDS: Acetaminophen 325 MG TAB PO PRN (21:25)
[2020-05-22] MEDS: cefTRIAXone\\ROCEPHIN 1 GM in Sodium Chloride 0.9% 100 ML IVPB SCH (21:25)
[2020-05-22] MEDS: ALPRAZolam 0.25 MG TAB PO PRN (21:25)
[2020-05-23] MEDS: Diphenoxylate HCl/Atropine Tablet PO SCH ×4 (00:56→16:48)
[2020-05-23] MEDS: HumuLIN 70/30 (300 UNITS/3 ML VIAL) SC SCH ×3 (00:56→21:40)
[2020-05-23] MEDS: Sodium Bicarbonate 150 MEQ in Dextrose 5% in Water 1,000 ML IV SCH ×2 (03:02→05:20)
[2020-05-23] MEDS: Acetaminophen 325 MG TAB PO PRN ×2 (03:02→09:07)
[2020-05-23] MEDS: Levothyroxine Sodium 25 MCG TAB PO SCH (05:18)
[2020-05-23] MEDS: Acyclovir 200 mg Capsule PO SCH ×2 (05:18→16:48)
[2020-05-23 05:40] LABS: Hemoglobin 7.8 g/dL (12.0-16.0); Mean Corpuscular Hemoglobin 31.1 pg (27.0-31.0); Mean Corpuscular Volume 94.2 fL (78.0-98.0); Mean Platelet Volume 7.2 fL (7.4-10.4); Platelet Count 361 thou/uL (130-400); Red Blood Cell (RBC) Count 2.51 mill/uL (4.20-5.40); White Blood Cell (WBC) Count 6.5 thou/uL (4.8-10.8)
[2020-05-23 06:01] LABS: Iron 26 ug/dL (50-170); Iron Binding Capacity, Total 185 mcg/dL (265-497)
[2020-05-23 06:03] LABS: Albumin 3.3 g/dL (3.4-4.8); Anion Gap 22 mmol/L (10-20); BUN (Urea Nitrogen) 89 mg/dL (9.8-20.1); BUN/Creatinine Ratio 16.73; Calc. Creatinine Clearance 10 mL/min (70-130); Calcium 8.5 mg/dL (7.8-10.44); Carbon Dioxide 24 mmol/L (23-31); Chloride 102 mmol/L (98-107); Estimated GFR-MDRD 8; Glucose 113 mg/dL (80-115); Iron Binding Capacity, Total 191 mcg/dL (265-497); Phosphorus 5.6 mg/dL (2.3-4.7); Potassium 3.9 mmol/L (3.5-5.1); Sodium 144 mmol/L (136-145)
[2020-05-23] MEDS: Apixaban 5 MG TAB PO SCH ×2 (09:07→21:39)
[2020-05-23] MEDS: Amiodarone 200 MG TAB PO SCH ×2 (09:07→21:38)
[2020-05-23] MEDS: Sevelamer Carbonate 800 MG TAB PO SCH ×3 (09:07→16:48)
[2020-05-23] MEDS: ALPRAZolam 0.25 MG TAB PO PRN ×2 (09:09→16:50)
[2020-05-23] MEDS ORDERED: Heparin 10,000 UNITS/ 10 ML VIAL ONE (09:28)
[2020-05-23 09:55] LABS: Hep B Surf Ag Non-Reactive S/CO (NonReactive)
--- NOTE | 2020-05-23 14:07 | PDOC.HOSPP ---
- Subjective Encounter Date: 05/23/20 Encounter Time: 11:20 Subjective: wound care at [facility], Ilesostomy bag is leaking; Erythema seems improved surrounding the bag, since 2 days ago. . - Objective Vital Signs & Weight: Vital Signs (12 hours) Temp Pulse Resp BP Pulse Ox 05/23/20 07:10 98.1 F 72 18 96/60 98 05/23/20 04:13 97.9 F 72 17 100/65 96 05/23/20 02:44 97 Weight Admit Weight 138 lb Weight 138 lb 14.259 oz I&O: 05/22/20 05/23/20 05/24/20 06:59 06:59 06:59 Intake Total 1416 2480 Output Total 950 975 Balance 466 1505 Result Diagrams: 05/23/20 05:15 05/23/20 05:15 Hospitalist ROS - Medication Medications: Active Medications Generic Name Dose Route Start Last Admin Trade Name Freq PRN Reason Stop Dose Admin Acetaminophen 650 mg 05/21/20 10:39 05/23/20 09:07 Tylenol PO 650 mg Q6H PRN Administration Headache/Fever or Pain Acyclovir 200 mg 05/21/20 06:00 05/23/20 05:18 Zovirax PO 200 mg 0600,1800 ELY Administration Alprazolam 0.25 mg 05/21/20 10:39 05/23/20 09:09 Xanax PO 0.25 mg BIDPRN PRN Administration Anxiety Amiodarone HCl 200 mg 05/21/20 09:00 05/23/20 09:07 Cordarone PO 200 mg BID ELY Administration Apixaban 5 mg 05/21/20 09:00 05/23/20 09:07 Eliquis PO 5 mg BID ELY Administration Diphenoxylate HCl/Atropine 1 tab 05/21/20 12:00 05/23/20 13:30 Lomotil PO Not Given Q6HR ELY Ceftriaxone Sodium 1 gm/ 100 mls @ 200 mls/hr 05/20/20 21:00 05/22/20 21:25 Sodium Chloride IVPB 100 mls Q24HR ELY Administration Sodium Bicarbonate 150 meq/ 1,150 mls @ 100 mls/hr 05/22/20 11:00 05/23/20 05 :20 Dextrose/Water IV 1,150 mls INF ELY Administration Insulin Human Isoph/Insulin Regular 10 units 05/21/20 09:00 05/23/20 08:55 Humulin 70/30 SC Not Given BID ELY Levothyroxine Sodium 25 mcg 05/21/20 06:00 05/23/20 05:18 Synthroid PO 25 mcg 0600 ELY Administration Ondansetron HCl 4 mg 05/22/20 15:14 05/22/20 15:19 Zofran Odt PO 4 mg Q4H PRN Administration Nausea/Vomiting Pantoprazole Sodium 40 mg 05/21/20 09:00 05/23/20 09:07 Protonix PO 40 mg DAILY ELY Administration Sevelamer Carbonate 800 mg 05/21/20 08:00 05/23/20 13:30 Renvela PO Not Given TID-WM ELY Sodium Chloride 10 ml 05/21/20 02:53 05/23/20 00:59 Flush - Normal Saline IVF 10 ml PRN PRN Administration Saline Flush - Exam General Appearance: NAD, awake alert Eye: PERRL ENT: normocephalic atraumatic Neck: supple Heart: RRR Respiratory: CTAB, normal chest expansion Gastrointestinal - other findings: Ilesostomy bag is leaking; Erythema seems improved surrounding the bag, sin Neurological: no focal deficits Hosp A/P - Plan recent hx of Ischemic bowel s/p hemicolectomy, resection of transverse colon and part of ileum -ileostomy bag - sux followed. -per their instruction " Lomotil. Cavalon spray and Adapt stoma powder in several alternating layers, then a Renasys adhesive patch under her stoma bag to obtain a good seal to be continued by Home Health after discharge. Empty bag when half full." Cellultis around the site -- on ctx for now. - cont'd to improve. Afib - on amio and eliquis -rate controlled Hypothyroidism - on supplement -fw on tsh Pain control, stool softener. full code. Ileosomy bag leakage - wound care following. High output from ileostomy - sux following with us.
[2020-05-23] MEDS ORDERED: Iron Sucrose Complex 100 MG in Sodium Chloride 0.9% 100 ML IVPB SCH (15:10)
[2020-05-23] MEDS ORDERED: Epoetin (ESRD) 20,000 UNITS/ML SC SCH (15:15)
[2020-05-23] MEDS ORDERED: Iron, Sodium Ferric Gluconate 125 MG in Sodium Chloride 0.9% 100 ML IVPB SCH (16:00)
--- NOTE | 2020-05-23 16:08 | PRG ---
DATE OF SERVICE: 05/23/2020 SUBJECTIVE: A 70-year-old female with acute renal failure with acute tubular necrosis requiring hemodialysis seen in followup. The patient is still complaining of dry mouth, but overall feels better. Still having good amount of drainage from the ostomy associated with leakages. Reportedly made some urine, but on further questioning, it looks like it may have been less than 100 mL in the last 24 hours. OBJECTIVE: VITAL SIGNS: Temperature 98.1, pulse 72, respiratory rate 18, SpO2 of 98% on room air, blood pressure is 96/60. GENERAL: Chronically ill-looking cachectic elderly, in no obvious distress. Afebrile. Anicteric. Acyanotic. HEENT: Normocephalic, atraumatic. Oral mucosa is mildly dry. CARDIOVASCULAR: Regular rhythm and rate with normal heart sounds 1 and 2. RESPIRATORY: Fair air entry bilaterally with no obvious crackle or rhonchi or use of accessory muscles. GI: Full. Right upper quadrant colostomy noted. EXTREMITIES: Grossly normal looking with marked atrophy. No edema appreciated. TOXICOLOGY TEACHER: Conscious, alert, and oriented x3 with appropriate mental status. Cranial nerves 2 through 12 are grossly intact. DIAGNOSTIC DATA: CBC showed WBC count of 6.5, hemoglobin of 7.8, platelet of 361. Chemistry showed sodium 144, potassium 3.9, chloride 102, CO2 of 24, BUN 89, creatinine 5.32, glucose 113, calcium 8.5, phosphorus 5.6, albumin 3.3. Iron chemistry showed serum iron 26, TIBC 185 with 14% saturation, ferritin is 573. ASSESSMENT: 1. Severe dehydration with hemoconcentration due to poor oral intake and increased output from ostomy. 2. Anemia: Due to acute illness. Acute drop in hemoglobin from 15 on presentation to currently due to correction of hemoconcentration. There is no overt bleeding. 3. Iron-deficiency anemia. 4. High-output colostomy. 5. Metabolic acidosis: Due to acute kidney injury and losses in ostomy. Improved with alkaline therapy. 6. Marked acute renal failure with ATN, dialysis dependent. Last dialysis was on May 18, 2020. Azotemia is getting worse with BUN of 89. The patient is making little or no urine. PLAN: 1. We will continue IV fluid therapy. We will however discontinue sodium bicarbonate infusion and switch to lactated Ringer's. We will start IV iron and erythropoietin for anemia in chronic kidney disease. 2. We will also dialyze the patient today without UF due to severe dehydration. HEMODIALYSIS PROCEDURE NOTE: The patient was seen during hemodialysis. Initial vitals showed systolic blood pressure in the 80s. We will give a little bolus of normal saline to get BP up. We will dialyze patient for 3 hours with 4K bath with no UF. We will monitor hemodynamics closely. We will bolus normal saline as needed to get hemodynamics stable. Job ID: [id number]
[2020-05-23] MEDS: Iron, Sodium Ferric Gluconate 125 MG in Sodium Chloride 0.9% 100 ML IVPB SCH (16:45)
[2020-05-23] MEDS: Lactated Ringer's 1,000 ML IV SCH (16:47)
[2020-05-23] MEDS: EPOETIN ALFA-EPBX (ESRD) 3,000 UNIT/ML VIAL SC SCH (16:49)
[2020-05-23] MEDS: EPOETIN ALFA-EPBX (ESRD) 2,000 UNIT/ML VIAL SC SCH (16:49)
[2020-05-23] MEDS: cefTRIAXone\\ROCEPHIN 1 GM in Sodium Chloride 0.9% 100 ML IVPB SCH (21:39)
[2020-05-24] MEDS: Lactated Ringer's 1,000 ML IV SCH ×2 (00:56→09:09)
[2020-05-24] MEDS: Diphenoxylate HCl/Atropine Tablet PO SCH ×5 (01:07→23:40)
[2020-05-24] MEDS: Levothyroxine Sodium 25 MCG TAB PO SCH (05:05)
[2020-05-24] MEDS: Acyclovir 200 mg Capsule PO SCH ×2 (05:05→17:48)
[2020-05-24 06:41] LABS: Albumin 2.8 g/dL (3.4-4.8); Anion Gap 15 mmol/L (10-20); BUN (Urea Nitrogen) 35 mg/dL (9.8-20.1); BUN/Creatinine Ratio 13.46; Calc. Creatinine Clearance 20 mL/min (70-130); Carbon Dioxide 27 mmol/L (23-31); Chloride 103 mmol/L (98-107); Estimated GFR-MDRD 18; Glucose 97 mg/dL (80-115); Phosphorus 3.1 mg/dL (2.3-4.7); Potassium 4.6 mmol/L (3.5-5.1); Sodium 140 mmol/L (136-145)
[2020-05-24] MEDS: Apixaban 5 MG TAB PO SCH ×2 (09:04→21:23)
[2020-05-24] MEDS: Sevelamer Carbonate 800 MG TAB PO SCH ×3 (09:04→16:10)
[2020-05-24] MEDS: Amiodarone 200 MG TAB PO SCH ×2 (09:04→21:24)
[2020-05-24] MEDS: HumuLIN 70/30 (300 UNITS/3 ML VIAL) SC SCH ×2 (09:04→22:47)
--- NOTE | 2020-05-24 09:39 | PRG ---
DATE OF SERVICE: 05/24/2020 SERVICE: Nephrology. SUBJECTIVE: A 70-year-old female with an acute renal failure from acute tubular necrosis, requiring hemodialysis, seen in followup. The patient is status post resection of large segment of colon with ileostomy, is having high-output drainage associated with severe dehydration. Had hemodialysis yesterday, which was tolerated. Denied fever. OBJECTIVE: VITAL SIGNS: Temperature 98.6, pulse 75, respiratory rate 18, SpO2 of 95% on room air, blood pressure is 106/67. I and O in the last 24 hours showed total intake of 2030 with total output of 1175 with stool and gastric drainage contributing 1075, urine only 100 mL. GENERAL: Chronically ill-looking female, in no obvious distress. Afebrile. Anicteric. Acyanotic. HEENT: Normocephalic, atraumatic. Oral mucosa is still dry. CARDIOVASCULAR: Regular rhythm and rate with normal heart sounds one and two. RESPIRATORY: Fair air entry bilaterally with no obvious crackle or rhonchi or use of accessory muscles. GI: Flat, soft, nondistended. Right upper quadrant ostomy noted. EXTREMITIES: Marked atrophy of all the extremities noted. No edema appreciated. SKIN: Poor skin turgor, but no rash or erythema. 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 DIAGNOSTIC DATA: Chemistry today showed sodium 140, potassium 4.6, chloride 103, CO2 of 27, BUN 35, creatinine 2.60, glucose 97, calcium 8.0, phosphorus 3.1, albumin 2.8. ASSESSMENT: 1. Acute renal failure with acute tubular necrosis. Hemodialysis dependent with last dialysis being yesterday May 23, 2020. There is no significant renal recovery. Renal recovery, however, was hampered due to severe dehydration from poor oral intake and high-output ostomy. 2. Severe dehydration. 3. High-output ostomy. 4. Hypotension: Improved with fluid therapy. 5. Severe protein-calorie malnutrition. 6. Anemia of chronic illness, chronic kidney disease and iron deficiency. PLAN: 1. We will discontinue LR and start normal saline to avoid hyperkalemia. 2. We will continue IV iron and erythrocyte-stimulating agents. 3. Oral supplementation provided and discussed extensively with the patient. 4. We will discontinue Ensure and we will start Nepro. 5. Case Management has been consulted to help with outpatient dialysis placement. 6. Further treatment to follow depending on hospital course. Job ID: [id number]
[2020-05-24] MEDS: Sodium Chloride 0.9% 1,000 ML IV SCH ×2 (10:00→17:48)
--- NOTE | 2020-05-24 14:36 | PDOC.HOSPP ---
- Subjective Encounter Date: 05/24/20 Encounter Time: 09:40 Subjective: More than 20 minutes spent in the room and talk to osteomy care nurse, sister and patient and later w.. Dr. Levy. today the bag is not leaking. osteomy nurse will teach the sister today to change the bag and they will her home /. PT HAD SURGERY IN april AT [place], WENT TO REHAB at [facility], and she felt that they did not treat her adequately. less than optimal care for her expectations. She went to [facility] with vomiting and nause and stayed there few days and went home. within a day, she came back as she was not feeling well overall. Dr. Levy is kind enough to see her again today. She needs to get her strength back and regained some mobility. Encouraged to increase protein intake. - Objective Vital Signs & Weight: Vital Signs (12 hours) Temp Pulse Resp BP Pulse Ox 05/24/20 11:41 99.3 F 81 18 107/65 96 05/24/20 07:36 98.6 F 75 18 106/67 95 05/24/20 04:10 98.7 F 81 16 108/66 95 Weight Admit Weight 138 lb Weight 138 lb 14.259 oz I&O: 05/23/20 05/24/20 05/25/20 06:59 06:59 06:59 Intake Total 2480 2030 Output Total 975 1175 Balance 1505 855 Result Diagrams: 05/23/20 05:15 05/24/20 05:33 Hospitalist ROS - Medication Medications: Active Medications Generic Name Dose Route Start Last Admin Trade Name Freq PRN Reason Stop Dose Admin Acetaminophen 650 mg 05/21/20 10:39 05/23/20 09:07 Tylenol PO 650 mg Q6H PRN Administration Headache/Fever or Pain Acyclovir 200 mg 05/21/20 06:00 05/24/20 05:05 Zovirax PO 200 mg 0600,1800 ELY Administration Alprazolam 0.25 mg 05/21/20 10:39 05/23/20 16:50 Xanax PO 0.25 mg BIDPRN PRN Administration Anxiety Amiodarone HCl 200 mg 05/21/20 09:00 05/24/20 09:04 Cordarone PO 200 mg BID ELY Administration Apixaban 5 mg 05/21/20 09:00 05/24/20 09:04 Eliquis PO 5 mg BID ELY Administration Diphenoxylate HCl/Atropine 1 tab 05/21/20 12:00 05/24/20 13:14 Lomotil PO 1 tab Q6HR ELY Administration Epoetin Wdae-epbx 2,000 unit 05/23/20 15:00 05/23/20 16:49 Retacrit SC 2,000 unit MoWeFr ELY Administration Epoetin Wade-epbx 3,000 unit 05/23/20 15:00 05/23/20 16:49 Retacrit SC 3,000 unit MoWeFr ELY Administration Ceftriaxone Sodium 1 gm/ 100 mls @ 200 mls/hr 05/20/20 21:00 05/23/20 21:39 Sodium Chloride IVPB 100 mls Q24HR ELY Administration Ferric Sodium Gluconate 110 mls @ 110 mls/hr 05/23/20 16:00 05/23/20 16:45 Complex 125 mg/ Sodium IVPB 05/27/20 16:59 110 mls Chloride 1600 ELY Administration Sodium Chloride 1,000 mls @ 125 mls/hr 05/24/20 09:15 05/24/20 10:00 Normal Saline 0.9% IV 1,000 mls .Q8H ELY Administration Insulin Human Isoph/Insulin Regular 10 units 05/21/20 09:00 05/24/20 09:04 Humulin 70/30 SC Not Given BID ELY Levothyroxine Sodium 25 mcg 05/21/20 06:00 05/24/20 05:05 Synthroid PO 25 mcg 0600 ELY Administration Ondansetron HCl 4 mg 05/22/20 15:14 05/22/20 15:19 Zofran Odt PO 4 mg Q4H PRN Administration Nausea/Vomiting Pantoprazole Sodium 40 mg 05/21/20 09:00 05/24/20 09:04 Protonix PO 40 mg DAILY ELY Administration Sevelamer Carbonate 800 mg 05/21/20 08:00 05/24/20 13:14 Renvela PO 800 mg TID-WM ELY Administration Sodium Chloride 10 ml 05/21/20 02:53 05/23/20 00:59 Flush - Normal Saline IVF 10 ml PRN PRN Administration Saline Flush - Exam General Appearance: NAD, awake alert Eye: PERRL ENT: dry oral mucosa Neck: supple Heart: RRR, normal peripheral pulses Respiratory: CTAB Gastrointestinal: soft, normal bowel sounds Gastrointestinal - other findings: ileostomy bag seen, connected to [place], liquid stool Hosp A/P - Plan recent hx of Ischemic bowel s/p hemicolectomy, resection of transverse colon and part of ileum -ileostomy bag - sux followed. -per their instruction " Lomotil. Cavalon spray and Adapt stoma powder in several alternating layers, then a Renasys adhesive patch under her stoma bag to obtain a good seal to be continued by Home Health after discharge. Empty bag when half full." Cellultis around the site -- on ctx for now. - cont'd to improve. Afib - on amio and eliquis -rate controlled Hypothyroidism - on supplement -fw on tsh Pain control, stool softener. full code. Ileosomy bag leakage - wound care following. High output from ileostomy - sux following with us. 14th PT HAD SURGERY IN april AT [place], WENT TO REHAB at [facility], and she felt that they did not treat her adequately. less than optimal care for her expectations. She went to [facility] with vomiting and nause and stayed there few days and went home. within a day, she came back as she was not feeling well overall. Dr. Levy is kind enough to see her again today. She needs to get her strength back and regained some mobility. Encouraged to increase protein intake ATN/RACHANA s/p R. tunnel cath -now becoming diaysis dept High ileostomy output failure - encourage more PO intake incl..protein shakes. -cholestyramine trial protein calorie malnutrition -nutrition sc -high protien intake -get pre-albumin to see the extent full code
[2020-05-24] MEDS: Sodium Bicarbonate Tab 325 MG TAB PO SCH ×2 (16:10→21:23)
[2020-05-24] MEDS: Iron, Sodium Ferric Gluconate 125 MG in Sodium Chloride 0.9% 100 ML IVPB SCH (16:14)
[2020-05-24 16:55] LABS: HBCM Index 0.06 S/CO (0-0.79); HBSAB Concentration Less than 8.00 mIU/mL; HBSAg Index 0.16 S/CO (0-0.99); Hep A IgM AB Non-Reactive (NonReactive); Hep A IgM S/CO 0.09 S/CO (0-0.79); Hep B Core Total Ab Non-Reactive (NonReactive); Hep B Core Total Index 0.08 S/CO (0-0.79); Hep B Surf AB Non-Reactive (NonReactive); Hep B Surf Ag Non-Reactive S/CO (NonReactive); Hep C IgG Ab Non-Reactive (NonReactive); Hep C Index 0.13 S/CO (0-0.79); Hepatitis B Core IgM Abs Non-Reactive (NonReactive)
--- NOTE | 2020-05-24 18:06 | PRG ---
DATE OF SERVICE: 05/24/2020 HISTORY: Kacy Cordon has been admitted by the Hospitalist Service on 05/20/2020 for abdominal pain and dehydration. The patient had a recent prolonged hospitalization and she suffered ischemic vascular disease, probably secondary to noncompliance with anticoagulation for atrial fibrillation. She had occlusion of her visceral vessels resulting in gangrenous right colon and several areas of her terminal ileum requiring extended ileectomy and right colectomy. She was septic on Levophed, suffered renal failure. I have talked to the patient's cousin, who was a general surgeon in [place] previously, and he explained to me the patient was noncompliant with her anticoagulation previously. The patient had a prolonged hospitalization requiring second-look operations on 2 occasions, finally falling at ileostomy. The patient was transferred to [facility] in the [facility]. Apparently, a family member became frustrated with the patient's persistent encephalopathy and took her to [facility] where she was hospitalized. There, she is treated with antibiotics for pneumonia. I have personally discussed with the physicians at that facility and they felt that some of her problems may have been nonetheless they treated her and apparently the patient was discharged or she left AMA to go back home. I am uncertain whether outpatient hemodialysis was arranged. She has cuffed tunneled hemodialysis catheter. She is admitted on this occasion and seen by Nephrology. The patient has had problems with ileostomy management. She has suffered dermatitis from poor ileostomy care. The patient's suffers cognitive deficit or persistent encephalopathy from prolonged hospitalization at [facility] just prior to the patient's hospitalization. The patient although recovering drastically as far as her mental status is not normal and still has periods of confusion. As I interviewed her, she asked me the same question repeatedly. The patient has a family member present who seems to appreciate the situation. The patient lives in the [facility] and has arrangements with [facility] as an outpatient. The patient has this hospitalization complaining to administration regarding her ileostomy. I was asked to see her regarding her ileostomy. Evaluation reveals that she still has midline abdominal lex still in place and we will remove those. Her abdomen is soft, otherwise. She has ileostomy appliance in place. She has dermatitis from ileostomy leakage. Dr. Ruano has seen her from Nephrology standpoint. The patient has not suffered sufficient renal recovery. Dr. Obi feels that she has been dehydrated due to poor oral intake and high ileostomy output. Hypotension on admission is improved with fluid resuscitation. The patient's hemoglobin on admission was 12.8, after hydration 7.6 to 7.8, white count 5 to 6. Her GFR is on admission, 18 currently, BUN and creatinine of 75 and 4.8 on admission, currently 35 and 2.6. Ileostomy output has been 300 to 950, which is actually not that high. ASSESSMENT AND PLAN: Status post 04/15, 04/17 and 04/20 laparotomy with definitive ileostomy and closure of midline wound on 04/20/2020. She is one month postoperatively ileostomy formation. I have explained to the patient and the family that ileostomy reversal should not be considered for least another 2 months. She would benefit from seeing a motor vehicle or caravan salesperson in the future concerning colonoscopy and we will arrange that as an outpatient. I have encouraged that she follow up with me in approximately 6 weeks. We will ask nurses to remove her midline lex. The patient actually needs skilled ileostomy management. I have discussed with the patient, case management, and Lizzeth Dong arrangements for outpatient wound care. The patient is being seen by Nancy and Nancy has a stoma therapist on their service with expertise and stoma therapy and care. I have discussed with Lizzeth Dong and Forrest Kramer with Nancy, arrangements for [facility] stoma therapist to see her. Unfortunately, the stoma therapist with [facility] is local and does not go to [place] or [place] area where the patient lives. However, if local stomal therapist with [facility] can visit the patient at this facility and then complete followup communication with outpatient wound care through [facility] perhaps we can better manage her stoma care. This has been arranged and [facility] will arrange stoma therapy visit in the morning. [facility] stoma therapy services does not exist in the [place] location, but outpatient wound care does have a certified stoma therapist Shani Worthington that could see the patient if the hospital would arrange that and Wound Care would arrange that. We will, however, wait for [facility] stoma therapy is to see the patient. The patient's main problem is stoma management. The patient has some short-term memory deficits and cognitive deficits, although these are improving, and she however lacks 24-hour care services available from the family and her has some cognitive deficits that he probably is not able to help with stoma therapy. This presents a problem as the patient insists on going home. The patient does not seem to have high-output stoma output, but considering her persistent ATN, I would manage this with Lomotil twice a day and I would plan to see the patient in my office in the next 4 to 6 weeks to begin communication and arrangements for future colonoscopy and stoma reversal. The patient has acute renal failure and kidneys have so far not recovered. We will continue to observe. We will preserve veins by asking nurses not to access veins above her wrist for IV access. PICC lines midline should be avoided as she may need future long-term dialysis access. Currently, she is on Eliquis for chronic anticoagulation and would continue that. Job ID: [id number]
[2020-05-24] MEDS: Ondansetron ODT 4 MG TAB PO PRN (19:29)
[2020-05-24] MEDS: Cholestyramine/Aspartame 4 gm Packet PO SCH (21:24)
[2020-05-24] MEDS: cefTRIAXone\\ROCEPHIN 1 GM in Sodium Chloride 0.9% 100 ML IVPB SCH (21:29)
[2020-05-24] MEDS: ALPRAZolam 0.25 MG TAB PO PRN (21:31)
[2020-05-24] MEDS: Acetaminophen/Codeine 30-300mg Tablet PO PRN (23:09)
[2020-05-25 05:38] LABS: Albumin 2.5 g/dL (3.4-4.8); Anion Gap 13 mmol/L (10-20); BUN (Urea Nitrogen) 40 mg/dL (9.8-20.1); BUN/Creatinine Ratio 14.23; Calc. Creatinine Clearance 19 mL/min (70-130); Calcium 7.8 mg/dL (7.8-10.44); Carbon Dioxide 25 mmol/L (23-31); Chloride 107 mmol/L (98-107); Estimated GFR-MDRD 17; Glucose 84 mg/dL (80-115); Phosphorus 3.6 mg/dL (2.3-4.7); Potassium 4.2 mmol/L (3.5-5.1); Sodium 141 mmol/L (136-145)
[2020-05-25] MEDS: Diphenoxylate HCl/Atropine Tablet PO SCH ×4 (06:12→22:48)
[2020-05-25] MEDS: Levothyroxine Sodium 25 MCG TAB PO SCH (06:12)
[2020-05-25] MEDS: Sodium Chloride 0.9% 1,000 ML IV SCH ×4 (06:12→20:14)
[2020-05-25] MEDS: Acyclovir 200 mg Capsule PO SCH ×3 (06:12→18:47)
[2020-05-25] MEDS ORDERED: Heparin 10,000 UNITS/ 10 ML VIAL ONE (09:14)
--- NOTE | 2020-05-25 10:31 | PRG ---
DATE OF SERVICE: 05/25/2020 SERVICE: Nephrology. SUBJECTIVE: A 70-year-old female seen in followup for acute renal failure due to ATN, requiring hemodialysis. No new problem. The patient is happy since then colostomy leakage has subsided. Oral intake is improving, but still suboptimal. Last dialysis was 2 days ago on May 23. Denied fever, nausea, or vomiting. OBJECTIVE: VITAL SIGNS: Temperature 98.8, pulse 77, respiratory rate 12, SpO2 of 97% on room air, and blood pressure is 116/69. Intake and output in the last 24 hours showed total intake of this was grossly inconclusive. GENERAL: Chronically ill-looking female, in no distress. Afebrile. Anicteric. HEENT: Normocephalic and atraumatic. Oral mucosa is moist. NECK: Supple with no JVD. CARDIOVASCULAR: Regular rhythm and rate with normal heart sounds 1 and 2. RESPIRATORY: Good air entry bilaterally with no crackle or rhonchi. GI: Full and soft. Surgical incision noted as well as right upper quadrant ostomy. MUSCULOSKELETAL: Atrophy of the limbs noted, but no edema or erythema. SKIN: Dry with no rash. 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 Cranial nerves 2 through 12 are grossly intact. DIAGNOSTIC DATA: Chemistry showed sodium 141, potassium 4.2, chloride 107, CO2 of 25, BUN 40, creatinine 2.81, glucose 84, calcium 7.8, phosphorus 3.6, and albumin 2.5. ASSESSMENT: 1. Acute renal failure due to acute tubular necrosis. The patient is still hemodialysis dependent. No significant recovery as yet. 2. Severe dehydration due to poor oral intake and losses from GI. Improving with IV fluid therapy and oral supplements. 3. : Improved with normal saline. 4. Anemia: Multifactorial from iron deficiency anemia of chronic illness as well as anemia of chronic kidney disease. 5. Protein-calorie malnutrition. PLAN: 1. Continue normal saline. We will also continue alkali therapy with oral sodium bicarbonate. 2. We will continue IV iron supplementation. 3. We will dialyze the patient as there is no significant urine output. 4. Oral supplement and liberal oral intake advised. HEMODIALYSIS PROCEDURE NOTE: The patient is seen in dialysis. Hemodynamics evaluated. Stable with blood pressure of 113/68. We will dialyze the patient for 3 hours with no UF. Three K baths will be used with bicarb of 35. We will monitor hemodynamics closely and give normal saline for . Job ID: [id number]
[2020-05-25] MEDS: Sodium Bicarbonate Tab 325 MG TAB PO SCH ×3 (12:00→20:15)
[2020-05-25] MEDS: Sevelamer Carbonate 800 MG TAB PO SCH ×4 (12:00→18:51)
[2020-05-25] MEDS: Apixaban 5 MG TAB PO SCH ×2 (12:00→20:15)
[2020-05-25] MEDS: Amiodarone 200 MG TAB PO SCH ×2 (12:03→20:15)
[2020-05-25] MEDS: HumuLIN 70/30 (300 UNITS/3 ML VIAL) SC SCH ×2 (12:03→20:10)
[2020-05-25] MEDS: Cholestyramine/Aspartame 4 gm Packet PO SCH ×2 (12:03→20:14)
--- NOTE | 2020-05-25 15:23 | PDOC.HOSPP ---
- Subjective Encounter Date: 05/25/20 Encounter Time: 12:30 Subjective: seen pt in HD. doing well, talk to her and sister. plan to set up osteomy nurse to visit at home. - Objective Vital Signs & Weight: Vital Signs (12 hours) Temp Pulse Resp BP Pulse Ox 05/25/20 12:11 98.8 F 92 14 116/69 95 05/25/20 07:04 98.8 F 77 12 116/69 97 Weight Admit Weight 138 lb Weight 138 lb 14.259 oz I&O: 05/24/20 05/25/20 05/26/20 06:59 06:59 06:59 Intake Total 2030 Output Total 1175 Balance 855 Result Diagrams: 05/23/20 05:15 05/25/20 04:41 Hospitalist ROS - Medication Medications: Active Medications Generic Name Dose Route Start Last Admin Trade Name Freq PRN Reason Stop Dose Admin Acetaminophen 650 mg 05/21/20 10:39 05/23/20 09:07 Tylenol PO 650 mg Q6H PRN Administration Headache/Fever or Pain Acetaminophen/Codeine Phosphate 1 tab 05/24/20 22:50 05/24/20 23:09 Tylenol #3 PO 1 tab Q4H PRN Administration Moderate Pain (4-6) Acyclovir 200 mg 05/21/20 06:00 05/25/20 06:12 Zovirax PO 200 mg 0600,1800 ELY Administration Alprazolam 0.25 mg 05/21/20 10:39 05/24/20 21:31 Xanax PO 0.25 mg BIDPRN PRN Administration Anxiety Amiodarone HCl 200 mg 05/21/20 09:00 05/25/20 12:03 Cordarone PO Not Given BID ELY Apixaban 5 mg 05/21/20 09:00 05/25/20 12:00 Eliquis PO 5 mg BID ELY Administration Cholestyramine Resin 4 gm 05/24/20 22:00 05/25/20 12:03 Questran Light PO Not Given 1000,2200 ELY Diphenoxylate HCl/Atropine 1 tab 05/21/20 12:00 05/25/20 12:04 Lomotil PO Not Given Q6HR ELY Epoetin Wade-epbx 2,000 unit 05/23/20 15:00 05/23/20 16:49 Retacrit SC 2,000 unit MoWeFr ELY Administration Epoetin Wade-epbx 3,000 unit 05/23/20 15:00 05/23/20 16:49 Retacrit SC 3,000 unit MoWeFr ELY Administration Ceftriaxone Sodium 1 gm/ 100 mls @ 200 mls/hr 05/20/20 21:00 05/24/20 21:29 Sodium Chloride IVPB 100 mls Q24HR ELY Administration Ferric Sodium Gluconate 110 mls @ 110 mls/hr 05/23/20 16:00 05/24/20 16:14 Complex 125 mg/ Sodium IVPB 05/27/20 16:59 110 mls Chloride 1600 ELY Administration Sodium Chloride 1,000 mls @ 125 mls/hr 05/24/20 09:15 05/25/20 12:03 Normal Saline 0.9% IV Not Given .Q8H ELY Insulin Human Isoph/Insulin Regular 10 units 05/21/20 09:00 05/25/20 12:03 Humulin 70/30 SC Not Given BID ELY Levothyroxine Sodium 25 mcg 05/21/20 06:00 05/25/20 06:12 Synthroid PO 25 mcg 0600 ELY Administration Ondansetron HCl 4 mg 05/22/20 15:14 05/24/20 19:29 Zofran Odt PO 4 mg Q4H PRN Administration Nausea/Vomiting Pantoprazole Sodium 40 mg 05/21/20 09:00 05/25/20 12:03 Protonix PO Not Given DAILY ELY Sevelamer Carbonate 800 mg 05/21/20 08:00 05/25/20 12:03 Renvela PO Not Given TID-WM ELY Sodium Bicarbonate 650 mg 05/24/20 15:00 05/25/20 12:00 Bicarbonate, Sodium PO 650 mg TID ELY Administration Sodium Chloride 10 ml 05/21/20 02:53 05/23/20 00:59 Flush - Normal Saline IVF 10 ml PRN PRN Administration Saline Flush - Exam General Appearance: NAD, awake alert Eye: PERRL ENT: normocephalic atraumatic Neck: supple Heart: RRR, normal peripheral pulses Respiratory: CTAB, normal chest expansion Gastrointestinal: soft, normal bowel sounds Neurological: no focal deficits Hosp A/P - Plan recent hx of Ischemic bowel s/p hemicolectomy, resection of transverse colon and part of ileum -ileostomy bag - sux followed. -per their instruction " Lomotil. Cavalon spray and Adapt stoma powder in several alternating layers, then a Renasys adhesive patch under her stoma bag to obtain a good seal to be continued by Home Health after discharge. Empty bag when half full." Cellultis around the site -- on ctx for now. - cont'd to improve. Afib - on amio and eliquis -rate controlled Hypothyroidism - on supplement -fw on tsh Pain control, stool softener. full code. Ileosomy bag leakage - wound care following. High output from ileostomy - sux following with us. PT HAD SURGERY IN april AT [place], WENT TO REHAB at [facility], and she felt that they did not treat her adequately. less than optimal care for her expectations. She went to [facility] with vomiting and nausea and stayed there few days and went home. within a day, she came back here as she was not feeling well overall. Dr. Levy is kind enough to see her again today. She needs to get her strength back and regained some mobility. Encouraged to increase protein intake ATN/RACHANA s/p R. tunnel cath -now becoming diaysis dept High ileostomy output failure - encourage more PO intake incl..protein shakes. -cholestyramine trial protein calorie malnutrition -nutrition sc -high protein intake Normocytic iron deficiency anemia -retacrit -sux note reviewed. -plan to set up osteomy nurse to visit at home. full code
[2020-05-25] MEDS: Iron, Sodium Ferric Gluconate 125 MG in Sodium Chloride 0.9% 100 ML IVPB SCH (16:54)
[2020-05-25] MEDS: EPOETIN ALFA-EPBX (ESRD) 2,000 UNIT/ML VIAL SC SCH (18:21)
[2020-05-25] MEDS: EPOETIN ALFA-EPBX (ESRD) 3,000 UNIT/ML VIAL SC SCH (18:22)
[2020-05-25] MEDS: Acetaminophen/Codeine 30-300mg Tablet PO PRN (18:41)
[2020-05-25] MEDS: cefTRIAXone\\ROCEPHIN 1 GM in Sodium Chloride 0.9% 100 ML IVPB SCH (20:15)
[2020-05-26] MEDS: Ondansetron PF 4 MG/2 ML Vial IVP PRN ×2 (03:40→16:12)
[2020-05-26 06:14] LABS: Albumin 2.5 g/dL (3.4-4.8); Anion Gap 12 mmol/L (10-20); BUN (Urea Nitrogen) 15 mg/dL (9.8-20.1); BUN/Creatinine Ratio 9.55; Calc. Creatinine Clearance 34 mL/min (70-130); Calcium 7.5 mg/dL (7.8-10.44); Carbon Dioxide 26 mmol/L (23-31); Chloride 106 mmol/L (98-107); Estimated GFR-MDRD 33; Glucose 89 mg/dL (80-115); Phosphorus 3.3 mg/dL (2.3-4.7); Potassium 3.6 mmol/L (3.5-5.1); Sodium 140 mmol/L (136-145)
[2020-05-26] MEDS: Acyclovir 200 mg Capsule PO SCH ×2 (06:49→16:13)
[2020-05-26] MEDS: Levothyroxine Sodium 25 MCG TAB PO SCH (06:50)
[2020-05-26] MEDS: Diphenoxylate HCl/Atropine Tablet PO SCH ×4 (06:50→22:26)
[2020-05-26] MEDS: Sodium Bicarbonate Tab 325 MG TAB PO SCH ×3 (08:58→20:35)
[2020-05-26] MEDS: Apixaban 5 MG TAB PO SCH ×2 (08:58→20:39)
[2020-05-26] MEDS: Sevelamer Carbonate 800 MG TAB PO SCH ×3 (08:59→16:13)
[2020-05-26] MEDS: HumuLIN 70/30 (300 UNITS/3 ML VIAL) SC SCH ×2 (08:59→20:39)
[2020-05-26] MEDS: Amiodarone 200 MG TAB PO SCH ×2 (08:59→20:39)
[2020-05-26] MEDS: Sodium Chloride 0.9% 1,000 ML IV SCH ×2 (10:36→19:22)
--- NOTE | 2020-05-26 10:39 | PRG ---
DATE OF SERVICE: 05/26/2020 SERVICE: Nephrology. SUBJECTIVE: A female with acute tubular necrosis following mesenteric ischemia, peritonitis requiring resection of long segment of colon, seen in followup for management of acute renal failure and dehydration. The patient reports feeling better. Last dialysis was yesterday, which was read as tolerated. The patient desires to go home today. OBJECTIVE: VITAL SIGNS: Temperature 99.1, pulse 77, respiratory rate 13, SpO2 of 99% on room air, and blood pressure is 125/77. INR in the last 24 hours, the patient took in 1800 with output of 350, all of them being from ileostomy. Note that the output is grossly inconclusive as a lot of them were not documented. GENERAL: Chronically ill-looking female, in no obvious distress. Afebrile. Anicteric. Acyanotic. HEENT: Normocephalic and atraumatic. Oral mucosa is moist. CARDIOVASCULAR: Regular rhythm and rate. Normal heart sounds 1 and 2. RESPIRATORY: Fair air entry bilaterally with no crackle or rhonchi or use of accessory muscles. GI: Full, soft, nontender, and nondistended with normal bowel sounds. Right upper quadrant ileostomy noted. EXTREMITIES: Grossly normal looking with no edema. Muscle wasting noted. 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 Cranial nerves 2 through 12 are grossly intact. Mild paresis of right upper limb noted. DIAGNOSTIC DATA: Chemistry today showed sodium 140, potassium 3.6, chloride 106, CO2 of 26, BUN 15, creatinine 1.57, glucose 89, calcium 7.5, phosphorus 3.3, and albumin 2.5. ASSESSMENT: 1. Acute renal failure with acute tubular necrosis. The patient is still dialysis dependent with no significant renal recovery. 2. Hypotension: Resolved with fluid resuscitation. 3. Status post ileostomy. 4. Metabolic acidosis, improved with alkali therapy and dialysis. 5. Hypoalbuminemia. 6. Protein-calorie malnutrition. 7. Iron deficiency anemia/anemia of kidney disease. PLAN: 1. We will continue iron supplementation. 2. We will discontinue IV fluid therapy with resolution of hypertension. 3. [place] oral intake advised. 4. Continue to monitor intake and output strictly. 5. Disposition: The patient can be discharged once outpatient dialysis is arranged. Further treatment to follow depending on hospital course. Job ID: [id number]
[2020-05-26] MEDS: Cholestyramine/Aspartame 4 gm Packet PO SCH ×2 (10:52→20:39)
--- NOTE | 2020-05-26 12:41 | PDOC.HOSPP ---
- Subjective Encounter Date: 05/26/20 Encounter Time: 09:20 Subjective: pt having breakfast, sister nearby. outpt dialysis being arranged. hep series negative. ilesstomy output decreasing, per sister. - Objective Vital Signs & Weight: Vital Signs (12 hours) Temp Pulse Resp BP Pulse Ox 05/26/20 12:00 99.0 F 88 20 115/73 96 05/26/20 08:00 99.1 F 77 13 125/77 94 L 05/26/20 04:00 96 05/26/20 03:30 98.9 F 89 18 135/82 96 Weight Admit Weight 138 lb Weight 138 lb 14.259 oz I&O: 05/25/20 05/26/20 05/27/20 06:59 06:59 06:59 Intake Total 1800 Output Total 350 Balance 1450 Result Diagrams: 05/23/20 05:15 05/26/20 05:22 Additional Labs: Accuchecks 05/26/20 05/26/20 05/25/20 11:37 05:26 21:18 POC Glucose 101 91 99 Hospitalist ROS - Medication Medications: Active Medications Generic Name Dose Route Start Last Admin Trade Name Freq PRN Reason Stop Dose Admin Acetaminophen 650 mg 05/21/20 10:39 05/23/20 09:07 Tylenol PO 650 mg Q6H PRN Administration Headache/Fever or Pain Acetaminophen/Codeine Phosphate 1 tab 05/24/20 22:50 05/25/20 18:41 Tylenol #3 PO 1 tab Q4H PRN Administration Moderate Pain (4-6) Acyclovir 200 mg 05/21/20 06:00 05/26/20 06:49 Zovirax PO Not Given 0600,1800 ELY Alprazolam 0.25 mg 05/21/20 10:39 05/24/20 21:31 Xanax PO 0.25 mg BIDPRN PRN Administration Anxiety Amiodarone HCl 200 mg 05/21/20 09:00 05/26/20 08:59 Cordarone PO 200 mg BID ELY Administration Apixaban 5 mg 05/21/20 09:00 05/26/20 08:58 Eliquis PO 5 mg BID ELY Administration Cholestyramine Resin 4 gm 05/24/20 22:00 05/26/20 10:52 Questran Light PO 4 gm 1000,2200 ELY Administration Diphenoxylate HCl/Atropine 1 tab 05/21/20 12:00 05/26/20 11:05 Lomotil PO 1 tab Q6HR ELY Administration Epoetin Wade-epbx 2,000 unit 05/23/20 15:00 05/25/20 18:21 Retacrit SC 2,000 unit MoWeFr ELY Administration Epoetin Wade-epbx 3,000 unit 05/23/20 15:00 05/25/20 18:22 Retacrit SC 3,000 unit MoWeFr ELY Administration Ceftriaxone Sodium 1 gm/ 100 mls @ 200 mls/hr 05/20/20 21:00 05/25/20 20:15 Sodium Chloride IVPB 100 mls Q24HR ELY Administration Ferric Sodium Gluconate 110 mls @ 110 mls/hr 05/23/20 16:00 05/25/20 16:54 Complex 125 mg/ Sodium IVPB 05/27/20 16:59 110 mls Chloride 1600 ELY Administration Sodium Chloride 1,000 mls @ 125 mls/hr 05/24/20 09:15 05/26/20 10:36 Normal Saline 0.9% IV Not Given .Q8H ELY Insulin Human Isoph/Insulin Regular 10 units 05/21/20 09:00 05/26/20 08:59 Humulin 70/30 SC Not Given BID [facility] Levothyroxine Sodium 25 mcg 05/21/20 06:00 05/26/20 06:50 Synthroid PO Not Given 0600 [facility] Ondansetron HCl 4 mg 05/22/20 12:39 05/26/20 03:40 Zofran IVP 4 mg Q4H PRN Administration Nausea Ondansetron HCl 4 mg 05/22/20 15:14 05/24/20 19:29 Zofran Odt PO 4 mg Q4H PRN Administration Nausea/Vomiting Pantoprazole Sodium 40 mg 05/21/20 09:00 05/26/20 08:59 Protonix PO 40 mg DAILY ELY Administration Sevelamer Carbonate 800 mg 05/21/20 08:00 05/26/20 11:05 Renvela PO 800 mg TID-WM ELY Administration Sodium Bicarbonate 650 mg 05/24/20 15:00 05/26/20 08:58 Bicarbonate, Sodium PO 650 mg TID ELY Administration Sodium Chloride 10 ml 05/21/20 02:53 05/23/20 00:59 Flush - Normal Saline IVF 10 ml PRN PRN Administration Saline Flush - Exam General Appearance: NAD, awake alert Eye: PERRL ENT: normocephalic atraumatic Neck: supple Heart: RRR Respiratory: CTAB, normal chest expansion Gastrointestinal: soft, normal bowel sounds Neurological: no focal deficits Hosp A/P - Plan recent hx of Ischemic bowel s/p hemicolectomy, resection of transverse colon and part of ileum -ileostomy bag - sux followed. -per their instruction " Lomotil. Cavalon spray and Adapt stoma powder in several alternating layers, then a Renasys adhesive patch under her stoma bag to obtain a good seal to be continued by Home Health after discharge. Empty bag when half full." Cellultis around the site -- on ctx for now. - cont'd to improve. Afib - on amio and eliquis -rate controlled Hypothyroidism - on supplement -fw on tsh Pain control, stool softener. full code. Ileosomy bag leakage - wound care following. High output from ileostomy - sux following with us. PT HAD SURGERY IN april AT [place], WENT TO REHAB at [facility], and she felt that they did not treat her adequately. less than optimal care for her expectations. She went to [facility] with vomiting and nausea and stayed there few days and went home. within a day, she came back here as she was not feeling well overall. Dr. Levy is kind enough to see her again today. She needs to get her strength back and regained some mobility. Encouraged to increase protein intake ATN/RACHANA s/p R. tunnel cath -now becoming diaysis dept High ileostomy output failure - encourage more PO intake incl..protein shakes. -cholestyramine trial protein calorie malnutrition -nutrition sc -high protein intake Normocytic iron deficiency anemia -retacrit -sux note reviewed. -plan to set up osteomy nurse to visit at home. outpt dialysis being arranged. hep series negative. ileostomy output decreasing. full code
[2020-05-26] MEDS ORDERED: Promethazine HCl 25 MG/ML VIAL SLOW IVP PRN (17:30)
[2020-05-26] MEDS ORDERED: Prochlorperazine 10 MG/2 ML VIAL IVP SCH ×2 (17:30→20:00)
[2020-05-26] MEDS: Iron, Sodium Ferric Gluconate 125 MG in Sodium Chloride 0.9% 100 ML IVPB SCH (17:35)
[2020-05-26] MEDS: cefTRIAXone\\ROCEPHIN 1 GM in Sodium Chloride 0.9% 100 ML IVPB SCH (20:38)
[2020-05-27 05:57] LABS: Hemoglobin 8.1 g/dL (12.0-16.0); Mean Corpuscular HGB CONC 31.3 g/dL (32.0-36.0); Mean Corpuscular Hemoglobin 30.5 pg (27.0-31.0); Mean Corpuscular Volume 97.2 fL (78.0-98.0); Mean Platelet Volume 7.1 fL (7.4-10.4); Platelet Count 305 thou/uL (130-400); RBC Distribution Width 13.7 % (11.5-14.5); Red Blood Cell (RBC) Count 2.64 mill/uL (4.20-5.40); White Blood Cell (WBC) Count 8.8 thou/uL (4.8-10.8)
[2020-05-27] MEDS: Levothyroxine Sodium 25 MCG TAB PO SCH (06:02)
[2020-05-27] MEDS: Acyclovir 200 mg Capsule PO SCH ×2 (06:02→19:23)
[2020-05-27] MEDS: Diphenoxylate HCl/Atropine Tablet PO SCH ×3 (06:02→14:53)
[2020-05-27 06:19] LABS: Albumin 2.6 g/dL (3.4-4.8); Anion Gap 14 mmol/L (10-20); BUN (Urea Nitrogen) 22 mg/dL (9.8-20.1); Calc. Creatinine Clearance 26 mL/min (70-130); Calcium 7.8 mg/dL (7.8-10.44); Carbon Dioxide 23 mmol/L (23-31); Chloride 108 mmol/L (98-107); Estimated GFR-MDRD 25; Glucose 85 mg/dL (80-115); Phosphorus 3.8 mg/dL (2.3-4.7); Potassium 3.7 mmol/L (3.5-5.1); Sodium 141 mmol/L (136-145)
[2020-05-27] MEDS: HumuLIN 70/30 (300 UNITS/3 ML VIAL) SC SCH ×2 (10:11→21:46)
[2020-05-27] MEDS: Sevelamer Carbonate 800 MG TAB PO SCH ×3 (10:11→15:26)
[2020-05-27] MEDS: Apixaban 5 MG TAB PO SCH ×2 (10:11→21:45)
[2020-05-27] MEDS: Amiodarone 200 MG TAB PO SCH ×2 (10:11→21:45)
[2020-05-27] MEDS: Cholestyramine/Aspartame 4 gm Packet PO SCH ×2 (10:12→21:46)
[2020-05-27] MEDS: Sodium Bicarbonate Tab 325 MG TAB PO SCH ×3 (10:12→21:46)
--- NOTE | 2020-05-27 14:32 | PDOC.HOSPP ---
- Subjective Encounter Date: 05/27/20 Encounter Time: 09:50 Subjective: wants to go home today dialysis chair has not set up yet. talk to the sister and CM. she would be able to go to [place], but needs transportation and has to go through [employer], which needs advanced notice. so these has to be sorted out and to be lined up, prior to dc. otherwise, she may not be able to get the dialysis done - Objective Vital Signs & Weight: Vital Signs (12 hours) Temp Pulse Resp BP Pulse Ox 05/27/20 08:55 98 05/27/20 07:19 98.8 F 80 18 116/72 98 05/27/20 03:57 99.1 F 78 16 128/76 96 Weight Admit Weight 138 lb Weight 138 lb 14.259 oz I&O: 05/26/20 05/27/20 05/28/20 06:59 06:59 06:59 Intake Total 1800 1120 Output Total 350 1200 Balance 1450 -80 Result Diagrams: 05/27/20 05:16 05/27/20 05:16 Additional Labs: Accuchecks 05/27/20 05/26/20 05/26/20 12:05 20:42 15:57 POC Glucose 121 H 88 102 Hospitalist ROS - Medication Medications: Active Medications Generic Name Dose Route Start Last Admin Trade Name Freq PRN Reason Stop Dose Admin Acetaminophen 650 mg 05/21/20 10:39 05/23/20 09:07 Tylenol PO 650 mg Q6H PRN Administration Headache/Fever or Pain Acetaminophen/Codeine Phosphate 1 tab 05/24/20 22:50 05/25/20 18:41 Tylenol #3 PO 1 tab Q4H PRN Administration Moderate Pain (4-6) Acyclovir 200 mg 05/21/20 06:00 05/27/20 06:02 Zovirax PO Not Given 0600,1800 ELY Alprazolam 0.25 mg 05/21/20 10:39 05/24/20 21:31 Xanax PO 0.25 mg BIDPRN PRN Administration Anxiety Amiodarone HCl 200 mg 05/21/20 09:00 05/27/20 10:11 Cordarone PO Not Given BID ELY Apixaban 5 mg 05/21/20 09:00 05/27/20 10:11 Eliquis PO Not Given BID ELY Cholestyramine Resin 4 gm 05/24/20 22:00 05/27/20 10:12 Questran Light PO Not Given 1000,2200 ON LICENSE OF [facility] Diphenoxylate HCl/Atropine 1 tab 05/21/20 12:00 05/27/20 06:02 Lomotil PO Not Given Q6HR ON LICENSE OF [facility] Epoetin Wade-epbx 2,000 unit 05/23/20 15:00 05/25/20 18:21 Retacrit SC 2,000 unit MoWeFr ELY Administration Epoetin Wade-epbx 3,000 unit 05/23/20 15:00 05/25/20 18:22 Retacrit SC 3,000 unit MoWeFr ON LICENSE OF [facility] Administration Ceftriaxone Sodium 1 gm/ 100 mls @ 200 mls/hr 05/20/20 21:00 05/26/20 20:38 Sodium Chloride IVPB 100 mls Q24HR ELY Administration Ferric Sodium Gluconate 110 mls @ 110 mls/hr 05/23/20 16:00 05/26/20 17:35 Complex 125 mg/ Sodium IVPB 05/27/20 16:59 110 mls Chloride 1600 ON LICENSE OF [facility] Administration Insulin Human Isoph/Insulin Regular 10 units 05/21/20 09:00 05/27/20 10:11 Humulin 70/30 SC Not Given BID ON LICENSE OF [facility] Levothyroxine Sodium 25 mcg 05/21/20 06:00 05/27/20 06:02 Synthroid PO Not Given 0600 ON LICENSE OF [facility] Ondansetron HCl 4 mg 05/22/20 12:39 05/26/20 16:12 Zofran IVP 4 mg Q4H PRN Administration Nausea Ondansetron HCl 4 mg 05/22/20 15:14 05/24/20 19:29 Zofran Odt PO 4 mg Q4H PRN Administration Nausea/Vomiting Pantoprazole Sodium 40 mg 05/21/20 09:00 05/27/20 10:12 Protonix PO Not Given DAILY ON LICENSE OF [facility] Sevelamer Carbonate 800 mg 05/21/20 08:00 05/27/20 10:11 Renvela PO Not Given TID-[facility] Sodium Bicarbonate 650 mg 05/24/20 15:00 05/27/20 10:12 Bicarbonate, Sodium PO Not Given TID ON LICENSE OF [facility] Sodium Chloride 10 ml 05/21/20 02:53 07/16/20 16:15 Flush - Normal Saline IVF 10 ml PRN PRN Administration Saline Flush - Exam Eye: PERRL ENT: normocephalic atraumatic Neck: supple Heart: RRR Respiratory: CTAB, normal chest expansion Gastrointestinal: soft, normal bowel sounds Neurological: no focal deficits Psychiatric: A&O x 3 Hosp A/P - Plan recent hx of Ischemic bowel s/p hemicolectomy, resection of transverse colon and part of ileum -ileostomy bag - sux followed. -per their instruction " Lomotil. Cavalon spray and Adapt stoma powder in several alternating layers, then a Renasys adhesive patch under her stoma bag to obtain a good seal to be continued by Home Health after discharge. Empty bag when half full." Cellultis around the site -- on ctx for now. - cont'd to improve. Afib - on amio and eliquis -rate controlled Hypothyroidism - on supplement -fw on tsh Pain control, stool softener. full code. Ileosomy bag leakage - wound care following. High output from ileostomy - sux following with us. PT HAD SURGERY IN april AT [place], WENT TO REHAB at [facility], and she felt that they did not treat her adequately. less than optimal care for her expectations. She went to [facility] with vomiting and nausea and stayed there few days and went home. within a day, she came back here as she was not feeling well overall. Dr. Levy is kind enough to see her again today. She needs to get her strength back and regained some mobility. Encouraged to increase protein intake ATN/RACHANA s/p R. tunnel cath -now becoming diaysis dept High ileostomy output failure - encourage more PO intake incl..protein shakes. -cholestyramine trial protein calorie malnutrition -nutrition sc -high protein intake Normocytic iron deficiency anemia -retacrit -sux note reviewed. -plan to set up osteomy nurse to visit at home. outpt dialysis being arranged. hep series negative. ileostomy output decreasing. talk to the sister and CM. she would be able to go to [place] dialysis, but needs transportation and has to go through medicaid van, which needs advanced notice. so these have to be sorted out and to be lined up, prior to dc. otherwise, she may not be able to get her routine dialysis. All these may not materialize until saturday. full code
[2020-05-27] MEDS: EPOETIN ALFA-EPBX (ESRD) 2,000 UNIT/ML VIAL SC SCH (15:25)
[2020-05-27] MEDS: EPOETIN ALFA-EPBX (ESRD) 3,000 UNIT/ML VIAL SC SCH (15:26)
[2020-05-27] MEDS: Iron, Sodium Ferric Gluconate 125 MG in Sodium Chloride 0.9% 100 ML IVPB SCH (15:28)
--- NOTE | 2020-05-27 19:11 | PRG ---
DATE OF SERVICE: 05/27/2020 SERVICE: Nephrology. SUBJECTIVE: A 70-year-old female seen in followup for acute renal failure from acute tubular necrosis. The patient is hemodialysis dependent. Overall clinically improved. Hypotension has resolved. The patient desires to be discharged. OBJECTIVE: VITAL SIGNS: Temperature 98.9, pulse 82, respiratory rate 16, SpO2 100 on room air, blood pressure is 130/73. I and O in the last 24 hours showed total intake of 1120 with total output of 1200 with output mostly from stool 1100 and urine 100 mL. GENERAL: Chronically ill-looking cachectic female, in no distress. Afebrile. HEENT: Normocephalic, atraumatic. Oral mucosa is moist. CARDIOVASCULAR: Regular rhythm and rate with normal heart sounds 1 and 2. RESPIRATORY: Fair air entry bilaterally with no obvious crackle or rhonchi or use of accessory muscles. GI: Full, soft with normal bowel sounds. Right upper quadrant ileostomy noted. EXTREMITIES: Grossly normal looking atraumatic with no edema or erythema. Diffuse muscular atrophy/wasting noted. 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 Cranial nerves 2 through 12 are grossly intact. DIAGNOSTIC DATA: CBC showed WBC count of 8.8, hemoglobin of 8.1, and platelets of 305. Chemistry showed sodium 141, potassium 3.7, chloride 108, CO2 23, BUN 22, creatinine 2.0, glucose 85, calcium 7.8, phosphorus 3.8, albumin 2.6. ASSESSMENT: 1. Acute renal failure: Due to an acute tubular necrosis. Dialysis dependent. Last dialysis was on May 25, 2020. Given acceptable electrolyte volume as well as potassium we will withhold dialysis today and monitor for renal recovery. 2. High-output ileostomy: Output is still high, but has improved. Total output in the last 24 hours was 1100. The patient is taking some medication to slow down the output. 3. Hypotension due to volume depletion. Resolved. 4. Protein-calorie malnutrition. Oral supplements advised. [place] oral intake recommended. 5. Disposition: The patient can be discharged from Nephrology point of view once outpatient hemodialysis arrangement is concluded. Job ID: [id number]
[2020-05-27] MEDS: cefTRIAXone\\ROCEPHIN 1 GM in Sodium Chloride 0.9% 100 ML IVPB SCH (21:44)
[2020-05-28] MEDS: Diphenoxylate HCl/Atropine Tablet PO SCH ×3 (01:52→13:36)
[2020-05-28] MEDS: Acyclovir 200 mg Capsule PO SCH (07:16)
[2020-05-28] MEDS: Levothyroxine Sodium 25 MCG TAB PO SCH (07:16)
[2020-05-28] MEDS: Amiodarone 200 MG TAB PO SCH (08:39)
[2020-05-28] MEDS: Apixaban 5 MG TAB PO SCH (08:39)
[2020-05-28] MEDS: Sodium Bicarbonate Tab 325 MG TAB PO SCH (08:39)
[2020-05-28] MEDS: Sevelamer Carbonate 800 MG TAB PO SCH ×2 (08:39→13:36)
[2020-05-28] MEDS: HumuLIN 70/30 (300 UNITS/3 ML VIAL) SC SCH (08:40)
[2020-05-28] MEDS ORDERED: Lidocaine 4% Topical Sol 50 ML BOT TOP PRN (11:12)
[2020-05-28] MEDS: Cholestyramine/Aspartame 4 gm Packet PO SCH ×2 (11:29→11:36)
[2020-05-28 11:39] VITALS: BP 134/77; TEMP 99.4
[2020-05-28 13:05] LABS: Albumin 2.7 g/dL (3.4-4.8); Anion Gap 14 mmol/L (10-20); BUN (Urea Nitrogen) 32 mg/dL (9.8-20.1); BUN/Creatinine Ratio 14.48; Calc. Creatinine Clearance 24 mL/min (70-130); Calcium 8.2 mg/dL (7.8-10.44); Carbon Dioxide 25 mmol/L (23-31); Chloride 109 mmol/L (98-107); Estimated GFR-MDRD 22; Glucose 94 mg/dL (80-115); Phosphorus 3.7 mg/dL (2.3-4.7); Potassium 4.2 mmol/L (3.5-5.1); Sodium 144 mmol/L (136-145)
--- NOTE | 2020-05-28 14:17 | PRG ---
DATE OF SERVICE: 05/28/2020 SERVICE: Nephrology. SUBJECTIVE: A 70-year-old female with acute renal failure due to acute tubular necrosis seen in followup. The patient is status post an ileostomy for mesenteric ischemia. Urine output is improved in the last few days. Oral intake also has improved. The patient is still having good output from the ostomy. Feels better, otherwise desires to go home. The patient has been hemodialysis dependent; however, last hemodialysis was on May 25, 2020. Dialysis was skipped yesterday due to acceptable electrolytes and volume status. OBJECTIVE: VITAL SIGNS: Temperature 99.4, pulse 82, respiratory rate 18, SpO2 of 98% on room air, blood pressure is 134/77. Intake and output in the last 24 hours showed total intake of 950 with total output of 675 with urine contributing 450 mL and stool 225. Of note, urine output may have been greater as the patient had some wet diaper. GENERAL: Chronically ill-looking female, in no distress. Afebrile. HEENT: Normocephalic and atraumatic. Oral mucosa is moist. NECK: Supple with no JVD. CARDIOVASCULAR: Regular rhythm and rate. Normal heart sounds one and two. RESPIRATORY: Fair air entry bilaterally with no obvious crackle or rhonchi. GI: Full, soft, nontender, nondistended with normal bowel sounds. Right upper quadrant ileostomy noted. EXTREMITIES: Grossly normal looking, but with no edema. Muscle wasting noted. UNIT CLERK: Conscious and alert, oriented x3 with appropriate mental status. DIAGNOSTIC DATA: Chemistry showed sodium 144, potassium 4.2, chloride 109, CO2 of 25, BUN 32, creatinine 2.21, glucose 94, calcium 8.2, phosphorus 3.7, albumin 2.7. ASSESSMENT: 1. Acute renal failure due to acute tubular necrosis. The patient has been hemodialysis dependent. There is evidence of renal recovery as urine output is improving. Electrolytes is still acceptable as well as volume status and acid-base balance. There is no immediate need for hemodialysis today. 2. Hypotension, present on admission due to volume depletion. Resolved. 3. Volume depletion from poor intake and increased output from the ostomy. Improved. Treated with IV fluid therapy. Oral intake has also improved. 4. Metabolic acidosis: Due to acute renal failure: Improved. 5. Protein-calorie malnutrition. 6. High-output ileostomy: Improved with Lomotil. PLAN: 1. The patient can be discharged from Nephrology point of view. However, we get BMP on May 30 morning. We will plan on dialyzing the patient if indicated after review of other diagnostic test. 2. The patient advised to take liberal fluid and oral intake. Nutritional supplementation advised to help healing. We will follow the patient on outpatient basis on discharge. Job ID: [id number]
--- NOTE | 2020-05-28 16:16 | DIS ---
DATE OF ADMISSION: 05/20/2020 DATE OF DISCHARGE: 05/28/2020 DISCHARGE DIAGNOSES: 1. Recent history of ischemic bowel. 2. Status post hemicolectomy, resection of transverse colon and part of the ileum. 3. Status post ileostomy bag. 4. Cellulitis around the ileostomy bag site that is resolved with antibiotics. 5. Atrial fibrillation, on amiodarone and Eliquis. 6. Hypothyroidism. 7. Ileostomy back leakage that has been corrected. 8. High output from the ileostomy that is improved. 9. Ongoing renal dysfunction, requiring dialysis. It seems that she is probably for the near future going to be on a scheduled dialysis with Saturday, Saturday, and Saturday at [facility]. DISCHARGE MEDICATIONS: 1. Levothyroxine 25 mcg daily. 2. Humulin 70/30 ten units twice a day. 3. Eliquis 5 mg twice a day. 4. Amlodipine 5 mg daily. 5. Amiodarone 200 mg twice a day. 6. Tylenol 3 q.4 hours p.r.n. 7. Renvela 800 mg t.i.d. 8. Protonix 40 mg daily. 9. Phenergan 25 mg q.6h as needed for nausea. PHYSICAL EXAMINATION: VITAL SIGNS: On the day of discharge, temperature 97.5, pulse 76, blood pressure 136/78, and saturating 99% on room air. GENERAL: The patient is alert and oriented. She packed her belongings and quite anxious to leave. Her ileostomy bag looks good, one less watery stool. CARDIOVASCULAR: Regular rate and rhythm without murmurs, rubs, or gallops. LUNGS: Clear to auscultation bilaterally without wheezing, rales, or rhonchi. ABDOMEN: Soft. Ileostomy bag noted as above. CONSULT: Dr. Ruano with tool worker and Dr. Levy, General Surgery. HOSPITAL COURSE: This is a 70-year-old female with recent history of ischemic bowel in March 2020, has undergone right hemicolectomy and ileostomy bag. She is admitted for ileostomy bag malfunctioning and high-output failure. She did have a prolonged hospitalization requiring second-look operations on two different occasions ending with ileostomy. She went through the LTAC in the [facility]. During the rehab stay, she got very frustrated with less than optimal care per her expectations and then she went to [facility], where she was hospitalized for pneumonia. Dr. Levy was involved closely with the care. She did leave [facility] to back home. Within one day, she came back [facility] because of her ileostomy bag putting out more as well as leakage around the site. This was addressed both by Dr. Levy and as well as ileostomy nurse, and has been arranged for home visit by ileostomy nurse on Tuesdays and . The patient also has a cuffed tunneled catheter. It appears that she will require ongoing dialysis in the very near future. Dialysis chair has been arranged at [facility] and she will follow up with them. Transportation is arranged through the Medicaid transport. Overall, she needs to regain her strength before any further surgical evaluation , if any required at all. She had midline abdominal lex that were removed. With this management, she is stable to be discharged home today. Her sister has also been trained by the ileostomy nurse on how to change the bag. DISCHARGE INSTRUCTIONS: Activity as tolerated. Regular diet. Follow up with the PCP in 1 week. Follow up with her routine scheduled dialysis. Follow up with Dr. Levy as needed in 2 to 3 weeks' time. Discharge time took over 45 minutes. Job ID: [id number] MTDD
--- NOTE | 2020-05-30 05:25 | PQF ---
CLINICAL DOCUMENTATION CLARIFICATION FORM: Dear : Cortez Valdez Date / Time: 05/30/2020 05:24 Please exercise your independent, professional judgment in responding to the clarification form. Clinical indicators are provided on the bottom of this form for your review Please check appropriate box(es) to clarify if the following diagnosis has been ruled in our ruled out: Sepsis [ ] Ruled in diagnosis [ ] Continue to treat [ ] Resolved [x ] Ruled out diagnosis [ ] Improving [ ] Cannot rule out diagnosis [ ] Other diagnosis [ ] Unable to determine If ruled in please specify etiology: [ ] Ileostomy [ ] Complication of recent colectomy [ ] Unable to determine Physician Signature: Date/Time: For continuity of documentation, please document condition throughout progress notes and discharge summary. Thank You. To be completed by CDI/Coding staff for physician review: Present Clinical Indicators - Signs / Symptoms / Labs Results and Location in Medical Record [x] possible sepsis ED Notes 05/20 [x] leaking colostomy with pain around the site ED Notes 05/20 [x] she was found to be obtunded HP 05/20 [x] ATN Consult 05/21 [x] Metabolic acidosis Consult 05/21 [x] hypotension due to dehydration Consult 05/21 [x] Temp=98.5 Pulse=82 Respi=16 BP=84/55 Vital Signs 05/20 [x] WBC: 05/20=5.6 05/23=6.5 05/27=8.8 Labs 05/20 [x] Lactate: 05/20=1.2 Labs 05/20 [x] Blood culture:no growth Collected 05/20 Present Risk Factors Results and Location in Medical Record [x] 70 years old female ED Notes 05/20 [x] Presence of ileostomy ED Notes 05/20 [x] ESRD ED Notes 05/20 [x] s/p right hemicolectomy HP 05/20 [x] Severe PCM Consult 05/21 Present Treatments Results and Location in Medical Record [x] Rocephin 1gm IV JAN 15 [x] IVF JAN 15 [x] Blood culture Collected 05/20 CDS/Wellness Program Administrator Signature: Jose Juanstephanie DobbinsJennanatty Luong Phone #: ext [phone] Date/Time: 05/30/2020 05:24 This is a permanent part of the Medical Record [facility]
--- NOTE | 2020-05-30 05:28 | PQF ---
CLINICAL DOCUMENTATION CLARIFICATION FORM: Dear : Cortez Valdez Date / Time: 05/30/2020 05:26 Please exercise your independent, professional judgment in responding to the clarification form. Clinical indicators are provided on the bottom of this form for your review Please check appropriate box(es): [ x] Cellulitis as a complication of ileostomy [ ] Cellulitis not a complication of ileostomy [ ] Other diagnosis [ ] Unable to determine Physician Signature: Date/Time: For continuity of documentation, please document condition throughout progress notes and discharge summary. Thank You. To be completed by CDI/Coding staff for physician review: Present Clinical Indicators - Signs / Symptoms / Labs Results and Location in Medical Record [x] Cellulitis around the site PN 05/21 [x] Patient admitted with ostomy concerns PN 05/20 [x] Peristomal skin irritation due to poor compliance with stomal mangement PN 05/20 [x] leaking colostomy with pain around the site ED Notes 05/20 [x] She has suffered dermatitis from poor ileostomy care PN 05/24 [x] Cellulitis arounf the ileostomy bag site DS 05/28 [x] WBC: 05/20=5.6 05/23=6.5 05/27=8.8 Labs 05/20 Present Risk Factors Results and Location in Medical Record [x] 70 years old female ED Notes 05/20 [x] Presence of ileostomy ED Notes 05/20 [x] ESRD ED Notes 05/20 [x] Severe PCM Consult 05/21 Present Treatments Results and Location in Medical Record [x] Cavalon spray PN 05/20 [x] Adapt stoma powder PN 05/20 [x] Renasys adhesive patch PN 05/20 [x] Wound care PN 05/23 [x] Rocephin 1gm IV JAN 15 [x] IVF JAN 15 CDS/Control Analyst Signature: Jose Juanstephanie Jenna Luong Phone #: [phone] Date/Time: 05/30/2020 05:26 This is a permanent part of the Medical Record [facility]
== END 2020-05-28 13:59 | disposition home health service (06) | DRG 393 ==
LOC: ERS 14:37 → SURG A 17:22
PROVIDERS: ADMIT Internal Medicine; ATTEND Internal Medicine
DX: K94.12 Enterostomy infection (principal); N18.6 End stage renal disease; E43 Unspecified severe protein-calorie malnutrition; N17.0 Acute kidney failure with tubular necrosis; L03.311 Cellulitis of abdominal wall; I12.0 Hypertensive chronic kidney disease with stage 5 chronic kidney disease or end stage renal disease; E87.2 Acidosis; K21.9 Gastro-esophageal reflux disease without esophagitis; E03.9 Hypothyroidism, unspecified; G89.29 Other chronic pain; E78.5 Hyperlipidemia, unspecified; I48.91 Unspecified atrial fibrillation; E86.0 Dehydration; E83.39 Other disorders of phosphorus metabolism; D63.1 Anemia in chronic kidney disease; D50.9 Iron deficiency anemia, unspecified; L30.9 Dermatitis, unspecified; Z93.2 Ileostomy status; Z99.2 Dependence on renal dialysis; Z90.710 Acquired absence of both cervix and uterus; Z68.21 Body mass index [BMI] 21.0-21.9, adult; Y84.8 Other medical procedures as the cause of abnormal reaction of the patient, or of later complication, without mention of misadventure at the time of the procedure
CPT/HCPCS: 36415; 36416; 51701; 71045; 80048; 80053; 80069; 80074; 81003; 81015; 82040; 82553; 82728; 83540; 83550; 83605; 83880; 84443; 84484; 85025; 85027; 86704; 86706; 86803; 87040; 87086; 87324; 87340; 87449; 90935; 93005; 96360; 96361; G0257; J0696; J0780; J1644; J1815; J2405; J2550; J2916; J3490; J7070; P9047; Q0162; Q5105

== ENCOUNTER 2020-07-19 15:46 | Inpatient (IN) | payer MEDICARE, MEDICAID, OTHER ==
[2020-07-19] MEDS ORDERED: diphenhydrAMINE 50 MG/ML VIAL ONE (16:26)
[2020-07-19] MEDS ORDERED: Metoclopramide 10 MG/10 ML UDCUP ONE (16:26)
[2020-07-19] MEDS ORDERED: Metoclopramide HCl 10 MG/2 ML VIAL ONE (16:27)
[2020-07-19 16:36] LABS: #Basophils 0.1 thou/uL (0.0-0.2); #Lymphocytes 2.3 thou/uL (1.20-3.40); #Monocytes 0.6 thou/uL (0.11-0.59); #Neutrophils 6.5 thou/uL (1.40-6.50); %Basophils 1.2 % (0.0-1.0); %Eosinophils 0.4 % (0.0-10.0); %Lymphocytes 24.4 % (21.0-51.0); %Monocytes 5.8 % (0.0-10.0); %Neutrophils 68.3 % (42.0-75.0); Hemoglobin 9.3 g/dL (12.0-16.0); Mean Corpuscular HGB CONC 32.7 g/dL (32.0-36.0); Mean Corpuscular Hemoglobin 30.7 pg (27.0-31.0); Mean Corpuscular Volume 93.8 fL (78.0-98.0); Mean Platelet Volume 6.3 fL (7.4-10.4); Platelet Count 908 thou/uL (130-400); RBC Distribution Width 13.3 % (11.5-14.5); Red Blood Cell (RBC) Count 3.04 mill/uL (4.20-5.40); White Blood Cell (WBC) Count 9.5 thou/uL (4.8-10.8)
[2020-07-19 16:55] LABS: ALT (SGPT) 8 U/L (8-55); AST (SGOT) 8 U/L (5-34); Albumin 3.5 g/dL (3.4-4.8); Alkaline Phosphatase 144 U/L (40-110); Anion Gap 21 mmol/L (10-20); BUN (Urea Nitrogen) 47 mg/dL (9.8-20.1); Bilirubin, Total 0.2 mg/dL (0.2-1.2); Calc. Creatinine Clearance 0 mL/min (70-130); Calcium 8.5 mg/dL (7.8-10.44); Carbon Dioxide 14 mmol/L (23-31); Chloride 106 mmol/L (98-107); Estimated GFR-MDRD 7; Globulin 3.9 g/dL (2.4-3.5); Glucose 89 mg/dL (80-115); Lipase 92 U/L (8-78); Potassium 5.4 mmol/L (3.5-5.1); Protein, Total 7.4 g/dL (6.0-8.3); Sodium 136 mmol/L (136-145)
[2020-07-19 17:16] LABS: CKMB 2.7 ng/mL (0-6.6)
--- NOTE | 2020-07-19 18:13 | RAD ---
RADIOGRAPH CHEST 1 VIEW: DATE: 07/19/2020 HISTORY: Dyspnea FINDINGS: There are no airspace densities, pulmonary edema, pneumothorax, or cardiomegaly. The lateral costophr enic angles are sharp. Right IJ double lumen dialysis catheter distal tip overlying SVC. IMPRESSION: No acute cardiopulmonary findings.
[2020-07-19] MEDS ORDERED: Guaifenesin DM 100-10/5 ML UDCUP PO PRN (18:49)
[2020-07-19] MEDS ORDERED: Ondansetron PF 4 MG/2 ML Vial IVP PRN (18:49)
[2020-07-19] MEDS ORDERED: HYDROcodone/Acetaminophen 5/325 mg Tablet PO PRN (18:49)
[2020-07-19] MEDS ORDERED: Acetaminophen 325 MG TAB PO PRN (18:49)
[2020-07-19] MEDS ORDERED: Calcium Carbonate 500 MG ChewTAB PO PRN (18:49)
--- NOTE | 2020-07-19 19:26 | HP ---
REASON FOR ADMISSION: Acute kidney injury with history of prior ATN, metabolic acidosis, failure to thrive. HISTORY OF PRESENTING ILLNESS: The patient says she was discharged from rehab 4 days back. From then on, she has been having severe nauseating spells and has been vomiting for all the 4 days that she was at home. She is eating a little, but it is not staying in her stomach. After getting discharge from rehab, the patient was able to walk with some help. She also mentions that she has not been walking much. She is not making urine as before. Her ileostomy output has been the same. She is emptying her ostomy 2 times at night and nearly every 3 hours during the day. PAST MEDICAL AND SURGICAL HISTORY: Hypertension, dyslipidemia, history of atrial fibrillation, hypothyroidism, GERD, ATN with the patient being temporarily on hemodialysis, right infraclavicular tunneled catheter, history of ileostomy with mesenteric ischemia and bowel surgery in the past, hysterectomy. CURRENT MEDICATIONS: 1. Eliquis 5 mg twice daily. 2. Amiodarone 200 mg daily. 3. Levothyroxine 25 mcg daily. 4. Megace 400 mg daily. 5. Humulin 70/30 of 10 units subcu twice daily. 6. Protonix 40 mg daily. 7. Renvela 800 mg p.o. three times daily. 8. Ferrous sulfate, on alternate days. 9. Sodium chloride tablets. ALLERGIES: NO KNOWN DRUG ALLERGIES. PERSONAL HISTORY: Does not abuse alcohol or drugs. No history of smoking. FAMILY HISTORY: Mother in her 30s from motor vehicle accident. Father at the age of 63 from colon cancer and its complication. The patient lives with her . CODE STATUS: Full. Power of traffic law attorney is her . REVIEW OF SYSTEMS: CONSTITUTIONAL: Negative for weight loss or gain, ability to conduct usual activities. SKIN: Negative for rash, itching. EYES: Negative for double vision, pain. ENT/MOUTH: Negative for nose bleeding, neck stiffness, pain, tenderness. CARDIOVASCULAR: Negative for palpitations, dyspnea on exertion, orthopnea. RESPIRATORY: Negative for shortness of breath, wheezing, cough, hemoptysis, fever or night sweats. GASTROINTESTINAL: Negative for poor appetite, abdominal pain, heartburn, nausea , vomiting, constipation, or diarrhea. GENITOURINARY: Negative for urgency, frequency, dysuria, nocturia. MUSCULOSKELETAL: Negative for pain, swelling. NEUROLOGIC/PSYCHIATRIC: Negative for anxiety, depression. ALLERGY/IMMUNOLOGIC: Negative for skin rash, bleeding tendency. PHYSICAL EXAMINATION: GENERAL: The patient is a 70-year-old female, who is currently not in any acute distress. VITAL SIGNS: Blood pressure 104/72, pulse 90 per minute, respiratory rate 18 per minute, temperature 98.6 degrees Fahrenheit, saturating 99% on room air. NECK: Supple. No elevated JVD. HEENT: Eyes; extraocular muscles intact. Pupils reacting to light. Oral cavity, mucous membranes are dry. No exudates or congestion. CARDIOVASCULAR: S1-S2 heard, regular rhythm. RESPIRATORY: Air entry 1+ bilateral. No rales or rhonchi. ABDOMEN: Soft. Bowel sounds heard. No tenderness, rigidity, or guarding. Ileostomy has a liquid stool in it. EXTREMITIES: No peripheral edema or calf tenderness. VASCULAR: Peripheral pulses 1+ bilateral. No ischemic ulcerations or gangrene. CENTRAL NERVOUS SYSTEM: No gross focal motor deficits noted. The patient is alert, awake, and oriented well. PSYCHIATRIC: The patient's mood is euthymic. No hallucinations or delusions. LABORATORY DATA: White count of 9; H and H of 9 and 28; platelet count 908, it was 726 on the 07 of July with 68% neutrophils; MCV is 93. BUN is 47; creatinine 6.0; serum bicarb is 14, which has always been around 14 to 16 in the past; serum potassium 5.4; serum glucose 89. AST and ALT within normal limits, alkaline phosphatase 144. Troponin I 0.04, CK-MB 2.7. Albumin is 3.5. Lipase is 92. EKG done shows sinus rhythm at 97 beats per minute. CLINICAL IMPRESSION AND PLAN: The patient will be admitted to telemetry for acute renal failure with history of acute tubular necrosis and prior temporary dialysis done for the same. The patient was off dialysis for the last 3 weeks and was steady with her creatinine and renal function in rehab, but has had intractable vomiting and her creatinine has gone up with poor oral intake as well after going home for the last 4 days. I do not have labs done at the rehab facility. Dr. Ruano is her accounts payable or receivable clerk and has been consulted from ER. She will be on half NS with two amps of sodium bicarbonate in each liter. We will continue her on amiodarone, Eliquis, Synthroid, Megace, and Sevelamer, along with Protonix as before. We will closely monitor her renal function to see if it is recovered. If not, the patient will have to go back on dialysis. The patient has not mobilized much after recent rehab stint and the patient states she barely walks a few feet with the help at home. We will obtain PT/OT evaluations for early mobilization. The patient's albumin is around 3.5, and we will hold off on parenteral nutrition for now. Job ID: [id number] MTDD
[2020-07-19] MEDS ORDERED: Apixaban 5 MG TAB PO SCH (21:00)
[2020-07-19] MEDS: Sodium Bicarbonate 100 MEQ in Sodium Chloride 0.45% 1,000 ML IV SCH (21:43)
[2020-07-19 23:37] VITALS: BMI 19.1
[2020-07-20 04:32] LABS: #Basophils 0.1 thou/uL (0.0-0.2); #Eosinphils 0.1 thou/uL (0.0-0.7); #Lymphocytes 2.5 thou/uL (1.20-3.40); #Monocytes 0.7 thou/uL (0.11-0.59); #Neutrophils 5.3 thou/uL (1.40-6.50); %Basophils 0.9 % (0.0-1.0); %Eosinophils 1.1 % (0.0-10.0); %Lymphocytes 28.5 % (21.0-51.0); %Neutrophils 61.6 % (42.0-75.0); Hemoglobin 7.7 g/dL (12.0-16.0); Mean Corpuscular HGB CONC 32.2 g/dL (32.0-36.0); Mean Corpuscular Hemoglobin 30.6 pg (27.0-31.0); Mean Corpuscular Volume 94.9 fL (78.0-98.0); Mean Platelet Volume 6.3 fL (7.4-10.4); Platelet Count 739 thou/uL (130-400); RBC Distribution Width 13.2 % (11.5-14.5); Red Blood Cell (RBC) Count 2.53 mill/uL (4.20-5.40); White Blood Cell (WBC) Count 8.7 thou/uL (4.8-10.8)
[2020-07-20 04:51] LABS: Albumin 2.8 g/dL (3.4-4.8); Anion Gap 19 mmol/L (10-20); BUN (Urea Nitrogen) 47 mg/dL (9.8-20.1); BUN/Creatinine Ratio 8.26; Calc. Creatinine Clearance 8 mL/min (70-130); Calcium 7.9 mg/dL (7.8-10.44); Carbon Dioxide 14 mmol/L (23-31); Chloride 109 mmol/L (98-107); Estimated GFR-MDRD 7; Glucose 105 mg/dL (80-115); Magnesium 1.2 mg/dL (1.6-2.6); Phosphorus 4.7 mg/dL (2.3-4.7); Potassium 4.5 mmol/L (3.5-5.1); Sodium 137 mmol/L (136-145)
[2020-07-20] MEDS: Levothyroxine Sodium 25 MCG TAB PO SCH (05:32)
[2020-07-20] MEDS: Sodium Bicarbonate 100 MEQ in Sodium Chloride 0.45% 1,000 ML IV SCH (07:01)
[2020-07-20] MEDS ORDERED: Sevelamer Carbonate 800 MG TAB PO SCH (08:00)
[2020-07-20] MEDS: Apixaban 2.5 MG TAB PO SCH ×2 (08:29→21:01)
[2020-07-20] MEDS: Amiodarone 200 MG TAB PO SCH (08:29)
[2020-07-20] MEDS: Megestrol Acetate 800 MG/20 ML UDCUP PO SCH (08:29)
--- NOTE | 2020-07-20 11:09 | PDOC.HOSPP ---
- Subjective Encounter Date: 07/20/20 Encounter Time: 10:00 Subjective: c/o nausea and unable to eat or drink no abd pain or chest pain - Objective Vital Signs & Weight: Vital Signs (12 hours) Temp Pulse Resp BP Pulse Ox 07/20/20 07:00 98.8 F 70 16 100/56 L 98 07/20/20 05:31 98.1 F 86 18 101/53 L 100 07/20/20 00:54 85 114/57 L Weight Weight 125 lb 6.4 oz Result Diagrams: 07/20/20 03:44 07/20/20 03:44 Hospitalist ROS - Medication Medications: Active Medications Generic Name Dose Route Start Last Admin Trade Name Freq PRN Reason Stop Dose Admin Amiodarone HCl 200 mg 07/20/20 09:00 07/20/20 08:29 Cordarone PO 200 mg DAILY ELY Administration Apixaban 2.5 mg 07/20/20 09:00 07/20/20 08:29 Eliquis PO 2.5 mg BID ELY Administration Levothyroxine Sodium 25 mcg 07/20/20 06:00 07/20/20 05:32 Synthroid PO Not Given 0600 ELY Megestrol Acetate 400 mg 07/20/20 09:00 07/20/20 08:29 Megace PO 400 mg DAILY ELY Administration Pantoprazole Sodium 40 mg 07/20/20 09:00 07/20/20 08:29 Protonix PO 40 mg DAILY ELY Administration Sodium Chloride 10 ml 07/19/20 21:00 07/20/20 08:38 Flush - Normal Saline IVF 10 ml Q12HR ELY Administration - Exam General Appearance: awake alert Eye: PERRL, anicteric sclera ENT: no oropharyngeal lesions, dry oral mucosa Neck: supple, no JVD Heart: RRR, no murmur Respiratory: no wheezes, no rales Gastrointestinal: soft, non-tender, non-distended, normal bowel sounds Gastrointestinal - other findings: ileostomy+ Extremities: no cyanosis, no edema Neurological: cranial nerve grossly intact, no focal deficits Psychiatric: A&O x 3 Hosp A/P (1) Acute renal failure Status: Acute (2) FTT (failure to thrive) in adult Status: Chronic (3) Moderate protein malnutrition Code(s): E44.0 - MODERATE PROTEIN-CALORIE MALNUTRITION Status: Chronic (4) Physical deconditioning Code(s): R53.81 - OTHER MALAISE Status: Chronic (5) Atrial fibrillation Code(s): I48.91 - UNSPECIFIED ATRIAL FIBRILLATION Status: Chronic Qualifiers: Atrial fibrillation type: paroxysmal (6) HTN (hypertension) Code(s): I10 - ESSENTIAL (PRIMARY) HYPERTENSION Status: Chronic Qualifiers: (7) Hyperlipidemia Code(s): E78.5 - HYPERLIPIDEMIA, UNSPECIFIED Status: Chronic Qualifiers: (8) Hypothyroid Code(s): E03.9 - HYPOTHYROIDISM, UNSPECIFIED Status: Chronic Qualifiers: - Plan is on iv fluids with bicarbonate, creatinine around 5.6 reglan ac and hs for intractable nausea/vomiting PT/OT to mobilize as tolerated continue home meds as above including amiodarone, eliquis renal dose, megace, protonix, renvela hemostable she was home for 4 days after spending around 3 weeks in rehab, her last creatinine in rehab was around 1.4 on 07/14 not sure if she can manage herself at home? also has ileostomy with high output in addition to nausea//vomiting.
[2020-07-20] MEDS: Metoclopramide HCl 10 MG TAB PO SCH ×3 (11:16→21:00)
[2020-07-20] MEDS: Sodium Bicarbonate 150 MEQ in Dextrose 5% in Water 1,000 ML IV SCH ×2 (11:29→22:00)
[2020-07-20] MEDS ORDERED: Magnesium Sulfate 4 GM in Sodium Chloride 0.9% 250 ML 250 ML IVPB SCH (12:30)
--- NOTE | 2020-07-20 12:44 | CON ---
DATE OF CONSULTATION: 07/20/2020 SERVICE: Nephrology. REASON FOR CONSULTATION: Acute renal failure and hyperkalemia. REQUESTING PHYSICIAN: Dr. Issa Oliveira. CHIEF COMPLAINT: Nausea and vomiting and generalized weakness. HISTORY OF PRESENT ILLNESS: A 70-year-old female with known history of acute renal failure from acute tubular necrosis requiring dialysis which was recently discontinued due to improvement of renal function, mesenteric ischemia status post colon resection and ileostomy amongst others, who was recently discharged from [facility] on July 14 following treatment for physical deconditioning and generalized weakness, now readmitted due to intractable nausea and vomiting associated with poor oral intake, generalized weakness, and no urine in the last few days. The patient on evaluation was found to have a markedly elevated creatinine of 6, as well as hyperkalemia. She also was noted to be dry and was admitted for further evaluation and treatment. There is no history of fever or cough, chills, leg swelling, hematemesis, hematochezia, headache or focal weakness. The patient reported some falls at home. Of note, on July 14, 2020, creatinine was 1.3, that is currently 6. OBJECTIVE: VITAL SIGNS: Temperature 98.8, pulse 70, respiratory rate 16, SpO2 of 98% on room air, blood pressure is 100/56. GENERAL: Female, in no obvious distress. Chronically ill and cachectic. Afebrile, anicteric, and acyanotic. HEENT: Normocephalic, atraumatic. Oral mucosa is dry. NECK: Supple with no JVD. Right IJ tunneled dialysis catheter noted. RESPIRATORY: Fair air entry bilaterally with no obvious crackle or rhonchi or use of accessory muscles. CARDIOVASCULAR: Regular rhythm and rate with normal heart sounds 1 and 2. GI: Abdomen is flat, soft with mild epigastric tenderness. Right upper quadrant ileostomy also noted. EXTREMITIES: Muscular atrophy noted. No edema or erythema appreciated. SKIN: Poor skin turgor noted. DIRECTOR OF INFECTION PREVENTION: Conscious, alert, oriented x3 with appropriate mental status. Cranial nerves 2 through 12 are grossly intact. The patient moves all extremities but weakly especially lower extremities. DIAGNOSTIC DATA: CBC today showed WBC count of 8.7, hemoglobin of 7.7, which is down from admission level of 9.3. On July 07, hemoglobin was 9.4. Platelet currently is 739, which is lower than admission level of 903. Renal function panel today showed sodium 137, potassium 4.5, chloride 109, CO2 of 14, BUN 47, creatinine 5.69, glucose 105, calcium 7.9, phosphorus 4.7, magnesium 1.2, albumin 2.8. Of note, yesterday potassium was 5.4, CO2 of 14, BUN 47, creatinine 6.05. ASSESSMENT: 1. Acute renal failure: Due to hemodynamic factors related to severe volume depletion from poor oral intake and increased output from the ostomy. 2. Hyperkalemia, resolved due to metabolic acidosis and acute kidney injury. 3. Metabolic acidosis. 4. Hypomagnesemia. 5. Severe dehydration. 6. Status post ileostomy. 7. Acute tubular necrosis requiring hemodialysis with improvement. 8. The patient was on hemodialysis for some time, but was recently discontinued on hemodialysis. 9. Intractable nausea and vomiting. 10. Failure to thrive. 11. Protein-calorie malnutrition. PLAN: 1. We will start sodium bicarbonate infusion and run it at 200 mL/h. 2. We will also replete serum magnesium with 4 g of magnesium sulfate. 3. We will monitor hemoglobin and hematocrit. 4. Blood transfusion as per primary attending. 5. Further treatment to follow depending on hospital course. 6. Antiemetic as needed. Job ID: [id number]
[2020-07-21 04:36] LABS: #Eosinphils 0.2 thou/uL (0.0-0.7); #Lymphocytes 2.2 thou/uL (1.20-3.40); #Monocytes 0.6 thou/uL (0.11-0.59); #Neutrophils 5.3 thou/uL (1.40-6.50); %Basophils 0.3 % (0.0-1.0); %Lymphocytes 26.4 % (21.0-51.0); %Monocytes 6.7 % (0.0-10.0); %Neutrophils 64.6 % (42.0-75.0); Hemoglobin 8.5 g/dL (12.0-16.0); Mean Corpuscular HGB CONC 32.7 g/dL (32.0-36.0); Mean Corpuscular Hemoglobin 30.6 pg (27.0-31.0); Mean Corpuscular Volume 93.7 fL (78.0-98.0); Mean Platelet Volume 6.2 fL (7.4-10.4); Platelet Count 700 thou/uL (130-400); RBC Distribution Width 13.3 % (11.5-14.5); Red Blood Cell (RBC) Count 2.77 mill/uL (4.20-5.40); White Blood Cell (WBC) Count 8.2 thou/uL (4.8-10.8)
[2020-07-21 04:59] LABS: Iron 29 ug/dL (50-170); Iron Binding Capacity, Total 174 mcg/dL (265-497)
[2020-07-21 05:10] LABS: Albumin 2.9 g/dL (3.4-4.8); Anion Gap 20 mmol/L (10-20); BUN (Urea Nitrogen) 47 mg/dL (9.8-20.1); BUN/Creatinine Ratio 9.71; Calc. Creatinine Clearance 10 mL/min (70-130); Calcium 7.9 mg/dL (7.8-10.44); Carbon Dioxide 24 mmol/L (23-31); Chloride 96 mmol/L (98-107); Estimated GFR-MDRD 9; Glucose 87 mg/dL (80-115); Iron Binding Capacity, Total 179 mcg/dL (265-497); Magnesium 2.3 mg/dL (1.6-2.6); Potassium 3.9 mmol/L (3.5-5.1); Sodium 136 mmol/L (136-145)
[2020-07-21] MEDS: Levothyroxine Sodium 25 MCG TAB PO SCH (05:16)
[2020-07-21] MEDS ORDERED: Electrolyte Replacement Protoc 1 EACH EACH FS PRN (06:30)
[2020-07-21] MEDS ORDERED: Potassium Phosphate 22 MMOL in Sodium Chloride 0.9% 250 ML 250 ML IVPB SCH (06:45)
[2020-07-21] MEDS: Amiodarone 200 MG TAB PO SCH (09:34)
[2020-07-21] MEDS: Metoclopramide HCl 10 MG TAB PO SCH ×4 (09:34→21:03)
[2020-07-21] MEDS: Apixaban 2.5 MG TAB PO SCH (09:34)
[2020-07-21] MEDS: Megestrol Acetate 800 MG/20 ML UDCUP PO SCH (09:34)
--- NOTE | 2020-07-21 12:01 | PDOC.HOSPP ---
- Subjective Encounter Date: 07/21/20 Encounter Time: 10:45 Subjective: no nausea or vomiting now feels better says she had a appointment to see today - Objective Vital Signs & Weight: Vital Signs (12 hours) Temp Pulse Resp BP Pulse Ox 07/21/20 08:00 98.4 F 78 17 134/76 95 07/21/20 04:00 98.6 F 87 17 101/57 L 100 Weight Admit Weight 125 lb 6.4 oz Weight 125 lb 6.4 oz I&O: 07/20/20 07/21/20 07/22/20 06:59 06:59 06:59 Intake Total 4530 Output Total 1930 Balance 2600 Result Diagrams: 07/21/20 04:05 07/21/20 04:05 Hospitalist ROS - Medication Medications: Active Medications Generic Name Dose Route Start Last Admin Trade Name Freq PRN Reason Stop Dose Admin Amiodarone HCl 200 mg 07/20/20 09:00 07/21/20 09:34 Cordarone PO 200 mg DAILY ELY Administration Sodium Bicarbonate 150 meq/ 1,150 mls @ 200 mls/hr 07/20/20 09:15 07/20/20 22 :00 Dextrose/Water IV 1,150 mls INF ELY Administration Levothyroxine Sodium 25 mcg 07/20/20 06:00 07/21/20 05:16 Synthroid PO Not Given 0600 ELY Megestrol Acetate 400 mg 07/20/20 09:00 07/21/20 09:34 Megace PO 400 mg DAILY ELY Administration Metoclopramide HCl 10 mg 07/20/20 11:30 07/21/20 09:34 Reglan PO 10 mg ACHS ELY Administration Pantoprazole Sodium 40 mg 07/20/20 09:00 07/21/20 09:34 Protonix PO 40 mg DAILY ELY Administration Sodium Chloride 10 ml 07/19/20 21:00 07/21/20 09:35 Flush - Normal Saline IVF 10 ml Q12HR ELY Administration - Exam General Appearance: awake alert Eye: PERRL, anicteric sclera ENT: no oropharyngeal lesions, moist mucosa Neck: supple, no JVD Heart: RRR, no murmur Respiratory: no wheezes, no rales Gastrointestinal: soft, non-tender, non-distended, normal bowel sounds Gastrointestinal - other findings: ileostomy has liq stools Extremities: no cyanosis, no edema Neurological: cranial nerve grossly intact, no focal deficits Psychiatric: normal affect, A&O x 3 Hosp A/P (1) Acute renal failure Status: Acute (2) FTT (failure to thrive) in adult Status: Chronic (3) Moderate protein malnutrition Code(s): E44.0 - MODERATE PROTEIN-CALORIE MALNUTRITION Status: Chronic (4) Physical deconditioning Code(s): R53.81 - OTHER MALAISE Status: Chronic (5) Atrial fibrillation Code(s): I48.91 - UNSPECIFIED ATRIAL FIBRILLATION Status: Chronic Qualifiers: Atrial fibrillation type: paroxysmal (6) HTN (hypertension) Code(s): I10 - ESSENTIAL (PRIMARY) HYPERTENSION Status: Chronic Qualifiers: (7) Hyperlipidemia Code(s): E78.5 - HYPERLIPIDEMIA, UNSPECIFIED Status: Chronic Qualifiers: (8) Hypothyroid Code(s): E03.9 - HYPOTHYROIDISM, UNSPECIFIED Status: Chronic Qualifiers: - Plan is on iv fluids with bicarbonate, creatinine around 4 this am reglan ac and hs for intractable nausea/vomiting PT/OT to mobilize as tolerated continue home meds as above including amiodarone, megace, protonix, renvela hemostable she was home for 4 days after spending around 3 weeks in rehab, her last creatinine in rehab was around 1.4 on 07/14 not sure if she can manage herself at home? also has ileostomy with high output in addition to nausea//vomiting. D/w , likely to OR on saturday for reversal of ileostomy, penny pablo.
[2020-07-21] MEDS: Sodium Bicarbonate 150 MEQ in Dextrose 5% in Water 1,000 ML IV SCH (14:14)
[2020-07-21] MEDS ORDERED: Fleet Enema 133 ML BOT PR SCH (14:30)
--- NOTE | 2020-07-21 15:06 | PRG ---
DATE OF SERVICE: 07/21/2020 SERVICE: Nephrology. SUBJECTIVE: This is a 70-year-old female with acute renal failure due to acute tubular necrosis following ischemic mesentery status post colectomy and ileostomy, readmitted due to intractable nausea and vomiting associated with acute kidney injury. The patient reports feeling better. Having increased output from the ileostomy. Nausea and vomiting have subsided with Reglan. Denied fever shortness of breath, chest pain, or leg edema. OBJECTIVE: VITAL SIGNS: Temperature 98.4, pulse 78, respiratory rate 17, SpO2 95% on room air, blood pressure 134/76. I and O in the last 24 hours showed total intake of 4530 with output of 1930. Of these 1900 was from ostomy. This is inconclusive as the patient's urine output could not really be measured as she was wearing diaper. GENERAL: Chronically ill-looking female, in no obvious distress. Afebrile. Anicteric. Acyanotic. HEENT: Normocephalic and atraumatic. Oral mucosa is mildly dry. CARDIOVASCULAR: Regular rhythm and rate. Normal heart sounds one and two. RESPIRATORY: Fair air entry bilaterally. No obvious crackle or rhonchi or use of accessory muscles. GI: Full soft, mild epigastric and right upper quadrant tenderness. Normal bowel sounds. Right upper quadrant ileostomy noted. EXTREMITIES: Grossly normal looking atraumatic with no edema or erythema. Muscular atrophy noted. MATERIALS MGMT TECH: Conscious, alert, oriented x3 with appropriate mental status. Cranial nerves 2 through 12 are grossly intact. DIAGNOSTIC DATA: CBC showed WBC count of 8.2, hemoglobin of 8.5, platelet of 700. Chemistry showed sodium 136, potassium 3.9, chloride 96, CO2 of 24, BUN 47, creatinine 4.84, glucose 87, calcium 7.9, phosphorus 1.2, magnesium 2.3, albumin 2.8. Iron chemistry showed serum iron of 29, TIBC 174, saturation 17, ferritin 879. ASSESSMENT: 1. Acute renal failure: Due to hemodynamic factors related to volume depletion due to high output ileostomy as well as poor oral intake. Initial acute tubular necrosis has improved with creatinine trending down to 1.3 on July 14 before going up to 6.0 on presentation. Trending down with IV fluid therapy to 4.84 currently. 2. Metabolic acidosis: Due to GI losses as well as acute kidney injury. 3. Hypomagnesemia. 4. Hypophosphatemia. 5. Protein-calorie malnutrition. 6. Anemia. 7. High-output ileostomy. 8. Protein-calorie malnutrition. PLAN: 1. We will replete serum phosphate with potassium phosphate. 2. Phosphate binder has been discontinued. 3. We will continue IV fluid therapy. We will however substitute bicarb infusion with lactated Ringer's due to mild alkalosis. 4. Continue antiemetic as needed. 5. [place] oral intake advised. 6. We will also start oral supplementation. 7. Surgery evaluation is recommended in view of high output ileostomy. The patient may benefit from loperamide. 8. IV iron therapy is contemplated. Job ID: [id number]
[2020-07-21] MEDS ORDERED: Heparin 1,000 UNITS/ML VIAL FS PRN ×2 (15:17→15:19)
[2020-07-21] MEDS ORDERED: Heparin 10,000 UNITS/ 10 ML VIAL FS PRN ×2 (16:26→16:27)
[2020-07-21] MEDS: Lactated Ringer's 1,000 ML IV SCH ×2 (16:28→23:09)
[2020-07-21 18:06] LABS: Phosphorus 2.8 mg/dL (2.3-4.7)
--- NOTE | 2020-07-21 21:42 | CON ---
DATE OF CONSULTATION: SUBJECTIVE: Kacy Cordon is a 70-year-old female with repeated admissions for dehydration due to high ileostomy output. The patient was seen by me in April 2020, where she underwent emergent operation for gangrenous right colon involving the transverse colon. On 04/15/2020, she was taken to the operating room where a laparotomy was performed with a right colon resection as well as 18 inches of ileum, resection of transverse colon proximal 2/3rd and wound was left open. A femoral vein Trialysis catheter was placed to initiate dialysis for acute renal failure. On 04/17/2020, patient returned to the operating room for a second-look laparotomy, washout, evacuation of hematoma, and ABThera placed. She was then returned to the operating room on 04/20/2020 and a tunneled hemodialysis catheter placed in right IJ. Abdominal cavity washed out, another 4 inches of colon resected and small bowel used to form an ileostomy in right lower quadrant. During that hospitalization, she had problems with atrial fibrillation and Dr. Ronquillo performed a transesophageal echocardiogram with no formed thrombus in the atrium or appendage. She is noted to have normal left LV function. Echocardiogram from 04/16/2020 revealed normal EF of 55% to 60%. Mild mitral and tricuspid regurgitation. The patient was seen by Nephrology, underwent hemodialysis. She is sent to rehab. She is released from rehab about 4 days prior to this admission, had high ileostomy output and was readmitted. She had come off dialysis and not dialyzed for 3 to 4 weeks, although she still has a right IJ hemodialysis catheter. She is admitted with a creatinine of 6, though with hydration this has improved. She has not required repeat dialysis. I have been asked by the hospitalist if it would be time to consider reversing her ileostomy. The patient is ambulating assisted somewhat independently short distances, but still has not recovered completely. Because she has had several admissions for acute kidney injury due to dehydration from high ileostomy output and was admitted to [facility] for these occasions and on other occasions admitted elsewhere. Plan is to continue to hydrate her and next we will plan reversal ileostomy, which will require a laparotomy. We will ask Dr. Pabon see her regarding colonoscopy to look at the left colon the best he can. It cannot be prepped and prep will be suboptimal, but at least we could be sure that she does not have any distal disease as she has never had a colonoscopy. She had IVs in both ACs and I have removed the right. In doing so, there was a small skin tear treated with the 4-0. IV access will be obtained using her cuffed tunneled dialysis catheter, which she has not used in 3 weeks. I have discussed with the patient these issues and her understanding is simple and questions answered and she expresses anxiety which we have tried to reassure her. I informed her the risks of infection, bleeding, reoperation, anastomotic leakage which she wishes to proceed. We will tentatively plan this for Saturday next week. Awaiting renal function to improve. MEDICATIONS: Eliquis, Protonix, Cordarone, Megestrol acetate. ALLERGIES: NONE. SOCIAL HISTORY: Tobacco none. Alcohol none. No history of smoking. PAST MEDICAL HISTORY: Hypertension; dyslipidemia; atrial fibrillation; hypothyroidism; GERD; acute renal failure, has been on dialysis, but not required that for 3 weeks. PAST SURGICAL HISTORY: Colon resection, ileostomy, right IJ cuffed tunneled dialysis catheter. PHYSICAL EXAMINATION: VITAL SIGNS: Height 5 feet 8 inches, weight 125 pounds. Temperature 98.2, heart rate 91, blood pressure 96/52. HEAD, EARS, EYES, NOSE, AND THROAT: Unremarkable. LUNGS: Clear to auscultation. CARDIAC: Regular rate and rhythm without murmur or gallop. ABDOMEN: Soft, nondistended. Well-healed midline incision. Ileostomy in right lower quadrant healthy. EXTREMITIES: Unremarkable. LABORATORY DATA: As above. ASSESSMENT/PLAN: 1. Anemia. Type and cross Saturday morning. Have blood available for transfusion perioperatively. 2. Plan ileostomy reversal next week. 3. Needs colonoscopy, up to Dr. Pabon to assess the left colon as best as possible given that he cannot prep it. We will initiate enema now. 4. Acute renal failure, on dialysis for a period of time, now off for 3 to 4 weeks. Acute renal failure now secondary to severe dehydration. 5. Antecubital IV access removed. 6. Fragile skin and skin tear, local treatment. Job ID: [id number]
--- NOTE | 2020-07-22 00:35 | CON ---
DATE OF CONSULTATION: 07/21/2020 REASON FOR CONSULT: Possible screening of a colon for takedown of ileostomy. HISTORY OF PRESENT ILLNESS: Ms. Cordon is a 70-year-old female with mild dementia, who was in the hospital back in April with a necrotic right colon. She had a right hemicolectomy and has remaining about distal third of her transverse colon and descending and sigmoid colon and rectum. She has been in and out of the hospital since that time with diarrhea secondary to high ostomy output. She did lose some small bowel in that surgery as well apparently. Surgical specimen notes about 35 cm of ileum that was removed, second surgery 2 days later, another 10 cm was removed. Presently, she is without complaints. She reports that she did have a colonoscopy about 5 or 6 years ago in either at the [place] . States she does not think she is due for followup colonoscopy at this time. PAST MEDICAL HISTORY: Hysterectomy, hypothyroidism, reflux, chronic pain, atrial fibrillation, acute tubular necrosis, temporary hemodialysis in the past. PAST SURGICAL HISTORY: Colon resection as noted above, previous cardioversion for atrial fibrillation, chronic anticoagulation. MEDICATIONS: At home; 1. Eliquis. 2. Amiodarone. 3. Levothyroxine. 4. Megace. 5. Humulin. 6. Protonix. 7. Renvela. 8. Ferrous sulfate. 9. Sodium chloride. ALLERGIES: NONE KNOWN. PERSONAL HISTORY: Positive for about 6 beers a day before all this. No history of smoking. No alcohol or drugs now. FAMILY HISTORY: Mother in her 30s in a motor vehicle accident. Dad at from colon cancer. The patient lives with her . REVIEW OF SYSTEMS: Negative for rectal bleeding. Negative for rectal pain or lower abdominal pain. Mainly, she has issues with diarrhea. Negative for chest pain, shortness of breath, or dyspnea on exertion. LABORATORY DATA: White count 9.2, hemoglobin 8.5, MCV is 93, platelet count is 700. Sodium 136, potassium 3.9, BUN and creatinine are 47 and 4.84 down from 47 and 6.05. Hepatitis A, B, C negative in the past. Liver function tests normal. Iron 29, TIBC 174, ferritin 879. ASSESSMENT: 1. Recurrent diarrhea, there is some high output from ileostomy, some of this may be from ileostomy, she has also lost about 40 cm of terminal ileum. There are plans to take down her ileostomy to help try to resolve this problem. This will be obtained on Saturday. The patient has had anemia, but is normocytic normochromic, likely due to renal failure, there has been a history of bleeding. She reports her colonoscopy was normal in the past 5-6 years and reports she is not due for followup at this time. 2. Renal failure related to severe dehydration on presentation, improving. RECOMMENDATIONS: 1. Continue hydration, would not intervene a colonoscopy right now, I will try to help her improve her renal function. 2. As far as colonoscopy goes, this can be addressed after her ostomy was taken down at some point in time, it is going to be a little yield to get a screening colonoscopy with basically an elongated Annette's pouch that extends the transverse colon as we are not going to able to adequately prep her and probably will only visualize her rectum and distal sigmoid colon. 3. If surgery is delayed, we can place her on some Colestid. This may help some of her diarrhea and I am going ahead and start that, we can stop it over the weekend if she is going to have her surgery next week. Job ID: [id number]
[2020-07-22] MEDS: Levothyroxine Sodium 25 MCG TAB PO SCH (05:12)
[2020-07-22] MEDS: Lactated Ringer's 1,000 ML IV SCH ×4 (05:42→20:06)
[2020-07-22 06:11] LABS: #Basophils 0.1 thou/uL (0.0-0.2); #Eosinphils 0.2 thou/uL (0.0-0.7); #Lymphocytes 2.1 thou/uL (1.20-3.40); #Monocytes 0.5 thou/uL (0.11-0.59); #Neutrophils 5.3 thou/uL (1.40-6.50); %Basophils 0.7 % (0.0-1.0); %Eosinophils 2.2 % (0.0-10.0); %Lymphocytes 25.8 % (21.0-51.0); %Monocytes 6.4 % (0.0-10.0); %Neutrophils 64.9 % (42.0-75.0); Hemoglobin 6.7 g/dL (12.0-16.0); Mean Corpuscular HGB CONC 31.6 g/dL (32.0-36.0); Mean Corpuscular Hemoglobin 29.8 pg (27.0-31.0); Mean Corpuscular Volume 94.3 fL (78.0-98.0); Mean Platelet Volume 6.2 fL (7.4-10.4); Platelet Count 636 thou/uL (130-400); RBC Distribution Width 13.1 % (11.5-14.5); Red Blood Cell (RBC) Count 2.25 mill/uL (4.20-5.40); White Blood Cell (WBC) Count 8.2 thou/uL (4.8-10.8)
[2020-07-22 06:53] LABS: Albumin 2.5 g/dL (3.4-4.8); Anion Gap 16 mmol/L (10-20); BUN (Urea Nitrogen) 49 mg/dL (9.8-20.1); BUN/Creatinine Ratio 11.37; Calc. Creatinine Clearance 11 mL/min (70-130); Calcium 7.7 mg/dL (7.8-10.44); Carbon Dioxide 27 mmol/L (23-31); Chloride 98 mmol/L (98-107); Estimated GFR-MDRD 10; Glucose 81 mg/dL (80-115); Phosphorus 4.4 mg/dL (2.3-4.7); Potassium 4.6 mmol/L (3.5-5.1); Sodium 136 mmol/L (136-145)
[2020-07-22] MEDS: Amiodarone 200 MG TAB PO SCH (08:15)
[2020-07-22] MEDS: Megestrol Acetate 800 MG/20 ML UDCUP PO SCH (08:15)
[2020-07-22] MEDS: Metoclopramide HCl 10 MG TAB PO SCH ×2 (08:16→20:04)
--- NOTE | 2020-07-22 11:12 | PDOC.HOSPP ---
- Subjective Encounter Date: 07/22/20 Encounter Time: 09:40 Subjective: no sob or abd pain - Objective Vital Signs & Weight: Vital Signs (12 hours) Temp Pulse Resp BP BP Pulse Ox 07/22/20 08:20 97 07/22/20 08:11 98.8 F 82 15 100/52 L 97 07/22/20 00:00 92/51 L Weight Admit Weight 125 lb 6.4 oz Weight 125 lb 6.4 oz I&O: 07/21/20 07/22/20 07/23/20 06:59 06:59 06:59 Intake Total 4530 3500 Output Total 1930 1900 Balance 2600 1600 Result Diagrams: 07/22/20 05:58 07/22/20 05:58 Hospitalist ROS - Medication Medications: Active Medications Generic Name Dose Route Start Last Admin Trade Name Freq PRN Reason Stop Dose Admin Amiodarone HCl 200 mg 07/20/20 09:00 07/22/20 08:15 Cordarone PO 200 mg DAILY ELY Administration Colestipol HCl 1 gm 07/21/20 22:00 07/21/20 22:34 Colestid PO Not Given BID@1000,2200 ELY Heparin Sodium (Porcine) 2,100 units 07/21/20 16:27 07/21/20 16:36 Heparin 1,000 Units/Ml (10 Ml) FS 2,100 unit PRN PRN Administration RED HEMOSPLIT PORT Levothyroxine Sodium 25 mcg 07/20/20 06:00 07/22/20 05:12 Synthroid PO Not Given 0600 ELY Megestrol Acetate 400 mg 07/20/20 09:00 07/22/20 08:15 Megace PO 400 mg DAILY ELY Administration Pantoprazole Sodium 40 mg 07/20/20 09:00 07/22/20 08:16 Protonix PO 40 mg DAILY ELY Administration Sodium Chloride 10 ml 07/19/20 21:00 07/22/20 08:17 Flush - Normal Saline IVF 10 ml Q12HR ELY Administration - Exam General Appearance: awake alert Eye: PERRL, anicteric sclera ENT: no oropharyngeal lesions, dry oral mucosa Neck: supple, no JVD Heart: RRR, no murmur Respiratory: no wheezes, no rales Gastrointestinal: soft, non-tender, non-distended, normal bowel sounds Gastrointestinal - other findings: ileostomy has liq stool Extremities: no cyanosis, no edema Neurological: cranial nerve grossly intact, no focal deficits Psychiatric: A&O x 3 Hosp A/P (1) Acute renal failure Status: Acute (2) FTT (failure to thrive) in adult Status: Chronic (3) Moderate protein malnutrition Code(s): E44.0 - MODERATE PROTEIN-CALORIE MALNUTRITION Status: Chronic (4) Physical deconditioning Code(s): R53.81 - OTHER MALAISE Status: Chronic (5) Atrial fibrillation Code(s): I48.91 - UNSPECIFIED ATRIAL FIBRILLATION Status: Chronic Qualifiers: Atrial fibrillation type: paroxysmal (6) HTN (hypertension) Code(s): I10 - ESSENTIAL (PRIMARY) HYPERTENSION Status: Chronic Qualifiers: (7) Hyperlipidemia Code(s): E78.5 - HYPERLIPIDEMIA, UNSPECIFIED Status: Chronic Qualifiers: (8) Hypothyroid Code(s): E03.9 - HYPOTHYROIDISM, UNSPECIFIED Status: Chronic Qualifiers: - Plan is on iv fluids with bicarbonate, creatinine around 4 this am reglan ac and hs for intractable nausea/vomiting PT/OT to mobilize as tolerated continue home meds as above including amiodarone, megace, protonix, renvela hemostable she was home for 4 days after spending around 3 weeks in rehab, her last creatinine in rehab was around 1.4 on 07/14 not sure if she can manage herself at home? with recurrent hospitalizations. D/w , to OR on saturday for reversal of ileostomy. transfuse 2 u prbc with Hb of 6.7 and plans for surgery on saturday.
[2020-07-22 12:41] LABS: SARS-CoV-2 MS2 Positive; SARS-CoV-2 N Gene Negative; SARS-CoV-2 S Gene Negative; SARS-CoV-2 by NAA Not Detected (NotDetected); SARS-CoV-2 orf1ab Negative
--- NOTE | 2020-07-22 13:22 | PRG ---
DATE OF SERVICE: 07/22/2020 SERVICE: Nephrology. SUBJECTIVE: A 70-year-old female seen in followup for acute on chronic renal failure. The patient who was on hemodialysis for acute tubular necrosis was weaned off hemodialysis recently following improvement of renal function before she came back to the hospital due to intractable nausea and vomiting. Reports feeling better. Still complaining of some dry mouth. Nausea and vomiting have improved with commencement of Reglan. OBJECTIVE: VITAL SIGNS: Temperature 98.8, pulse 82, respiratory rate 15, SpO2 of 97% on room air, blood pressure is 100/52. I and O in the last 24 hours showed total intake of 3500 with output of 1900 with stool from ileostomy contributing 1600. GENERAL: Comfortable female, in no obvious distress. Afebrile. Anicteric. Acyanotic. HEENT: Normocephalic, atraumatic. Lips are mildly dry. NECK: Supple with no JVD. Right-sided tunneled IJ dialysis catheter noted. CARDIOVASCULAR: Regular rhythm and rate with normal heart sounds 1 and 2. RESPIRATORY: Fair air entry bilaterally with no crackle, rhonchi, or use of accessory muscles. GASTROINTESTINAL: Flat, soft, nondistended. Bowel sound is normoactive. Right upper quadrant ileostomy noted. EXTREMITIES: Grossly normal, looking atraumatic with no edema or erythema. Distal pulses are palpable. CENTRAL NERVOUS SYSTEM: Conscious, alert, and oriented x3 with appropriate mental status. Cranial nerves 2 through 12 are grossly intact. The patient moves all extremities. DIAGNOSTIC DATA: CBC showed WBC count of 8.2, hemoglobin of 6.7, MCV of 94.3, platelet of 636. Chemistry showed sodium 136, potassium 4.6, chloride 98, CO2 of 27, BUN 49, creatinine 4.31, glucose 81, phosphorus 4.4, calcium 7.7, albumin 2.5. Iron chemistry yesterday showed serum iron of 29, TIBC 174, saturation 17%, ferritin of 879.9. ASSESSMENT: 1. Acute kidney injury: Due to hemodynamic factors related to severe volume depletion from poor oral intake and increased gastrointestinal losses from ileostomy. 2. High-output ileostomy. 3. Metabolic acidosis. 4. Hypophosphatemia: Repleted. 5. Anemia: Acute drop in hemoglobin is due to correction of hemoconcentration. The patient has chronic anemia from chronic iron deficiency as well as chronic kidney disease. 6. Protein-calorie malnutrition. 7. Mesenteric ischemia, status post partial colon resection with ileostomy. PLAN: 1. Continue IV fluid therapy. We will increase the rate due to inadequate oral intake as yet. 2. Reliance oral intake advised. 3. Blood transfusion as per primary attending. 4. Surgery service is planning for revision of ileostomy in 2 days' time. 5. Avoid nephrotoxic agents. 6. Follow renal function. Further treatment to follow depending on hospital course. Job ID: [id number]
--- NOTE | 2020-07-22 13:50 | PRG ---
DATE OF SERVICE: 07/22/2020 SUBJECTIVE: Kacy Cordon is doing well today. She has been transfused blood for hemoglobin of 6.7 and she has been hydrated adequately. Temperature 98.7, pulse 82, blood pressure 97/51. Hemoglobin 6.7, white count 8.2. Sodium 136, potassium 4.6, BUN 49, creatinine 4.31. She did have IV fluids 200 mL/hour, changed to LR 125. I have increased this to 150. Urine output is 1600 over the last 24 hours. OBJECTIVE: LUNGS: Clear to auscultation. CARDIAC: Regular rate and rhythm without murmur or gallop. ABDOMEN: Soft, nontender. Ileostomy healthy. Ileostomy output has been copious 1600. She was on Reglan. I have discontinued Reglan. I have added Lomotil t.i.d. The patient is being transfused 2 units of blood. Plan is for on Saturday reversal of ileostomy. This will require laparotomy under general anesthesia. Echocardiogram on April 16, 2020, 55% to 60% EF, some evidence of diastolic dysfunction, mild tricuspid and mitral regurgitation, otherwise unremarkable. We would plan this anesthesia under general and TAP block. I have discussed with the patient, she is somewhat anxious. We will discontinue Reglan, add Lomotil. Continue to follow her renal function. If she medically stabilizes, we will plan this next week. She is deconditioned and independent somewhat on limited ambulation. We will have Physical Therapy continue to work with her and get her out of bed into a chair 2 to 3 times a day. I am sure after operation next week, she probably will require consideration for stay at rehab or physical therapy at another facility. She may have exhausted her rehab and LTAC stays, however, we will ask case monitor and Rehab to assess this possibility. Job ID: [id number]
[2020-07-22] MEDS ORDERED: Promethazine 25 MG TAB PO SCH (14:15)
[2020-07-22] MEDS: Diphenoxylate HCl/Atropine Tablet PO SCH ×2 (14:33→20:04)
--- NOTE | 2020-07-22 19:26 | PRG ---
DATE OF SERVICE: 07/22/2020 SUBJECTIVE: Ms. Cordon is getting some blood as she had a drop in hemoglobin to 6.7 today from 8.5 yesterday. There has been no overt bleeding. She states that she does see a little bit of friability at her ileostomy site. She notes the diarrhea has persisted. OBJECTIVE: VITAL SIGNS: Temperature is 98, pulse 84, blood pressure 93/54. ABDOMEN: Soft, nontender. LABORATORY DATA: White count is 8.2, hemoglobin 6.7, platelet count is 636. Sodium 136, potassium 4.6, BUN and creatinine are 49 and 4.31. ASSESSMENT: 1. High output ileostomy with recurrent admissions for dehydration. Plan is for the anastomosis on Saturday. 2. The patient notes she had a colonoscopy 5 or 6 years ago in the [facility], which was normal except for diverticulosis coli. No plans for a colonoscopy preoperatively as we cannot get her prepped. She can have a routine screening colonoscopy a few months afterwards. 3. Resection of about 45 cm of ileum in her surgeries, she may have problems with diarrhea related to loss of the ileal surface. We have started her on Colestid to see if we can help prevent bile acid diarrhea. RECOMMENDATIONS: 1. Agree with plans for surgery. 2. Would recommend anti-dumping diet. Will advance the diet, get a dietary consult for the patient regarding that. We will follow up on Saturday. If I can be of any assistance over the weekend, please do not hesitate to contact me. Job ID: [id number]
[2020-07-23] MEDS: Lactated Ringer's 1,000 ML IV SCH ×5 (03:59→20:36)
[2020-07-23] MEDS: Levothyroxine Sodium 25 MCG TAB PO SCH (05:19)
[2020-07-23] MEDS: HYDROcodone/Acetaminophen 5/325 mg Tablet PO PRN ×3 (05:20→22:00)
[2020-07-23] MEDS: Diphenoxylate HCl/Atropine Tablet PO SCH ×3 (07:51→20:37)
[2020-07-23] MEDS: Megestrol Acetate 800 MG/20 ML UDCUP PO SCH (07:51)
[2020-07-23] MEDS: Amiodarone 200 MG TAB PO SCH ×2 (07:51→08:49)
[2020-07-23] MEDS: Metoclopramide HCl 10 MG TAB PO SCH ×4 (07:51→20:49)
[2020-07-23 09:44] LABS: Albumin 2.4 g/dL (3.4-4.8); Anion Gap 20 mmol/L (10-20); BUN (Urea Nitrogen) 48 mg/dL (9.8-20.1); BUN/Creatinine Ratio 10.96; Calc. Creatinine Clearance 11 mL/min (70-130); Calcium 8.2 mg/dL (7.8-10.44); Carbon Dioxide 20 mmol/L (23-31); Chloride 103 mmol/L (98-107); Estimated GFR-MDRD 10; Glucose 72 mg/dL (80-115); Phosphorus 3.3 mg/dL (2.3-4.7); Potassium 4.5 mmol/L (3.5-5.1); Sodium 138 mmol/L (136-145)
[2020-07-23 10:29] LABS: Band 29 % (5-11); Hemoglobin 10.3 g/dL (12.0-16.0); Lymphocytes 5 % (21-51); MDiff Complete? YES; Mean Corpuscular Hemoglobin 30.7 pg (27.0-31.0); Mean Corpuscular Volume 93.1 fL (78.0-98.0); Mean Platelet Volume 6.5 fL (7.4-10.4); Metamyelocyte 2 % (0-0); Monocytes 2 % (0-10); Platelet Count 484 thou/uL (130-400); RBC Distribution Width 13.9 % (11.5-14.5); Red Blood Cell (RBC) Count 3.34 mill/uL (4.20-5.40); White Blood Cell (WBC) Count 32.9 thou/uL (4.8-10.8)
--- NOTE | 2020-07-23 12:16 | PRG ---
DATE OF SERVICE: 07/23/2020 SERVICE: Nephrology. SUBJECTIVE: A 70-year-old female seen in followup for acute on chronic renal failure. The patient with an ileostomy was admitted due to intractable nausea and vomiting as well as high output from the ostomy associated with dehydration and acute kidney injury. Reports feeling better. Nausea and vomiting have subsided. Received blood transfusion yesterday. No new problem. OBJECTIVE: VITAL SIGNS: Temperature 98, pulse 90, respiratory rate 18, SpO2 of 95% on room air, blood pressure is 97/62. I and O in the last 24 hours showed total intake of 3930 with output of 1485 with stool contributing 925. The patient also had some emesis yesterday contributing 260. GENERAL: Chronically ill-looking female, in no obvious distress. Afebrile. Anicteric. Acyanotic. HEENT: Normocephalic, atraumatic. Oral mucosa is moist. CARDIOVASCULAR: Regular rhythm and rate with normal heart sounds 1 and 2. RESPIRATORY: Good air entry bilaterally with no crackle or rhonchi or use of accessory muscles. GI: Full, soft, nontender, nondistended with normal bowel sounds. Right upper quadrant ileostomy noted. EXTREMITIES: Atrophy of the limbs noted. No edema appreciated. SKIN: Decreased skin turgor noted. COMMUNITY LIVING SPECIALIST: Conscious, alert, oriented x3 with appropriate mental status. Cranial nerves 2 through 12 are grossly intact. DIAGNOSTIC DATA: CBC showed WBC count of 32.9, hemoglobin of 10.3, MCV of 93.1, platelets of 484. Chemistry showed sodium 138, potassium 4.5, chloride 103, CO2 of 20, BUN 48, creatinine 4.38, glucose 72, calcium 8.2, phosphorus 3.3, albumin 2.4. ASSESSMENT: 1. Acute renal failure: Due to hemodynamic factors related to volume depletion. Initial acute tubular necrosis has improved and the patient was weaned off hemodialysis. Creatinine is trending down worse from above 6 to 4.28 yesterday. Marginally up today. The patient had some vomiting and decreased intake yesterday. 2. Mesenteric ischemia, status post colon resection with ileostomy. Ileostomy reversal is planned on Saturday. 3. Volume depletion. 4. Nausea and vomiting: Improved with Reglan. 5. Anemia of chronic illness and iron deficiency, status post transfusion yesterday. 6. New onset leukocytosis: Etiology is unclear. There is no history of fever or tachycardia to suggest sepsis. Most likely reactive. 7. Metabolic acidosis. 8. Hypophosphatemia: Off Renvela. 9. Hyperkalemia: Resolved. PLAN: 1. We will increase lactated Ringer's to 260 per hour. 2. We will also start the patient on oral alkali therapy with sodium bicarbonate. 3. We will monitor intake and output. 4. We will also recheck renal function test in the morning. Avoid nephrotoxic agents. Job ID: [id number]
--- NOTE | 2020-07-23 12:56 | PDOC.HOSPP ---
- Subjective Encounter Date: 07/23/20 Encounter Time: 12:00 Subjective: no abd pain or sob at bedside no nausea this am - Objective Vital Signs & Weight: Vital Signs (12 hours) Temp Pulse Resp BP BP Pulse Ox 07/23/20 08:00 95 07/23/20 07:32 98.0 F 90 18 97/62 95 07/23/20 05:25 97.6 F 93 20 94/61 95 Weight Admit Weight 125 lb 6.4 oz Weight 125 lb 6.4 oz I&O: 07/22/20 07/23/20 07/24/20 06:59 06:59 06:59 Intake Total 3500 3930 Output Total 1900 1485 Balance 1600 2445 Result Diagrams: 07/23/20 08:37 07/23/20 08:37 Hospitalist ROS - Medication Medications: Active Medications Generic Name Dose Route Start Last Admin Trade Name Freq PRN Reason Stop Dose Admin Acetaminophen 650 mg 07/19/20 18:49 07/22/20 23:26 Tylenol PO 650 mg Q4H PRN Administration Headache/Fever/Mild Pain (1-3) Hydrocodone Bitart/Acetaminophen 1 tab 07/19/20 18:49 07/22/20 23:54 [place] 5/325 PO 1 tab Q4H PRN Administration Moderate Pain (4-6) Hydrocodone Bitart/Acetaminophen 2 tab 07/23/20 03:18 07/23/20 08:50 [place] 5/325 PO 2 tab Q4H PRN Administration Severe Pain (7-10) Amiodarone HCl 200 mg 07/20/20 09:00 07/23/20 08:49 Cordarone PO Not Given DAILY ELY Calcium Carbonate 1,000 mg 07/19/20 18:49 07/22/20 21:15 Tums PO 1,000 mg Q4H PRN Administration Heartburn or Indigestion Colestipol HCl 1 gm 07/21/20 22:00 07/23/20 11:06 Colestid PO 1 gm BID@1000,2200 ELY Administration Diphenoxylate HCl/Atropine 1 tab 07/22/20 15:00 07/23/20 07:51 Lomotil PO 1 tab TID ELY Administration Heparin Sodium (Porcine) 2,100 units 07/21/20 16:27 07/21/20 16:36 Heparin 1,000 Units/Ml (10 Ml) FS 2,100 unit PRN PRN Administration RED HEMOSPLIT PORT Lactated Ringer's 1,000 mls @ 200 mls/hr 07/23/20 11:50 07/23/20 12:46 Lactated Ringer's IV 1,000 mls .Q5H ELY Administration Levothyroxine Sodium 25 mcg 07/20/20 06:00 07/23/20 05:19 Synthroid PO Not Given 0600 ELY Megestrol Acetate 400 mg 07/20/20 09:00 07/23/20 07:51 Megace PO 400 mg DAILY ELY Administration Metoclopramide HCl 10 mg 07/22/20 21:00 07/23/20 11:06 Reglan PO 10 mg ACHS ELY Administration Pantoprazole Sodium 40 mg 07/20/20 09:00 07/23/20 07:51 Protonix PO 40 mg DAILY ELY Administration Sodium Chloride 10 ml 07/19/20 21:00 07/23/20 07:51 Flush - Normal Saline IVF 10 ml Q12HR ELY Administration - Exam General Appearance: awake alert Eye: PERRL, anicteric sclera ENT: no oropharyngeal lesions, dry oral mucosa Neck: supple, no JVD Heart: RRR, no murmur Respiratory: no wheezes, no rales Gastrointestinal: soft, non-tender, non-distended, normal bowel sounds Gastrointestinal - other findings: ileostomy has stool in it Extremities: no cyanosis, no edema Neurological: cranial nerve grossly intact, no focal deficits Hosp A/P (1) Acute renal failure Status: Acute (2) FTT (failure to thrive) in adult Status: Chronic (3) Moderate protein malnutrition Code(s): E44.0 - MODERATE PROTEIN-CALORIE MALNUTRITION Status: Chronic (4) Physical deconditioning Code(s): R53.81 - OTHER MALAISE Status: Chronic (5) Atrial fibrillation Code(s): I48.91 - UNSPECIFIED ATRIAL FIBRILLATION Status: Chronic Qualifiers: Atrial fibrillation type: paroxysmal (6) HTN (hypertension) Code(s): I10 - ESSENTIAL (PRIMARY) HYPERTENSION Status: Chronic Qualifiers: (7) Hyperlipidemia Code(s): E78.5 - HYPERLIPIDEMIA, UNSPECIFIED Status: Chronic Qualifiers: (8) Hypothyroid Code(s): E03.9 - HYPOTHYROIDISM, UNSPECIFIED Status: Chronic Qualifiers: - Plan is on iv fluids with bicarbonate, creatinine around 4 elevated wbc's unclear etiology, she got 2 units prbc 07/23 PT/OT to mobilize as tolerated continue home meds as above including amiodarone, megace, protonix, renvela hemostable she was home for 4 days after spending around 3 weeks in rehab, her last creatinine in rehab was around 1.4 on 07/14 not sure if she can manage herself at home? with recurrent hospitalizations. D/w , to OR on saturday for reversal of ileostomy.
--- NOTE | 2020-07-23 15:49 | EKG ---
Test Reason : Blood Pressure : / mmHG Vent. Rate : 097 BPM Atrial Rate : 097 BPM P-R Int : 144 ms QRS Dur : 076 ms QT Int : 334 ms P-R-T Axes : 065 106 036 degrees QTc Int : 424 ms Normal sinus rhythm Possible Right ventricular hypertrophy Abnormal ECG Confirmed by BHARTI CARRILLO DO ([id number]), newspaper editor managing EMILI BYRD ([id number] on 07/23/2020 3:48:59 PM Referred By: Confirmed By:BHARTI CARRILLO DO
[2020-07-23] MEDS: Sodium Bicarbonate Tab 325 MG TAB PO SCH ×2 (16:08→20:37)
--- NOTE | 2020-07-23 17:42 | PRG ---
DATE OF SERVICE: 07/23/2020 SUBJECTIVE: Kacy Cordon is doing well today. OBJECTIVE: VITAL SIGNS: Temperature 98 degrees, heart rate 90, saturation 95%. LUNGS: Clear to auscultation. CARDIAC: Regular rate and rhythm without murmur or gallop. ABDOMEN: Soft. Ileostomy healthy. Stool 925 in the last 24 hours. Decreased in volume from 1900, 1600 in the last two 24-hour shifts. LABORATORY DATA: The patient's white count is 32,000 today, hemoglobin 10. Basic metabolic profile essentially unremarkable with BUN 48 and creatinine 4.38. It is stagnant, relative to yesterday. Nephrology has increased her IV fluids LR to a 250 an hour and they have placed bicarbonate in IV fluids. ASSESSMENT/PLAN: Acute kidney injury secondary to high output ileostomy. We will plan ileostomy reversal in the next 48 hours. If her kidney function is stable, if we need to postpone this if we can. Continue medical treatment and support. Job ID: [id number]
[2020-07-24] MEDS: Lactated Ringer's 1,000 ML IV SCH ×5 (02:04→21:06)
[2020-07-24] MEDS: Levothyroxine Sodium 25 MCG TAB PO SCH (05:50)
[2020-07-24] MEDS: Metoclopramide HCl 10 MG TAB PO SCH ×4 (05:51→20:59)
[2020-07-24 06:37] LABS: Albumin 2.1 g/dL (3.4-4.8); Anion Gap 15 mmol/L (10-20); BUN (Urea Nitrogen) 47 mg/dL (9.8-20.1); BUN/Creatinine Ratio 12.37; Calc. Creatinine Clearance 13 mL/min (70-130); Calcium 7.8 mg/dL (7.8-10.44); Carbon Dioxide 23 mmol/L (23-31); Chloride 103 mmol/L (98-107); Estimated GFR-MDRD 12; Glucose 71 mg/dL (80-115); Phosphorus 3.3 mg/dL (2.3-4.7); Potassium 4.7 mmol/L (3.5-5.1); Sodium 136 mmol/L (136-145)
[2020-07-24 06:43] LABS: Band 11 % (5-11); Eosinophils 2 % (0-10); Hemoglobin 9.2 g/dL (12.0-16.0); Lymphocytes 3 % (21-51); MDiff Complete? YES; Mean Corpuscular HGB CONC 32.5 g/dL (32.0-36.0); Mean Corpuscular Hemoglobin 30.7 pg (27.0-31.0); Mean Corpuscular Volume 94.7 fL (78.0-98.0); Mean Platelet Volume 6.6 fL (7.4-10.4); Platelet Count 419 thou/uL (130-400); RBC Distribution Width 13.8 % (11.5-14.5); Red Blood Cell (RBC) Count 2.98 mill/uL (4.20-5.40)
[2020-07-24] MEDS: Amiodarone 200 MG TAB PO SCH (07:38)
[2020-07-24] MEDS: Diphenoxylate HCl/Atropine Tablet PO SCH ×3 (07:38→20:57)
[2020-07-24] MEDS: Megestrol Acetate 800 MG/20 ML UDCUP PO SCH (07:38)
[2020-07-24] MEDS: Sodium Bicarbonate Tab 325 MG TAB PO SCH ×3 (07:39→20:59)
[2020-07-24] MEDS: HYDROcodone/Acetaminophen 5/325 mg Tablet PO PRN ×4 (07:40→20:58)
--- NOTE | 2020-07-24 12:26 | PDOC.HOSPP ---
- Subjective Encounter Date: 07/24/20 Encounter Time: 08:35 Subjective: no abd pain or sob feels better had some backpain due to laying on bed for most part - Objective Vital Signs & Weight: Vital Signs (12 hours) Temp Pulse Resp BP Pulse Ox 07/24/20 08:00 99 07/24/20 07:10 98.4 F 95 16 101/65 99 Weight Admit Weight 125 lb 6.4 oz Weight 125 lb 6.4 oz I&O: 07/23/20 07/24/20 07/25/20 06:59 06:59 06:59 Intake Total 3930 2460 Output Total 1485 950 Balance 2445 1510 Result Diagrams: 07/24/20 05:59 07/24/20 05:59 Hospitalist ROS - Medication Medications: Active Medications Generic Name Dose Route Start Last Admin Trade Name Freq PRN Reason Stop Dose Admin Acetaminophen 650 mg 07/19/20 18:49 07/22/20 23:26 Tylenol PO 650 mg Q4H PRN Administration Headache/Fever/Mild Pain (1-3) Hydrocodone Bitart/Acetaminophen 1 tab 07/19/20 18:49 07/22/20 23:54 [place] 5/325 PO 1 tab Q4H PRN Administration Moderate Pain (4-6) Hydrocodone Bitart/Acetaminophen 2 tab 07/23/20 03:18 07/24/20 07:40 [place] 5/325 PO 2 tab Q4H PRN Administration Severe Pain (7-10) Amiodarone HCl 200 mg 07/20/20 09:00 07/24/20 07:38 Cordarone PO Not Given DAILY ELY Calcium Carbonate 1,000 mg 07/19/20 18:49 07/22/20 21:15 Tums PO 1,000 mg Q4H PRN Administration Heartburn or Indigestion Colestipol HCl 1 gm 07/21/20 22:00 07/24/20 07:39 Colestid PO Not Given BID@1000,2200 ELY Diphenoxylate HCl/Atropine 1 tab 07/22/20 15:00 07/24/20 07:38 Lomotil PO 1 tab TID ELY Administration Heparin Sodium (Porcine) 2,100 units 07/21/20 16:27 07/21/20 16:36 Heparin 1,000 Units/Ml (10 Ml) FS 2,100 unit PRN PRN Administration RED HEMOSPLIT PORT Lactated Ringer's 1,000 mls @ 200 mls/hr 07/23/20 11:50 07/24/20 07:04 Lactated Ringer's IV 1,000 mls .Q5H ELY Administration Levothyroxine Sodium 25 mcg 07/20/20 06:00 07/24/20 05:50 Synthroid PO Not Given 0600 ELY Megestrol Acetate 400 mg 07/20/20 09:00 07/24/20 07:38 Megace PO 400 mg DAILY ELY Administration Metoclopramide HCl 10 mg 07/22/20 21:00 07/24/20 05:51 Reglan PO 10 mg ACHS ELY Administration Pantoprazole Sodium 40 mg 07/20/20 09:00 07/24/20 07:39 Protonix PO 40 mg DAILY ELY Administration Sodium Bicarbonate 650 mg 07/23/20 15:00 07/24/20 07:39 Bicarbonate, Sodium PO 650 mg TID ELY Administration Sodium Chloride 10 ml 07/19/20 21:00 07/24/20 07:39 Flush - Normal Saline IVF 10 ml Q12HR ELY Administration - Exam General Appearance: awake alert Eye: PERRL, anicteric sclera ENT: no oropharyngeal lesions, moist mucosa Neck: supple, no JVD Heart: RRR, no murmur Respiratory: no wheezes, no rales Gastrointestinal: soft, non-tender, non-distended, normal bowel sounds Gastrointestinal - other findings: ileostomy has stool+ Extremities: no cyanosis, no edema Neurological: cranial nerve grossly intact, no focal deficits Psychiatric: A&O x 3 Hosp A/P (1) Acute renal failure Status: Acute (2) FTT (failure to thrive) in adult Status: Chronic (3) Moderate protein malnutrition Code(s): E44.0 - MODERATE PROTEIN-CALORIE MALNUTRITION Status: Chronic (4) Physical deconditioning Code(s): R53.81 - OTHER MALAISE Status: Chronic (5) Atrial fibrillation Code(s): I48.91 - UNSPECIFIED ATRIAL FIBRILLATION Status: Chronic Qualifiers: Atrial fibrillation type: paroxysmal (6) HTN (hypertension) Code(s): I10 - ESSENTIAL (PRIMARY) HYPERTENSION Status: Chronic Qualifiers: (7) Hyperlipidemia Code(s): E78.5 - HYPERLIPIDEMIA, UNSPECIFIED Status: Chronic Qualifiers: (8) Hypothyroid Code(s): E03.9 - HYPOTHYROIDISM, UNSPECIFIED Status: Chronic Qualifiers: - Plan is on iv fluids with bicarbonate, creatinine around 3 elevated wbc's trending down due to unclear etiology, is not septic, she got 2 units prbc 07/22 PT/OT to mobilize as tolerated continue home meds as above including amiodarone, megace, protonix, renvela hemostable she was home for 4 days after spending around 3 weeks in rehab, her last creatinine in rehab was around 1.4 on 07/14 not sure if she can manage herself at home? with recurrent hospitalizations. D/w , to OR on saturday for reversal of ileostomy. Counselled patient to start mobilizing in room, at bedside.
[2020-07-25] MEDS: HYDROcodone/Acetaminophen 5/325 mg Tablet PO PRN ×2 (02:05→06:23)
[2020-07-25] MEDS: Lactated Ringer's 1,000 ML IV SCH ×4 (02:41→23:00)
[2020-07-25 05:12] LABS: ALT (SGPT) 7 U/L (8-55); AST (SGOT) 8 U/L (5-34); Albumin 2.1 g/dL (3.4-4.8); Alkaline Phosphatase 125 U/L (40-110); Anion Gap 13 mmol/L (10-20); BUN (Urea Nitrogen) 40 mg/dL (9.8-20.1); BUN/Creatinine Ratio 12.74; Bilirubin, Total 0.2 mg/dL (0.2-1.2); Calc. Creatinine Clearance 15 mL/min (70-130); Calcium 7.9 mg/dL (7.8-10.44); Carbon Dioxide 22 mmol/L (23-31); Chloride 105 mmol/L (98-107); Estimated GFR-MDRD 15; Globulin 3.1 g/dL (2.4-3.5); Glucose 75 mg/dL (80-115); Phosphorus 3.3 mg/dL (2.3-4.7); Potassium 4.4 mmol/L (3.5-5.1); Protein, Total 5.2 g/dL (6.0-8.3); Sodium 136 mmol/L (136-145)
[2020-07-25] MEDS: Levothyroxine Sodium 25 MCG TAB PO SCH (05:23)
[2020-07-25 05:27] LABS: Hemoglobin 9.2 g/dL (12.0-16.0); MDiff Complete? YES; Mean Corpuscular HGB CONC 30.7 g/dL (32.0-36.0); Mean Corpuscular Hemoglobin 29.3 pg (27.0-31.0); Mean Corpuscular Volume 95.5 fL (78.0-98.0); Platelet Count 365 thou/uL (130-400); RBC Distribution Width 13.6 % (11.5-14.5); Red Blood Cell (RBC) Count 3.15 mill/uL (4.20-5.40); White Blood Cell (WBC) Count 11.9 thou/uL (4.8-10.8)
[2020-07-25 05:28] LABS: Band 15 % (5-11); Lymphocytes 4 % (21-51)
[2020-07-25] MEDS ORDERED: Lactated Ringer's 1,000 ML IV SCH ×2 (09:09→15:15)
[2020-07-25] MEDS: Amiodarone 200 MG TAB PO SCH (09:28)
[2020-07-25] MEDS: Sodium Bicarbonate Tab 325 MG TAB PO SCH ×3 (09:28→20:45)
[2020-07-25] MEDS: Metoclopramide HCl 10 MG TAB PO SCH ×4 (09:28→20:45)
[2020-07-25] MEDS: Megestrol Acetate 800 MG/20 ML UDCUP PO SCH (09:28)
[2020-07-25] MEDS: Diphenoxylate HCl/Atropine Tablet PO SCH ×3 (09:28→20:45)
[2020-07-25] MEDS ORDERED: PHENYLEPHRINE-NS 100 MCG/ML 10 ML SYRINGE ONE ×2 (09:32→14:10)
[2020-07-25] MEDS ORDERED: PROPOFOL 200 MG/20 ML VIAL ONE (09:32)
[2020-07-25] MEDS ORDERED: Bupivacaine HCl 0.5%/Epinephrine 1:200,000/PF 30 ml Vial ONE (09:32)
[2020-07-25] MEDS ORDERED: Rocuronium Bromide 10 MG/ML (10ML VIAL) ONE (09:32)
[2020-07-25] MEDS ORDERED: Lidocaine 1% PF 5 ML VIAL ONE (09:32)
--- NOTE | 2020-07-25 10:12 | PDOC.NEPPN ---
- Subjective Encounter Date: 07/25/20 Subjective: 70 y/o female seen in follow up for RACHANA. Complaining or right hip pain as well as extremity swelling. N/V have subsided. No fever. - Objective Vital Signs & Weight: Vital Signs (12 hours) Temp Pulse Resp BP Pulse Ox 07/25/20 08:30 100 07/25/20 07:43 98.8 F 100 18 103/66 100 Weight Admit Weight 125 lb 6.4 oz Weight 125 lb 6.4 oz I&O: 07/24/20 07/25/20 07/26/20 06:59 06:59 06:59 Intake Total 2460 5720 Output Total 950 2050 Balance 1510 3670 Result Diagrams: 07/25/20 04:15 07/25/20 04:15 Nephrology ROS - Medication Medications: Active Medications Generic Name Dose Route Start Last Admin Trade Name Freq PRN Reason Stop Dose Admin Acetaminophen 650 mg 07/19/20 18:49 07/22/20 23:26 Tylenol PO 650 mg Q4H PRN Administration Headache/Fever/Mild Pain (1-3) Hydrocodone Bitart/Acetaminophen 1 tab 07/19/20 18:49 07/22/20 23:54 [place] 5/325 PO 1 tab Q4H PRN Administration Moderate Pain (4-6) Hydrocodone Bitart/Acetaminophen 2 tab 07/23/20 03:18 07/25/20 06:23 [place] 5/325 PO 2 tab Q4H PRN Administration Severe Pain (7-10) Amiodarone HCl 200 mg 07/20/20 09:00 07/25/20 09:28 Cordarone PO Not Given DAILY ELY Calcium Carbonate 1,000 mg 07/19/20 18:49 07/22/20 21:15 Tums PO 1,000 mg Q4H PRN Administration Heartburn or Indigestion Colestipol HCl 1 gm 07/21/20 22:00 07/25/20 09:28 Colestid PO Not Given BID@1000,2200 ELY Diphenoxylate HCl/Atropine 1 tab 07/22/20 15:00 07/25/20 09:28 Lomotil PO Not Given TID ELY Heparin Sodium (Porcine) 2,100 units 07/21/20 16:27 07/21/20 16:36 Heparin 1,000 Units/Ml (10 Ml) FS 2,100 unit PRN PRN Administration RED HEMOSPLIT PORT Lactated Ringer's 1,000 mls @ 125 mls/hr 07/25/20 09:09 07/25/20 09:27 Lactated Ringer's IV 1,000 mls .Q8H LEY Administration Levothyroxine Sodium 25 mcg 07/20/20 06:00 07/25/20 05:23 Synthroid PO Not Given 0600 [facility] Megestrol Acetate 400 mg 07/20/20 09:00 07/25/20 09:28 Megace PO Not Given DAILY ELY Metoclopramide HCl 10 mg 07/22/20 21:00 07/25/20 09:28 Reglan PO Not Given ACHS ELY Pantoprazole Sodium 40 mg 07/20/20 09:00 07/25/20 09:28 Protonix PO Not Given DAILY ELY Sodium Bicarbonate 650 mg 07/23/20 15:00 07/25/20 09:28 Bicarbonate, Sodium PO Not Given TID [facility] Sodium Chloride 10 ml 07/19/20 21:00 07/25/20 09:28 Flush - Normal Saline IVF Not Given Q12HR ELY - Exam General Appearance: awake alert Eye: anicteric sclera ENT: normocephalic atraumatic, moist mucosa Neck: supple, no JVD Neck - other findings: Right IJ TDC noted Respiratory: no ronchi, no tachypnea Respiratory - other findings: Fair air entry bilaterally with some transmitted breath sound. Cardiovascular: RRR Gastrointestinal: soft, non-distended, normal bowel sounds Gastrointestinal - other findings: Right upper quadrant ileostomy noted Extremities: 1+ LE edema Neurological: CN's grossly intact, no focal deficits PSYCH: normal affect, A&O x 3 Nephrology Results - Labs Result Diagrams: 07/25/20 04:15 07/25/20 04:15 Lab results: WBC 11.9 thou/uL (4.8-10.8) H 07/25/20 04:15 Hgb 9.2 g/dL (12.0-16.0) L 07/25/20 04:15 Hct 30.1 % (36.0-47.0) L 07/25/20 04:15 MCV 95.5 fL (78.0-98.0) 07/25/20 04:15 Plt Count 365 thou/uL (130-400) 07/25/20 04:15 Neutrophils % 64.9 % (42.0-75.0) 07/22/20 05:58 Band Neuts % (Manual) 15 % (5-11) H 07/25/20 04:15 Sodium 136 mmol/L (136-145) 07/25/20 04:15 Potassium 4.4 mmol/L (3.5-5.1) 07/25/20 04:15 Chloride 105 mmol/L (98-107) 07/25/20 04:15 Carbon Dioxide 22 mmol/L (23-31) L 07/25/20 04:15 BUN 40 mg/dL (9.8-20.1) H 07/25/20 04:15 Creatinine 3.14 mg/dL (0.6-1.1) H 07/25/20 04:15 Glucose 75 mg/dL (80-115) L 07/25/20 04:15 Calcium 7.9 mg/dL (7.8-10.44) 07/25/20 04:15 Total Bilirubin 0.2 mg/dL (0.2-1.2) 07/25/20 04:15 AST 8 U/L (5-34) 07/25/20 04:15 ALT 7 U/L (8-55) L 07/25/20 04:15 Alkaline Phosphatase 125 U/L (40-110) H 07/25/20 04:15 CK-MB (CK-2) 2.7 ng/mL (0-6.6) 07/19/20 16:18 Troponin I 0.046 ng/mL (< 0.028) H 07/19/20 16:18 Serum Total Protein 5.2 g/dL (6.0-8.3) L 07/25/20 04:15 Albumin 2.1 g/dL (3.4-4.8) L 07/25/20 04:15 Lipase 92 U/L (8-78) H 07/19/20 16:18 Nephrology AP PN - Plan Acute renal failure: Due to hemodynamic factors related to volume depletion. Prior acute tubular necrosis requiring HD has improved and patient weaned of Hemodialysis with creatinine down to 1.3. On presentation, creat was 6 and now 3.1 Edema: due to aggreesive IVF therapy Severe dehydration. resolved. Nausea and vomiting: Improved with Reglan. Anemia: Due chronic illness, CKD and iron deficiency. status post transfusion Metabolic acidosis. Hypophosphatemia: Off Renvela. Hyperkalemia: Resolved. S/p ileostomy. Due to mesenteric ischemia with septic shock partial colectomy with ileostomy PLAN: Decrease LR to 125 cc/hr. Continue oral alkali therapy Monitor electrolytes and replete as needed Monitor intake and output as well as renal function. Avoid nephrotoxic agents. For revision of ileostomyy today
[2020-07-25] MEDS ORDERED: Lidocaine 1% w/Epinephrine 1:100K 20 ML VIAL ONE (10:42)
[2020-07-25] MEDS ORDERED: Bupivacaine PF 0.5% 30 ML VIAL ONE (10:42)
[2020-07-25] MEDS ORDERED: Fentanyl 100 MCG/2 ML VIAL ONE ×4 (10:57→15:31)
[2020-07-25] MEDS ORDERED: Midazolam HCl 2 mg/2 ml Vial ONE (10:57)
--- NOTE | 2020-07-25 11:41 | PRG ---
DATE OF SERVICE: 07/24/2020 SUBJECTIVE: Kacy Cordon is doing fairly well today. There have been no changes. She has no questions. Plan is for ileostomy reversal, laparotomy, possible central line tomorrow. We will type and cross her for 2 units and recheck her labs in the morning. Temperature 98.4 degrees, pulse 95. IV access currently through her dialysis catheter. We will place a central line in case she needs dialysis catheter in the future. LABORATORY DATA: Creatinine today 3.8, down from 4.38 yesterday; BUN 47. GFR 12. Urine output increasing. ASSESSMENT AND PLAN: Acute renal failure secondary to dehydration secondary to ileostomy. PLAN: Ileostomy reversal tomorrow. She understands risks and benefits and consents. Job ID: [id number]
[2020-07-25] MEDS ORDERED: Meropenem 2 GM in Admixture Fee 1 EACH IVPB SCH (11:45)
[2020-07-25] MEDS ORDERED: Meropenem 2 GM in Sodium Chloride 0.9% 100 ML IVPB SCH (12:00)
[2020-07-25] MEDS ORDERED: SUGAMMADEX SODIUM 200 MG/2 ML VIAL ONE (12:16)
--- NOTE | 2020-07-25 12:39 | PRG ---
DATE OF SERVICE: 07/24/2020 SERVICE: Nephrology. SUBJECTIVE: This is a 70-year-old female, seen in followup for acute kidney injury. Nausea and vomiting have subsided. The patient is tolerating oral intake. Revision of ileostomy is planned for tomorrow. OBJECTIVE: VITAL SIGNS: Temperature 98.4, pulse 95, respiratory rate 16, SpO2 of 99% on room air, and blood pressure 101/65. I and O in the last 24 hours showed total intake of 2460 with output of 950. Urine contributed to 150 and ileostomy 700. This is grossly inconclusive and incomplete. The patient reported voiding several times. GENERAL: Comfortable female, in no distress. Afebrile. Anicteric. Acyanotic. HEENT: Normocephalic, atraumatic. Oral mucosa is moist. CARDIOVASCULAR: Regular rhythm and rate with normal heart sounds 1 and 2. RESPIRATORY: Good air entry bilaterally with no tenderness. ABDOMEN: Bowel sound is normoactive. Right upper quadrant ileostomy noted. EXTREMITIES: Grossly normal looking with no obvious edema or erythema. DANCE HISTORIAN: Conscious, alert, and oriented x3 with appropriate mental status. Cranial nerves 2 through 12 are grossly intact. DIAGNOSTIC DATA: CBC showed WBC count of 18, hemoglobin of 9.2, and platelet of 419. Chemistry showed sodium of 136, potassium of 4.7, chloride of 103, CO2 of 23, BUN of 47, creatinine of 3.80, glucose of 71, calcium of 7.8, phosphorus of 3.3, and albumin of 2.1. ASSESSMENT: 1. Acute kidney injury: Due to hemodynamic factors related to severe dehydration. Creatinine is trending downwards with aggressive IV fluid therapy. 2. Acute tubular necrosis due to septic shock related to mesenteric ischemia: Resolved. 3. Metabolic acidosis, improving with alkali therapy. 4. Hypokalemia, repleted. 5. Hypophosphatemia, repleted. 6. Mesenteric ischemia, status post colon resection and ileostomy. Complicated by high output ileostomy. Surgery is following for planned revision tomorrow. 7. Protein-calorie malnutrition. 8. Acute on chronic anemia: Multifactorial from chronic illness, chronic kidney disease as well as iron deficiency. Status post transfusion. PLAN: We continue aggressive fluid therapy with lactated Ringer's. [place] oral intake advised. We will continue alkali therapy. We will also recheck renal function panel in the morning. The patient is for revision of ileostomy tomorrow. Further treatment to follow depending on hospital course. Job ID: [id number]
[2020-07-25] MEDS ORDERED: Sodium Chloride 0.9% 20 ML ONE (14:07)
[2020-07-25] MEDS ORDERED: Non-Formulary Medication 1 EACH PO PRN (15:26)
[2020-07-25] MEDS ORDERED: Ondansetron HCl/PF 4 MG/2 ML Vial IVP PRN (15:26)
[2020-07-25] MEDS ORDERED: Promethazine HCl 25 MG/ML VIAL IM/IV PRN (15:26)
--- NOTE | 2020-07-25 15:26 | RAD ---
EXAM: CHEST ONE VIEW HISTORY: Central line placement. COMPARISON: 07/19/2020 FINDINGS: Tunneled right-sided hemodialysis catheter remains in place. There has been interval placement of a n asogastric tube, but the tip is incompletely imaged. A left-sided vascular catheter is now noted in place which is coiled overlying the mediastinum with the tip overlying the head of the left clavicle. Cardiac silhouette and pulmonary vasculature are within normal limits. Volume loss is present at each lung base. Slight blunting of the left lateral costophrenic angle is noted which may represent t iny left pleural effusion or atelectasis versus overlying soft tissue density. No other interval change. Metallic clips overlie and epigastric region. IMPRESSION: 1. Interval placement of a left-sided vascular catheter which is coiled overlying the mediastinum wit h tip overlying the left clavicular head. No pneumothorax is seen. 2. Interval placement of nasogastric tube with tip incompletely imaged. 3. Mild volume loss each lung base.
[2020-07-25] MEDS ORDERED: Morphine 2 MG/ML VIAL SLOW IVP PRN (17:32)
[2020-07-25] MEDS: Morphine 4 MG/ML VIAL SLOW IVP PRN ×2 (17:49→20:44)
--- NOTE | 2020-07-25 17:59 | PDOC.HOSPP ---
- Subjective Encounter Date: 07/25/20 Encounter Time: 17:57 Subjective: Patient seen post-op. Doing well, reports pain at surgical site. NG tube in place. She is requesting pain medication and water. Discussed NPO status until return of bowel function. Denies difficulty breathing or chest pain. present at bedside. - Objective Vital Signs & Weight: Vital Signs (12 hours) Temp Pulse Resp BP Pulse Ox 07/25/20 08:30 100 07/25/20 07:43 98.8 F 100 18 103/66 100 Weight Admit Weight 125 lb 6.4 oz Weight 125 lb 6.4 oz I&O: 07/24/20 07/25/20 07/26/20 06:59 06:59 06:59 Intake Total 2460 5720 Output Total 950 2050 Balance 1510 3670 Result Diagrams: 07/25/20 04:15 07/25/20 04:15 Hospitalist ROS - Review of Systems Constitutional: denies: fever, chills Respiratory: denies: cough, shortness of breath Cardiovascular: denies: chest pain, palpitations Gastrointestinal: reports: abdominal pain (at surgical site). denies: nausea, vomiting Skin: denies: rash Neurological: denies: weakness - Medication Medications: Active Medications Generic Name Dose Route Start Last Admin Trade Name Freq PRN Reason Stop Dose Admin Amiodarone HCl 200 mg 07/20/20 09:00 07/25/20 09:28 Cordarone PO Not Given DAILY ELY Calcium Carbonate 1,000 mg 07/19/20 18:49 07/22/20 21:15 Tums PO 1,000 mg Q4H PRN Administration Heartburn or Indigestion Diphenoxylate HCl/Atropine 1 tab 07/22/20 15:00 07/25/20 16:43 Lomotil PO Not Given TID ELY Lactated Ringer's 1,000 mls @ 150 mls/hr 07/25/20 15:03 07/25/20 16:00 Lactated Ringer's IV 1,000 mls .[id number] ELY Administration Levothyroxine Sodium 25 mcg 07/20/20 06:00 07/25/20 05:23 Synthroid PO Not Given 0600 ELY Metoclopramide HCl 10 mg 07/22/20 21:00 07/25/20 17:49 Reglan PO 10 mg ACHS ELY Administration Morphine Sulfate 4 mg 07/25/20 17:32 07/25/20 17:49 Morphine SLOW IVP 4 mg Q2H PRN Administration Severe Pain (7-10) Sodium Bicarbonate 650 mg 07/23/20 15:00 07/25/20 16:43 Bicarbonate, Sodium PO Not Given TID [facility] Sodium Chloride 10 ml 07/19/20 21:00 07/25/20 09:28 Flush - Normal Saline IVF Not Given Q12HR ELY - Exam General Appearance: awake alert (patient is tearful) Eye: PERRL ENT: normocephalic atraumatic, dry oral mucosa (NG tube in place) Heart: RRR, no murmur Respiratory: CTAB, no wheezes Gastrointestinal: soft, non-distended (Tenderness at surgical site. Dressing is clean, dry, intact) Extremities: no cyanosis Neurological: cranial nerve grossly intact Musculoskeletal: normal tone Psychiatric: A&O x 3 (patient is tearful) Hosp A/P (1) Acute renal failure Status: Acute (2) Atrial flutter Code(s): I48.92 - UNSPECIFIED ATRIAL FLUTTER Status: Acute (3) Elevated troponin Code(s): R79.89 - OTHER SPECIFIED ABNORMAL FINDINGS OF BLOOD CHEMISTRY Status : Acute (4) Hyperkalemia Code(s): E87.5 - HYPERKALEMIA Status: Acute (5) Ischemic bowel disease Code(s): K55.9 - VASCULAR DISORDER OF INTESTINE, UNSPECIFIED Status: Acute (6) Atrial fibrillation Code(s): I48.91 - UNSPECIFIED ATRIAL FIBRILLATION Status: Chronic Qualifiers: Atrial fibrillation type: paroxysmal Qualified Code(s): I48.0 - Paroxysmal atrial fibrillation (7) ESRD (end stage renal disease) Code(s): N18.6 - END STAGE RENAL DISEASE Status: Chronic (8) HTN (hypertension) Code(s): I10 - ESSENTIAL (PRIMARY) HYPERTENSION Status: Chronic Qualifiers: (9) Ileostomy present Code(s): Z93.2 - ILEOSTOMY STATUS Status: Chronic - Plan Patient s/p ileostomy reversal today. tolerated procedure well Continue NPO status, NG tube, fluids. Await bowel function return RACHANA improving- creatinine 3.14 today PT/OT onboard Continue home meds- amiodarone, megace, protonix, renvela Received 2 units pRBC 07/22 WBC 11.9 today consider placement to rehab upon discharge. She was home for 4 days after 3 week stay in rehab. Last creatinine was 1.4 on 07/14. Concern if she can manage herself at home
[2020-07-25] MEDS: Gabapentin 300 MG CAP PO SCH (20:45)
[2020-07-25] MEDS: Heparin 5,000 UNITS/ML VIAL SC SCH (20:45)
--- NOTE | 2020-07-25 22:46 | OP ---
DATE OF PROCEDURE: 07/25/2020 PREOPERATIVE DIAGNOSES: Undesired ileostomy, acute kidney injury secondary to high ileostomy output, status post right colectomy, and sepsis for gangrenous right colon. POSTOPERATIVE DIAGNOSES: Undesired ileostomy, acute kidney injury secondary to high ileostomy output, status post right colectomy, and sepsis for gangrenous right colon. PROCEDURES PERFORMED: Exploratory laparotomy, lysis of adhesions, ileostomy takedown, reversal of ileocolonic anastomosis, ileum to the distal transverse colon [id number] stapled, and left IJ central line ultrasound guided. ANESTHESIA: General, TAP block. ESTIMATED BLOOD LOSS: Less than 25 mL. BLOOD TRANSFUSED: None. DESCRIPTION OF PROCEDURE: The patient was taken to the operating room, where in the supine position, Pagan catheter was placed. Abdomen was prepared with Betadine and draped in routine fashion after ileostomy closed with continuous locked suture of 2-0 silk. Incision was made around the ileostomy, dissected from skin and subcutaneous tissue down the fascia, freeing it from the fascia. Midline incision was made, carried down to skin and subcutaneous tissue, centered about the umbilicus, entered the abdominal cavity sharply. Filmy adhesions taken down between the viscera and abdominal wall. Small bowel adhesions taken down, to gain access to the ileostomy. Right lower quadrant ileostomy dissected free, brought into the wound. Peritoneal fascia closed with continuous locking sutures of #1 PDS. Transverse colon dissected free. Omental adhesions taken down enough to free the terminal ileum and distal transverse colon, where a [id number]-[id number] anastomosis created with 2 fires of GREG blue load 75 stapler. Good healthy segments anastomosed. Mesenteric defect closed with 3-0 silk sutures. Omentum approximated the staple line with interrupted sutures of 3-0 silk Lembert. Staple line reinforced with Lembert 3-0 silk. Antitension sutures, seromuscular 3-0 silk placed. Good hemostasis noted. Abdominal cavity irrigated, irrigant evacuated. Hemostasis noted. Gloves and instruments were changed with Seprafilm applied between the viscera and abdominal wall. Midline fascia approximated with continuous suture of #1 PDS. Subcutaneous tissues loosely approximated 3-0 Monocryl. Skin approximated with lex in the midline. The right lower quadrant ileostomy site subcutaneous tissues approximated with 3-0 Monocryl after irrigating the area. Skin approximated with 4-0 Monocryl. Dermabond applied. MARCOS dressing applied. The patient tolerated the procedure well. Neck and chest on the left side were prepared with ChloraPrep and draped in routine fashion. Using ultrasound guidance, a Seldinger technique used to place a left IJ triple-lumen catheter. IV access moved from her hemodialysis catheter, which she has not used in 3 to 4 weeks to the central line. Central line secured with 3-0 silk suture, each port aspirated with blood, flushed with saline solution and connected with IV fluids solution. The patient tolerated the procedure well. Job ID: [id number]
[2020-07-26] MEDS: Morphine 4 MG/ML VIAL SLOW IVP PRN ×2 (00:42→13:21)
[2020-07-26] MEDS: Acetaminophen 500 MG TAB PO PRN ×4 (03:23→22:21)
[2020-07-26] MEDS: Lactated Ringer's 1,000 ML IV SCH (06:27)
[2020-07-26] MEDS: Levothyroxine Sodium 25 MCG TAB PO SCH (06:28)
[2020-07-26] MEDS: Metoclopramide HCl 10 MG TAB PO SCH ×4 (06:36→22:23)
[2020-07-26 07:44] LABS: Hemoglobin 9.9 g/dL (12.0-16.0); Mean Corpuscular Hemoglobin 30.3 pg (27.0-31.0); Mean Corpuscular Volume 97.7 fL (78.0-98.0); Platelet Count 271 thou/uL (130-400); RBC Distribution Width 13.7 % (11.5-14.5); Red Blood Cell (RBC) Count 3.26 mill/uL (4.20-5.40)
[2020-07-26 08:04] LABS: Anion Gap 16 mmol/L (10-20); BUN (Urea Nitrogen) 35 mg/dL (9.8-20.1); BUN/Creatinine Ratio 13.21; Calc. Creatinine Clearance 18 mL/min (70-130); Calcium 7.9 mg/dL (7.8-10.44); Carbon Dioxide 21 mmol/L (23-31); Chloride 106 mmol/L (98-107); Estimated GFR-MDRD 18; Phosphorus 3.4 mg/dL (2.3-4.7); Potassium 4.5 mmol/L (3.5-5.1); Sodium 138 mmol/L (136-145)
[2020-07-26 08:07] LABS: Glucose 52 mg/dL (80-115)
--- NOTE | 2020-07-26 08:26 | PDOC.NEPPN ---
- Subjective Encounter Date: 07/26/20 Encounter Time: 08:24 Subjective: 70 y/o female with acute renal failure seen in follow up. had revision of ileostomy yesterday. patient is confused this morning. [facility] want [facility] and [facility] a physician. No fever or new focal weakness. - Objective Vital Signs & Weight: Vital Signs (12 hours) Temp Pulse Resp BP BP Pulse Ox 07/26/20 07:20 98.7 F 109 H 16 113/63 98 07/26/20 03:30 99.3 F 106 H 22 H 120/77 97 07/26/20 00:44 99.1 F 103 H 22 H 106/69 98 07/25/20 20:53 93 105/72 Weight Admit Weight 125 lb 6.4 oz Weight 125 lb 6.4 oz I&O: 07/25/20 07/26/20 07/27/20 06:59 06:59 06:59 Intake Total 5720 2250 Output Total 2050 925 Balance 3670 1325 Result Diagrams: 07/26/20 07:35 07/26/20 07:35 Nephrology ROS - Medication Medications: Active Medications Generic Name Dose Route Start Last Admin Trade Name Freq PRN Reason Stop Dose Admin Acetaminophen 1,000 mg 07/25/20 17:34 07/26/20 03:23 Tylenol PO 1,000 mg Q6H PRN Administration Moderate to Severe Pain (6-10) Amiodarone HCl 200 mg 07/20/20 09:00 07/25/20 09:28 Cordarone PO Not Given DAILY [facility] Calcium Carbonate 1,000 mg 07/19/20 18:49 07/22/20 21:15 Tums PO 1,000 mg Q4H PRN Administration Heartburn or Indigestion Diphenoxylate HCl/Atropine 1 tab 07/22/20 15:00 07/25/20 20:45 Lomotil PO Not Given TID [facility] Gabapentin 300 mg 07/25/20 21:00 07/25/20 20:45 Neurontin PO Not Given TID [facility] Heparin Sodium (Porcine) 5,000 units 07/25/20 21:00 07/25/20 20:45 Heparin SC Not Given TID [facility] Levothyroxine Sodium 25 mcg 07/20/20 06:00 07/26/20 06:28 Synthroid PO 25 mcg 0600 ELY Administration Metoclopramide HCl 10 mg 07/22/20 21:00 07/26/20 06:36 Reglan PO 10 mg ACHS ELY Administration Morphine Sulfate 4 mg 07/25/20 17:32 07/26/20 00:42 Morphine SLOW IVP 4 mg Q2H PRN Administration Severe Pain (7-10) Sodium Bicarbonate 650 mg 07/23/20 15:00 07/25/20 20:45 Bicarbonate, Sodium PO 650 mg TID ELY Administration Sodium Chloride 10 ml 07/19/20 21:00 07/25/20 20:45 Flush - Normal Saline IVF Not Given Q12HR ELY - Exam General Appearance: awake alert Eye: anicteric sclera ENT: normocephalic atraumatic, dry oral mucosa Neck: supple, symmetric, no JVD Respiratory: normal chest expansion Respiratory - other findings: fair air entry with scattered transmitted Cardiovascular: RRR Gastrointestinal: soft, non-distended Gastrointestinal - other findings: surgical incission with drain noted Extremities: 2+ LE edema Extremities - other findings: edema of the extremities. Neurological: CN's grossly intact, no focal deficits Neurological - other findings: Awake and oriented to self alone. Confused. Musculoskeletal: generalized weakness Nephrology Results - Labs Result Diagrams: 07/26/20 07:35 07/26/20 07:35 Lab results: WBC 7.0 thou/uL (4.8-10.8) 07/26/20 07:35 Hgb 9.9 g/dL (12.0-16.0) L 07/26/20 07:35 Hct 31.8 % (36.0-47.0) L 07/26/20 07:35 MCV 97.7 fL (78.0-98.0) 07/26/20 07:35 Plt Count 271 thou/uL (130-400) 07/26/20 07:35 Neutrophils % 64.9 % (42.0-75.0) 07/22/20 05:58 Band Neuts % (Manual) 15 % (5-11) H 07/25/20 04:15 Sodium 138 mmol/L (136-145) 07/26/20 07:35 Potassium 4.5 mmol/L (3.5-5.1) 07/26/20 07:35 Chloride 106 mmol/L (98-107) 07/26/20 07:35 Carbon Dioxide 21 mmol/L (23-31) L 07/26/20 07:35 BUN 35 mg/dL (9.8-20.1) H 07/26/20 07:35 Creatinine 2.65 mg/dL (0.6-1.1) H 07/26/20 07:35 Glucose 52 mg/dL (80-115) L* 07/26/20 07:35 Calcium 7.9 mg/dL (7.8-10.44) 07/26/20 07:35 Total Bilirubin 0.2 mg/dL (0.2-1.2) 07/25/20 04:15 AST 8 U/L (5-34) 07/25/20 04:15 ALT 7 U/L (8-55) L 07/25/20 04:15 Alkaline Phosphatase 125 U/L (40-110) H 07/25/20 04:15 CK-MB (CK-2) 2.7 ng/mL (0-6.6) 07/19/20 16:18 Troponin I 0.046 ng/mL (< 0.028) H 07/19/20 16:18 Serum Total Protein 5.2 g/dL (6.0-8.3) L 07/25/20 04:15 Albumin 2.0 g/dL (3.4-4.8) L 07/26/20 07:35 Lipase 92 U/L (8-78) H 07/19/20 16:18 Nephrology AP PN - Plan Acute encephalopathy: Most likely due to hypoglycemia. Also received anesthetic yesterday and also recieving narcotic analgesic.. CVA is a concern but there is no overt focal deficit. Presumed acute symptomaticvHypoglycemia: Due to Poor oral intake as patient was NPO prior and post surgery. Acute renal failure: Due to hemodynamic factors related to volume depletion. Prior acute tubular necrosis requiring HD has improved and patient weaned of Hemodialysis with creatinine down to 1.3. Creat continues to trend downwards. Generalized edema: Due to aggressive IVF therapy and hypoglycemia. Severe dehydration. resolved. Due to GI losses due to high output ileostomy and intractable N/V, and poor oral intake Nausea and vomiting: Improved with Reglan. Anemia: Due chronic illness, CKD and iron deficiency. status post transfusion Metabolic acidosis. Hypophosphatemia: Hyperkalemia: Resolved. S/p ileostomy. Due to mesenteric ischemia with septic shock partial colectomy with ileostomy PLAN: Treat symptomatic hypoglycemia with glucose drink and dextrose containing IVF. Also Start oral supplementation in line with current prescribed diet. Start albumin infusion due to edema and hypoalbuminemia Change LR to D5LR and decrease rate to 80 due to edema Continue oral alkali therapy Monitor electrolytes and replete as needed Monitor intake and output as well as renal function. Avoid nephrotoxic agents. Further evaluation and treatment of acute encephalopathy by primary attending.
[2020-07-26] MEDS: Dextrose 5%-Lactated Ringers 1,000 ML IV SCH ×3 (08:34→22:36)
[2020-07-26 10:23] LABS: Hemoglobin A1c 4.7 % (4.0-6.0)
[2020-07-26 10:41] LABS: Neutrophil 81 % (42-75)
[2020-07-26 11:10] LABS: Thyroid Stimulating Hormone 4.5878 uIU/mL (0.35-4.94)
[2020-07-26] MEDS: Sodium Bicarbonate Tab 325 MG TAB PO SCH ×4 (11:23→22:22)
[2020-07-26] MEDS: Pantoprazole 40 MG VIAL IVP SCH (11:23)
[2020-07-26] MEDS: Gabapentin 300 MG CAP PO SCH ×3 (11:28→22:22)
[2020-07-26] MEDS: Amiodarone 200 MG TAB PO SCH (11:29)
[2020-07-26] MEDS: Diphenoxylate HCl/Atropine Tablet PO SCH ×4 (11:29→22:22)
[2020-07-26 11:36] LABS: Vitamin B12 Greater than 2000 pg/mL (211-911)
[2020-07-26] MEDS: Albumin 25% 25 GM/100 ML BOT IVPB SCH ×3 (12:21→22:23)
[2020-07-26 12:35] LABS: Neutrophil 62 % (42-75)
[2020-07-26] MEDS: Heparin 5,000 UNITS/ML VIAL SC SCH ×3 (12:47→22:23)
--- NOTE | 2020-07-26 13:52 | PRG ---
DATE OF SERVICE: 07/26/2020 SUBJECTIVE: Kacy Cordon is doing well today. She is one day status post laparotomy, adhesiolysis, reversal of ileostomy with ileal-distal transverse colon anastomosis. The patient appears in no distress. Temperature 98.5 degrees, heart rate 79, blood pressure 113/74. Pagan left overnight, had 725 mL drainage. This was removed this morning. Gastric drainage was 200 mL postoperatively. Her NG tube was removed. She is started on clear liquids this morning. OBJECTIVE: LUNGS: Clear to auscultation. CARDIAC: Regular rate and rhythm without murmur or gallop. ABDOMEN: Soft. Occasional bowel sounds. MARCOS incisional suction wound device present. We will leave this in place for 4 to 5 days. EXTREMITIES: Unremarkable. LABORATORY DATA: White count 7 and hemoglobin 9.9. Basic metabolic profile essentially unremarkable with improving RACHANA creatinine 2.65, down from 3.14 yesterday. Sodium 138, potassium 4.5, magnesium 1.0. ASSESSMENT AND PLAN: The patient is doing well after ileostomy reversal. We would continue clear liquids today. We would replace magnesium. Increase activity. Rehab consult. Job ID: [id number]
[2020-07-26] MEDS ORDERED: Magnesium Sulfate 3 GM in Sodium Chloride 0.9% 100 ML IVPB SCH (14:00)
[2020-07-26 14:45] LABS: Neutrophil 84 % (42-75)
--- NOTE | 2020-07-26 18:20 | PDOC.HOSPP ---
- Subjective Encounter Date: 07/26/20 Subjective: Called to patient's bedside by nurse for concerns of hypoglycemia and confusion. Blood sugar 52. Patient is alert, oriented to self, not place or date. She appears suspicious and states multiple times that she feels like she is being interrogated by staff. Able to reorient. Denies chest pain, difficulty breathing. Abdominal pain at site of surgical incision. - Objective Vital Signs & Weight: Vital Signs (12 hours) Temp Pulse Resp BP BP Pulse Ox 07/26/20 16:13 98.3 F 100 16 127/74 93 L 07/26/20 11:43 98.5 F 79 18 113/74 98 07/26/20 10:26 121/78 07/26/20 07:20 98.7 F 109 H 16 113/63 98 Weight Admit Weight 125 lb 6.4 oz Weight 125 lb 6.4 oz I&O: 07/25/20 07/26/20 07/27/20 06:59 06:59 06:59 Intake Total 5720 2250 Output Total 2050 925 Balance 3670 1325 Result Diagrams: 07/26/20 07:35 07/26/20 07:35 Additional Labs: Accuchecks 07/26/20 07/26/20 07/26/20 12:42 09:04 08:22 POC Glucose 88 70 58 L* Hospitalist ROS - Review of Systems Constitutional: denies: fever, chills Respiratory: denies: cough, shortness of breath Cardiovascular: denies: chest pain, palpitations Gastrointestinal: reports: abdominal pain. denies: nausea, vomiting Genitourinary: denies: dysuria - Medication Medications: Active Medications Generic Name Dose Route Start Last Admin Trade Name Freq PRN Reason Stop Dose Admin Acetaminophen 1,000 mg 07/25/20 17:34 07/26/20 12:51 Tylenol PO 1,000 mg Q6H PRN Administration Moderate to Severe Pain (6-10) Albumin Human 25 gm 07/26/20 09:00 07/26/20 17:58 Albumin 25% IVPB 07/27/20 03:01 25 gm Q6H ELY Administration Amiodarone HCl 200 mg 07/20/20 09:00 07/26/20 11:29 Cordarone PO 200 mg DAILY ELY Administration Calcium Carbonate 1,000 mg 07/19/20 18:49 07/22/20 21:15 Tums PO 1,000 mg Q4H PRN Administration Heartburn or Indigestion Diphenoxylate HCl/Atropine 1 tab 07/22/20 15:00 07/26/20 11:29 Lomotil PO 1 tab TID ELY Administration Gabapentin 300 mg 07/25/20 21:00 07/26/20 17:53 Neurontin PO Not Given TID ELY Heparin Sodium (Porcine) 5,000 units 07/25/20 21:00 07/26/20 17:54 Heparin SC 5,000 units TID ELY Administration Dextrose/Lactated Ringer's 1,000 mls @ 80 mls/hr 07/26/20 08:30 07/26/20 08: 34 D5 Lr IV 1,000 mls .[id number] ELY Administration Levothyroxine Sodium 25 mcg 07/20/20 06:00 07/26/20 06:28 Synthroid PO 25 mcg 0600 ELY Administration Metoclopramide HCl 10 mg 07/22/20 21:00 07/26/20 17:54 Reglan PO 10 mg ACHS ELY Administration Morphine Sulfate 4 mg 07/25/20 17:32 07/26/20 13:21 Morphine SLOW IVP 4 mg Q2H PRN Administration Severe Pain (7-10) Pantoprazole Sodium 40 mg 07/26/20 09:00 07/26/20 11:23 Protonix IVP 40 mg DAILY ELY Administration Sodium Bicarbonate 650 mg 07/23/20 15:00 07/26/20 17:54 Bicarbonate, Sodium PO 650 mg TID ELY Administration Sodium Chloride 10 ml 07/19/20 21:00 07/26/20 13:24 Flush - Normal Saline IVF 10 ml Q12HR ELY Administration - Exam General Appearance: NAD, awake alert (oriented to self) Eye: PERRL ENT: normocephalic atraumatic Neck: supple Heart: RRR, no murmur Respiratory: CTAB, no wheezes Gastrointestinal: soft, non-distended (TTP at surgical site) Extremities: no cyanosis Neurological: cranial nerve grossly intact, normal sensation to touch, no focal deficits Musculoskeletal: normal tone Psychiatric: oriented to person (appears suspicious, confused to location and date. Does not recall having surgery yesterday) Hosp A/P (1) Acute renal failure Status: Acute (2) Atrial flutter Code(s): I48.92 - UNSPECIFIED ATRIAL FLUTTER Status: Acute (3) Elevated troponin Code(s): R79.89 - OTHER SPECIFIED ABNORMAL FINDINGS OF BLOOD CHEMISTRY Status : Acute (4) Hyperkalemia Code(s): E87.5 - HYPERKALEMIA Status: Acute (5) Ischemic bowel disease Code(s): K55.9 - VASCULAR DISORDER OF INTESTINE, UNSPECIFIED Status: Acute (6) Atrial fibrillation Code(s): I48.91 - UNSPECIFIED ATRIAL FIBRILLATION Status: Chronic Qualifiers: Atrial fibrillation type: paroxysmal Qualified Code(s): I48.0 - Paroxysmal atrial fibrillation (7) ESRD (end stage renal disease) Code(s): N18.6 - END STAGE RENAL DISEASE Status: Chronic (8) HTN (hypertension) Code(s): I10 - ESSENTIAL (PRIMARY) HYPERTENSION Status: Chronic Qualifiers: (9) Ileostomy present Code(s): Z93.2 - ILEOSTOMY STATUS Status: Chronic - Plan POD#1 ileostomy reversal Clear liquid diet and fluids. Await bowel function return RACHANA improving- creatinine 2.65 today PT/OT onboard Continue home meds- amiodarone, megace, protonix, renvela Received 2 units pRBC 07/22 WBC 7.0 today consider placement to rehab upon discharge. She was home for 4 days after 3 week stay in rehab. Last creatinine was 1.4 on 07/14. Concern if she can manage herself at home. Patient and her have poor insight to overall functional status. Will rediscuss placement
[2020-07-27 01:04] LABS: Bilirubin Negative (Negative); Blood, Urine 2+ (Negative); Clarity Turbid (Clear); Glucose, Urine (Dipstick) Normal (Negative); Ketone, Urine Negative (Negative); Leukocyte 500 Leu/uL (Negative); Nitrite Negative (Negative); Protein, Urine (Dipstick) 50 mg/dL (Neg-Trace); Specific Gravity, Urine 1.015 (1.002-1.036); Transitional Epithelial 0-3 HPF (None Seen); WBC/HPF Greater than 50 HPF (0-3); pH, Urine 6.5 (5.0-9.0)
[2020-07-27 01:08] LABS: Bacteria/HPF 1+ HPF (None Seen); Urine Culture Reflex No No
[2020-07-27] MEDS: Albumin 25% 25 GM/100 ML BOT IVPB SCH (02:11)
[2020-07-27] MEDS: Levothyroxine Sodium 25 MCG TAB PO SCH (06:20)
[2020-07-27 06:36] LABS: Albumin 2.9 g/dL (3.4-4.8); Anion Gap 14 mmol/L (10-20); BUN (Urea Nitrogen) 32 mg/dL (9.8-20.1); Calc. Creatinine Clearance 19 mL/min (70-130); Calcium 7.9 mg/dL (7.8-10.44); Carbon Dioxide 23 mmol/L (23-31); Chloride 109 mmol/L (98-107); Estimated GFR-MDRD 19; Glucose 110 mg/dL (80-115); Magnesium 1.8 mg/dL (1.6-2.6); Phosphorus 2.9 mg/dL (2.3-4.7); Potassium 3.9 mmol/L (3.5-5.1); Sodium 142 mmol/L (136-145)
[2020-07-27] MEDS: Heparin 5,000 UNITS/ML VIAL SC SCH ×3 (08:55→19:58)
[2020-07-27] MEDS: Pantoprazole 40 MG VIAL IVP SCH (08:57)
[2020-07-27] MEDS: Sodium Bicarbonate Tab 325 MG TAB PO SCH ×3 (09:11→19:58)
[2020-07-27] MEDS: Amiodarone 200 MG TAB PO SCH (09:11)
[2020-07-27] MEDS: Metoclopramide HCl 10 MG TAB PO SCH ×4 (09:11→19:59)
[2020-07-27] MEDS: Gabapentin 300 MG CAP PO SCH ×3 (09:11→19:58)
[2020-07-27] MEDS: Diphenoxylate HCl/Atropine Tablet PO SCH ×3 (09:19→19:59)
[2020-07-27 09:49] LABS: Hemoglobin 7.7 g/dL (12.0-16.0); Mean Corpuscular HGB CONC 31.2 g/dL (32.0-36.0); Mean Corpuscular Hemoglobin 30.4 pg (27.0-31.0); Mean Corpuscular Volume 97.7 fL (78.0-98.0); Mean Platelet Volume 7.6 fL (7.4-10.4); Platelet Count 158 thou/uL (130-400); RBC Distribution Width 13.5 % (11.5-14.5); Red Blood Cell (RBC) Count 2.52 mill/uL (4.20-5.40); White Blood Cell (WBC) Count 8.9 thou/uL (4.8-10.8)
[2020-07-27 10:34] LABS: Band 17 % (5-11); Lymphocytes 6 % (21-51); MDiff Complete? YES; Monocytes 5 % (0-10); Neutrophil 72 % (42-75); Platelet Morphology Comment Appears Adequate; Polychromasia SLIGHT = 2-3 cells (100X) (0-2/hpf)
[2020-07-27] MEDS ORDERED: Furosemide 20 MG/2 ML VIAL SLOW IVP SCH (10:45)
--- NOTE | 2020-07-27 11:13 | PDOC.NEPPN ---
- Subjective Encounter Date: 07/27/20 Subjective: Seen in follow up for RACHANA. Spouse reported excessive sleepiness. Tolerating oral intake but intake is suboptimal. day 2 post revision of ileostomy - Objective Vital Signs & Weight: Vital Signs (12 hours) Temp Pulse Resp BP BP Pulse Ox 07/27/20 07:28 99.0 F 105 H 16 123/77 92 L 07/27/20 00:06 98.2 F 98 16 122/76 96 Weight Admit Weight 125 lb 6.4 oz Weight 125 lb 6.4 oz I&O: 07/26/20 07/27/20 07/28/20 06:59 06:59 06:59 Intake Total 2250 Output Total 925 0 Balance 1325 0 Result Diagrams: 07/27/20 04:10 07/27/20 03:30 Additional Labs: Accuchecks 07/27/20 07/27/20 07/27/20 11:06 09:13 05:40 POC Glucose 130 H 111 H 102 H 07/27/20 07/26/20 07/26/20 00:13 21:21 19:43 POC Glucose 105 H 101 H 98 07/26/20 12:42 POC Glucose 88 Nephrology ROS - Medication Medications: Active Medications Generic Name Dose Route Start Last Admin Trade Name Freq PRN Reason Stop Dose Admin Acetaminophen 1,000 mg 07/25/20 17:34 07/26/20 22:21 Tylenol PO 1,000 mg Q6H PRN Administration Moderate to Severe Pain (6-10) Amiodarone HCl 200 mg 07/20/20 09:00 07/26/20 11:29 Cordarone PO 200 mg DAILY ELY Administration Calcium Carbonate 1,000 mg 07/19/20 18:49 07/22/20 21:15 Tums PO 1,000 mg Q4H PRN Administration Heartburn or Indigestion Diphenoxylate HCl/Atropine 1 tab 07/22/20 15:00 07/26/20 22:22 Lomotil PO 1 tab TID ELY Administration Gabapentin 300 mg 07/25/20 21:00 07/26/20 22:22 Neurontin PO 300 mg TID ELY Administration Heparin Sodium (Porcine) 5,000 units 07/25/20 21:00 07/26/20 22:23 Heparin SC 5,000 units TID ELY Administration Levothyroxine Sodium 25 mcg 07/20/20 06:00 07/26/20 06:28 Synthroid PO 25 mcg 0600 ELY Administration Metoclopramide HCl 10 mg 07/22/20 21:00 07/26/20 22:23 Reglan PO 10 mg ACHS ELY Administration Morphine Sulfate 4 mg 07/25/20 17:32 07/26/20 13:21 Morphine SLOW IVP 4 mg Q2H PRN Administration Severe Pain (7-10) Pantoprazole Sodium 40 mg 07/26/20 09:00 07/26/20 11:23 Protonix IVP 40 mg DAILY ELY Administration Sodium Bicarbonate 650 mg 07/23/20 15:00 07/26/20 22:22 Bicarbonate, Sodium PO 650 mg TID ELY Administration Sodium Chloride 10 ml 07/19/20 21:00 07/26/20 22:24 Flush - Normal Saline IVF Not Given Q12HR ELY - Exam General - other findings: awake but drowsy ENT: normocephalic atraumatic, dry oral mucosa Neck: supple Respiratory - other findings: fair air entry with few bibasal crackles Cardiovascular: RRR Gastrointestinal: soft, non-distended, normal bowel sounds Gastrointestinal - other findings: midline surgical incision with incision drain noted. Extremities - other findings: mild to moderate edema of the extremities noted Neurological: CN's grossly intact Neurological - other findings: drowsy Musculoskeletal: generalized weakness PSYCH: A&O x 3 Nephrology Results - Labs Result Diagrams: 07/27/20 04:10 07/27/20 03:30 Lab results: WBC 8.9 thou/uL (4.8-10.8) 07/27/20 04:10 Hgb 7.7 g/dL (12.0-16.0) L 07/27/20 04:10 Hct 24.6 % (36.0-47.0) L 07/27/20 04:10 MCV 97.7 fL (78.0-98.0) 07/27/20 04:10 Plt Count 158 thou/uL (130-400) 07/27/20 04:10 Neutrophils % 64.9 % (42.0-75.0) 07/22/20 05:58 Band Neuts % (Manual) 17 % (5-11) H 07/27/20 04:10 Sodium 142 mmol/L (136-145) 07/27/20 03:30 Potassium 3.9 mmol/L (3.5-5.1) 07/27/20 03:30 Chloride 109 mmol/L (98-107) H 07/27/20 03:30 Carbon Dioxide 23 mmol/L (23-31) 07/27/20 03:30 BUN 32 mg/dL (9.8-20.1) H 07/27/20 03:30 Creatinine 2.54 mg/dL (0.6-1.1) H 07/27/20 03:30 Glucose 110 mg/dL (80-115) 07/27/20 03:30 Calcium 7.9 mg/dL (7.8-10.44) 07/27/20 03:30 Total Bilirubin 0.2 mg/dL (0.2-1.2) 07/25/20 04:15 AST 8 U/L (5-34) 07/25/20 04:15 ALT 7 U/L (8-55) L 07/25/20 04:15 Alkaline Phosphatase 125 U/L (40-110) H 07/25/20 04:15 Ammonia 19 umol/L (18-72) 07/26/20 09:58 CK-MB (CK-2) 2.7 ng/mL (0-6.6) 07/19/20 16:18 Troponin I 0.046 ng/mL (< 0.028) H 07/19/20 16:18 Serum Total Protein 5.2 g/dL (6.0-8.3) L 07/25/20 04:15 Albumin 2.9 g/dL (3.4-4.8) L 07/27/20 03:30 Lipase 92 U/L (8-78) H 07/19/20 16:18 Urine Ketones Negative mg/dL (Negative) 07/27/20 00:31 Urine Blood 2+ (Negative) A 07/27/20 00:31 Urine Nitrite Negative (Negative) 07/27/20 00:31 Ur Leukocyte Esterase 500 Calos/uL (Negative) A 07/27/20 00:31 Urine RBC 11-20 HPF (0-3) A 07/27/20 00:31 Urine WBC Greater than 50 HPF (0-3) A 07/27/20 00:31 Ur Squamous Epith Cells 7-10 HPF (0-3) A 07/27/20 00:31 Urine Bacteria 1+ HPF (None Seen) A 07/27/20 00:31 Nephrology AP PN - Plan Acute renal failure: Due to hemodynamic factors related to volume depletion. Creat continues to trend downwards. Prior acute tubular necrosis requiring HD has improved and patient weaned of Hemodialysis with creatinine down to 1.3. Generalized edema: Due to aggressive IVF therapy and hypoglycemia. Severe dehydration. resolved. Due to GI losses due to high output ileostomy and intractable N/V, and poor oral intake Nausea and vomiting: Improved with Reglan. Anemia: Due chronic illness, CKD and iron deficiency. status post transfusion. Acute drop in Hb is due to correction of hemoconcentration with albumin infusion. Metabolic acidosis. Hypophosphatemia: Hyperkalemia: Resolved. Acute encephalopathy: Most likely due to hypoglycemia and or medications. Improved. Oriented x3 today but drowsy. Presumed acute symptomatic Hypoglycemia: resolved S/p ileostomy. Due to mesenteric ischemia with septic shock partial colectomy with ileostomy physical deconditioning. PLAN: Give a dose of lasix Decrease d5LR to 40 cc/hr Continue oral alkali therapy Monitor electrolytes and replete as needed Monitor intake and output as well as renal function. Avoid nephrotoxic agents.
[2020-07-27] MEDS: Dextrose 5%-Lactated Ringers 1,000 ML IV SCH ×2 (11:56)
--- NOTE | 2020-07-27 13:08 | PDOC.HOSPP ---
- Subjective Encounter Date: 07/27/20 Subjective: Patient reports doing well. Alert and oriented x3. Denies chest pain or difficulty breathing. Tolerating diet. - Objective Vital Signs & Weight: Vital Signs (12 hours) Temp Pulse Resp BP Pulse Ox 07/27/20 10:54 98.4 F 106 H 16 141/80 H 96 07/27/20 07:28 99.0 F 105 H 16 123/77 92 L Weight Admit Weight 125 lb 6.4 oz Weight 125 lb 6.4 oz I&O: 07/26/20 07/27/20 07/28/20 06:59 06:59 06:59 Intake Total 2250 Output Total 925 0 Balance 1325 0 Result Diagrams: 07/27/20 04:10 07/27/20 03:30 Additional Labs: Accuchecks 07/27/20 07/27/20 07/27/20 11:06 09:13 05:40 POC Glucose 130 H 111 H 102 H 07/27/20 07/26/20 07/26/20 00:13 21:21 19:43 POC Glucose 105 H 101 H 98 07/26/20 12:42 POC Glucose 88 Hospitalist ROS - Review of Systems Constitutional: denies: fever, chills Respiratory: denies: cough, shortness of breath Cardiovascular: denies: chest pain, palpitations Gastrointestinal: reports: abdominal pain (at surgical site). denies: nausea, vomiting Genitourinary: denies: dysuria Neurological: denies: weakness - Medication Medications: Active Medications Generic Name Dose Route Start Last Admin Trade Name Freq PRN Reason Stop Dose Admin Acetaminophen 1,000 mg 07/25/20 17:34 07/26/20 22:21 Tylenol PO 1,000 mg Q6H PRN Administration Moderate to Severe Pain (6-10) Amiodarone HCl 200 mg 07/20/20 09:00 07/27/20 09:11 Cordarone PO 200 mg DAILY ELY Administration Calcium Carbonate 1,000 mg 07/19/20 18:49 07/22/20 21:15 Tums PO 1,000 mg Q4H PRN Administration Heartburn or Indigestion Diphenoxylate HCl/Atropine 1 tab 07/22/20 15:00 07/27/20 09:19 Lomotil PO 1 tab TID ELY Administration Gabapentin 300 mg 07/25/20 21:00 07/27/20 09:11 Neurontin PO 300 mg TID ELY Administration Heparin Sodium (Porcine) 5,000 units 07/25/20 21:00 07/27/20 08:55 Heparin SC 5,000 units TID ELY Administration Dextrose/Lactated Ringer's 1,000 mls @ 40 mls/hr 07/27/20 10:39 07/27/20 11:56 D5 Lr IV 1,000 mls .Q24H ELY Administration Levothyroxine Sodium 25 mcg 07/20/20 06:00 07/27/20 06:20 Synthroid PO Not Given 0600 ELY Metoclopramide HCl 10 mg 07/22/20 21:00 07/27/20 12:57 Reglan PO 10 mg ACHS ELY Administration Morphine Sulfate 4 mg 07/25/20 17:32 07/26/20 13:21 Morphine SLOW IVP 4 mg Q2H PRN Administration Severe Pain (7-10) Pantoprazole Sodium 40 mg 07/26/20 09:00 07/27/20 08:57 Protonix IVP 40 mg DAILY ELY Administration Sodium Bicarbonate 650 mg 07/23/20 15:00 07/27/20 09:11 Bicarbonate, Sodium PO 650 mg TID ELY Administration Sodium Chloride 10 ml 07/19/20 21:00 07/27/20 08:59 Flush - Normal Saline IVF 10 ml Q12HR ELY Administration - Exam General Appearance: NAD, awake alert ENT: normocephalic atraumatic Neck: supple Heart: RRR, no murmur Respiratory: CTAB, no wheezes Gastrointestinal: soft (TTP at surgical site. No erythema), non-distended Extremities: no cyanosis, 1+ LE edema Neurological: cranial nerve grossly intact Psychiatric: A&O x 3 Hosp A/P (1) Acute renal failure Status: Acute (2) Atrial flutter Code(s): I48.92 - UNSPECIFIED ATRIAL FLUTTER Status: Acute (3) Elevated troponin Code(s): R79.89 - OTHER SPECIFIED ABNORMAL FINDINGS OF BLOOD CHEMISTRY Status: Acute (4) Hyperkalemia Code(s): E87.5 - HYPERKALEMIA Status: Acute (5) Ischemic bowel disease Code(s): K55.9 - VASCULAR DISORDER OF INTESTINE, UNSPECIFIED Status: Acute (6) Atrial fibrillation Code(s): I48.91 - UNSPECIFIED ATRIAL FIBRILLATION Status: Chronic Qualifiers: Atrial fibrillation type: paroxysmal Qualified Code(s): I48.0 - Paroxysmal atrial fibrillation (7) ESRD (end stage renal disease) Code(s): N18.6 - END STAGE RENAL DISEASE Status: Chronic (8) HTN (hypertension) Code(s): I10 - ESSENTIAL (PRIMARY) HYPERTENSION Status: Chronic Qualifiers: (9) Ileostomy present Code(s): Z93.2 - ILEOSTOMY STATUS Status: Chronic - Plan POD#2 ileostomy reversal Tolerating full liquid diet and iv fluids. Await bowel function return RACHANA improving- creatinine 2.54 today PT/OT onboard Continue home meds- amiodarone, megace, protonix, renvela Received 2 units pRBC 07/22 Discussed with patient and - they are both agreeable to evaluation for p lacement upon discharge
--- NOTE | 2020-07-27 13:29 | PRG ---
DATE OF SERVICE: 07/27/2020 SUBJECTIVE: Kacy Cordon is doing well today. She has not passed any stool or flatus, however, she is tolerating her liquids well. She is urinating in bed bennett. Pagan catheter has been removed. OBJECTIVE: VITAL SIGNS: Temperature 98.4 degrees, pulse 106, respirations 16, blood pressure 141/80. LUNGS: Clear to auscultation. CARDIAC: Regular rate and rhythm without murmur or gallop. ABDOMEN: Soft. Bowel sounds of normal character. MARCOS wound suction device intact. Abdomen is nontender. EXTREMITIES: Unremarkable. LABORATORY DATA: White count 8, hemoglobin 7.7. Basic metabolic profile normal with BUN 32, and creatinine 2.54, improved. Her urine output has been good in the last 24 hours when she has a Pagan. She is urinating spontaneously now. ASSESSMENT AND PLAN: 1. Acute kidney injury, improving daily. Continue hydration. IV fluids have been decreased to 40 per hour per Nephrology. 2. Status post ileostomy reversal. She seems to be doing well. We would advance her to a full liquid diet. 3. Deconditioning. The patient should go to a rehab or assisted living most likely. We will await piano case maker and Rehab evaluation. Job ID: [id number]
[2020-07-27 18:46] LABS: Band 13 % (5-11); Eosinophils 1 % (0-10); Hemoglobin 9.3 g/dL (12.0-16.0); Hypochromia SLIGHT = 6-15 cells (100X) (0-5/hpf); Lymphocytes 17 % (21-51); MDiff Complete? YES; Mean Corpuscular HGB CONC 30.9 g/dL (32.0-36.0); Mean Corpuscular Hemoglobin 29.9 pg (27.0-31.0); Mean Corpuscular Volume 96.9 fL (78.0-98.0); Mean Platelet Volume 8.1 fL (7.4-10.4); Monocytes 1 % (0-10); Neutrophil 68 % (42-75); Platelet Count 146 thou/uL (130-400); Platelet Morphology Comment Appears Adequate; Polychromasia SLIGHT = 2-3 cells (100X) (0-2/hpf); RBC Distribution Width 13.7 % (11.5-14.5); White Blood Cell (WBC) Count 12.8 thou/uL (4.8-10.8)
[2020-07-27] MEDS: Acetaminophen 500 MG TAB PO PRN (23:53)
[2020-07-28] MEDS: Levothyroxine Sodium 25 MCG TAB PO SCH (05:30)
[2020-07-28 06:12] LABS: Hemoglobin 8.4 g/dL (12.0-16.0); Mean Corpuscular Hemoglobin 30.2 pg (27.0-31.0); Mean Corpuscular Volume 97.5 fL (78.0-98.0); Mean Platelet Volume 8.7 fL (7.4-10.4); Platelet Count 119 thou/uL (130-400); Platelet Morphology Comment Appears Decreased; RBC Distribution Width 13.8 % (11.5-14.5); Red Blood Cell (RBC) Count 2.79 mill/uL (4.20-5.40); White Blood Cell (WBC) Count 11.2 thou/uL (4.8-10.8)
[2020-07-28 06:19] LABS: Albumin 2.3 g/dL (3.4-4.8); Anion Gap 15 mmol/L (10-20); BUN (Urea Nitrogen) 33 mg/dL (9.8-20.1); BUN/Creatinine Ratio 14.29; Calc. Creatinine Clearance 21 mL/min (70-130); Calcium 7.6 mg/dL (7.8-10.44); Carbon Dioxide 21 mmol/L (23-31); Chloride 111 mmol/L (98-107); Estimated GFR-MDRD 21; Glucose 99 mg/dL (80-115); Magnesium 1.6 mg/dL (1.6-2.6); Phosphorus 2.1 mg/dL (2.3-4.7); Potassium 3.5 mmol/L (3.5-5.1); Sodium 143 mmol/L (136-145)
[2020-07-28] MEDS ORDERED: Magnesium 2 GM/50 ML 2 GM in Premix Bag 1 BAG IVPB SCH (07:45)
[2020-07-28] MEDS: Pantoprazole 40 MG VIAL IVP SCH (10:38)
[2020-07-28] MEDS: Gabapentin 300 MG CAP PO SCH ×3 (10:38→21:49)
[2020-07-28] MEDS: Sodium Bicarbonate Tab 325 MG TAB PO SCH ×3 (10:38→21:48)
[2020-07-28] MEDS: Heparin 5,000 UNITS/ML VIAL SC SCH ×3 (10:38→21:49)
[2020-07-28] MEDS: Amiodarone 200 MG TAB PO SCH (10:39)
[2020-07-28] MEDS: Metoclopramide HCl 10 MG TAB PO SCH ×4 (10:39→21:49)
[2020-07-28] MEDS: Diphenoxylate HCl/Atropine Tablet PO SCH ×3 (10:39→21:49)
[2020-07-28] MEDS: Dextrose 5%-Lactated Ringers 1,000 ML IV SCH (10:39)
--- NOTE | 2020-07-28 11:36 | PDOC.NEPPN ---
- Subjective Encounter Date: 07/28/20 Subjective: Seen in nfollow up for RACHANA. Oral intake is increasing. Still with edema. No nausea or vomiting. - Objective Vital Signs & Weight: Vital Signs (12 hours) Temp Pulse Resp BP Pulse Ox 07/28/20 07:18 98.5 F 93 18 126/76 97 07/28/20 04:04 98.2 F 96 16 124/73 97 07/27/20 23:48 99.0 F 101 H 16 139/63 95 Weight Admit Weight 125 lb 6.4 oz Weight 125 lb 6.4 oz I&O: 07/27/20 07/28/20 07/29/20 06:59 06:59 06:59 Intake Total 2059 Output Total 0 Balance 0 2059 Result Diagrams: 07/28/20 05:18 07/28/20 05:18 Additional Labs: Accuchecks 07/28/20 07/28/20 07/28/20 11:10 07:29 04:13 POC Glucose 101 H 101 H 105 H 07/27/20 07/27/20 23:59 15:33 POC Glucose 108 H 109 H Nephrology ROS - Medication Medications: Active Medications Generic Name Dose Route Start Last Admin Trade Name Freq PRN Reason Stop Dose Admin Acetaminophen 1,000 mg 07/25/20 17:34 07/27/20 23:53 Tylenol PO 1,000 mg Q6H PRN Administration Moderate to Severe Pain (6-10) Amiodarone HCl 200 mg 07/20/20 09:00 07/28/20 10:39 Cordarone PO 200 mg DAILY ELY Administration Calcium Carbonate 1,000 mg 07/19/20 18:49 07/22/20 21:15 Tums PO 1,000 mg Q4H PRN Administration Heartburn or Indigestion Diphenoxylate HCl/Atropine 1 tab 07/22/20 15:00 07/28/20 10:39 Lomotil PO 1 tab TID ELY Administration Gabapentin 300 mg 07/25/20 21:00 07/28/20 10:38 Neurontin PO 300 mg TID ELY Administration Heparin Sodium (Porcine) 5,000 units 07/25/20 21:00 07/28/20 10:38 Heparin SC 5,000 units TID ELY Administration Dextrose/Lactated Ringer's 1,000 mls @ 40 mls/hr 07/27/20 10:39 07/28/20 10:39 D5 Lr IV 1,000 mls .Q24H ELY Administration Levothyroxine Sodium 25 mcg 07/20/20 06:00 07/28/20 05:30 Synthroid PO Not Given 0600 ELY Metoclopramide HCl 10 mg 07/22/20 21:00 07/28/20 10:39 Reglan PO 10 mg ACHS ELY Administration Morphine Sulfate 4 mg 07/25/20 17:32 07/26/20 13:21 Morphine SLOW IVP 4 mg Q2H PRN Administration Severe Pain (7-10) Pantoprazole Sodium 40 mg 07/26/20 09:00 07/28/20 10:38 Protonix IVP 40 mg DAILY ELY Administration Sodium Bicarbonate 650 mg 07/23/20 15:00 07/28/20 10:38 Bicarbonate, Sodium PO 650 mg TID ELY Administration Sodium Chloride 10 ml 07/19/20 21:00 07/28/20 10:39 Flush - Normal Saline IVF 10 ml Q12HR ELY Administration - Exam General Appearance: awake alert Eye: anicteric sclera ENT: normocephalic atraumatic Neck: supple, no JVD Respiratory - other findings: fair air entry with some transmitted sound Cardiovascular: irregular Gastrointestinal: soft, non-distended, normal bowel sounds Extremities - other findings: mild to moderate edema of the extremities noted Neurological: CN's grossly intact Musculoskeletal: generalized weakness PSYCH: A&O x 3 Nephrology Results - Labs Result Diagrams: 07/28/20 05:18 07/28/20 05:18 Lab results: WBC 11.2 thou/uL (4.8-10.8) H 07/28/20 05:18 Hgb 8.4 g/dL (12.0-16.0) L 07/28/20 05:18 Hct 27.2 % (36.0-47.0) L 07/28/20 05:18 MCV 97.5 fL (78.0-98.0) 07/28/20 05:18 Plt Count 119 thou/uL (130-400) L 07/28/20 05:18 Neutrophils % 64.9 % (42.0-75.0) 07/22/20 05:58 Band Neuts % (Manual) 13 % (5-11) H 07/27/20 18:03 Sodium 143 mmol/L (136-145) 07/28/20 05:18 Potassium 3.5 mmol/L (3.5-5.1) 07/28/20 05:18 Chloride 111 mmol/L (98-107) H 07/28/20 05:18 Carbon Dioxide 21 mmol/L (23-31) L 07/28/20 05:18 BUN 33 mg/dL (9.8-20.1) H 07/28/20 05:18 Creatinine 2.31 mg/dL (0.6-1.1) H 07/28/20 05:18 Glucose 99 mg/dL (80-115) 07/28/20 05:18 Calcium 7.6 mg/dL (7.8-10.44) L 07/28/20 05:18 Total Bilirubin 0.2 mg/dL (0.2-1.2) 07/25/20 04:15 AST 8 U/L (5-34) 07/25/20 04:15 ALT 7 U/L (8-55) L 07/25/20 04:15 Alkaline Phosphatase 125 U/L (40-110) H 07/25/20 04:15 Ammonia 19 umol/L (18-72) 07/26/20 09:58 CK-MB (CK-2) 2.7 ng/mL (0-6.6) 07/19/20 16:18 Troponin I 0.046 ng/mL (< 0.028) H 07/19/20 16:18 Serum Total Protein 5.2 g/dL (6.0-8.3) L 07/25/20 04:15 Albumin 2.3 g/dL (3.4-4.8) L 07/28/20 05:18 Lipase 92 U/L (8-78) H 07/19/20 16:18 Urine Ketones Negative mg/dL (Negative) 07/27/20 00:31 Urine Blood 2+ (Negative) A 07/27/20 00:31 Urine Nitrite Negative (Negative) 07/27/20 00:31 Ur Leukocyte Esterase 500 Calos/uL (Negative) A 07/27/20 00:31 Urine RBC 11-20 HPF (0-3) A 07/27/20 00:31 Urine WBC Greater than 50 HPF (0-3) A 07/27/20 00:31 Ur Squamous Epith Cells 7-10 HPF (0-3) A 07/27/20 00:31 Urine Bacteria 1+ HPF (None Seen) A 07/27/20 00:31 Nephrology AP PN - Plan Acute renal failure: Due to hemodynamic factors related to volume depletion. Creat continues to trend downwards. Prior acute tubular necrosis requiring HD has improved and patient weaned of Hemodialysis with creatinine down to 1.3. Generalized edema: Due to aggressive IVF therapy and hypoalbuminemia. Severe dehydration. resolved. Due to GI losses due to high output ileostomy and intractable N/V, and poor oral intake Nausea and vomiting: Improved with Reglan. Anemia: Due chronic illness, CKD and iron deficiency. status post transfusion. Metabolic acidosis. Hypophosphatemia: Hypomagnesemia Hyperkalemia: Resolved. Acute encephalopathy: Most likely due to hypoglycemia and or medications. Improved. Oriented x3 today but drowsy. Presumed acute symptomatic Hypoglycemia: resolved S/p ileostomy. Due to mesenteric ischemia with septic shock partial colectomy with ileostomy physical deconditioning. Paroxysmal atrial fibrillation. PLAN: replete serum magnesium Continue gentle IVFtherapy as well as alkali therapy Will plan on discontinuing IVF if oral intake continue to improve and become optimal Monitor intake and output as well as renal function. Avoid nephrotoxic agents.
[2020-07-28] MEDS ORDERED: Lidocaine 1% w/Epinephrine 1:100K 20 ML VIAL ONE (13:51)
[2020-07-28] MEDS ORDERED: traMADol HCl 50 MG TAB PO PRN (16:42)
--- NOTE | 2020-07-28 17:25 | PRG ---
DATE OF SERVICE: 07/28/2020 SUBJECTIVE: Kacy Cordon is doing well today. She is tolerating her diet. She is having bowel movements. She does not have any nausea or vomiting. LABORATORY DATA: This morning, her white count is 11, hemoglobin 8.4, relatively stable. Her basic metabolic profile; sodium 143, potassium 3.5, chloride 111, carbon dioxide 21, BUN is 33 today, creatinine 2.31, down from 2.54 yesterday. Her urine output is good. Accu-Cheks are good. OBJECTIVE: LUNGS: Clear to auscultation. CARDIAC: Regular rate and rhythm without murmur or gallop. ABDOMEN: Soft. Bowel sounds present. Nondistended and nontender. Her PiCCO incisional suction device is removed. Her wound is intact. There are no signs of wound problems. There are no fistulas. No infection. ASSESSMENT AND RECOMMENDATIONS: At this point, the patient can shower and bathe washing her wound with soap and water and patting it dry. I have left communications orders in the hospital chart and also on the discharge plan to have the lex removed on August 02Saturday. Apply Mastisol and half-inch Steri-Strips. She can leave the wound open and shower and bathe beginning now, patting the staple line dry after washing with soap and water in the bath or shower next week. She has a right IJ hemodialysis catheter, which has not been used for dialysis in many several weeks. Her kidneys have recovered. We will remove that today. She has left IJ central line that can be removed prior to discharge. At this point, I would recommend the patient is stable for transfer to the rehab unit at any time. Dr. Schwab is covering for the next few days. The patient should follow up in my office in 2 to 3 weeks. Job ID: [id number]
--- NOTE | 2020-07-28 18:25 | PDOC.HOSPP ---
- Subjective Encounter Date: 07/28/20 Subjective: Patient is resting comfortably in bed. Tolerating diet and having bowel movements. She denies chest pain, abdominal pain - Objective Vital Signs & Weight: Vital Signs (12 hours) Temp Pulse Resp BP Pulse Ox 07/28/20 15:51 98.4 F 102 H 18 180/92 H 96 07/28/20 11:00 98.4 F 105 H 18 114/56 L 95 07/28/20 07:18 98.5 F 93 18 126/76 97 Weight Admit Weight 125 lb 6.4 oz Weight 125 lb 6.4 oz I&O: 07/27/20 07/28/20 07/29/20 06:59 06:59 06:59 Intake Total 2059 118 Output Total 0 Balance 0 2059 1180 Result Diagrams: 07/28/20 05:18 07/28/20 05:18 Additional Labs: Accuchecks 07/28/20 07/28/20 07/28/20 11:10 07:29 04:13 POC Glucose 101 H 101 H 105 H 07/27/20 23:59 POC Glucose 108 H Hospitalist ROS - Review of Systems Constitutional: denies: fever, chills Respiratory: denies: cough, shortness of breath Cardiovascular: denies: chest pain, palpitations, light headedness Gastrointestinal: reports: abdominal pain (at surgical site). denies: nausea, vomiting - Medication Medications: Active Medications Generic Name Dose Route Start Last Admin Trade Name Freq PRN Reason Stop Dose Admin Acetaminophen 1,000 mg 07/25/20 17:34 07/27/20 23:53 Tylenol PO 1,000 mg Q6H PRN Administration Moderate to Severe Pain (6-10) Amiodarone HCl 200 mg 07/20/20 09:00 07/28/20 10:39 Cordarone PO 200 mg DAILY ELY Administration Calcium Carbonate 1,000 mg 07/19/20 18:49 07/22/20 21:15 Tums PO 1,000 mg Q4H PRN Administration Heartburn or Indigestion Diphenoxylate HCl/Atropine 1 tab 07/22/20 15:00 07/28/20 15:59 Lomotil PO 1 tab TID ELY Administration Gabapentin 300 mg 07/25/20 21:00 07/28/20 16:00 Neurontin PO 300 mg TID ELY Administration Heparin Sodium (Porcine) 5,000 units 07/25/20 21:00 07/28/20 16:00 Heparin SC 5,000 units TID ELY Administration Dextrose/Lactated Ringer's 1,000 mls @ 40 mls/hr 07/27/20 10:39 07/28/20 10:39 D5 Lr IV 1,000 mls .Q24H ELY Administration Levothyroxine Sodium 25 mcg 07/20/20 06:00 07/28/20 05:30 Synthroid PO Not Given 0600 ELY Metoclopramide HCl 10 mg 07/22/20 21:00 07/28/20 16:00 Reglan PO 10 mg ACHS ELY Administration Sodium Bicarbonate 650 mg 07/23/20 15:00 07/28/20 15:59 Bicarbonate, Sodium PO 650 mg TID ELY Administration Sodium Chloride 10 ml 07/19/20 21:00 07/28/20 10:39 Flush - Normal Saline IVF 10 ml Q12HR ELY Administration - Exam General Appearance: NAD, awake alert ENT: normocephalic atraumatic Heart: RRR, no murmur Respiratory: CTAB Gastrointestinal: soft (surgical site well healing, no drainage or discharge noted from site) Extremities: no cyanosis Neurological: cranial nerve grossly intact, normal sensation to touch Musculoskeletal: normal tone Psychiatric: normal affect, normal behavior, A&O x 3 Hosp A/P (1) Acute renal failure Status: Acute (2) Atrial flutter Code(s): I48.92 - UNSPECIFIED ATRIAL FLUTTER Status: Acute (3) Elevated troponin Code(s): R79.89 - OTHER SPECIFIED ABNORMAL FINDINGS OF BLOOD CHEMISTRY Status: Acute (4) Hyperkalemia Code(s): E87.5 - HYPERKALEMIA Status: Acute (5) Ischemic bowel disease Code(s): K55.9 - VASCULAR DISORDER OF INTESTINE, UNSPECIFIED Status: Acute (6) Atrial fibrillation Code(s): I48.91 - UNSPECIFIED ATRIAL FIBRILLATION Status: Chronic Qualifiers: Atrial fibrillation type: paroxysmal Qualified Code(s): I48.0 - Paroxysmal atrial fibrillation (7) ESRD (end stage renal disease) Code(s): N18.6 - END STAGE RENAL DISEASE Status: Chronic (8) HTN (hypertension) Code(s): I10 - ESSENTIAL (PRIMARY) HYPERTENSION Status: Chronic Qualifiers: (9) Ileostomy present Code(s): Z93.2 - ILEOSTOMY STATUS Status: Chronic - Plan POD#3 ileostomy reversal Tolerating full liquid diet and iv fluids. Having bowel movements RACHANA improving- creatinine 2.31 today PT/OT onboard Continue home meds- amiodarone, megace, protonix, renvela H/h stable Awaiting placement to rehab facility
--- NOTE | 2020-07-28 22:47 | OP ---
DATE OF PROCEDURE: 07/28/2020 PREOPERATIVE DIAGNOSIS: History of renal failure secondary to septic shock 3 months ago with hemodialysis catheter. She suffered acute kidney injury relative to high ileostomy output, but has not had dialysis in 4 weeks. POSTOPERATIVE DIAGNOSIS: History of renal failure secondary to septic shock 3 months ago with hemodialysis catheter. She suffered acute kidney injury relative to high ileostomy output, but has not had dialysis in 4 weeks. PROCEDURE PERFORMED: Removal of right internal jugular cuffed tunneled hemodialysis catheter. ANESTHESIA: 1% Xylocaine with epinephrine. DESCRIPTION OF PROCEDURE: With the patient at bedside, the exit site of the catheter was prepped with alcohol. Sutures removed. Local anesthetic was infiltrated in the skin and subcutaneous tissue about the operative site. Catheter and cuff removed intact. Pressure held to be hemostatic. The patient tolerated the procedure well. Job ID: [id number]
[2020-07-29 05:17] LABS: Hemoglobin 8.5 g/dL (12.0-16.0); Mean Corpuscular HGB CONC 30.4 g/dL (32.0-36.0); Mean Corpuscular Hemoglobin 29.5 pg (27.0-31.0); Mean Corpuscular Volume 96.9 fL (78.0-98.0); Mean Platelet Volume 8.9 fL (7.4-10.4); Platelet Count 103 thou/uL (130-400); RBC Distribution Width 13.7 % (11.5-14.5); Red Blood Cell (RBC) Count 2.89 mill/uL (4.20-5.40); White Blood Cell (WBC) Count 9.5 thou/uL (4.8-10.8)
[2020-07-29 05:21] LABS: Albumin 2.1 g/dL (3.4-4.8); Anion Gap 14 mmol/L (10-20); BUN (Urea Nitrogen) 34 mg/dL (9.8-20.1); BUN/Creatinine Ratio 17.09; Calc. Creatinine Clearance 24 mL/min (70-130); Calcium 7.8 mg/dL (7.8-10.44); Carbon Dioxide 22 mmol/L (23-31); Chloride 112 mmol/L (98-107); Estimated GFR-MDRD 25; Glucose 96 mg/dL (80-115); Magnesium 2.1 mg/dL (1.6-2.6); Phosphorus 2.1 mg/dL (2.3-4.7); Potassium 3.3 mmol/L (3.5-5.1); Sodium 145 mmol/L (136-145)
[2020-07-29] MEDS ORDERED: Potassium Phosphate 30 MMOL in Sodium Chloride 0.9% 500 ML IVPB SCH (06:30)
[2020-07-29] MEDS: Levothyroxine Sodium 25 MCG TAB PO SCH (07:27)
[2020-07-29] MEDS ORDERED: Potassium Phosphate 30 MMOL in Sodium Chloride 0.9% 250 ML 250 ML IVPB SCH (07:45)
[2020-07-29] MEDS: Gabapentin 300 MG CAP PO SCH ×2 (08:38→15:03)
[2020-07-29] MEDS: Sodium Bicarbonate Tab 325 MG TAB PO SCH ×2 (08:38→15:03)
[2020-07-29] MEDS: Metoclopramide HCl 10 MG TAB PO SCH ×2 (08:38→11:07)
[2020-07-29] MEDS: Diphenoxylate HCl/Atropine Tablet PO SCH (08:38)
[2020-07-29] MEDS: Heparin 5,000 UNITS/ML VIAL SC SCH ×2 (08:38→15:03)
[2020-07-29] MEDS: Amiodarone 200 MG TAB PO SCH (08:38)
[2020-07-29] MEDS ORDERED: Acetaminophen/Codeine 30-300mg Tablet PO PRN (11:19)
--- NOTE | 2020-07-29 12:35 | PDOC.NEPPN ---
- Subjective Encounter Date: 07/29/20 Subjective: Sen in follow up for RACHANA on CKD. Feeling better oral intake has improved. No nausea or vomiting. Having loose BMs. Still weak generally.Edema persists. - Objective Vital Signs & Weight: Vital Signs (12 hours) Temp Pulse Resp BP BP Pulse Ox 07/29/20 11:17 98.9 F 102 H 18 148/90 H 148/90 H 96 07/29/20 08:38 97 07/29/20 07:23 98.6 F 97 16 125/78 97 07/29/20 04:29 98.6 F 94 17 112/71 98 Weight Admit Weight 125 lb 6.4 oz Weight 125 lb 6.4 oz I&O: 07/28/20 07/29/20 07/30/20 06:59 06:59 06:59 Intake Total 2059 1809 Balance 2059 1809 Result Diagrams: 07/29/20 04:30 07/29/20 03:30 Additional Labs: Accuchecks 07/29/20 07/29/20 07/28/20 11:47 04:40 23:10 POC Glucose 94 76 91 07/28/20 20:26 POC Glucose 112 H Nephrology ROS - Medication Medications: Active Medications Generic Name Dose Route Start Last Admin Trade Name Freq PRN Reason Stop Dose Admin Acetaminophen 1,000 mg 07/25/20 17:34 07/27/20 23:53 Acetaminophen 500 Mg Tab PO 1,000 mg Q6H PRN Administration Mild Pain (1-3) Acetaminophen/Codeine Phosphate 1 tab 07/29/20 11:19 07/29/20 11:23 Acetaminophen/Codeine 30-300mg Tablet PO 1 tab Q4H PRN Administration Severe Pain (7-10) Amiodarone HCl 200 mg 07/20/20 09:00 07/29/20 08:38 Cordarone PO 200 mg DAILY ELY Administration Calcium Carbonate 1,000 mg 07/19/20 18:49 07/22/20 21:15 Tums PO 1,000 mg Q4H PRN Administration Heartburn or Indigestion Diphenoxylate HCl/Atropine 1 tab 07/22/20 15:00 07/29/20 08:38 Lomotil PO 1 tab TID ELY Administration Gabapentin 300 mg 07/25/20 21:00 07/29/20 08:38 Neurontin PO 300 mg TID ELY Administration Heparin Sodium (Porcine) 5,000 units 07/25/20 21:00 07/29/20 08:38 Heparin SC 5,000 units TID ELY Administration Dextrose/Lactated Ringer's 1,000 mls @ 40 mls/hr 07/27/20 10:39 07/28/20 1 0:39 D5 Lr IV 1,000 mls .Q24H ELY Administration Levothyroxine Sodium 25 mcg 07/20/20 06:00 07/29/20 07:27 Synthroid PO Not Given 0600 ELY Metoclopramide HCl 10 mg 07/22/20 21:00 07/29/20 11:07 Reglan PO 10 mg ACHS ELY Administration Pantoprazole Sodium 40 mg 07/29/20 09:00 07/29/20 08:38 Pantoprazole 40 Mg Tab PO 40 mg DAILY ELY Administration Sodium Bicarbonate 650 mg 07/23/20 15:00 07/29/20 08:38 Bicarbonate, Sodium PO 650 mg TID ELY Administration Sodium Chloride 10 ml 07/19/20 21:00 07/28/20 21:57 Flush - Normal Saline IVF 10 ml Q12HR ELY Administration - Exam General Appearance: awake alert Eye: anicteric sclera ENT: normocephalic atraumatic, moist mucosa Neck: supple Neck - other findings: Left IJ TLC Respiratory - other findings: Fair air entry bilaterally with some transmitted sound. No distress. Cardiovascular: RRR Gastrointestinal: soft, non-distended, normal bowel sounds Gastrointestinal - other findings: mid line surgical incision with clips and appropriate abdominal tenderness Extremities - other findings: Edema of the extremities noted Neurological: CN's grossly intact Musculoskeletal: generalized weakness PSYCH: A&O x 3 Nephrology Results - Labs Result Diagrams: 07/29/20 04:30 07/29/20 03:30 Lab results: WBC 9.5 thou/uL (4.8-10.8) 07/29/20 04:30 Hgb 8.5 g/dL (12.0-16.0) L 07/29/20 04:30 Hct 28.1 % (36.0-47.0) L 07/29/20 04:30 MCV 96.9 fL (78.0-98.0) 07/29/20 04:30 Plt Count 103 thou/uL (130-400) L 07/29/20 04:30 Neutrophils % 64.9 % (42.0-75.0) 07/22/20 05:58 Band Neuts % (Manual) 13 % (5-11) H 07/27/20 18:03 Sodium 145 mmol/L (136-145) 07/29/20 03:30 Potassium 3.3 mmol/L (3.5-5.1) L 07/29/20 03:30 Chloride 112 mmol/L (98-107) H 07/29/20 03:30 Carbon Dioxide 22 mmol/L (23-31) L 07/29/20 03:30 BUN 34 mg/dL (9.8-20.1) H 07/29/20 03:30 Creatinine 1.99 mg/dL (0.6-1.1) H 07/29/20 03:30 Glucose 96 mg/dL (80-115) 07/29/20 03:30 Calcium 7.8 mg/dL (7.8-10.44) 07/29/20 03:30 Total Bilirubin 0.2 mg/dL (0.2-1.2) 07/25/20 04:15 AST 8 U/L (5-34) 07/25/20 04:15 ALT 7 U/L (8-55) L 07/25/20 04:15 Alkaline Phosphatase 125 U/L (40-110) H 07/25/20 04:15 Ammonia 19 umol/L (18-72) 07/26/20 09:58 CK-MB (CK-2) 2.7 ng/mL (0-6.6) 07/19/20 16:18 Troponin I 0.046 ng/mL (< 0.028) H 07/19/20 16:18 Serum Total Protein 5.2 g/dL (6.0-8.3) L 07/25/20 04:15 Albumin 2.1 g/dL (3.4-4.8) L 07/29/20 03:30 Lipase 92 U/L (8-78) H 07/19/20 16:18 Urine Ketones Negative mg/dL (Negative) 07/27/20 00:31 Urine Blood 2+ (Negative) A 07/27/20 00:31 Urine Nitrite Negative (Negative) 07/27/20 00:31 Ur Leukocyte Esterase 500 Calos/uL (Negative) A 07/27/20 00:31 Urine RBC 11-20 HPF (0-3) A 07/27/20 00:31 Urine WBC Greater than 50 HPF (0-3) A 07/27/20 00:31 Ur Squamous Epith Cells 7-10 HPF (0-3) A 07/27/20 00:31 Urine Bacteria 1+ HPF (None Seen) A 07/27/20 00:31 Nephrology AP PN - Plan Acute renal failure: Due to hemodynamic factors related to volume depletion. Creat continues to trend downwards. Prior acute tubular necrosis requiring HD has improved and patient weaned of Hemodialysis with creatinine down to 1.3. Generalized edema: Due to aggressive IVF therapy and hypoalbuminemia. Severe dehydration. resolved. Due to GI losses due to high output ileostomy and intractable N/V, and poor oral intake Nausea and vomiting: Improved with Reglan. Anemia: Due chronic illness, CKD and iron deficiency. status post transfusion. Metabolic acidosis. Hypophosphatemia: Hypomagnesemia Hyperkalemia: Resolved. Hypokalemia Acute encephalopathy: Most likely due to hypoglycemia and or medications. Improved. Oriented x3 today but drowsy. Presumed acute symptomatic Hypoglycemia: resolved S/p ileostomy. Due to mesenteric ischemia with septic shock partial colectomy with ileostomy physical deconditioning. Paroxysmal atrial fibrillation. PLAN: DC IVF. Replete serum phosphate and potassium with potassium phosphate. liberal oral intake advised Monitor intake and output as well as renal function. Avoid nephrotoxic agents. Increase activity
[2020-07-29] MEDS: Dextrose 5%-Lactated Ringers 1,000 ML IV SCH (14:35)
[2020-07-29 15:59] VITALS: BP 102/68; TEMP 98.4
== END 2020-07-29 19:00 | DRG 329 ==
LOC: ERS 15:46 → 2NO 18:33 → T4-A 07-22 12:01 → SURG B 07-25 16:25
PROVIDERS: ADMIT Internal Medicine; ATTEND Internal Medicine
PROC: 5A1D70Z Performance of Urinary Filtration, Intermittent, Less than 6 Hours Per Day (ICD-10-PCS; 2020-07-20)
PROC: 30233N1 Transfusion of Nonautologous Red Blood Cells into Peripheral Vein, Percutaneous Approach (ICD-10-PCS; 2020-07-22)
PROC: 0DBB0ZZ Excision of Ileum, Open Approach (ICD-10-PCS; principal; 2020-07-25)
PROC: 02HV33Z Insertion of Infusion Device into Superior Vena Cava, Percutaneous Approach (ICD-10-PCS; 2020-07-25)
PROC: B548ZZA Ultrasonography of Superior Vena Cava, Guidance (ICD-10-PCS; 2020-07-25)
PROC: 0JPV3XZ Removal of Tunneled Vascular Access Device from Upper Extremity Subcutaneous Tissue and Fascia, Percutaneous Approach (ICD-10-PCS; 2020-07-28)
DX: K94.19 Other complications of enterostomy (principal); N18.6 End stage renal disease; N17.9 Acute kidney failure, unspecified; I12.0 Hypertensive chronic kidney disease with stage 5 chronic kidney disease or end stage renal disease; E87.2 Acidosis; E44.0 Moderate protein-calorie malnutrition; Z68.1 Body mass index [BMI] 19.9 or less, adult; K55.9 Vascular disorder of intestine, unspecified; I48.92 Unspecified atrial flutter; G93.40 Encephalopathy, unspecified; Z20.828 Contact with and (suspected) exposure to other viral communicable diseases; E78.5 Hyperlipidemia, unspecified; I48.0 Paroxysmal atrial fibrillation; E86.9 Volume depletion, unspecified; E83.42 Hypomagnesemia; E83.39 Other disorders of phosphorus metabolism; E86.0 Dehydration; Y83.8 Other surgical procedures as the cause of abnormal reaction of the patient, or of later complication, without mention of misadventure at the time of the procedure; F03.90 Unspecified dementia, unspecified severity, without behavioral disturbance, psychotic disturbance, mood disturbance, and anxiety; D63.1 Anemia in chronic kidney disease; K21.9 Gastro-esophageal reflux disease without esophagitis; E87.5 Hyperkalemia; E03.9 Hypothyroidism, unspecified; E16.2 Hypoglycemia, unspecified; Z99.2 Dependence on renal dialysis; Z90.710 Acquired absence of both cervix and uterus; Z79.890 Hormone replacement therapy; Z79.01 Long term (current) use of anticoagulants; Z79.899 Other long term (current) drug therapy
CPT/HCPCS: 36415; 36416; 36430; 71045; 80053; 80069; 81001; 82140; 82553; 82607; 82728; 82746; 83036; 83540; 83550; 83690; 83735; 84443; 84484; 85025; 85027; 86850; 86900; 86901; 87635; 88304; 93005; 96361; 96365; 96375; C9113; J0670; J1200; J1642; J1644; J1940; J2250; J2270; J2704; J2765; J3010; J3475; J3490; J7050; J7070; P9016; P9047; S0020; U0003